=== PATIENT | female | born 1970 | race Caucasian/White ===

== ENCOUNTER 2018-06-08 18:13 | Emergency (ER) | payer OTHER ==
--- NOTE | 2018-06-08 19:16 | RAD REPORT ---
EXAM DESCRIPTION: RAD - Chest Pa And Lat (2 Views) - 06/08/2018 7:08 pm CLINICAL HISTORY: cough, fever Chest pain. COMPARISON: No comparisons FINDINGS: Mild linear opacities are seen in the lingula, suspicious for developing pneumonia. The kanu ngs are otherwise clear. The heart is normal in size. No displaced fractures. IMPRESSION: Early developing lingular pneumonia is suspected.
--- NOTE | 2018-06-08 19:44 | EDPHYS ---
Physician Documentation [facility] Name: Jessie Burleson Age: 48 yrs Sex: Female : 1970 Arrival Date: 06/08/2018 Time: 18:18 Bed DIS1 Private MD: KAREN HOGAN ED Physician Demetrio Hill HPI: 06/08 18:47 This 48 yrs old Female presents to ER via Ambulatory with complaints of Flu jmm Symptoms. 18:47 The patient or guardian reports cough. Onset: The symptoms/episode began/occurred jmm gradually, 2 day(s) ago. Modifying factors: The symptoms are alleviated by nothing. the symptoms are aggravated by nothing. Associated signs and symptoms: Pertinent positives: sore throat, Pertinent negatives:. This is a 48 year old female with a history of HTN that presents to the ED with cough, congestion, sore throat beginning this past Wednesday. Family members have similar symptoms. . Historical: - Allergies: 18:43 No Known Allergies; ph - PMHx: 18:43 Hepatitis; Hypertension; ph - PSHx: 18:43 Tonsillectomy; ; ph - Immunization history:: Adult Immunizations up to date. - Social history:: Smoking status: Patient/guardian denies using tobacco. - Ebola Screening: : No symptoms or risks identified at this time. ROS: 18:47 Eyes: Negative for injury, pain, redness, and discharge. jmm 18:47 Neck: Negative for injury, pain, and swelling, Cardiovascular: Negative for chest pain, palpitations, and edema. 18:47 Constitutional: Positive for chills. 18:47 ENT: Positive for sore throat. 18:47 Respiratory: Positive for cough. 18:47 All other systems are negative. Exam: 18:47 Constitutional: This is a well developed, well nourished patient who is awake, alert, jmm and in no acute distress. Head/Face: atraumatic. Eyes: EOMI, no conjunctival erythema appreciated ENT: Moist Mucus Membranes Neck: Trachea midline, Supple Chest/axilla: Normal chest wall appearance and motion. 18:47 Cardiovascular: Rate: normal, Rhythm: regular. 18:47 Respiratory: the patient does not display signs of respiratory distress, Respirations: normal, Breath sounds: are clear throughout. 18:47 Abdomen/GI: Inspection: abdomen appears normal, Bowel sounds: normal, Palpation: soft, nontender, in all quadrants. 18:47 Back: ROM is normal. 18:47 Musculoskeletal/extremity: ROM: intact in all extremities. 18:47 Skin: Appearance: Color: normal in color. 18:47 Neuro: Orientation: is normal, Mentation: is normal, Memory: is normal. 18:47 Psych: Behavior/mood is pleasant, cooperative. Vital Signs: 18:41 BP 142 / 95; Pulse 94; Resp 18; Temp 98.9(O); Pulse Ox 98% on R/A; Weight 90.72 kg; ph Height 5 ft. 7 in. (170.18 cm); Pain 10/10; 18:41 Body Mass Index 31.32 (90.72 kg, 170.18 cm) ph MDM: 18:43 Patient medically screened. [facility] 19:42 Data reviewed: vital signs, nurses notes. Counseling: I had a detailed discussion with [facility] the patient and/or guardian regarding: the historical points, exam findings, and any diagnostic results supporting the discharge/admit diagnosis, lab results, radiology results, the need for outpatient follow up, to return to the emergency department if symptoms worsen or persist or if there are any questions or concerns that arise at home. ED course: Patient is alert and non toxic in appearance in the ED. Patient advised to follow up with PCP in 1 to 2 days for reevaluation. Patient has no signs of resp distress. Patient given strict return precautions. . 06/08 18:44 Order name: Influenza Screen (a \T\ B); Complete Time: 19:28 [facility] 06/08 18:44 Order name: Strep; Complete Time: 19:28 [facility] 06/08 18:44 Order name: Chest Pa And Lat (2 Views) XRAY; Complete Time: 19:21 [facility] 06/08 19:25 Order name: Throat Culture EDMS Administered Medications: No medications were administered Disposition: 06/09 07:40 Co-signature as Attending Physician, Demetrio Hill MD I agree with the assessment and kdr plan of care. Disposition: 06/08/18 19:43 Discharged to Home. Impression: Pneumonia. - Condition is Stable. - Discharge Instructions: Community-Acquired Pneumonia, Adult. - Prescriptions for Levaquin 750 mg Oral Tablet - take 1 tablet by ORAL route once daily for 10 days; 10 tablet. - Medication Reconciliation Form, Thank You Letter, Antibiotic Education, Prescription Opioid Use form. - Follow up: KAREN HOGAN; When: 1 - 2 days; Reason: Recheck today's complaints, Continuance of care, Re-evaluation by your physician. Signatures: Dispatcher [employer] EDMS Demetrio Hill MD MD kdr Mickail, Joel, PA PA jmm Attema, Lee, RN RN la1 Rashmi Hercules RN RN ph Corrections: (The following items were deleted from the chart) 06/08 19:57 19:43 06/08/2018 19:43 Discharged to Home. Impression: Pneumonia. Condition is Stable. la1 Forms are Medication Reconciliation Form, Thank You Letter, Antibiotic Education, Prescription Opioid Use. Follow up: KAREN HOGAN; When: 1 - 2 days; Reason: Recheck today's complaints, Continuance of care, Re-evaluation by your physician. gayla
--- NOTE | 2018-06-08 19:44 | ER ---
Nurse's Notes [facility] Name: Jessie Burleson Age: 48 yrs Sex: Female : 1970 Arrival Date: 06/08/2018 Time: 18:18 Bed DIS1 Private MD: KAREN HOGAN Diagnosis: Pneumonia Presentation: 06/08 18:38 Presenting complaint: Patient states: Cough, sore throat, sore ribs, chills and body ph aches x 2-3 days, denies N/V/D. Transition of care: patient was not received from another setting of care. Onset of symptoms was June 08, 2018. Risk Assessment: Do you want to hurt yourself or someone else? Patient reports no desire to harm self or others. Initial Sepsis Screen: Does the patient meet any 2 criteria? No. Patient's initial sepsis screen is negative. Does the patient have a suspected source of infection? No. Patient's initial sepsis screen is negative. Care prior to arrival: None. 18:38 Method Of Arrival: Ambulatory ph 18:38 Acuity: ANGÉLICA 4 ph Historical: - Allergies: 18:43 No Known Allergies; ph - PMHx: 18:43 Hepatitis; Hypertension; ph - PSHx: 18:43 Tonsillectomy; ; ph - Immunization history:: Adult Immunizations up to date. - Social history:: Smoking status: Patient/guardian denies using tobacco. - Ebola Screening: : No symptoms or risks identified at this time. Screenin:56 Abuse screen: Denies threats or abuse. Nutritional screening: No deficits noted. la1 Tuberculosis screening: No symptoms or risk factors identified. Fall Risk None identified. Assessment: 18:55 General: Appears in no apparent distress. Behavior is calm, cooperative. Pain: Denies la1 pain. Neuro: Level of Consciousness is awake, alert, obeys commands, Oriented to person, place, time, situation. Cardiovascular: Capillary refill < 3 seconds Patient's skin is warm and dry. Respiratory: Airway is patent Trachea midline Respiratory effort is even, unlabored, Respiratory pattern is regular, symmetrical, Breath sounds are clear bilaterally. Respiratory: Reports cough that is non-productive, persistent. GI: No signs and/or symptoms were reported involving the gastrointestinal system. : No signs and/or symptoms were reported regarding the genitourinary system. Vital Signs: 18:41 BP 142 / 95; Pulse 94; Resp 18; Temp 98.9(O); Pulse Ox 98% on R/A; Weight 90.72 kg; ph Height 5 ft. 7 in. (170.18 cm); Pain 10/10; 18:41 Body Mass Index 31.32 (90.72 kg, 170.18 cm) ph ED Course: 18:18 Patient arrived in ED. sb2 18:19 KAREN HOGAN is Private Physician. sb2 18:23 Juan Burns PA is PHCP. jmm 18:23 Demetrio Hill MD is Attending Physician. m 18:33 Howie Townsend, RN is Primary Nurse. la1 18:41 Triage completed. ph 18:43 Arm band placed on. ph 18:56 Call light in reach. la1 18:56 No provider procedures requiring assistance completed. Patient did not have IV access la1 during this emergency room visit. 19:08 Chest Pa And Lat (2 Views) XRAY In Process Unspecified. EDMS 19:43 KAREN HOGAN is Referral Physician. [facility] Administered Medications: No medications were administered Outcome: 19:43 Discharge ordered by MD. m 19:57 Discharged to home ambulatory. la1 19:57 Condition: stable 19:57 Discharge instructions given to patient, Instructed on discharge instructions, follow up and referral plans. medication usage, Demonstrated understanding of instructions, follow-up care, medications, Prescriptions given X 1. 19:57 Patient left the ED. la1 Signatures: Dispatcher [employer] EDMS Juan Burns PA PA Howie Dee, RN RN la1 Rashmi Hercules RN RN Angela Patricio sb2
--- OUTSIDE RECORDS SUMMARY | 2018-06-10 16:31 | XMS REPORT ---
:1970 [facility] Address [address] [place] [address] Care Team Providers Name Role Phone DR MARYELLEN HAWKINS Unavailable Unavailable Problems This patient has no known problems. Allergies, Adverse Reactions, Alerts This patient has no known allergies or adverse reactions. Medications This patient has no known medications. Encounters Start End Encounter Admission Attending Care Care Encounter Date/Time Date/Time Type Type Clinicians Facility Department ID 2018-03-04 2018-03-04 Outpatient Nanci HAWKINS [facility] [id number] 03:56:00 05:45:00 MARYELLEN 2017-11-05 2017-11-05 Outpatient Nanci HAWKINS [facility] [id number] 04:10:00 07:30:00 MARYELLEN 2017-09-10 2017-09-10 Outpatient Nanci HAWKINS [facility] [id number] 04:29:00 06:32:00 MARYELLEN Results Test Description Test Time Test Comments Text Results Atomic Results Result Comments URINE MONOCLONALFB 2018-03-04 04:58:00 Test Item Value Reference Range Comments PREG UR (test code=PGU) NEGATIVE NEGATIVE URINE MONOCLONALFB2017-11-05 05:47:00 Test Item Value Reference Range Comments PREG UR (test code=PGU) NEGATIVE NEGATIVE URINE MONOCLONALFB2017-09-10 04:51:00 Test Item Value Reference Range Comments PREG UR (test code=PGU) NEGATIVE NEGATIVE URINE MONOCLONALFB2017-09-10 04:50:00 Test Item Value Reference Range Comments PREG UR (test code=PGU) NEGATIVE NEGATIVE
== END 2018-06-08 19:57 | disposition home or self-care (01) ==
LOC: ER 18:13
DX: J18.9 Pneumonia, unspecified organism (principal); I10 Essential (primary) hypertension
CPT/HCPCS: 71046; 87070; 87081; 87804; 99283

== ENCOUNTER 2019-03-12 05:07 | Emergency (ER) | payer OTHER ==
--- OUTSIDE RECORDS SUMMARY | 2019-03-12 05:09 | XMS REPORT ---
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
--- OUTSIDE RECORDS SUMMARY | 2019-03-12 05:09 | XMS REPORT ---
:1970 [facility] Address [address] [place] [address] Care Team Providers Name Role Phone DR MARYELLEN HAWKINS Unavailable Unavailable Payers Payer Name Policy Type Policy Number Effective Date Expiration Date Problems This patient has no known problems. Allergies, Adverse Reactions, Alerts Allergy Allergy Status Severity Reaction(s) Onset Inactive Treating Comments Name Type Date Date Clinician No Known DA Active U 2018-07 Allergies 00:00:0 0 Medications This patient has no known medications. Encounters Start End Encounter Admission Attending Care Care Encounter Date/Time Date/Time Type Type Clinicians Facility Department ID 2018-03-04 2018-03-04 Outpatient Nanci HAWKINS [facility] [id number] 03:56:00 05:45:00 MARYELLEN 2017-11-05 2017-11-05 Outpatient Nanci HAWKINS [facility] [id number] 04:10:00 07:30:00 MARYELLEN 2017-09-10 2017-09-10 Outpatient Nanci HAWKINS [facility] [id number] 04:29:00 06:32:00 MARYELLEN Results Test Description Test [...]
--- OUTSIDE RECORDS SUMMARY | 2019-03-12 05:09 | XMS REPORT ---
:1970 Author Organization [employer] Care Team Providers Name Role Phone Oralia Mohan Provider Role Unavailable Allergies, Adverse Reactions, Alerts Substance Reaction Event Type N.K.D.A. 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, in partial remission Problem Hypertension, unspecified type I10 Active Medications Medication Code Code Instructions Start End Status Dosage System Date Date Zestoretic [facility] 14696691450 20-25 MG Orally Active take 1 tablet Once a day every day Xerese [facility] 63712046107 5-1 % Active 1 application Externally Five to affected times a day area Trintellix [facility] 99382437587 10 MG Orally September Active 1 tablet Once a day 2018 Sertraline [facility] 34394551092 50 MG Orally Active take 1 tablet HCl Once a day every day Results No Known Results Summary Purpose [employer] Submission
--- NOTE | 2019-03-12 05:38 | ER ---
Nurse's Notes [facility] Name: Jessie Burleson Age: 48 yrs Sex: Female : 1970 Arrival Date: 03/12/2019 Time: 05:08 Bed 7 Private MD: Diagnosis: acute left ear foreign body sensation and discomfort Presentation: 03/12 05:25 Presenting complaint: Patient states: at 0400 she felt something in her left ear. ak1 Transition of care: patient was not received from another setting of care. Onset of symptoms was March 12, 2019 at 04:00. Risk Assessment: Do you want to hurt yourself or someone else? Patient reports no desire to harm self or others. Initial Sepsis Screen: Does the patient meet any 2 criteria? No. Patient's initial sepsis screen is negative. Does the patient have a suspected source of infection? No. Patient's initial sepsis screen is negative. Care prior to arrival: None. 05:25 Method Of Arrival: Ambulatory ak1 05:25 Acuity: ANGÉLICA 4 ak1 Triage Assessment: 05:28 General: Appears in no apparent distress. Behavior is calm, cooperative, appropriate ak1 for age. Pain: Denies pain. EENT: Reports insect in her left ear. Neuro: Level of Consciousness is awake, alert, obeys commands, Oriented to person, place, time, Moves all extremities. Speech is normal. Cardiovascular: No deficits noted. Respiratory: No deficits noted. GI: No signs and/or symptoms were reported involving the gastrointestinal system. : No signs and/or symptoms were reported regarding the genitourinary system. Derm: No signs and/or symptoms reported regarding the dermatologic system. Musculoskeletal: No signs and/or symptoms reported regarding the musculoskeletal system. 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 - Social history:: Smoking status: Patient/guardian denies using tobacco. - Ebola Screening: : No symptoms or risks identified at this time. - Family history:: not pertinent. - Hospitalizations: : No recent hospitalization is reported. Screenin:29 Abuse screen: Denies threats or abuse. Denies injuries from another. Nutritional ak1 screening: No deficits noted. Tuberculosis screening: No symptoms or risk factors identified. Fall Risk None identified. Assessment: 05:29 Reassessment: Patient appears in no apparent distress at this time. No changes from ak1 previously documented assessment. see triage assessment. Vital Signs: 05:24 BP 131 / 64; Pulse 98; Resp 18; Temp 98.0; Pulse Ox 97% on R/A; Weight 90.72 kg (R); ak1 Height 5 ft. 7 in. (170.18 cm) (R); Pain 0/10; 05:24 Body Mass Index 31.32 (90.72 kg, 170.18 cm) ak1 ED Course: 05:08 Patient arrived in ED. 1 05:22 Chet Ng MD is Attending Physician. nh 05:24 Sondra Jimenez RN is Primary Nurse. ak1 05:24 Arm band placed on Patient placed in an exam room, on a stretcher, on pulse oximetry, ak1 Patient notified of wait time. 05:26 Triage completed. ak1 05:29 Patient has correct armband on for positive identification. Bed in low position. Call ak1 light in reach. Side rails up X 1. Adult w/ patient. Pulse ox on. NIBP on. 05:47 No provider procedures requiring assistance completed. Patient did not have IV access ak1 during this emergency room visit. Administered Medications: No medications were administered Outcome: 05:37 Discharge ordered by . nh 05:47 Discharged to home ambulatory, with family. ak1 05:47 Condition: good 05:47 Discharge instructions given to patient, Instructed on discharge instructions, follow up and referral plans. Demonstrated understanding of instructions, follow-up care, medications, Prescriptions given X 1. 05:48 Patient left the ED. ak1 Signatures: Kimberly King ds1 Sondra Jimenez RN RN ak1 Chet Ng MD MD wa
--- NOTE | 2019-03-12 05:38 | EDPHYS ---
Physician Documentation [facility] Name: Jessie Burleson Age: 48 yrs Sex: Female : 1970 Arrival Date: 03/12/2019 Time: 05:08 Bed 7 Private MD: ED Physician Chet Ng HPI: 03/12 07:50 This 48 yrs old Female presents to ER via Ambulatory with complaints of Bug wa In Ear. 07:50 This 48 yrs old Female presents to ER via Ambulatory with complaints of Bug wa In Ear. 07:50 The patient presents with a foreign body sensation. The complaints affect the left ear. wa Onset: The symptoms/episode began/occurred just prior to arrival. Modifying factors: The symptoms are alleviated by nothing, the symptoms are aggravated by nothing. Associated signs and symptoms: The patient has no apparent associated signs or symptoms. Severity of symptoms: At their worst the symptoms were moderate in the emergency department the symptoms have resolved. The patient has not experienced similar symptoms in the past. The patient has not recently seen a physician. states awoke with FB sensation in L ear. they put peroxide in the ear and patted the side of the left side of head several times in route to ED. states has since improved. 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 - Social history:: Smoking status: Patient/guardian denies using tobacco. - Ebola Screening: : No symptoms or risks identified at this time. - Family history:: not pertinent. - Hospitalizations: : No recent hospitalization is reported. ROS: 07:52 Constitutional: Negative for fever, chills, and weight loss, Eyes: Negative for injury, wa pain, redness, and discharge, Neck: Negative for injury, pain, and swelling, Cardiovascular: Negative for chest pain, palpitations, and edema, Respiratory: Negative for shortness of breath, cough, wheezing, and pleuritic chest pain, Abdomen/GI: Negative for abdominal pain, nausea, vomiting, diarrhea, and constipation, Back: Negative for injury and pain, : Negative for injury, bleeding, discharge, and swelling, MS/Extremity: Negative for injury and deformity, Skin: Negative for injury, rash, and discoloration, Neuro: Negative for headache, weakness, numbness, tingling, and seizure, Psych: Negative for depression, anxiety, suicide ideation, homicidal ideation, and hallucinations. 07:52 ENT: Positive for foreign body sensation, of the left ear. 07:52 All other systems are negative. Exam: 07:52 Constitutional: This is a well developed, well nourished patient who is awake, alert, wa and in no acute distress. Head/Face: Normocephalic, atraumatic. Eyes: Pupils equal round and reactive to light, extra-ocular motions intact. Lids and lashes normal. Conjunctiva and sclera are non-icteric and not injected. Cornea within normal limits. Periorbital areas with no swelling, redness, or edema. Neck: Trachea midline, no thyromegaly or masses palpated, and no cervical lymphadenopathy. Supple, full range of motion without nuchal rigidity, or vertebral point tenderness. No Meningismus. Chest/axilla: Normal chest wall appearance and motion. Nontender with no deformity. No lesions are appreciated. Cardiovascular: Regular rate and rhythm with a normal S1 and S2. No gallops, murmurs, or rubs. Normal PMI, no JVD. No pulse deficits. Respiratory: Lungs have equal breath sounds bilaterally, clear to auscultation and percussion. No rales, rhonchi or wheezes noted. No increased work of breathing, no retractions or nasal flaring. Abdomen/GI: Soft, non-tender, with normal bowel sounds. No distension or tympany. No guarding or rebound. No evidence of tenderness throughout. Back: No spinal tenderness. No costovertebral tenderness. Full range of motion. Skin: Warm, dry with normal turgor. Normal color with no rashes, no lesions, and no evidence of cellulitis. MS/ Extremity: Pulses equal, no cyanosis. Neurovascular intact. Full, normal range of motion. Neuro: Awake and alert, GCS 15, oriented to person, place, time, and situation. Cranial nerves II-XII grossly intact. Motor strength 5/5 in all extremities. Sensory grossly intact. Cerebellar exam normal. Normal gait. Psych: Awake, alert, with orientation to person, place and time. Behavior, mood, and affect are within normal limits. 07:52 ENT: External ear(s): are unremarkable, Ear canal(s): foreign body, is not appreciated, TM's: mildly dull on L side compared to Right. Vital Signs: 05:24 BP 131 / 64; Pulse 98; Resp 18; Temp 98.0; Pulse Ox 97% on R/A; Weight 90.72 kg (R); ak1 Height 5 ft. 7 in. (170.18 cm) (R); Pain 0/10; 05:24 Body Mass Index 31.32 (90.72 kg, 170.18 cm) ak1 MDM: 05:22 Patient medically screened. ar 07:54 Differential diagnosis: otitis media, otitis externa, foreign body, acute otalgia, wa cerumen impaction. Data reviewed: vital signs, nurses notes. ED course: suspect FB came out prior to presentation. will cover with Cortisporin otic and advise close f/u. Administered Medications: No medications were administered Disposition: 03/12/19 05:37 Discharged to Home. Impression: acute left ear foreign body sensation and discomfort. - Condition is Stable. - Discharge Instructions: Ear Foreign Body, [id number]. - Prescriptions for Cortisporin- TC 3.3-3-10-0.5 mg/mL Otic Drops, Suspension - instill 4 drops by OTIC route every 6 hours for 4 days; 1 bottle. - Medication Reconciliation Form, Thank You Letter, Antibiotic Education, Prescription Opioid Use form. - Follow up: Private Physician; When: 2 - 3 days; Reason: Recheck today's complaints. - Problem is new. - Symptoms have improved. - Notes: no bug was noted in your ear canal on exam. see [facility] doctor within 2-3 days if sensation persists Signatures: Sondra Jimenez, RN RN ak1 Chet Ng MD MD ar Corrections: (The following items were deleted from the chart) 05:48 05:37 03/12/2019 05:37 Discharged to Home. Impression: acute left ear foreign body ak1 sensation and discomfort. Condition is Stable. Forms are Medication Reconciliation Form, Thank You Letter, Antibiotic Education, Prescription Opioid Use. Follow up: Private Physician; When: 2 - 3 days; Reason: Recheck today's complaints. Problem is new. Symptoms have improved. aguilar
[2019-03-12 06:10] VITALS: BP 131/64; TEMP 98; O2SAT 97
== END 2019-03-12 05:48 | disposition home or self-care (01) ==
LOC: ER 05:07
DX: H93.8X2 Other specified disorders of left ear (principal); I10 Essential (primary) hypertension
CPT/HCPCS: 99283

== ENCOUNTER 2020-04-02 07:07 | Day surgery (SDC) | payer OTHER ==
--- OUTSIDE RECORDS SUMMARY | 2020-04-02 07:14 | XMS REPORT | Continuity of Care Document ---
:1970 Author Organization [facility] t Address [address] [place] [address] Care Team Providers Name Role Phone DR SHRUTHI Attending Clinician Unavailable DR SHRUTHI Admitting Clinician Unavailable Payers Payer Name Policy Type Policy Number Effective Date Expiration Date S ource Problems Condition Condition Condition Status Onset Resolution Last Treating Co mments Source Name Details Category Date Date Treatment Clinician Date Muscle Muscle Problem Active [facility] Major Major Diagnosis Active [facility] depressive depressive Delicia kes - disorder disorder Memori a with with l single single Outpati episode, episode, ent in partial in partial Cl inics remission remission Hypertensi Hypertensi Problem Active [facility], on, [facility] unspecifie unspecifie Me moria d type d type l Outpati ent Clinics Anxiety Anxiety Problem [facility] Allergies, Adverse Reactions, Alerts Allergy Allergy Status Severity Reaction(s) Onset Inactive Treating Comm ents Source Name Type Date Date Clinician No Known DA Active [facility] [place] [facility] Medications Ordered Filled Start Stop Current Ordering Indication Dosage Frequency Signature Comments Components Source Medication Medication Date Date Medication? Clinician (SIG) Name Name Trintellix Trintellix Yes Cintia TAKE [address] [facility] 4-05 [place] TABLET BY [facility] - 00:00: MOUTH Memoria 00 EVERY DAY l Outpati ent Clinics Zestoretic Zestoretic Yes Cintia take [address] [facility] [place] [facility] BusPIRone BusPIRone Yes Cintia [address] [facility] HCl HCl [place] [facility] Clin[facility] Procedures This patient has no known procedures. Encounters Start End Encounter Admission Attending Care Care Encounter Source Date/Time Date/Time Type Type Clinicians Facility Department ID 2020-02-08 2020-02-08 [facility] [id number] [facility] 08:20:00 08:20:00 [facility] Medicine Outpati ent Clinics 2019-11-09 2019-11-09 [facility] [id number] 16:20:00 16:20:00 [facility] Medicine Outpati ent Clinics 2019-10-09 2019-10-09 [facility] [id number] [facility] 16:00:00 16:00:00 [facility] Medicine Outpati ent Clinics 2019-10-06 2019-10-06 [facility] [id number] [facility] 15:12:00 15:12:00 [facility] Medicine Outpati ent Clinics 2019-08-03 2019-08-03 [facility] [id number] [facility] 15:00:00 15:00:00 [facility] Medicine Outpati ent Clinics 2019-07-20 2019-07-20 [facility] [id number] 17:35:00 17:35:00 [facility] Medicine Outpati ent Clinics 2019-07-20 2019-07-20 [facility] [id number] 16:20:00 16:20:00 [facility] Medicine Outpati ent Clinics 2019-07-14 2019-07-14 [facility] [id number] 11:36:00 11:36:00 [facility] Medicine Outpati ent Clinics 2019-04-13 2019-04-13 [facility] [id number] [facility] 08:00:00 08:00:[address] [facility] Outpati ent Clinics 2019-03-02 2019-03-02 [facility] [id number] [facility] 16:00:00 16:00:[address] [facility] Outpati ent Clinics 2018-12-06 2018-12-06 [facility] [id number] [address] 11:46:00 11:46:[address] [facility] Outpati ent Clinics 2018-10-12 2018-10-12 [facility] [id number] [address] 16:40:00 16:40:00 [facility] ent [facility] 2018-03-04 2018-03-04 Outpatient Nanci HAWKINS [facility] [id number] [place] 03:56:00 05:45:00 [facility] 2017-11-05 2017-11-05 Outpatient Nanci HAWKINS [facility] [id number] [place] 04:10:00 07:30:00 [facility] 2017-09-10 2017-09-10 Outpatient Nanci HAWKINS [facility] [id number] [place] 04:29:00 06:32:00 [facility] Results Test Description Test Time Test Comments Results Result Comments Source URINE MONOCLONALFB 2018-03-04 04:58:00 Test Item Value Reference Range Interpretation Comme nts PREG UR (test code = PGU) NEGATIVE NEGATIVE URINE MONOCLONALFB2017-11-05 05:47:00 Test Item Value Reference Range Interpretation Comments PREG UR (test code = PGU) NEGATIVE NEGATIVE URINE MONOCLONALFB2017-09-10 04:51:00 Test Item Value Reference Range Interpretation Comments PREG UR (test code = PGU) NEGATIVE NEGATIVE URINE MONOCLONALFB2017-09-10 04:50:00 Test Item Value Reference Range Interpretation Comments PREG UR (test code = PGU) NEGATIVE NEGATIVE
--- OUTSIDE RECORDS SUMMARY | 2020-04-02 07:14 | XMS REPORT ---
:1970 Author Organization [employer] Care Team Providers Name Role Phone Cintia Mohan Provider Role Unavailable Allergies, Adverse Reactions, Alerts Substance Reaction Event Type N.K.D.A. Info Not Available Non Drug Allergy Problems Problem Type Condition Code Onset Dates Condition Statu s Assessment Anxiety F41.9 Active Assessment Muscle cramps R25.2 Active Problem Muscle cramps R25.2 Active Problem Major depressive disorder with single F32.4 Active episode, in partial remission Problem Anxiety F41.9 Active Assessment Hypertension, unspecified type I10 Active Assessment Major depressive disorder with single F32.4 Active episode, in partial remission Problem Hypertension, unspecified type I10 Active Medications Medication Code Code Instructions Start End Date Status Dosage System Date Trintellix [facility] 47924198666 10 MG Active TAKE 1 TABLET BY MOUTH EVERY DAY Zestoretic [facility] 74930759147 20-25 MG Orally Active t sher 1 Once a day tablet every day BusPIRone HCl [facility] 46672920891 7.5 MG Orally Active 1 tablet Three times a day Results No Known Results Summary Purpose [employer] Submission
[2020-04-02] MEDS ORDERED: Ringers Lactate 1,000 ML IV ONE (07:34)
[2020-04-02] MEDS ORDERED: FENTANYL CITR 100 MCG/2 ML ONE (08:07)
[2020-04-02] MEDS ORDERED: propofoL 200 MG/20 ML VIAL IV ONE (08:07)
[2020-04-02] MEDS ORDERED: MIDAZOLAM HCL 2 MG/2 ML INJ ONE (08:07)
[2020-04-02] MEDS ORDERED: LIDOCAINE 2% MPF 5 ML VIAL ONE (08:07)
[2020-04-02] MEDS ORDERED: dexAMETHasone 4 MG/ML VIAL ONE (08:08)
[2020-04-02] MEDS ORDERED: NA CHLORIDE 0.9% 1,000 ML ONE (08:14)
[2020-04-02] MEDS ORDERED: LIDOCAINE 1% W/EPI 1:100,000 MDV 20 ML VIAL ONE (08:14)
[2020-04-02] MEDS ORDERED: KETOROLAC 30 MG/ML INJ ONE (09:13)
[2020-04-02] MEDS ORDERED: HYDROCODONE/APAP 5/325 MG TAB PO ONE (10:05)
[2020-04-02] MEDS ORDERED: HYDROCODONE/APAP 5/325 MG TAB ONE (10:16)
[2020-04-02 10:26] VITALS: BP 127/67; TEMP 97.4; O2SAT 99
--- NOTE | 2020-04-02 10:34 | OP ---
Date of Procedure: 04/02/2020 Surgeon: No Cid MD Preoperative Diagnosis: Excessive menstrual cycle with leiomyomata (AUB-L). Postoperative Diagnosis: Excessive menstrual cycle with leiomyomata (AUB-L) and possible cervical ma ss. Procedures Performed: 1.Exam under anesthesia, cervical biopsies. 2.Hysteroscopy, polypectomy with MyoSure and dilatation and curettage. Anesthesia: General with LMA. Specimens: Cervical biopsy and endometrial curettings with polyps. Complications: No complications. Drains: No drains. Condition: Stable. Ebl: Minimal. Findings: On exam on direct visualization on the cervical canal, the circumferential irregular tissu e starting at 1 o'clock to 5 o'clock in anticlockwise direction, appeared to be irregular and concern ing for a cervical mass, so this was biopsied with punch biopsy. Then, on diagnostic hysteroscopy, 3 polyps were noted, 1 at the fundus posterior wall and 2 on the right lateral wall. There was impres cherise of a leiomyoma on the left wall of the uterus. Rest of the endometrial cavity unremarkable. Indications: The patient is a 49-year-old with bleeding. She was evaluated with transvaginal ultras ound, had fibroid in her uterus. Endometrial lining was thickened concerning for polyps or a myoma. She was unable to tolerate even an office exam very well and therefore wanted to have a hospital-bas ed procedure for pain control and sedation, so this could be feasible with optimal visualization and performance of all the procedures that were indicated. Description Of Procedure: After informed consent was verified, she was taken back to OR, placed in a supine fashion on the operating table. General anesthesia was given. Placed in a dorsal lithotomy position. Vulva, vagina, perineum were prepped in a sterile fashion. Speculum was placed to expose the cervix. Anterior lip was grasped with a single-tooth tenaculum. After visualizing the entire ce rvix well, cervical punch biopsy forceps was taken and biopsies were performed at 8, 9 and 10 o'clock positions and 12. Cauterization here with the help of astringent was done with scope at the end of the procedure. Then, direct hysteroscopy was performed with SlimLine hysteroscope entering the uterine cavity. Once the cavity was entered, the polyps were noted in the fundal aspect in the center posterior wall and on the right lateral wall small polyp polyps were seen as well. The rest of the endometrium thickene d, but impression of the fibroid on the left side. The diagnostic scope was pulled out and a hystero scopic resecting scope was introduced. The MyoSure Lite device was inserted and the polyps were cut and removed and then the endometrial curettings were performed with the help of the same device as we ll as the left lateral wall biopsy, which probably could include small fragments of the myoma. There was excellent hemostasis. All the instruments were removed. Instrument and sponge counts were done and were correct at the end of the case. The patient tolerated the procedure well. She was re covered from anesthesia and taken to the PACU in a stable condition. She was given 30 mg of Toradol prior to being woken up. She has a 1 week followup appointment in the office. She will be discharge d today after tolerating diet and ambulating well. No pain medication, ibuprofen, and other discharg e instructions have been given to the patient in the form of a handout. I looked for her significant other but was unable to find him. We will communicate results with the patient later. SANG Voice ID: [id number] Report ID: [id number]
== END 2020-04-02 10:30 | disposition home or self-care (01) ==
LOC: OR 07:07
PROVIDERS: ATTEND Obstetrics & Gynecology
PROC: 0UBC8ZX Excision of Cervix, Via Natural or Artificial Opening Endoscopic, Diagnostic (ICD-10-PCS; principal; 2020-04-02 08:00)
PROC: 0UDB8ZX Extraction of Endometrium, Via Natural or Artificial Opening Endoscopic, Diagnostic (ICD-10-PCS; 2020-04-02 08:00)
DX: C53.0 Malignant neoplasm of endocervix (principal); C54.1 Malignant neoplasm of endometrium; D25.0 Submucous leiomyoma of uterus; D25.2 Subserosal leiomyoma of uterus; I10 Essential (primary) hypertension; E05.90 Thyrotoxicosis, unspecified without thyrotoxic crisis or storm; Z20.828 Contact with and (suspected) exposure to other viral communicable diseases
CPT/HCPCS: 81025; 88305; 58558; U0002; J2704; J1100; J2250; J3010; J7120; J7030

== ENCOUNTER 2020-05-02 20:29 | Emergency (ER) | payer OTHER ==
--- OUTSIDE RECORDS SUMMARY | 2020-05-02 20:33 | XMS REPORT | Continuity of Care Document ---
:1970 Author Organization [facility] t Address [address] [place] [address] Dr. Castillo. [address] [place] [address] Care Team Providers Name Role Phone KAYE Primary Care Physician Unavailable KAYE Attending Clinician Unavailable SYSTEM, NOT IN Attending Clinician Unavailable Kaye GARDNER Attending Clinician Ekaterina HOWELL, P Attending Clinician Madelin CHAVEZ Attending Clinician MADELIN Attending Clinician Unavailable Sumi Rodríguez Attending Clinician Unavailable Usha CASILLAS, A Attending Clinician Unavailable Keyon CASILLAS, S Attending Clinician Unavailable Yuliana GARDNER Attending Clinician EDWARD VIGIL Attending Clinician Unavailable Edward Roman Attending Clinician Fortunato CHAVEZ Attending Clinician Torey Tee MA Attending Clinician Connor GARDNER G Attending Clinician Forrest GARDNER, SGonsalo Attending Clinician Lili Attending Clinician Unavailable DR SHRUTHI Attending Clinician Unavailable KAYE Admitting Clinician Unavailable DR SHRUTHI Admitting Clinician Unavailable Payers Payer Name Policy Type Policy Number Effective Date Expiration Date Ankur FUENTES HMO POS [id number] 2008 00:00:00 OPEN ACCESS Problems Condition Condition Condition Status Onset Resolution Last Treating Co mments Source Name Details Category Date Date Treatment Clinician Date Malignant Malignant Disease Active 2019-06 neoplasm neoplasm 0-26 Dc o of cervix of cervix 00:00: n uteri uteri 00 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 0-26 An derso l l 00:00: n hyperplasi hyperplasi 00 a a Abnormal Abnormal Disease Active 2019-06 MD uterine uterine 0-26 Anderso bleeding bleeding 00:00: n 00 Malignant Malignant Disease Active 2019-06 MD neoplasm neoplasm 0-26 Dc o of of 00:00: n endometriu endometriu 00 m m Anxiety Anxiety Disease Active 2019-06 MD disorder disorder 0-26 Dc o 00:00: n 00 Essential Essential Disease Active 2019-06 hypertensi hypertensi 0-26 An derso on on 00:00: n 00 Chronic Chronic Disease Active 2019-06 depression depression 0-26 An derso 00:00: n 00 Allergies, Adverse Reactions, Alerts Allergy Allergy Status Severity Reaction(s) Onset Inactive Treating Comm ents Source Name Type Date Date Clinician No Known DA Active [facility]15 [place] [facility] Family History Family Member Diagnosis Comments Start Date Stop Date Source Maternal aunt Breast cancer Clement son Maternal aunt Lung cancer MD Ramríez n Maternal grandfather Lung cancer MD Coleman Maternal uncle Lung cancer MD Irwin on Paternal aunt Breast cancer Clement son Paternal grandmother Lung cancer MD Coleman Natural sister Cervical cancer MD Ely ross Social History Social Habit Start Date Stop Date Quantity Comments Source Sex Assigned At MD Irwin on Exposure to Not sure MD Coleman SARS-CoV-2 (event) Tobacco use and 2020-04-26 2020-04-26 Never used MD Irwin on exposure 00:00:00 00:00:00 Alcohol intake 2020-04-26 2020-04-26 Current drinker MD Ely ross 00:00:00 00:00:00 of alcohol (finding) Alcohol Comment 2020-04-15 2020-04-15 social MD Irwin on 00:00:00 00:00:00 Smoking Status Start Date Stop Date Source Never smoker MD Coleman Medications Ordered Filled Start Stop Current Ordering Indication Dosage Frequency Signature Comments Components Source Medication Medication Date Date Medication? Clinician (SIG) Name Name aspirin 81 2019-06 Yes 81mg Take 81 mg M D mg EC 1-12 by mouth Anderso tablet 16:58: daily. n 55 LYSINE ORAL 2019-06 Yes 1{tbl} Take 1 MD 1-12 tablet by Anderso 16:58: mouth n 55 daily. POTASSIUM 2019-06 Yes 1{tbl} Take 1 MD ORAL 1-12 tablet by Anderso 16:58: mouth n 55 daily. Trintellix 2019-06 Yes 1{tbl} Take 1 MD 10 mg tab 0-23 tablet by Clement so 00:00: mouth n 00 daily. busPIRone Yes 1{tbl} Take 1 MD (BUSPAR) 8-21 tablet by Dc o 7.5 mg 00:00: mouth 3 n tablet 00 (three) times a day. lisinopril- Yes 1{tbl} Take 1 MD hydroCHLORO 8-20 tablet by And erso thiazide 00:00: mouth n (PRINZIDE,Z 00 daily. ESTORETIC) 20-25 mg per tablet Trintellix Trintellix Yes Cintia TAKE [address] [facility] [place] TABLET BY [facility] 00:[facility]: MOUTH Memoria 00 EVERY DAY l [facility] ent Clinics Zestoretic Zestoretic Yes Cintia take [address] [facility] BusPIRone BusPIRone Yes Cintia [address] [facility] HCl HCl [facility] ent Clin[facility] Vital Signs Vital Name Observation Time Observation Value Comments Source WEIGHT 2020-05-02 10:48:00 89.3 kg WEIGHT 2020-05-02 10:48:00 89.3 kg Systolic blood pressure 2020-05-02 16:57:34 132 mm[Hg] MD Coleman Diastolic blood pressure 2020-05-02 16:57:34 86 mm[Hg] MD Coleman Heart rate 2020-05-02 16:57:34 67 /min MD Vaughan son Body temperature 2020-05-02 16:57:34 36.72 Leighann MD Andre moreno Respiratory rate 2020-05-02 16:57:34 16 /min MD Andre moreno Oxygen saturation in 2020-05-02 16:57:34 99 /min MD Coleman Arterial blood by Pulse oximetry Body weight 2020-05-02 16:48:00 89.3 kg Clement holbrook BMI 2020-05-02 16:48:00 31.64 kg/m2 Clement sheron Body height 2020-05-01 20:36:00 168 cm Clementoralia holbrook Procedures Procedure Date / Time Performed Performing Clinician [facility] e PETCT CONTRAST ENHANCED 2020-05-01 22:30:00 Carmen Yusuf MD INITIAL TREATMENT STRATEGY PROTHROMBIN TIME 2020-05-01 20:12:00 Carmen Yusuf MD TYPE AND SCREEN 2020-05-01 20:12:00 Carmen Yusuf MD PARTIAL THROMBOPLASTIN TIME 2020-05-01 20:12:00 Carmen Yusuf MD ABORH 2020-05-01 20:12:00 Carmen Yusuf MD ANTIBODY SCREEN 2020-05-01 20:12:00 Carmen Yusuf MD CLOT EXPIRATION DATE 2020-05-01 20:12:00 Carmen Yusufe rson TMP INTERPRETATION ANTIBODY 2020-05-01 20:12:00 Carmen Yusuf MD SCREEN NEGATIVE CONFIRM ABORH TYPE 2020-05-01 20:09:00 Carmen Yusufers on URINALYSIS WITH MICROSCOPIC IF 2020-05-01 20:08:00 Carmen Yusuf MD INDICATED HUMAN CHORIONIC GONADOTROPIN, 2020-05-01 20:08:00 Carmen Yusuf MD QUALITATIVE, URINE URINALYSIS MICROSCOPIC 2020-05-01 20:08:00 Carmen Yusuf MD derson 2018-NCOV COVID-19 2020-05-01 15:21:00 Debbie Restrepo MD And paulinaon IR CT GUIDED BIOPSY 2020-04-26 20:42:54 Carmen Yusuf MD Clement son MUSCLE/SOFT TISSUE PELVIC PATHOLOGY BIOPSY 2020-04-26 20:24:00 Carmen Yusuf MD INTERPRETATION PROTHROMBIN TIME 2020-04-26 17:41:00 Washington Vigil MD HUMAN CHORIONIC GONADOTROPIN, 2020-04-26 17:31:00 Washington Vigil MD QUALITATIVE, URINE US HEAD NECK SOFT TISSUE 2020-04-26 16:38:15 Carmen Yusuf MD US FINE NEEDLE ASPIRATION 2020-04-26 16:38:15 Carmen Yusuf MD CYTOLOGY IMAGE-GUIDED FNA 2020-04-26 14:39:00 Carmen Yusuf MD INTERPRETATION MRI PELVIS W WO CONTRAST - RANGE AID 2020-04-19 21:36:[address] CHEST W CONTRAST 2020-04-17 12:24:00 Carmen Yusuf MD Clement son PATHOLOGY BIOPSY 2020-04-15 15:20:00 Carmen Yusuf MD INTERPRETATION COMPREHENSIVE METABOLIC PANEL 2020-04-15 15:16:00 Carmen Yusuf MD COMPLETE BLOOD COUNT W/ 2020-04-15 15:16:00 Carmen Yusuf MDrson DIFFERENTIAL HEMOGLOBIN A1C 2020-04-15 15:16:00 Carmen Yusuf MD HC HIV 1/2 AG AND AB 4TH GEN 2020-04-15 15:16:00 Carmen Yusuf MD GLUCOSE LEVEL 2020-04-15 15:16:00 Carmen Yusuf MD BLOOD UREA NITROGEN 2020-04-15 15:16:00 Carmen Yusuf MD Clement son ELECTROLYTE PANEL 2020-04-15 15:16:00 Carmen Yusuf MD Andpaulinao n SERUM CREATININE 2020-04-15 15:16:00 Carmen Yusuf MD .GLOMERULAR FILTRATION RATE 2020-04-15 15:16:00 Carmen Yusuf MD CALCIUM LEVEL TOTAL 2020-04-15 15:16:00 Carmen Yusuf MD Clement son ALBUMIN LEVEL 2020-04-15 15:16:00 Carmen Yusuf MD ALKALINE PHOSPHATASE 2020-04-15 15:16:00 Carmen Yusuf MD rson ALANINE AMINOTRANSFERASE 2020-04-15 15:16:00 Carmen Yusuf MD ASPARTATE AMINOTRANSFERASE 2020-04-15 15:16:00 Carmen Yusuf TOTAL PROTEIN 2020-04-15 15:16:00 Carmen Yusuf MD FRACTIONATED BILIRUBIN 2020-04-15 15:16:00 Carmen Yusuf MD derson Results CBC 2020-04-15 15:16:00 Carmen Yusuf MD MANUAL DIFFERENTIAL 2020-04-15 15:16:00 Carmen Yusuf MD Clement son TMP HIV 1/2 AG&AB PATH INTERP 2020-04-15 15:16:00 Carmen Yusuf MD SOLORIO MISCELLANEOUS TEST 2020-04-15 15:16:00 Carmen Yusuf MD nderson 2018-NCOV COVID-19 2020-04-11 18:14:00 Debbie Restrepo MD And erson PATHOLOGY OUTSIDE 2020-04-02 00:00:00 Justyna Clayton MD INTERPRETATION OSI US PELVIC 2020-03-14 16:48:17 Debbie Restrepo MD Plan of Care Planned Activity Planned Date Details Comments Source Encounters Start End Encounter Admission Attending Care Care Encounter Source Date/Time Date/Time Type Type Clinicians Facility Department ID 2020-04-16 Inpatient CHRIS RESTREPO [facility] [id number] 17:10:12 DEBBIE Oncology Dc bah 2020-04-10 Outpatient [facility], MDA MDA [id number] 10:32:06 PROVIDER Dc o niurka 2020-05-02 2020-05-02 Outpatient EL KAYE CHRIS MDA [id number] 10:26:34 13:05:48 DEBBIE Dc o n 2020-05-01 2020-05-01 Outpatient EL CARMEN YUSUF MDA MDA [id number] 14:20:38 14:20:38 Dc o niurka 2020-05-01 2020-05-01 Outpatient EL CARMEN YUSUF MDA MDA [id number] 13:48:22 13:48:22 Dc o n 2020-05-01 2020-05-01 Outpatient EL CARMEN YUSUF MDA MDA [id number] 09:14:15 09:43:40 Dc o n 2020-04-30 2020-04-30 Outpatient EL CARMEN YUSUF MDA MDA [id number] 09:02:42 09:42:36 Dc o niurka 2020-04-26 2020-04-26 Outpatient EL CARMEN YUSUF MDA MDA [id number] 12:41:43 23:59:00 Dc o n 2020-04-26 2020-04-26 Outpatient EL WASHINGTON VIGIL MDA MDA [id number] 11:31:33 12:40:00 Dc o niurka 2020-04-26 2020-04-26 Outpatient CARMEN KIM MDA MDA [id number] 07:37:43 07:37:43 Dc bah 2020-04-25 2020-04-25 Outpatient EDEN RESTREPO MDA MDA [id number] 10:30:00 23:59:00 DEBBIE bah 2020-04-19 2020-04-19 Outpatient CARMEN KIM MDA MDA [id number] 14:40:32 14:40:32 Dc bah 2020-04-19 2020-04-19 Outpatient [facility] [id number] ent Clinics 2020-04-17 2020-04-17 Outpatient EDEN RESTREPO MDA MDA [id number] 11:46:26 11:46:26 DEBBIE bah 2020-04-17 2020-04-17 Outpatient CARMEN KIM MDA MDA [id number] 07:02:02 07:02:02 Dc bah 2020-04-15 2020-04-15 Outpatient CARMEN KIM MDA MDA [id number] 09:58:12 10:17:54 Dc bah 2020-04-15 2020-04-15 Outpatient EDEN RESTREPO MDA MDA [id number] MD 08:01:09 08:01:09 DEBBIE bah 2020-04-15 2020-04-15 Outpatient EDEN RESTREPO MDA MDA [id number] MD 07:54:14 07:56:50 DEBBIE bah 2020-04-11 2020-04-11 Outpatient EDEN RESTREPO MDA MDA [id number] 13:06:29 13:06:29 DEBBIE bah 2020-02-08 2020-02-08 [facility] [id number] [facility] 08:20:00 08:20:00 [facility] Medicine Outpati ent Clinics 2019-11-09 2019-11-09 [facility] [id number] [facility] 16:20:00 16:20:00 [facility] Medicine Outpati ent Clinics 2019-10-09 2019-10-09 [facility] [id number] 16:00:00 16:00:00 t [facility] Medicine Outpati ent Clinics 2019-10-06 2019-10-06 [facility] [id number] [address] 15:12:00 15:12:00 t [facility] Medicine Outpati ent Clinics 2019-08-03 2019-08-03 [facility] [id number] [address] 15:00:00 15:00:00 t [facility] Medicine Outpati ent Clinics 2019-07-20 2019-07-20 [facility] [id number] 17:35:00 17:35:00 t [facility] Medicine Outpati ent Clinics 2019-07-20 2019-07-20 [facility] [id number] 16:20:00 16:20:00 t [facility] Medicine Outpati ent Clinics 2019-07-14 2019-07-14 [facility] [id number] 11:36:00 11:36:00 t [facility] Medicine Outpati ent Clinics 2019-04-13 2019-04-13 [facility] [id number] 08:00:00 08:00:00 t [facility] Medicine Outpati ent Clinics 2019-03-02 2019-03-02 [facility] [id number] 16:00:00 16:00:00 t [facility] Medicine Outpati ent Clinics 2018-12-06 2018-12-06 [facility] [id number] [address] 11[facility]46:00 11:46:00 t [facility] Medicine Outpati ent Clinics 2018-10-12 2018-10-12 [facility] [id number] 16:40:00 16:40:00 [facility] Medicine Outpati ent Clinics 2018-03-04 2018-03-04 Outpatient Nanci HAWKINS [facility] [id number] [place] 03:56:00 05:45:00 [facility] 2017-11-05 2017-11-05 Outpatient Nanci HAWKINS [facility] [id number] [place] 04:10:00 07:30:00 [facility] 2017-09-10 2017-09-10 Outpatient Nanci HAWKINS [facility] [id number] [place] 04:29:00 06:32:00 [facility] Results Test Description Test Time Test Comments Results Result [facility] e Comments PETCT Contrast 2020-05-02 Primary neoplasm Jared Enhanced Initial 14:54:20 is noted within the Treatment cervix. Nodular Strategy density is noted in the paracervical region, may represent a paracervical lymph node Left common iliac lymph node has been biopsied and demonstrated no evidence of lymphoid tissue. Interface, Radiology Results In - 05/02/2020 8:56 AM CSTFULL RESULT:Examination: Contrast-Enhanced FDG PET/CT, 05/01/2020 4:30 PMClinical History: Squamous cell cancer of the cervixIndication: Evaluate disease statusComparison: None correlation was made to an MRI dated April 19, 2020Technique: Following intravenous administration of 10.9 mCi of F-18 FDG via the left and cubital vein a PET/CT was performed from the vertex of the skull to the proximal thighs. The blood glucose level at the time of injection was [address] scanning was done for attenuation correction, image registration, and diagnosis with scan parameters optimized to minimize radiation exposure to the patient. The CT portion of the examination was performed with intravenous and enteric contrast. SUV measurements are reported as maximum SUV based on body weight unless otherwise specified. Findings: Head and Neck: No FDG avid disease is noted within the brain. No neck adenopathy is noted to suggest metastatic disease.Chest: Biopsy-proven pulmonary nodules are noted within the thyroid gland. No lung nodules identified to suggest metastatic disease. Nonspecific right upper lobe pulmonary nodule is noted measures less than 5 mm and is unchanged since the prior study. The heart is normal size.Abdomen and Pelvis: No focal hepatic lesions identified to suggest malignancy. There is no intrahepatic or extra hepatic biliary ductal dilation. The spleen the adrenal glands and the pancreas are normal. There is no evidence hydronephrosis. The gallbladder is normal.A left common iliac lymph node is noted measures 1.4 x 1.1 cm is FDG avid has a maximum SUV of 4.5 has been biopsied previously however no lymphoid tissue is noted within this lymph node.A mass is noted within the cervix has a maximum SUV of 13.6. Left paracervical nodule is identified has a maximum SUV of 4.0 and is of concern for metastatic disease. Fibroids are noted within the uterus. Cysts are noted within the ovaries bilaterally.Musculo skeletal: No definite skeletal metastases are noted.IMPRESSION:Pr imary neoplasm is noted within the cervix. Nodular density is noted in the paracervical region, may represent a paracervical lymph nodeLeft common iliac lymph node has been biopsied and demonstrated no evidence of lymphoid tissue. COVID-19 (ANTONIO-CoV-2) PCR Asymptomatic 2020-05-02 06:10:49 Test Item Value Reference Range Interpretation Comme nts COVID19 SARS Indication (test Pre-OR Procedure code = 43604) COVID19 SARS Result (test code Not Detected Not Detected = 02036-6) COVID19 SARS Interpretation SARS-CoV-2 NOT Detected. Reference (test code = 78812) Range: Not Detected Methodology: The Brandon RealTime SARS-CoV-2 assay is a qualitative real-time reverse teletype or varitype keyboard operator polymerase chain reaction (computerized mill mill recorder-PCR) test to detect RNA from SARS-CoV-2 in nasal, nasopharyngeal and oropharyngeal swabs from patients with signs and symptoms of infection who are suspected of COVID-19 by their health care provider. The Brandon RealTime SARS-CoV-2 performed on the Huoshi000 System is a dual target assay with primers and probes for the RdRp and N genes. Results must be interpreted within the context of all relevant clinical and laboratory findings, and epidemiological risk factors. Positive results are indicative of the presence of SARS-CoV-2 RNA; clinical correlation with patient history and other diagnostic information is necessary to determine patient infection status. Positive results do not rule out bacterial infection or co-infection with other viruses. Negative results do not preclude SARS-CoV-2 infection and should not be used as the sole basis for patient management decisions. The Brandon RealTime SARS-CoV-2 assay is for in vitro diagnostic use under FDA Emergency Use Authorization only. Testing is limited to laboratories certified under the Clinical Laboratory Improvement Amendments of 1988 (CLIA), 42U.S.C. 263a, to perform high complexity tests. The Test was performed by the CLIA-certified, high-complexity Molecular Diagnostics Laboratory (MDL) at [facility] under the Food and Drug Administration (FDA) s Emergency Use Authorization. Factsheet for patients: https://www.[facility].org/AbbottFactS heetPatientsFactsheet for healthcare providers: https://www.[facility].org/AbbottFactS heetHCP Test performed by:The [facility] Molecular Diagnostic [address] [place] [address] MD ColemanTM Interpretation Antibody Screen [id number] 02:03:55 Test Item Value Reference Range Interpretation Comments TMP Auto Neg At the present ABSC Interp time, patient (test code = plasma shows no ____HAKAN PERDOMO MD - 7535) evidence of RBC 03999Gdbnqzf d by: HAKAN alloantibodies. MD Mita ADRIAN [id number] D ate/Time: 05.01.2020 20:0 3 PM VERIFICATION CLERK Transcribed Da te/Time: 05.01.2020 20:0 3 PM CSTElectronical ly Signed By: MD Mita BROWN [id number] on 05.01 20:03 PM MD ColemanAntibody [id number] 23:23:07 Test Item Value Reference Range Interpretation Comments ABSC. (test code = Negative ABSC 890-4) MELLISSA (test code = MELLISSA) Please schedule at [facility] MD [id number] 23:22:52 Test Item Value Reference Range Interpretation Comments ABORh. (test code = A POS 882-1) MELLISSA (test code = MELLISSA) Please schedule at [facility] MD ColemanClot Expiration [id number] 23:22:50 Test Item Value Reference Range Interpretation Comments T & S Expiration (test code = 05/04/2020 5318) MD ColemanConfirm [id number] 23:22:13 Test Item Value Reference Range Interpretation Comments ABORh Confirm. (test code = 882-1) A POS MD ColemanPartial Thromboplastin [id number] 20:54:36 Test Item Value Reference Range Interpretation Comments PTT (test code 27.3 24.2- 36.0 Testing Perfo rmed = 68159-0) second(s) [facility] [address] [address]FVGT Licen se: [id number] MELLISSA (test code Please schedule at = MELLISSA) [facility] cannot be scheduled at the following locations due to collection/proccess ing restrictions: [facility] and [facility]. MD ColemanPT/[id number] 20:54:35 Test Item Value Reference Range Interpretation Comments PT (test code 13.7 12.0- 14.3 Testing Perfor med = 5902-2) second(s) [facility] [address] [address] INR (test code 1.10 0.90-1.10 Testing Perfo rmed = 6301-6) [facility] [address] [address] MELLISSA (test code Please schedule at = MELLISSA) [facility] cannot be scheduled at the following locations due to collection/proccess ing restrictions: [facility] and [facility]. MD ColemanUrinalysis with [id number] 20:51:13 Test Item Value Reference Range Interpretation Comments UA WBC (test code = 107 0- 2 /HPF H 7904) UA RBC (test code = 89 0- 2 /HPF H 7891) UA Mucous (test code = 2+ TRACE /HPF A 7887) UA Bacteria (test code 1+ NOT SEEN /HPF A = 7870) UA Squam Epi (test 4+ OCC /HPF A code = 7896) MELLISSA (test code = MELLISSA) Some reporting parameters within the Urinalysis test have changed due to the implementation of new instrumentation in the [facility], allowing greater sensitivity of measurement. Urinalysis results reported by the [facility] using existing instrumentation, as well as Urinalysis testing performed manually or by backup methodology at the [facility] will remain relatively unchanged. New reporting parameters and units will now be reported for all [place]. Lab Interpretation Abnormal (test code = 81901-2) MD ColemanUrinalysis with [id number] 20:48:46 Test Item Value Reference Range Interpretation Comments UA Color (test code = Yellow Yellow 7877) UA Appear (test code = Cloudy Clear A 7868) UA Glucose (test code = NEG NEG mg/dL 7881) UA Bili (test code = 7871) NEG NEG UA Ketones (test code = NEG NEG mg/dL 7884) UA Spec Grav (test code = 1.018 1.002-1.035 7894) UA Blood (test code = Moderate NEG A 7872) UA pH (test code = 7909) 5.0 4.5-8.0 UA Protein (test code = 30 mg/dL NEG A 7890) UA Urobilinogen (test code NEG NEG = 7903) UA Nitrite (test code = NEG NEG 7888) UA Leuk Est (test code = Moderate NEG A 7886) MELLISSA (test code = MELLISSA) Please schedule at [facility] Lab Interpretation (test Abnormal code = 23462-6) MD ColemanUrine [id number] 20:23:57 Test Item Value Reference Range Interpretation Comments U beta hCG Ql Negative Negative Very dilute ur ine (test code = specimens may c ause 4181) false negative results. Sugges t repeat in 48 ho urs with a first mo rning voided urine or request quantit ative serum beta HCG test. Testing Perform ed at[facility], [address] [address] MELLISSA (test code Please schedule at = MELLISSA) [facility] MD ColemanPathology Biopsy [id number] 21:52:00 Test Item Value Reference Range Interpretation Comments Diagnosis (test code = 34) p3krjVBpBZHtpAP0WpE hPQYqm5jly1RcxAJlbX TdDNgroWComiUhaa64t QY8mP02GE5cPQMoHnI8 WGRnlbF1Fzd7YKKlRVG dzKGeD620a7jqm3jbsr RfaTY6fKeiWYNmHQScG CiwCSBwRnJoED4mYJhr wMujms5tHSahRGehrBF qoPGoNTw2nLI4CMRtpg mbrOonEMjffV42IgJaV wzmke4jDRdqo0MmYJrd rKucyHt9z3n0JJipcfM bK8wmmyvyOYPwZNEnsS 9gLMFxkSWqMT06uu0qk OQpOX4bWKc1bHLcJE3l RMZkgSqhs2PdOYdeOM6 0qXNeIJZaYMZxPUHxx8 3hJZ05VZtlROBrkWxzY IppoqVofIWhQOeQX0WV XHBhcn0= Comment (test code = 9835) o5fslWAgCRDosMW3PiT lEUVex4rua1SplNDupA WeKKgowXRpxzEvwf21x BJ2nY47WS0nLAAuWpL8 SEBqepK2Hvb3DSAmFQB qkWHeU977c6gfc2jalw NulBY6nFzoDDQnHFIcO WluXGZzMjAgUmVwZWF0 DQSce6N4PNEbwvYkvNY 2eK9qPLaoTXogxuWfzw PnKE6jMUKrsr6= Gross Description (test s6dcbQAnRRZqr4ixBGC code = 1120565191) gTuVgNGUNg9uot513tA FcFVtwIoQsEbW7sZIhB ZCosWIbk6L2MJupaAOx HaAKuultbDo9k6hvS0z bsi1jWL6fKtJfZOEfIR QwXGZwcnEyIFRpbWVzI L0bzqIXv17wacn4w5iu NNidjP5jHZFvBNBhaAY oj8J1PWtczFHxDGDAw0 OouZAgVT7fwcq3z3vwV Pnrj6rfm8LzOoHpGAIb ZXQwXGZwcnEyIEFyaWF eSL6uyeZtjba9p4liSW QmAj8lWYRniolgD8rzz vEleJWsEsHnpYApO153 ozuparb8z8dnFFOaLe8 keLyiY0kdazPvdNKgKx BycTIgVHJveSBNaWNyb lMniFT7zGnbFtIfOVPx e66uydczR6kiveRdfUY iTsYhpMNzZ3taDh5bG2 74QBNeCGtsm5anz9VpG mNoYXJzZXQwXGZwcnEy WBRpS47lNWGAR107MBF wIQXaOVNbf3mub9onF6 hhcnNldDBcZnBycTIgQ GHfQTg4eH5Nw3vvy0hj pvPifTE7WKLhKWXpO5J mSR2tYQDwtPTeC2sjQG VoZSmosuDnssF0ESOkg CYwEYdkfaZsDaGcA6Dp MT0zUOkuiSFlReO8NQS uMKP1PIsvXXIoKCwgYq c7MQF2S3bbKQG5M8fav eSmpyAhBLWyyLY3Oefm ydCvOlemT2IbDD21LXm dmFXhNkr6BSKxGOf2ES rtZMBqCRBvWre2TUl8F 2xyJYJuUCTbH6KkJN6a QVAbBlm4MYOsKHmwmxA gDIA0DMeaODEmGZN0UL EvjQYeMde6AJRfBNJ2F 7bgeiDvhrA6O3npsGEv HTSuE6wcQZSxUXjhQ7D hWN5uFZcwHrk5ZZF5XL lnriHvCJp1WZocQQUdT Jk5PUDcxMZmFjR1OCZb UVW8WUcpowVhklP4ESr ebHQxABhxW4seKFQeED skP2EiLS0yKGzoLue5U TIwNztccmVkMjIzXGdy ZWVuMjIzXGJsdWUyMjM 7XHJlZDIzOVxncmVlbj DcXMmxaOBzXlX8P8zuW FClBJXmQ3EpQM7dDRYp Vld0DHQ0UJrkpeHfRIp tgyVkdmPfXld3IUV6VK h8Btgru8G0nSJorKKli HtcczEgaGVhZGluZyAx O965TQJzQGhiWLQirse vRcr9u2blAnNbFTCegE 9nFZE7nEcwghNayUWcC KaePtU0E243ZWK3AWcr WVUfllehGEc6u6arOrX oTDHemB1nABS6vB6PWp xnBVEhlwqhFHt6STzvM HEvkafyHdH1LMwnYMXz mMn9JFpjHNCowvV0Xfp tYXJndDcyMFxtYXJnYj uvKJkeMZOeUWS8CkBaH WJpt2Buptn8KtPcPyOe YUTJGvnsgQNgVIN7UUL 0ZjFcZXBpYzkyMDBcYW 4pnDiqwXb3oSajDTIrh sO5yYOiOChwn0syVHW5 s8lrngbzINXmHRbjVp4 udHRibHtcZjAgQXJpYW v6iL30VWJtyN0dcNGoZ Fc9FHEhpnWsrHgoeA4t MoMtSKDHTfNIpU6reOG Qy5GdONFcBATCDUG9UC DEJPw3jRJ4SVOtmnJvo 6GjVQ2lJGGrdeDsW05x SOPot3GeeShfbqJlr2V 2ZJCwe6T3EHS8jTG0VY ScV0MyC4C1LYR9nhOpV jAgeCAwLjMgeCAwLjEg E851JFZwjVxeNJo4QGV 6Rf9jfKLqBAXrlyVEKK 3nQPscqd36PXM2WEZpy 6PrM4RxPMaYWRPge4Bu L3BjISvpoVSdjdiipkC oSSXuqk3ocDWirPb7 Disclaimer (test code = i1exiSOyGKEktZNcJsM 9844) qVJDaZZCgi8xyMJXrpR FuZzEwMzNcZnRuYmpcd PNjBBLpBmEus0coe322 iHQjx9ycMSIwZdJ1oDG vRUJaaTQuX351JZJhFF yqz4yso7JfFKNmyEQjy 8B6UDVPspopaVb1lWzs G05cm4B5YofxP4ahGMY cGVVlU9EiPM6wRKWeCc m7IJU1UCW7ZMEfSQQgO 7WfND7oVQDrvTHxCCx8 m7gqeDlaKBRaMJS4k4p tDBvedmByBB8eow8ymX o9n8zptwPhAJKwIHTgt WOVYOVkP3KdhZepSo3p tTp2tFheVencKER2Eka 2BN0jhn84tpp0iLjxNT GyikinNiX1AKlkHDVnw brdDXy4WFzpCWHjbWM3 VFLivWZbW9PkMCSkGB1 jerp7CRW4RRmdVTMsVk R8QYRdzFHcYSChaUbyS Cvnu554UCK4BmKfXM8k T1Zvf8Z4sL8tsVFeRFY fwNBhXoPoGSKbgv8nyV AwRLnha9McANQ0jjU6y HVnwOEhGPWqMN96Pquh o2EoJhtzLNS7UAJldeG nj2Xuc3acZaTzzeKzD8 nuE8IlANPlMOGaXTEzL xBndaHop8Olc1FumSSh eUo7y7vaPAToXNDtfJg ez4mdHWS0ZQRaT9N1bT Lff1ngWDnfSJAilGA0f wQ4JWBqmOHzX7XwaP3o HGRxEJ9schz6k3paZGX 6PGckFFSwSiT1hoW4RS BcaGVhZGVyeTcyMFxmb 575YAJ3WbIoRVWto4Kq G7MxmAhtN07hpQefJ83 oGAHuyNmvsN9zcYmxhL 5cZjBcZnMyNFxxbFxwb UCltadpOQgvglF2GWgo oxreXYFyTJqmD2ioGdI cJRNzkEynTLari5ZhOH XpBAOzGfnancU5EQXQx 00fMOFql2AbCZHkqV4g wDYkFBiktjEfoDT7OAu hdmUgYmVlbiBkZXZlbG 6vSATmPJ2fVISeerQnl j0lhtOtUCGlPYQjW8Qx cmlzdGljcyBkZXRlcm1 unpUsKHE3IMSMYQ8JAP MpTWTgg21gVMXyvRciv L3vwOKywwNxXAClb9Wz wE6inREATFNuA0atTI5 rBZhpr3ThkQDjpZDrhF K6FFGyy9DyNeZtjdLiy NNygMIkF9XjsZfqZ0cw TCFzMPSqkwTnqXDal7C zRMOewUC1dVHpYZ6EHe AMs61kOIBhSAQKruJoP OGywRcimIW2ewG0hF5i LiBJZiBhcHBsaWNhYmx nZFYwk706sk7rbkD9WL VzLBAoznrhq7YzRDSjT TGxzC74GQLhFNGcez4a lowcnDRwclTxU8Ztmbu 5yS2yLBZhWMhkTVRhGG ZzMjJcbGFuZzEwMzNca GljaFxmMVxkYmNoXGYx CHwsY7gsIgZdIiWnCjo wYXJ[address] GUIDED BIOPSY MUSCLE/SOFT TISSUE [id number] 21:13:01Date of Procedure: 04/26/20 Attending Physician: Anupam Bridges MD Surgical Clinical Reviewer: None Pre Procedure Diagnosis: Malignant neoplasm of cervix uteri, not otherwise specified Post Procedure Diagnosis: Unchanged Indication: Evaluate for metastasis Protocol Number: None Title of Procedure:PercutaneousComputed Tomography-Guided Biopsy Operative Findings: Percutaneous image-guided biopsy of 1.8cm left retroperitoneum lesion. Consent: The procedure, risks, indications and alternatives were explained. All questions were answered and informed consent was obtained. I have reviewed the history and physical dictated by the mid-level practitioner / fellow. Sedation/Anesthesia: Moderate sedation for pain control and anxiety was administered by a dedicated nurse under my supervision. There was continuous monitoring of oxygen saturation, heart rate and intermittent monitoring of blood pressure during the procedure. Medication given was midazolam and fentanyl. I was present for the administrationof the medications indicated above.Procedure Events Event Event Time Sedation Start 04/26/2020 2:15 PM Sedation End 04/26/2020 2:41 PM Procedure in Detail: A time out was performed prior to the start of the procedure and the correct patient, procedure, presence of consent, site, and side were confirmed with all members of the team. With the patient in the prone position, the skin overlying the area of interest was prepped and draped in the usual sterile fashion. Lidocaine 1% was used for local anesthesia. Using a posterior approach under Computed Tomography image-guidance, a 17 gauge needle wasadvanced down to the left retroperitoneum. An image was obtained and placed into the medical record.Samples were obtained for evaluation. Sampling: Core Biopsy: An 18 gauge needle used to obtain samples for surgical pathology evaluation. Total number of samples: 3 Specimens Disposition: Diagnostic Biopsy: The biopsy samples were submitted to pathology. Additional Comments: This was an exceedingly difficult biopsy due to target location. If repeat biopsy is necessary due to non-diagnostic result, recommend considering an anterior approach. Estimated Blood Loss: Minimal Immediate Complications: None Disposition: PACU Plan: 1. No follow-up with Interventional Radiology required.MD ColemanCytology Image-Guided FNA [id number] 17:49:00 Test Item Value Reference Range Interpretation Comments Gross Description (test s8fhgXXrHSGgp5hfCRJ code = [id number]) lKvOqGITAh2sef105gZ SnYVuhZxJtZjO2wOGwA WKjoDGvk0M9AVtgwSWx PcRWmhyrcUq0r6yuI5u lkf3yJR5bRfQpLGSpHM QwXGZwcnEyIFRpbWVzI L8twyJNj80qmjo4v3un XVyoiU9vJEGqIPVwdZF dl7T4KAfidXXiFQQRv4 GyaOOwMF4ilzj4b9keQ Vbwz4set5SdYeTuDVKp ZXQwXGZwcnEyIEFyaWF nJM8fvsWvraj6z1zdDJ CnRf5pGKQbsxfdX3ucq yTfbFEzKgPzzNSdD532 jqhqlas0o1adTJOzWo0 gfUxwM2jarmXdmICcNw BycTIgVHJveSBNaWNyb jMajQR2pKsjQmJnQZFv i33ckqzzY1cbglXssWH vNvOyaTKnH6buFp1kC8 42MRYyGRriy2hll7TuE mNoYXJzZXQwXGZwcnEy NIPqW89bPSKGR969CST wFVGaPVJij7qhc8bmV1 hhcnNldDBcZnBycTIgQ GDlMRz4eK7Mo7kyw2ix awVufZH1EPPkUKBsR8T qXH7rHZKkdZVcM2oaDC QeNMohzqEtwuY7MWPoz SWoBGawvyYmAvAzV3Yz AD0kVNzkgATsOdP6LFF iPVX0SGtkMQBnKErjFy t9LEA9A9veRDM4L9vno sKatsVbUDZxlRM6Lbuy evZkGiojA1FfUA17DGp cvDJtSul2JNBxMLs6VM ulINFtRDLaJde1JNt4V 6miBZOzVAMiT0XlRN9f SFOpXgc9YVOrLFvuzrS jXHX2REagGCRnIRL1NW SiaZPqFdo1PPCmEBP8F 9gfmgLyjaG8F0aeyGYd PXKoD7jqCZZhGFfhA9S hUE0dJJjqFjw8XMW6VP xdrmAuQSa6LBytFEZbZ Vl8LGDteUCgBgF5HIZa QNR3YCxisoCpauD9OEl dpCWdCJxsI2stVXYeMZ yrQ5TiQG2kQKabCzv6N TIwNztccmVkMjIzXGdy ZWVuMjIzXGJsdWUyMjM 7XHJlZDIzOVxncmVlbj OyUDthzHXiWkN7P2nmY HCnKSJiJ5TgKT0kXKIe Pva9DFE4MRkowcUcGMp jncZhbfEdEnd2WPJ9AO r5Nmboi1F5lHWseMMxp HtcczEgaGVhZGluZyAx L245OJFzRCqbFYVkcrq wZna3b2ksZrCqEUBlpX 5vBKD1fEacqhEopVQwM JwsNcZ2Z513JEV0VDaf RXQcmahjDYa1h4fsMzC hBZDzhW9nFLX0dV4BPe joLWCaswyhSBx5IKksO NAztgafJcI4RDmcKTGe vHq3EQxyIMLwnzG6Hop tYXJndDcyMFxtYXJnYj yaIVtyMBXoDZO7WrUsN QXlt2Zsfbt3OuHbMpQc NCVENshexQAjSAB7HJF 0ZjFcZXBpYzkxMDFcYW 4djHjjxHz4jFbtDUTbl sK1zUMwUDtsp9suBAE9 t8tublecTPYoDFfvKf0 udHRibHtcZjAgQXJpYW p2fC36ZADwyF5dnVPjV HwhfgItJoS2OAkeWFIb GuP5EPRfjDXpFVG2vXu wYXJkXHBsYWluXGZzMj QmY3AnN1wmSV4yBAOqt 8N0vgFgKnnkAYQcRyVC hIXbGWZ6cEx6MZHhSAB bYYK7UIucDVXthQUzu7 xwYXIgMTAgbWwsIFxwc c57WOK6GXBjq9KxY4Al TTRow5QycYVnePOtgSG jdDBccHJvdGVjdDAgYm piv6B5IZRnp1XxZ9GrW ScemYJlgasluc36JKW0 MFxmczIwICBmbHVpZFx zvp92DJZ6BTHgaMlgxZ 7mQmWtMREdcQ9bLaKJU QtgLEOjEIFLxBUij3Jd blxwYXJccGFyXHBhciB DmQmoEzVcV6ltFwIolY PlNj15NTabPq95CNpdI Z35BQCsBKEibkozhPAh oWB2EQVHfQ7zAVxtpIG gYXNzZXNzbWVudCBmb3 Npu8TlK9lqBL8sXDDti VMjG5lfb6BnJO7aGHEn CXHcz6MrV2FjfDGdmLP jdDAgeDFccHJvdGVjdD AgXHBsYWluXGZzMjAgI OL3WBXmPbEAnC5nhJbv BAIkURQagj1buUEnqCf 9 Immediate Assessment (test Adequate code = 9837) cellularity, favor benign Major Classification (test [facility]/benign code = 9839) Diagnosis (test code = 34) t9wcrFIgYTXvlBE9CGB lVEWif2omh3MnmAEvcF EpDEyjqCLbkvYwek12n FY0wO99MI4wVTRqPtL1 BJMrnsE2Smi4FHMwTTD gdYGbH932x2pib8bwwk JxzPO0fAjoKXUeVTHwD VxxGNDsCsCjHN6iNYh0 yp5lUWcrkK9sCJMio6Z mizftzKBfgM0bWOssUt luZSBuZWVkbGUgYXNwa XJhdGlvbjpccGFyXHRh WhvjJARofPs4FpHpyAv uNzIwIENvbGxvaWQgbm 2eyKouNTqvpOmzS9gmn RglXPOnU8MoECQpgEfw blxwYXJ9 Retained/Biomarker Testing d6jkvJZsOLGzsBO1EJJ (test code = 9838) mKHNax5cbs9LvgEQjwO GuBAnhvUEvnrNngl55u XH4wF16IY3vUXNqXmQ2 LAGmklZ4Jfv7BZWhYTO opTIrN758t4hii1oluh MjvOX0xYslEBOqCNMqC TjmWPDyDsVjN5B9JAbx T4djFDJ2 Informational Points (test u9ljdQKsQVStoYFeRyN code = 9836) lHCAeWYGnu4noKJYjcO FuZzEwMzNcZnRuYmpcd BTwQYBeHrUey9iwc478 kSCmh7msMAHeNxK3yFL kTPQhhNMuP686JOXwEG eio8uhm6VvROAbcRGlo 2Z2FVRVQZjmUFJJWUk2 x0ccXtLfYtP7zVMjUQq aM8asexYikPUiDRClUD p3mB36TCOffK5xdETeL HfgchWgAzP3JSlnZJAu SnQ2ZWXeyEKpUCLdQ4o yZWQwXGdyZWVuMFxibH StBAP1tIbcv1G2pMFnv GVldHtcZjBcZnMyMiBO z8HnLIx6kFeuU6FqXGI jHxE4iNIsNVUgARefXA JpYKZtprF5iC36RRzle fN0gJBdz5Wgq42bs112 aS6onJZoCYC5ZBObCCC caEUaUJDbMVX6LSTeeO CvW0wyBJEoFC5ahllgE BmvLYhxTEWjaUZ1SERk bGYlP7FkDYMrYBerDIF pjlm1PgPsVt4ikVAqkV cfSTctb5amq8kbeSUmV bg5CJVcBhZtElrxZCyw v6Yjy2mmZGQwik3gVAL 9fBDkaHrlq8C6pQLpWQ VvrSFfyfDjVFHyTpR2S UkwDR9kaw42BROxOQA5 dh2zuHYqsGykvcSxjRO aKZciR3AuZJSui460BT IsG4FzCAWms2Y4weGuR pVjSXCvaBE3vgZ5VKVz PYu7yBEubmD4lcAaoCG yO2fzpQ7pOZJpZO8yqe thl1qtOTizBWusSNHhc OD3swI8HYKrjPFeA1Eb yD2yBEIfLLyqEECgrrt 8TzBfOq9qnFPdfXjoRE xzYmtwYWdlXHBnbmNvb nRccGduZGVjXHBsYWlu XHBsYWluXGYwXGZzMjR vyDmvgRlttJ3zHvQaMd XoZUeqCL2tPFSsQ2chj WGtWBWbWTYuJ7hxOzEp mG4fqInsKNsqnsF3BMs oY49uNBJ1YQF7xkSrBW EhhtCjVIIhEPAyGM0sq UZuFARmKERmEH7yTAO7 ZWxvcGVkIGFuZCBwZXJ vd7OpRJ9lWRHmcVUiQJ D9MCUnz3IlZ1LoPQI3A HScoW1iORVfnHZMQVVH RCBBbmRlcnNvbiBQYXR lj4ceY3hgKC8sDZuqIb 9yYXRvcnkgTWVkaWNpb xMfKQMkRZGgYUZrk2Ig CYxtawZrdd64DPCqWY8 cd5DqG9tjiFCyaBb4BQ JhLNMeKMSwa2RxEFNdg k20WVJnHcjyfBicOICy Ka8yMk5gERDasoJvWML 9YmJFNI6opqdmwDSnkP daed4qZBLtVZooJBFwL GZzMjJcbGFuZzEwMzNc aGljaFxmMlxkYmNoXGY eSUfdW4gwSfNnJfVqYq xwYXJ9 MD Trent HEAD NECK SOFT [id number] 17:36:34 1. Percutaneous Ultrasound-Guided Biopsy of a 3.5 cm right inferior pole thyroid nodule. 2. Enlarged bilateral multinodular thyroid with no one nodule showing specific internal features to suggest malignancy. 3. Immediate cytologic assessment on 04/26/2020 of the biopsied right thyroid nodule is negative for malignancy with findings favoring colloid nodule.. Final cytologic report is pending to be fo llowestephanie. Interface, Radiology Results In - 04/26/2020 11:38 AM CSTFULL RESULT:Examination: US HEAD NECK SOFT TISSUE, US FINE NEEDLE ASPIRATION on 04/26/2020 10:38 AMClinical History: Multinodular thyroid.Indication: Multinodular thyroid with a 3.5 cm nodule requiring FNA.Comparison: None.Technique: Real-time grayscale and power Doppler ultrasound of the neck.Findings: Ultrasound shows an enlarged right thyroid lobe that measures 5.9 x 2.3 x 3 cm. Within the inferior pole of the right thyroid, there is a 3.5 x 1.8 x 2.9 cm nodule. The nodule is predominantly isoechoic to adjacent thyroid with regardsto the soft tissue, although shows several large internal cysts. No suspicious findings.A nodule in the right superior pole measures up to 1.6 cm and shows comet tail artifact likely related to colloid. A right mid nodule measures up to 1.3 cm and is mixed cystic and solid with no internal suspicious features.The left lobe measures 5.1 x 1.4 x 1.5 cm with several nodules all of which measure under 1 cm without suspicious appearing features.No lymphadenopathy.The 3.5 cm right inferior nodule was selected for targeted FNA.Ultrasound-guided fine-needle aspiration of the 3.5 cm right-sided thyroid nodule:Risks and benefits of procedure were explained to patient. Informed consent was obtained. The right neck was cleansed with alcohol. 1% Xylocaine was used for local anesthesia.Ultrasound-guided fine needle aspiration of the 3.5 cm right thyroid nodule was performed using a 20-gauge needle under sonographic guidance. One pass was made. A second pass was made with a 25-gauge needle.Immediate cytologicassessment:Adequate cellularityPreliminary cytology result is negative for malignancy and final results are pending. Estimated Blood Loss: None.Immediate Complications: There were no immediate complications, and the patient was discharged in stable condition.IMPRESSION:1. Percutaneous Ultrasound-Guided Biopsy of a 3.5 cm right inferior pole thyroid nodule. 2. Enlarged bilateral multinodular thyroid with no one nodule showing specific internal features to suggest malignancy.3. Immediate cytologic assessment on 04/26/2020 of the biopsied right thyroid nodule is negative for malignancy with findings favoring colloid nodule.. Final cytologic report is pending to be followed.MD Trent Fine Needle [id number] 17:36:34 1. Percutaneous Ultrasound-Guided Biopsy of a 3.5 cm right inferior pole thyroid nodule. 2. Enlarged bilateral multinodular thyroid with no one nodule showing specific internal features to suggest malignancy. 3. Immediate cytologic assessment on 04/26/2020 of the biopsied right thyroid nodule is negative for malignancy with findings favoring colloid nodule.. Final cytologic report is pending to be fo llowed. Interface, Radiology Results In - 04/26/2020 11:38 AM CSTFULL RESULT:Examination: US HEAD NECK SOFT TISSUE, US FINE NEEDLE ASPIRATION on 04/26/2020 10:38 AMClinical History: Multinodular thyroid.Indication: Multinodular thyroid with a 3.5 cm nodule requiring FNA.Comparison: None.Technique: Real-time grayscale and power Doppler ultrasound of the neck.Findings: Ultrasound shows an enlarged right thyroid lobe that measures 5.9 x 2.3 x 3 cm. Within the inferior pole of the right thyroid, there is a 3.5 x 1.8 x 2.9 cm nodule. The nodule is predominantly isoechoic to adjacent thyroid with regardsto the soft tissue, although shows several large internal cysts. No suspicious findings.A nodule in the right superior pole measures up to 1.6 cm and shows comet tail artifact likely related to colloid. A right mid nodule measures up to 1.3 cm and is mixed cystic and solid with no internal suspicious features.The left lobe measures 5.1 x 1.4 x 1.5 cm with several nodules all of which measure under 1 cm without suspicious appearing features.No lymphadenopathy.The 3.5 cm right inferior nodule was selected for targeted FNA.Ultrasound-guided fine-needle aspiration of the 3.5 cm right-sided thyroid nodule:Risks and benefits of procedure were explained to patient. Informed consent was obtained. The right neck was cleansed with alcohol. 1% Xylocaine was used for local anesthesia.Ultrasound-guided fine needle aspiration of the 3.5 cm right thyroid nodule was performed using a 20-gauge needle under sonographic guidance. One pass was made. A second pass was made with a 25-gauge needle.Immediate cytologicassessment:Adequate cellularityPreliminary cytology result is negative for malignancy and final results are pending. Estimated Blood Loss: None.Immediate Complications: There were no immediate complications, and the patient was discharged in stable condition.IMPRESSION:1. Percutaneous Ultrasound-Guided Biopsy of a 3.5 cm right inferior pole thyroid nodule. 2. Enlarged bilateral multinodular thyroid with no one nodule showing specific internal features to suggest malignancy.3. Immediate cytologic assessment on 04/26/2020 of the biopsied right thyroid nodule is negative for malignancy with findings favoring colloid nodule.. Final cytologic report is pending to be followed.[facility] Pel[facility] with and without Contrast - [id number] 06:28:111. Cervical mass with suspicion for left parametrial involvement and left parametrial metastatic lymphadenopathy.2. Left common iliac metastatic lymphadenopathy and nonspecific prominent bilateral external iliac lymph nodes.3. Enlarged uterus secondary to multiple fibroids.4. Thickening and cystic changes of the junctional zone suggestive of adenomyosis.5. Thickening of endometrial stripe consistent with biopsy-proven atypical endometrial hyperplasia.Interface, Radiology Results In - 04/21/2020 1:31 AM CDTFULL RESULT:Examination: MRI PELVIS W WO CONTRAST - RANGE AID, 04/19/2020 4:36 PM.Clinical History:Cervical cancerIndication: Initial staging, Malignant neoplasm of endometrium, cervix cancer, surgical planning and treatment decision; rule out any other pelvic disease or invasionComparison: Pelvic ultrasound on 03/14/2020Technique: Multiplanar multisequence magnetic resonance imaging of pelvis was performed with and without intravenous administration of contrast.Findings:Cervix: The cervical mass measuring 2.9 x 2.1 cm concerning for primary cervical cancer. A 1.1 x 1.3 cm lesion in left parametrial (4, image 31) with decreased signal on ADC images (9, image 31) likely a parametrial metastatic lymph node. Suspect left parametrial involvement (4, image 31).Uterus: The uterus is enlarged secondaryto multiple fibroids and measures 12.3 x 6.1 x 10 cm. The largest subserosal fibroid measures 5.1 x 6.1 cm (4, image 21). Another fibroid in the fundus (4, image 28) measures 3.6 x 3.2 cm. Another fibroid (4, image 30) measures 3.4 x 3.1 cm. Thickening and cystic changes of the junction of zone measuring up to 1.8 cm (3, image 20) suggestive of adenomyosis. The endometrial stripe is thickened and measures 1.2 cm. C- section scar noted.Ovaries: Ovaries contain multiple follicles. The left ovary measures 4.3 x 2 cm (series 4, image 24) containing a 2.8 x 1.9 cm simple cyst (4, image 22). Right ovary measures 3.1 x 2.5 cm and contains a few cysts and a corpus luteal cyst measuring 1.6 x 1.2 cm (13, image 54).Lymph Nodes:Enlarged left common iliac lymph node (series 4, image 9) in medial aspect of theleft psoas muscle measuring 1.5 x 1.8 cm concerning for metastatic disease. Nonspecific left external iliac lymph node (4, image 22) measures 0.8 x 0.9 cm. Nonspecific right common iliac lymph node (series 4, image 10) measures 0.8 x 1 cm.Vessels:Patent.Bowel:No bowel wall thickening. Bladder:No bladder wall thickening. Musculoskeletal/Soft tissues:No aggressive osseous lesion. No soft tissue mass.IMPRESSION:1. Cervical mass with suspicion for left parametrial involvement and left parametrial metastatic lymphadenopathy.2. Left common iliac metastatic lymphadenopathy and nonspecific prominent bilateral external iliac lymph nodes.3. Enlarged uterus secondary to multiple fibroids.4. Thickening and cystic changes of the junctional zone suggestive of adenomyosis.5. Thickening of endometrial stripe consistent with biopsy-proven atypical endometrial hyperplasia.[facility] [id number] 19:13:00 Test Item Value Reference Range Interpretation Comments Materials Received (test l2xutJAcDDVarRSpAcDn code = 9973) ZMRlTJPbd1cvEBTyuAEa ZzEwMzNcZnRuYmpcdWMx SODzFiVld5koz901dAUw u5bgBCVqYuV3iXKgJIYj fSSzI886OJQbRAlkn3pb k0RwQVZcyEAgz8D8FOLC uxswvHe6cNaeZ62my6F1 BreyP6kvMOYhHMUgS1Ww FF2dFCDuSxv2KUV9OKT8 RGLfPYYpX1ErSV3uSPUo bDUgRMy9w6kojPlbFRLc LBT9a6ipPMwthdFuGV8m gd0zmDo7s8fgadEuJZTs WYHdfPEJRRBjT7VwmIqs Ud7fxYj8gVeyMibkGEL8 Ofv6DF5tng31xmb3eLhq KARawwoiEjU5LTjwVWOb ppusRZf1VZfjAQOpkBls MFxtYXJncjcyMFxtYXJn yPS0OEErjRNqO3SkSKDg KHyoITZrqfp6DoOjJu0v fKUncSgmNAtnj4tyk8bm fGHpEyr2RYSvBvPdAghk ZCzhf3Mto0wlKDAbrk8w WOO1vPIeaQceh4X1kYPt QQAjeYAcxbXcRYDxxv35 pKQovUAchTGcue8abvRa eBHyuVGcCBU0kIAippVk BJPifHJdWTVjPW0ojUZr WXTneO7yfwwdZGEqAiSu ythvOTIcdUsewfBsDy8p iVqwGGH1CCqqW0vaxR0e XpH0FEqoT8ajuK9kTBs1 AUchqAV7GDNjuW0hLG4y fggci1doAySuAY2hvkrf b8klXpEyWK2ernp2q9ko RLS9QFmwUIDnDlC7spI5 NDBcaGVhZGVyeTcyMFxm e924QCH4YoAzWOGus5Zr Q8BleXqpX55qxBtmE72c NGYnqZyuoW0xcRmakC8s LqIaOeKfUZy3gz45IQx4 ujkreKmxBKx1viKjHPCz XLA9GKXmrKNdMTXwG6t9 bxOsDIBiEIJ5HMAorGZe ENLlB0h8ruVsTBS6SMd8 cnBhZGRmdDNcdHJwYWRk YjBcdHJwYWRkZmIzXHRy dNLhxFTsgXXvrK0uqQsz IFFtfNPegN6sUYX4MEGh cmgzMjBcdHJoZHJcbHRy uz44SDNaozIcyVMggWej tDQjFMF2VIAjFXVjMISv LLB5PWCvDlLzbaJhNMzd bGJyZHJiXGJyZHJzXGJy KNG7UWDrRjNlzfIpQXnp bGJyZHJsXGJyZHJzXGJy LIS7DWHsRbIixsUuBUyz bGJyZHJyXGJyZHJzXGJy VYR2ZBMaTiQmjfXtGVzf bHBhZHQxMFxjbHBhZGZ0 B8xjsSGiIQZrPDpxtYSw FENxR4jicCWeDCupVCKl cGFkZmwzXGNscGFkYjBc B3vcXZSzWfLaM2HxzYv5 MDAwXGNsdmVydGFsdFxj pIRcYUD4XCApMPEzMXPf CEN1AWMeUtLnfqRjXCtm bGJyZHJiXGJyZHJzXGJy MCV6NSWsGfXlwuXoTPxn bGJyZHJsXGJyZHJzXGJy QHF4TFVyZjDpmoMlSRhy bGJyZHJyXGJyZHJzXGJy JRT3INYkNkFgfaXxSAzt bHBhZHQxMFxjbHBhZGZ0 E8dyuTMwOGPgOWiioBTm GIGvH8akwYUqOBhiQHKx cGFkZmwzXGNscGFkYjBc A6iuOIIwLnTwB0PqqHj7 NjAwXGNsdmVydGFsdFxj kKMfLVK8AFFnXOUxYRAp KRY2BLXjCyTpfaEsGHjy bGJyZHJiXGJyZHJzXGJy ZHU9RXIdEvPxreGcJZjy bGJyZHJsXGJyZHJzXGJy FGU6MSHyNqHqonDoBVvu bGJyZHJyXGJyZHJzXGJy CZH3LRXeCyNfblBnSExq bHBhZHQxMFxjbHBhZGZ0 D3nqbATgCGSeDSctnVDy HKGeU2vcuZEvKHsdQFSk cGFkZmwzXGNscGFkYjBc M0vnOLSzCjMrH6KvzHm7 DqRzLYEtilLsoV86Pyxr a4OpUQJzECB4BSjdHZih bFxwbGFpblxmMVxmczIw OHnlxujaUMOvAXqlF2ad GvSpJCBdjLbxWMvdw6Xy XGYxXGNmMlxmczIwXGIg HZBdAQXrkL0pJhakT0Hw sC8oLWtdAuixA6uhQCTp a3PudQ4vXOzqpNOabqzq MVxmczIwXGxhbmcxMDMz ACsoF4glBxCkSXCuiHdx LRmvx9VeWGOpWAMuEdoq vcNaOFk5lyOjNQAjzJrx zUVlSLiftlDqaGftj4Fc ghZyzEjvSQBmHUw4nwNn rsmvoAj7dCEjlEcdIORt aBjouQ1sHnKaPuQfMMwt bGFpblxmMVxmczIwXGxh nmvqYAHaFMvzE6wlXmSt OWOtsIkeTMrlf8TnDSRd IUSqJszkojDjZYYdO97v bGVjdGVkXHBsYWluXGYx XGZzMjBcbGFuZzEwMzNc aGljaFxmMVxkYmNoXGYx NHwqL8hbEmLmC4GjQKWy YwDdhSHyZ1acY8ZzkIin YXJkXGludGJsXHNzcGFy XNZ4sWQxitFxoDDvsMCy QVKwWZhdDSS8sNMmwocl bBKytgikZUtollU3PEJc YWluXGYxXGZzMjBcbGFu ZzEwMzNcaGljaFxmMVxk IxNqRVEwBVxqN2eyWnFq D9BoTZHlZrAiXoTBUULs aXZlZFxwbGFpblxmMVxm czIwXGxhbmcxMDMzXGhp C6kjLmEdKEZaoTqrHMmg p9IuKUReSVIiGudmlfZz OEf0kiObEIEluBodpN35 Xeyfle71QKMxy1wvBPKp H6MspXUcFFGcfKAsHFoo MDhcdHJwYWRkZmwzXHRy cGFkZHIxMDhcdHJwYWRk ZnIzXHRycGFkZHQwXHRy iFZkSCJ8R4n5pjBdWEAe IUq9lqNsJVArJtIssSMl ZYB9WWy9UqownzN8qWTf C0x5FrgypkPwCQofrEAe po56DWMkirQvtYUkyJtc gNYzAXV0QLVrIPCaIMTq OWF7AHYdHjNcghPpAIbf bGJyZHJiXGJyZHJzXGJy OPW9LIMpEgVdkdOlWQes bGJyZHJsXGJyZHJzXGJy CQG8DQXzRlEsueUiRJyh bGJyZHJyXGJyZHJzXGJy FLO1PMObAoCgskXnGJxt bHBhZHQxMFxjbHBhZGZ0 E5ehdLSnGWYaXCnswGYn BJBuS9vslBIoFUigKGYx cGFkZmwzXGNscGFkYjBc Q3frLNQcZoZxA6YewYc7 MDAwXGNsdmVydGFsdFxj tMEpLJZ2YZKiVKShUHEa ZYX3OKExWaJijpMmNPoo bGJyZHJiXGJyZHJzXGJy ZJC5YGAjYcMqjmMfDQwd bGJyZHJsXGJyZHJzXGJy LIC7MCTzGbYkceDiYXqp bGJyZHJyXGJyZHJzXGJy PHN4CVQaVrGbhrZgWJrq bHBhZHQxMFxjbHBhZGZ0 C0fceJSjDAPkZUkrlAYm HZXoF4zxlOKlOUolIVKb cGFkZmwzXGNscGFkYjBc M3anOLBqVgDeP4KdwKc0 NjAwXGNsdmVydGFsdFxj kDNdCFS9VZBnLONqYECg FDZ4YEVwJoKqbzRjSGcn bGJyZHJiXGJyZHJzXGJy WPG9LXSxXpUxjnOnHCjw bGJyZHJsXGJyZHJzXGJy AIU3TIOjCmXvdfKwARou bGJyZHJyXGJyZHJzXGJy EYJ0MCPcFrKfjlKjPNkx bHBhZHQxMFxjbHBhZGZ0 K5uziZNnPTVmDXdtaHYb YUGwB7zvvYHyQHioJMRy cGFkZmwzXGNscGFkYjBc Y2iqSAMsVlTgO8ZylAu1 PgReMZMipnVjlG04Zont s1PsMLDjMHI3FQhgCXrl bFxwbGFpblxmMFxmczI0 XHBsYWluXGYxXGZzMjBc bGFuZzEwMzNcaGljaFxm BPzdVfZuJPLxSJiqE2sl HzSbY0TnTABbMiAzKE4q CfK9BTYiVjC0CIH3YDZJ BVQyZJTOY8BWMBLhGFVT F5hgcVCqiidjYHoydwBo HLsvzykdUYNcTEgrM3bk TyReIZGjbGobLPubw5Ix XGYxXGNmMlxmczIwXGx0 cmNoXGNlbGxccGFyZFxp osXhsXjqt0EgizOxcKhg XHMwXHFsXHBsYWluXGYw ECVtKyHrmAzlmC9aBoQe DfVhWSntHV3gQCLyV1po oONvYELiZXGeV7jkEnVp sJ4vpXnsFBfvNtOeYbSe MGFjXF7mMe4wYMFmEQKf YWluXGYxXGZzMjBcbGFu ZzEwMzNcaGljaFxmMVxk HsFbQNYfRFepJ3chPyAc O4IoXYNrKvFmeRIfU0wo C9XmcJdtKDIdVWbdwARy WRRmcQNsLAE7sROmhiJh oQlxbOcneP0eViZlZjQm NFxwbGFpblxmMVxmczIw NOlgzpypMYRpBVxfH2uz VjNxPUDnuIvgMOjva0Qj XGYxXGNmMlxmczIwIDEw PuL8DpRyHfNqyTwqwN2u InCqKyOnLQypSG8mCRPd U3chzGRdIXAwFEKtT2ks ExIjvS4fbKtcFEkkWfSb ZnMyMFxsdHJjaFxjZWxs CTukiYOoBVHnn7dcIGXe WECdkVFtHBO4cDPusmEj aDwasMbteY5jEuDiNzEs NFxwbGFpblxmMVxmczIw CTrohvgwJOMsRTfjU9ap CrGbKDFuiGreACeqa5Pk XGYxXGZzMjBccGFyfQ== Diagnosis (test code = x2lvfKIuUINwpVA8WIBa 34) ZZQys0xhe9KpjNXimAPl FNnsbDZgpiLxdx85iAL2 cU79VH5nWCKlXhL6KQYe uaD8Vbp3EKFiCZFbjEHc G385t5bgt3hagvQdyZB9 fVxwYXJkXHBsYWluXGZz HyHkKu31qqPlaEDalHHt PYMjvTUbopNhQmO9JAUf AfS4DAXjQZ8aKo7tQYDl PQSvMBXsA09hzEIyARYr ZQEmhMqkz1B5JQRuhoyw YXJccGFyXHRhYiBDZXJ2 qRtpUHXsi7NohEVoNBh6 XHBhclxwYXJcdGFiXHRh LoIEWpNHE1yIMBOcVS5P UkxZIERJRkZFUkVOVElB TMIOMFGUWTXVMO4QBpLY BCrTBIJPRaCWFo2CEJJM TkZJTFRSQVRJTkcgVEhF BGLMAPuAXQHAHEzXA76H X4QnP3HmKQnSZOUJK2FW GOtzDtYMVP8ueTStFTYz bpr9PCLbLD3lf86hoCTf hB5zLDS1rrW5bFjnB4Z5 XHBhclxwYXJcbGkxNDQw IAlfnyM5HGIfLTJJVWzN GBhwFW2GV28SGIGGOEiu KQoHDQJSCHTILOItW5pI SCBQQVBJTExBUlkgRkVB YZUUBPZiOMHPV8WULEdo Au9LZAEPWB1TYK2XEHAQ KC2WV9QZO3uXH74MRHaX QURFIDEsIElOIEEgQkFD Y1kJK4MGTJJYPyVRXFKA SJOJDpmzFC8NU94UWUMK ML5tNAHjqsxmkUVwlCni MFxwYXJcdGFiXHRhYlxw YXJccGFyfQ== Disclaimer (test code = [id number] [id number]) ILJmZLHds3gsYNXpmMPh ZzEwMzNcZnRuYmpcdWMx KPOoTqIag4ejd553cIEe a4djLWZrMuF8jCNyQWVk oPRqM792ZYUxHQodv6vc c2GsTZYwcHDqc5Q2MGUK hdfopZj3lPutT66ib9P6 HvtaK3rpBZOiYJEjW8Bl OA0gPHKxKzn1IOL1UUG2 FWMiJKFmX1WvTW0eGYSv sLCtISe6y4tdqEyxLDOm BHQ4o3vmLCtkpwBnRD3d rx3ykEu0b7eavdLmZSUh SVDhpPDIBZTpZ5IomMow Na2uvKs9zFfwFgivMJQ3 Jni6JB9wgc42bud5hZlt QEKqkvbrUbS0EGbbXYPm gioxYNw3EAooXNIxdXJ8 HFGpeYPoF0LpISZoGP0j xpq4ALI7KWwnEQPwWiF3 NDBcaGVhZGVyeTcyMFxm c745ZPV3FeUfAO9uU2Mt z1U1xI9ywRQzDKIslAGd DoWyXASyzu8grGCwWDkt g4OxDWX1dpC5xLLrtAJp FEGxHX76Ikgdg7MpAvjv JTQ5JRXdiwUyn9Ooj4qy MiPpltTwW9dyD8QkXTBd BEKcPGEqPjEpqwQff2Py e3XszWRvnUd5h0cwRQUo VJIzdJsvx3flYMP6UNCq G7G8bHFjg1huIFtsBVWf qML7mkL2RBSpiCJsU1Bs zQ6rIPKjPD6tgld9i2qa MDL6UAjyPMRpLkK5xzH3 NDBcaGVhZGVyeTcyMFxm p423DIS9WrFcSAAmi4So U9KtjSeqW80gkNzcX56k FLVcdRuwvV6whDyqbK5k ZjBcZnMyNFxxbFxwbGFp ovplETkrmgO8SMwjvkxs NMVcAIazJ9swCjQsZMQd sTnpUYcvm9ViRMHsQKKk SzjcnpD9ZVLHn59jRPHb y0NeHMMxvI4ryIPyNIod mnUgwIO5JOtyjlLaZxVi oiNdMRSmaO3gTBZrIB2d VPPruqAcuo1wptHeZAQz AKIdF4OhfkxtdUqhkgPv BXItot4jqmKfSSS8JGMK RL0UHTWbUAUgu82dTRSx dMwciZ2dmETodmTuLQTk e6LvmZ6ryVZATLJeC0ka CE4hLRser0ChlLJakEJy wGT7GSHwj1NuKzHufwUn ySLxmCYdA1FzuDrlI3xq EYUoURDldmTlkDMkr9Xm JPRvoBA0cZSvUW1GRyFB d73lTYItNHOPmyTpWIXn vPetzPQ8cwH1cQ1mRgWX ZiBhcHBsaWNhYmxlLCBj g677za5kybA7JODjFPDs qerff6HlTZDrGYKvyF37 EHHoADUpfn9haharrLRx hfDpB6Ecmdj4fY4cGGSi YWluXGYxXGZzMjJcbGFu ZzEwMzNcaGljaFxmMVxk LnOkJTXvJKwoS6tvRvHz ZnMyMlxwYXJ9 MD ColemanOSI US [id number] 16:48:22Study acquired at another institution. For comparison only. No MD Coleman originated interpretation requested or available.MD ColemanCT Chest with [id number] 16:15:47* Small bilateral pulmonary nodules are nonspecific and can be followed.* Multiple small low-density nodules in the thyroid. Further evaluation with ultrasound can be performed if not previously evaluated. 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 Additional small (3mm or less) pulmonary nodules are seen series 3, images 53, 74, 87. No focal consolidations or evidence of pulmonary edema.The central airways are patent.Pleura: No pleural effusion. No pneumothorax.Cardiovascular: The pulmonary arteries are unremarkable. The heart is normal in size. There is no pericardial effusion. Thereare no aortic arch or coronary artery calcifications.Lymph Nodes: No enlarged supraclavicular, axilla ry, mediastinal, or hilar lymph nodes.Other Mediastinum: Multinodular right thyroid lobe (largest nodule measures 0.9 cm on series 2, image 11).Bones and Soft Tissues: No aggressive osseous lytic or blastic lesions.Upper Abdomen: The visualized liver, gallbladder, spleen, and adrenal glands are withinnormal limits.IMPRESSION:* Small bilateral pulmonary nodules are nonspecific and can be followed.*Multiple small low-density nodules in the thyroid. Further evaluation with ultrasound can be performed if not previously evaluated.I personally reviewed these image(s) along with the resident's/fellow's interpretations, certify that if a procedure was performed I was physically present, and agree withthe final report.MD ColemanPREGNANCY URINE MONOCLONALFB2018-03-04 04:58:00 Test Item Value Reference Range Interpretation Comments [...]
--- OUTSIDE RECORDS SUMMARY | 2020-05-02 20:33 | XMS REPORT ---
:1970 Author Organization [facility] Address 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 [place], Cintia ott [facility] [address], cervix, [place] [address] site C53.9 and Malignant neopl asm of body of uterus, unspecified sit e C54.9 IMMUNIZATIONS No Information SOCIAL HISTORY Tobacco Use: Social History Observation Description Date Details (start date - stop date) Never Smoker Sex Assigned At : Social History Observation Description Sex Assigned At Unknown PHQ9 Question Answer Notes Little interest or pleasure in doing things Nearly every day Feeling down, depressed, or hopeless Nearly every day Trouble falling or staying asleep or sleeping too much Nearl y every day Feeling tired or having little energy Nearly every day Poor appetite or overeating Not at all Feeling bad about yourself, or that you are a failure, or No t at all have let yourself or your family down Trouble concentrating on things, such as reading the Several days newspaper or watching television Moving or speaking so slowly that other people could have No t at all noticed; or the opposite, being so fidgety or restless that you have been moving around a lot more than usual Total Score 13 Interpretation Moderate Depression Thoughts that you would be better off or of hurting Not at all yourself in some way Alcohol Screen Question Answer Notes Did you have a drink containing alcohol in the past Yes year? Points 1 Interpretation Negative How often did you have a drink containing alcohol in Monthly or less (1 point) the past year? Tobacco Use/Smoking Question Answer Notes Are you a never smoker REASON FOR REFERRAL No Information VITAL SIGNS No information MEDICATIONS Medication SIG (Take, Route, Frequency, Start Date End Date Status Duration) Zestoretic 20-25 MG take 1 tablet every day Orally Once a Active day for 90 days BusPIRone HCl 7.5 MG 1 tablet Orally Three times a day for Active 90 days Trintellix 10 MG TAKE 1 TABLET BY MOUTH EVERY DAY for Active 90 PROCEDURES No Information RESULTS No Results REASON FOR VISIT speak to Oralia Mohan MEDICAL (GENERAL) HISTORY Type Description Date Medical History Breast mass Medical History Abnormal mammogram Medical History Muscle cramps Medical History Hypokalemia Medical History Hypertension, unspecified type Medical History Hepatitis B carrier Medical History Hypokalemia Medical History Epigastric pain Surgical History Tumor Removal Sx - Left Ring Finger Surgical History T&A Surgical History Surgical History Mass rt breast 2018 Surgical History left heel spur 2018 Surgical History rt bunionectomy 2018 Surgical History tendon release lt mid finger and left th umb 08/11/2018 Surgical History tooth extraction 09/25/2019 Goals Section No Information Health Concerns No Information MEDICAL EQUIPMENT No Information MENTAL STATUS No Information FUNCTIONAL STATUS No Information ASSESSMENTS Encounter Date Diagnosis Notes Mar, Malignant neoplasm of body of uterus, un specified site (ICD-10 - C54.9) Mar, Malignant neoplasm of cervix, unspecifie d site (ICD-10 - C53.9) PLAN OF TREATMENT Medication Medication Name Sig Start Date Stop Date Zestoretic 20-25 MG take 1 tablet every day Orally Once a day for 90 days Trintellix 10 MG TAKE 1 TABLET BY MOUTH EVERY DAY for 90 BusPIRone HCl 7.5 MG 1 tablet Orally Three times a day for 90 days Next Appt Details Provider Name:Cintia Mohan, 2020-08-08 08 :20:00 AM, [address], [address], [place], [address], Insurance Providers Payer Name Payer Address Payer Insured Patient Coverage Cover age End Phone Name Relationship to Start Date Molina e Insured [employer] [address] [phone] [place] [address] [id number]
--- OUTSIDE RECORDS SUMMARY | 2020-05-02 20:33 | XMS REPORT ---
[...] End Date Status Dosage System Date Trintellix [facility] 09517550156 10 MG Active TAKE 1 TABLET BY MOUTH EVERY DAY Zestoretic [facility] 17903773059 20-25 MG Orally Active t sher 1 Once a day tablet every day BusPIRone HCl [facility] 55909155833 7.5 MG Orally Active 1 tablet Three times a day Results No Known Results Summary Purpose eClinicalWorks Submission
[2020-05-02] MEDS ORDERED: HYDROCODONE/APAP 10/325 TAB ONE (21:20)
--- NOTE | 2020-05-02 21:45 | ER ---
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 Coronavirus screen: At this time, the client does not indicate any symptoms associated with coronavirus-19. The client reports previous COVID testing was negative. Ebola Screen: No symptoms or risks identified at this time. Initial Sepsis Screen: Does the patient meet any 2 criteria? No. Patient's initial sepsis screen is negative. Does the patient have a suspected source of infection? No. Patient's initial sepsis screen is negative. Risk Assessment: Do you want to hurt yourself or someone else? Patient reports no desire to harm self or others. Onset of symptoms was May 02, 2020. 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 - Social history:: Smoking status: Patient denies any tobacco usage or history of. Patient uses alcohol, occasionally. Patient/guardian denies using street drugs. Screenin:00 Abuse screen: Denies threats or abuse. Nutritional screening: No deficits noted. jb4 Tuberculosis screening: No symptoms or risk factors identified. Fall Risk None identified. Assessment: 21:00 General: Appears in no apparent distress. uncomfortable, Behavior is calm, cooperative, jb4 appropriate for age. Pain: Complains of pain in dorsum of right foot Pain does not radiate. Pain currently is 10 out of 10 on a pain scale. Quality of pain is described as throbbing. Neuro: Level of Consciousness is awake, alert, obeys commands, Oriented to person, place, time, situation. Cardiovascular: Patient's skin is warm and dry. Pulses are 3+ in right dorsalis pedis artery. Respiratory: Airway is patent Respiratory effort is even, unlabored, Respiratory pattern is regular, symmetrical. GI: No signs and/or symptoms were reported involving the gastrointestinal system. : No signs and/or symptoms were reported regarding the genitourinary system. EENT: No signs and/or symptoms were reported regarding the EENT system. Derm: Skin is intact, Skin is pink, warm \T\ dry. Musculoskeletal: Circulation, motion, and sensation intact. Range of motion: intact in all extremities, Swelling present in dorsum of right foot. Vital Signs: 20:50 BP 144 / 77; Pulse 101; Resp 18 S; Temp 99.5; Pulse Ox 98% on R/A; Weight 88.45 kg (R); bb Height 5 ft. 7 in. (170.18 cm) (R); Pain 10/10; 21:00 BP 126 / 75; Pulse 89; Resp 16; Pulse Ox 97% on R/A; jb4 20:50 Body Mass Index 30.54 (88.45 kg, 170.18 cm) bb ED Course: 20:32 Patient arrived in ED. bp1 20:45 Sheila Hampton [facility]-C [facility] kb 20:45 Galdino Coleman MD is Attending Physician. kb 20:52 Triage completed. bb 20:54 Arm band placed on Patient placed in an exam room, on a stretcher, on pulse oximetry. bb 21:00 Patient has correct armband on for positive identification. Bed in low position. Call jb4 light in reach. Side rails up X 1. Pulse ox on. NIBP on. 21:02 Colton Manzo, VINNY is Primary Nurse. jb4 21:41 Foot Right 3 View XRAY In Process Unspecified. EDMS Administered Medications: 21:11 Drug: [place] 10 mg-325 mg 1 tabs Route: PO; jb4 Outcome: 21:44 Discharge ordered by . kb 22:23 Patient left the ED. jb4 Signatures: Dispatcher [employer] EDMS Memo, Sheila, SPLICING MACHINE OPERATOR-C SPLICING MACHINE OPERATOR-Pricilla Gaytan, RN RN bb Colton Manzo RN RN jb4 [facility]
--- NOTE | 2020-05-02 21:46 | EDPHYS ---
Physician Documentation [facility] Name: Jessie Burleson Age: 49 yrs Sex: Female : 1970 Arrival Date: 05/02/2020 Time: 20:32 Bed 15 Private MD: ED Physician Galdino Coleman HPI: 05/02 21:31 This 49 yrs old Female presents to ER via Wheelchair with complaints of Foot kb Injury. 21:31 The patient presents with a contusion, an injury, pain, swelling, tenderness. The kb complaints affect the lateral side of right foot and dorsum of right foot. Context: The problem was sustained at home, outdoors, resulted from the patient falling, the patient is not able to bear weight, the patient is not able to ambulate. Onset: The symptoms/episode began/occurred just prior to arrival. Modifying factors: The symptoms are alleviated by nothing. the symptoms are aggravated by movement, weight bearing. Associated signs and symptoms: The patient has no apparent associated signs or symptoms. Treatment prior to arrival includes: no previous treatment. Severity of symptoms: At their worst the symptoms were moderate, in the emergency department the symptoms are unchanged. The patient has not experienced similar symptoms in the past. The patient has not recently seen a physician. 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 - Social history:: Smoking status: Patient denies any tobacco usage or history of. Patient uses alcohol, occasionally. Patient/guardian denies using street drugs. ROS: 21:29 Constitutional: Negative for fever, chills, and weight loss, Cardiovascular: Negative kb for chest pain, palpitations, and edema, Respiratory: Negative for shortness of breath, cough, wheezing, and pleuritic chest pain, Abdomen/GI: Negative for abdominal pain, nausea, vomiting, diarrhea, and constipation, Back: Negative for injury and pain, Skin: Negative for injury, rash, and discoloration, Neuro: Negative for headache, weakness, numbness, tingling, and seizure. 21:29 MS/extremity: Positive for injury or acute deformity, contusion, pain, swelling, tenderness, of the lateral side of right foot and dorsum of right foot. Exam: 21:29 Constitutional: This is a well developed, well nourished patient who is awake, alert, kb and in no acute distress. Head/Face: Normocephalic, atraumatic. Chest/axilla: Normal chest wall appearance and motion. Nontender with no deformity. No lesions are appreciated. Cardiovascular: Regular rate and rhythm with a normal S1 and S2. No gallops, murmurs, or rubs. Normal PMI, no JVD. No pulse deficits. Respiratory: Lungs have equal breath sounds bilaterally, clear to auscultation and percussion. No rales, rhonchi or wheezes noted. No increased work of breathing, no retractions or nasal flaring. Abdomen/GI: Soft, non-tender, with normal bowel sounds. No distension or tympany. No guarding or rebound. No evidence of tenderness throughout. Neuro: Awake and alert, GCS 15, oriented to person, place, time, and situation. Cranial nerves II-XII grossly intact. Motor strength 5/5 in all extremities. Sensory grossly intact. Cerebellar exam normal. Normal gait. 21:29 Musculoskeletal/extremity: Extremities: grossly normal except: noted in the lateral side of right foot and dorsum of right foot: contusion, pain, swelling, tenderness, ROM: intact in all extremities, Circulation is intact in all extremities. Sensation intact. Weight bearing: is unable to bear weight. Vital Signs: 20:50 BP 144 / 77; Pulse 101; Resp 18 S; Temp 99.5; Pulse Ox 98% on R/A; Weight 88.45 kg (R); bb Height 5 ft. 7 in. (170.18 cm) (R); Pain 10/10; 21:00 BP 126 / 75; Pulse 89; Resp 16; Pulse Ox 97% on R/A; jb4 20:50 Body Mass Index 30.54 (88.45 kg, 170.18 cm) bb MDM: 20:55 Patient medically screened. kb 21:29 Data reviewed: vital signs, nurses notes. Data interpreted: Pulse oximetry: on room air kb is 97 %. Interpretation: normal. Counseling: I had a detailed discussion with the patient and/or guardian regarding: the historical points, exam findings, and any diagnostic results supporting the discharge/admit diagnosis, radiology results, the need for outpatient follow up, a orthopedic surgeon, to return to the emergency department if symptoms worsen or persist or if there are any questions or concerns that arise at home. 05/02 20:58 Order name: Foot Right 3 View XRAY kb 05/02 20:58 Order name: Ice pack; Complete Time: 21:02 kb 05/02 21:47 Order name: Crutches; Complete Time: 22:23 kb Administered Medications: 21:11 Drug: [place] 10 mg-325 mg 1 tabs Route: PO; jb4 Disposition: 05/03 05:12 Co-signature as Attending Physician, Galdino Coleman MD I agree with the assessment and arlet plan of care. Disposition: 05/02/20 21:44 Discharged to Home. Impression: Contusion of right foot, Other sprain of right foot. - Condition is Stable. - Discharge Instructions: Foot Sprain, Foot Contusion, Qiwf-qw-Uhal. - Prescriptions for Diclofenac Sodium 75 mg Oral Tablet Sustained Release - take 1 tablet by ORAL route 2 times per day; 30 tablet. - Medication Reconciliation Form, Thank You Letter, Antibiotic Education, Prescription Opioid Use form. - Follow up: Emergency Department; When: As needed; Reason: Worsening of condition. Follow up: Private Physician; When: 2 - 3 days; Reason: Recheck today's complaints, Continuance of care, Re-evaluation by your physician. Signatures: Dispatcher [employer] EDSheila Voss, FINISHER BRUSH-C FINISHER BRUSH-Galdino Cruz MD MD cha Ballard, Brenda, RN RN Colton Lopez RN RN jb4 Corrections: (The following items were deleted from the chart) 05/02 21:47 21:29 Musculoskeletal/extremity: Extremities: grossly normal except: noted in the kb lateral side of right foot and dorsum of right foot: contusion, pain, swelling, tenderness, ROM: intact in all extremities, Circulation is intact in all extremities. Sensation intact. Weight bearing: can bear weight with assistance only, kb 21:47 21:31 Context: The problem was sustained at home, outdoors, resulted from the patient kb falling, the patient can partially bear weight, the patient is able to ambulate, kb 21:47 21:44 05/02/2020 21:44 Discharged to Home. Impression: Contusion of right foot. kb Condition is Stable. Forms are Medication Reconciliation Form, Thank You Letter, Antibiotic Education, Prescription Opioid Use. Follow up: Emergency Department; When: As needed; Reason: Worsening of condition. Follow up: Private Physician; When: 2 - 3 days; Reason: Recheck today's complaints, Continuance of care, Re-evaluation by your physician. kb 22:23 21:47 05/02/2020 21:44 Discharged to Home. Impression: Contusion of right foot; Other jb4 sprain of right foot. Condition is Stable. Discharge Instructions: Foot Sprain, Foot Contusion, Axyo-ik-Rqou. Prescriptions for Diclofenac Sodium 75 mg Oral Tablet Sustained Release - take 1 tablet by ORAL route 2 times per day; 30 tablet. and Forms are Medication Reconciliation Form, Thank You Letter, Antibiotic Education, Prescription Opioid Use. Follow up: Emergency Department; When: As needed; Reason: Worsening of condition. Follow up: Private Physician; When: 2 - 3 days; Reason: Recheck today's complaints, Continuance of care, Re-evaluation by your physician. kb
[2020-05-03 02:30] VITALS: TEMP 99.5
[2020-05-03 02:31] VITALS: BP 126/75; O2SAT 97
--- NOTE | 2020-05-03 08:25 | RAD REPORT ---
EXAM DESCRIPTION: RAD - Foot Right 3 View - 05/02/2020 9:41 pm CLINICAL HISTORY: PAIN, trip and fall COMPARISON: No comparisonsdelete select FINDINGS: No fracture, dislocation or periosteal reaction. No acute bone or joint process identifiab le. Metallic suture lines seen in the first proximal phalanx from remote repair. No plantar spur. No air or foreign body in the soft tissues. IMPRESSION: Negative right foot for acute bone or joint finding.
== END 2020-05-02 22:23 | disposition home or self-care (01) ==
LOC: ER 20:29
DX: S93.691A Other sprain of right foot, initial encounter (principal); W19.XXXA Unspecified fall, initial encounter; Y93.9 Activity, unspecified; Y92.89 Other specified places as the place of occurrence of the external cause; I10 Essential (primary) hypertension; F41.8 Other specified anxiety disorders
CPT/HCPCS: 99283

== ENCOUNTER 2021-03-04 18:18 | Emergency (ER) | payer OTHER ==
--- OUTSIDE RECORDS SUMMARY | 2021-03-04 18:24 | XMS REPORT | Clinical Summary ---
:1970 Author Organization [facility] MD [facility] Address [address] [place] [address] Care Team Providers Name Role Phone MD David Primary Care Provider CORA Colvin Unavailable Allergies No Known Active Allergies Medications Medication Sig Dispensed Refills Start End Status Date Date lisinopril-hydroCHLO Take 1 tablet by 0 Active ROthiazide mouth daily. 0 (PRINZIDE,ZESTORETIC ) 20-25 mg per tablet busPIRone (BUSPAR) Take 1 tablet by 0 Active 7.5 mg tablet mouth 3 (three) 0 times a day. Trintellix 10 mg tab Take 1 tablet by 0 Active mouth daily. 0 estrogens, Insert 0.5 g 30 g 3 Active conjugated, into the vagina 1 (Premarin) vaginal 3 (three) times creamIndications: a week Wednesday, Malignant neoplasm Wednesday and of cervix uteri, not Wednesday. otherwise specified estrogens, Take 1 tablet by 30 tablet 6 Ac tive conjugated,-medroxyP mouth daily. 1 ROGESTERone (Prempro) 0.625 mg-2.5 mg per tabletIndications: Malignant neoplasm of cervix uteri, not otherwise specified aspirin 81 mg EC Take 81 mg by 0 Discontinued tablet mouth daily. 020 (Not Applicable ) LYSINE ORAL Take 1 tablet by 0 D iscontinued mouth daily. 020 (Not Applicable ) POTASSIUM ORAL Take 1 tablet by 0 Discontinued mouth daily. 020 (Not Applicable ) ondansetron (Zofran) Take 1 tablet by 30 tablet 3 Discontinued 8 mg mouth every 8 0 020 (Thera py tabletIndications: hours on days 2, completed) Malignant neoplasm 3, and 4 of of cervix uteri, not chemotherapy otherwise specified each week, then may take 1 tablet by mouth every 8 hours as needed for nausea or vomiting. prochlorperazine Take 1 tablet 30 tablet 3 Discontinued (Compazine) 10 mg (10 mg) by mouth 0 021 (Therapy tabletIndications: every 6 (six) completed) Malignant neoplasm hours as needed of cervix uteri, not for nausea or otherwise specified vomiting. ondansetron (Zofran) Take 1 tablet (8 30 tablet 2 Discontinued 8 mg mg) by mouth 0 020 (Reorde r) tabletIndications: every 8 (eight) Malignant neoplasm hours as needed of cervix uteri, not for nausea. otherwise specified ondansetron (Zofran) Take 1 tablet (8 60 tablet 2 Discontinued 8 mg mg) by mouth 0 021 (Therap y tabletIndications: every 8 (eight) completed) Malignant neoplasm hours as needed of cervix uteri, not for nausea. otherwise specified phenazopyridine Take 1 tablet 21 tablet 1 (Pyridium) 100 mg (100 mg) by 0 020 tabletIndications: mouth 3 (three) Malignant neoplasm times a day for of cervix uteri, not 7 days. 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 06/05/2020 Encounter for examination prior to antineoplastic chem otherapy 05/26/2020 Malignant neoplasm of cervix uteri 04/15/2020 Cancer Staging: Clinical stage from 03/22: Stage IB1 (Primary) - Unsigned Complex endometrial hyperplasia 04/15/2020 Abnormal uterine bleeding 04/15/2020 Malignant neoplasm of endometrium 04/15/2020 Anxiety disorder 04/15/2020 Essential hypertension 04/15/2020 Chronic depression 04/15/2020 Encounters Date Type Specialty Care Team Description 02/04/2021 Orders Only Radiation Oncology Sang Malignant neoplasm VLAD Canseco of cervix uteri , not otherwise speci fied (Primary Dx) 02/03/2021 Orders Only Gynecology Carmen Flannery PA 01/28/2021 Orders Only Radiation Oncology Sang, Malignant neoplasm Harleen, TRAINING OFFICER of cervix uteri , not otherwise speci fied (Primary Dx) 01/23/2021 Orders Only Radiation Oncology Sang, Harleen, TRAINING OFFICER 01/22/2021 Orders Only Radiation Oncology Sang, Malignant neoplasm Harleen, TRAINING OFFICER of cervix uteri , not otherwise speci fied (Primary Dx) 01/21/2021 Ancillary Procedure Radiology Rory Hernandez, Cancer 01/21/2021 Ancillary Procedure Radiology Rory Hernandez, Cancer 01/21/2021 Ancillary Procedure Radiology Rory Hernandez, Cancer 01/21/2021 Ancillary Procedure Radiology Rory Hernandez, Cancer 01/21/2021 Ancillary Procedure Radiology Rory Hernandez, Cancer 01/21/2021 Ancillary Procedure Radiology Rory Hernandez, Cancer 01/21/2021 Ancillary Procedure Radiology Rory Hernandez, Cancer 01/21/2021 Ancillary Procedure Radiology Rory Hernandez, Cancer 01/07/2021 Hospital Encounter Radiation Oncology Markus Gilant neoplasm of endometrium (Primary Dx); MD Jael Malignant neopl asm of cervix uteri, not otherwise specified 01/07/2021 Ancillary Procedure Radiology Sang, Malignan t neoplasm Harleen, TRAINING OFFICER of cervix uteri , not otherwise speci fied 01/07/2021 Orders Only Radiation Oncology Sang, Harleen, TRAINING OFFICER 01/07/2021 Travel 10/22/2020 Orders Only Radiation Oncology Sang, Malignant neoplasm Harleen, TRAINING OFFICER of cervix uteri , not otherwise speci fied (Primary Dx) 10/15/2020 Orders Only Surgical Oncology Dennis Isidro, Maligna nt neoplasm PA of cervix uteri , not otherwise speci fied (Primary Dx) 10/07/2020 Office Visit Surgical Oncology Kings Nunez, Maligna nt neoplasm of cervix uteri, not otherwise specified; Malignant neoplasm of endometrium Rory Hernandez MD 10/07/2020 Travel 10/04/2020 Ancillary Procedure Radiology Carmen Flannery, PA Malernie nant neoplasm of cervix uteri, not otherwise specified; Malignant neopl asm of endometrium 10/04/2020 Travel 09/26/2020 Anesthesia Event Radiology Malka Mercado, VINNY 09/26/2020 Ancillary Procedure Radiology Sang, Pain in unspecified Harleen, TRAINING OFFICER hip 09/26/2020 Ancillary Procedure Radiology Sang, Pain in unspecified Harleen, TRAINING OFFICER hip 09/26/2020 Travel 09/25/2020 Orders Only Radiation Oncology Sang, Harleen, TRAINING OFFICER 09/25/2020 Orders Only Radiation Oncology Sang, Pain in u nspecified Harleen, TRAINING OFFICER hip (Primary Dx ) 09/25/2020 Orders Only Radiation Oncology Jael Gil MD 08/22/2020 Ancillary Procedure Radiology Brit, Maligna nt neoplasm Kristyn A, CENTRAL STERILIZATION TECHNICIAN of overlapping sites of cervix uteri 08/22/2020 Travel 07/25/2020 Orders Only Surgical Oncology Carmen Flannery PA 07/22/2020 Office Visit Surgical Oncology Rory Hernandez Malignan t neoplasm of cervix uteri, not otherwise specified (Primary Dx); Malignant neopl asm of endometrium 07/22/2020 Travel 07/18/2020 Orders Only Infectious Diseases Ariana SARS-CoV -2 MD Hasmukh vaccination 07/04/2020 Documentation Radiation Oncology Jael Gil MD 07/04/2020 Travel 07/03/2020 Travel 07/02/2020 Travel 07/01/2020 Hospital Encounter Radiation Oncology Jael Gil MD 07/01/2020 Anesthesia Event Ambulatory Surgery Ashly Jensen MD 07/01/2020 Surgery Ambulatory Surgery Tamela Mike MD (CT) IN SERTION OF UTERINE TANDEM AND VAGINAL OVOID F OR CLINICAL BRACHYTHERAPY 07/01/2020 Hospital Encounter Ambulatory Surgery Tamela Mike MD 07/01/2020 Travel 06/30/2020 Clinical Support Infectious Diseases Brit, Enc ounter for observation for other suspected exposure to biological agent ruled out (Primary Dx); Kristyn A, CENTRAL STERILIZATION TECHNICIAN Malignant neoplasm of cervix uteri, not otherwise specified Liat Thompson MA 06/30/2020 Travel 06/28/2020 Surgery Ambulatory Surgery Corrine Clark MD (CT) IN SERTION OF UTERINE TANDEM AND VAGINAL OVOID F OR CLINICAL BRACHYTHERAPY 06/28/2020 Anesthesia Event Ambulatory Surgery Mohit Acuna MD Smith, Reshonda, CRNA 06/28/2020 Hospital Encounter Ambulatory Surgery Corrine Clark MD 06/28/2020 Telephone Surgical Oncology Carmen Flannery PA 06/28/2020 Documentation Radiation Oncology Jael Gil MD 06/28/2020 Travel 06/27/2020 Clinical Support Infectious Diseases Kelly Perea COVID-19 (Primary Dx); Kristyn A, CENTRAL STERILIZATION TECHNICIAN Malignant neoplasm of cervix uteri, not otherwise specified Radha Sanabria RN 06/27/2020 Travel 06/26/2020 Travel 06/26/2020 Telephone Surgical Oncology Christel Lake RN 06/25/2020 Orders Only Surgical Oncology Carmen Flannery PA 06/25/2020 Travel 06/25/2020 Orders Only Surgical Oncology Carmen Flannery PA Maligna nt neoplasm of cervix uteri , not otherwise speci fied (Primary Dx) 06/24/2020 Hospital Encounter Lab Carmen Flannery PA Malign ant neoplasm of cervix uteri , not otherwise speci fied 06/24/2020 Hospital Encounter Radiation Oncology Jael Gil MD 06/24/2020 Surgery Ambulatory Surgery Jeffery, (CT) INSE RTION OF MD Jael UTERINE TANDEM AND VAGINAL OVOID F OR CLINICAL BRACHYTHERAPY 06/24/2020 Anesthesia Event Ambulatory Surgery Stephanie Nascimento MD 06/24/2020 Hospital Encounter Ambulatory Surgery Jeffery, Mal ignant neoplasm MD Jael of cervix uteri , not otherwise speci fied (Primary Dx) 06/24/2020 Hospital Encounter Radiation Oncology Rory Hernandez MD 06/24/2020 Documentation Radiation Oncology Jael Gil MD 06/24/2020 Documentation Radiation Oncology Jael Gil MD 06/24/2020 Documentation Radiation Oncology Jael Gil MD 06/24/2020 Travel 06/23/2020 Clinical Support Infectious Diseases Darion Perea ounter for observation for other suspected exposure to biological agent ruled out (Primary Dx); Kristyn A, CENTRAL STERILIZATION TECHNICIAN Malignant neoplasm of cervix uteri, not otherwise specified Esperanza Live, VINNY 06/23/2020 Travel 06/20/2020 Hospital Encounter Audiology Rory Hernandez, Sensori neural MD hearing loss, bilateral (Prim weston Dx) 06/20/2020 Travel 06/19/2020 Travel 06/18/2020 Travel 06/17/2020 Hospital Encounter Lab Carmen Flannery PA Malign ant neoplasm of cervix uteri , not otherwise speci fied 06/17/2020 Surgery Ambulatory Surgery Jeffery, (CT) INSE RTION OF MD Jael UTERINE TANDEM AND VAGINAL OVOID F OR CLINICAL BRACHYTHERAPY 06/17/2020 Anesthesia Event Ambulatory Surgery Chiquis Carrion MD Lipman, Daniel, CRNA 06/17/2020 Hospital Encounter Ambulatory Surgery Jeffery Mal ignant neoplasm MD Jael of cervix uteri , not otherwise speci fied (Primary Dx) 06/17/2020 Documentation Radiation Oncology Jael Gil MD 06/17/2020 Telephone Surgical Oncology Carmen Flannery PA 06/17/2020 Orders Only Surgical Oncology Carmen Flannery PA Maligna nt neoplasm of cervix uteri , not otherwise speci fied (Primary Dx) 06/17/2020 Documentation Radiation Oncology Jael Gil MD 06/17/2020 Orders Only Surgical Oncology Carmen Flannery PA 06/17/2020 Documentation Radiation Oncology Jael Gil MD 06/17/2020 Documentation Radiation Oncology Jael Gil MD 06/17/2020 Travel 06/16/2020 Clinical Support Infectious Diseases Darion Perea ounter for observation for other suspected exposure to biological agent ruled out (Primary Dx); Kristyn A, CENTRAL STERILIZATION TECHNICIAN Malignant neoplasm of cervix uteri, not otherwise specified Isaías Don RN 06/16/2020 Travel 06/12/2020 Travel 06/11/2020 Clinical Support Radiation Oncology Jael Gil MD 06/11/2020 Infusion Infusion Services Carmen Flannery PA Maligna nt neoplasm of cervix uteri , not otherwise speci fied (Primary Dx) 06/11/2020 Orders Only Radiation Oncology Brit, Malignan t neoplasm Kristyn A, CENTRAL STERILIZATION TECHNICIAN of cervix uteri , not otherwise speci fied (Primary Dx) 06/11/2020 Orders Only Radiation Oncology Jeffery Malignant neoplasm MD Jael of cervix uteri , not otherwise speci fied (Primary Dx) 06/11/2020 Documentation Radiation Oncology Jael Gil MD 06/11/2020 Travel 06/10/2020 Telemedicine Surgical Oncology Rory Hernandez, Malignan t neoplasm of cervix uteri, not otherwise specified (Primary Dx); Malignant neopl asm of endometrium; Encounter for e xamination prior to antineoplastic chemotherapy; Malignant neopl asm of overlapping sites of cervix uteri; Nausea without vomiting 06/10/2020 Hospital Encounter Lab Carmen Flannery PA Malign ant neoplasm of cervix uteri , not otherwise speci fied 06/10/2020 Ancillary Procedure Radiology 06/10/2020 Surgery Ambulatory Surgery Jeffery, (CT) INSE RTION OF MD Jael UTERINE TANDEM AND VAGINAL OVOID F OR CLINICAL BRACHYTHERAPY 06/10/2020 Anesthesia Event Ambulatory Surgery Rodney Pineda MD 06/10/2020 Hospital Encounter Ambulatory Surgery Jeffery, Mal ignant neoplasm MD Jael of cervix uteri , not otherwise speci fied (Primary Dx) 06/10/2020 Orders Only Surgical Oncology Rory Hernandez MD 06/10/2020 Documentation Radiation Oncology Jael Gil MD 06/10/2020 Orders Only Radiation Oncology Jose Sharif, Malign ant neoplasm MD of cervix uteri , not otherwise speci fied (Primary Dx) 06/10/2020 Documentation Radiation Oncology Jael Gil MD 06/10/2020 Documentation Radiation Oncology Jael Gil MD 06/10/2020 Documentation Radiation Oncology Jael Gil MD 06/10/2020 Travel 06/09/2020 Travel 06/07/2020 Clinical Support Infectious Diseases Kelly Perea pected COVID-19 (Primary Dx); Kristyn A, CENTRAL STERILIZATION TECHNICIAN Malignant neoplasm of cervix uteri, not otherwise specified Shayna Peters MA 06/07/2020 Travel 06/06/2020 Travel 06/05/2020 Ancillary Procedure Radiology Brit, Maligna nt neoplasm Kristyn A, CENTRAL STERILIZATION TECHNICIAN of cervix uteri , not otherwise speci fied 06/05/2020 Anesthesia Event Anesthesiology Amy Mccord MA 06/05/2020 POEM Appointments Anesthesiology Jackie Perea er for other preprocedural examination (Primary Dx); Kristyn A, CENTRAL STERILIZATION TECHNICIAN Malignant neopl asm of cervix uteri, not otherwise specified 06/05/2020 Hospital Encounter Radiation Oncology Tennille Perea lignant neoplasm Kristyn A, CENTRAL STERILIZATION TECHNICIAN of cervix uteri , not otherwise speci fied 06/05/2020 Hospital Encounter Lab Brit, Malignan t neoplasm Kristyn A, CENTRAL STERILIZATION TECHNICIAN of cervix uteri , not otherwise speci fied 06/05/2020 Orders Only Radiation Oncology Brit, Malignan t neoplasm Kristyn A, CENTRAL STERILIZATION TECHNICIAN of overlapping sites of cervix uteri (Primary Dx) 06/05/2020 Orders Only Radiation Oncology Brit, Malignan t neoplasm Kristyn A, CENTRAL STERILIZATION TECHNICIAN of overlapping sites of cervix uteri (Primary Dx) 06/05/2020 Travel 06/04/2020 Infusion Infusion Services Carmen Flannery PA Maligna nt neoplasm of cervix uteri , not otherwise speci fied (Primary Dx) 06/04/2020 Orders Only Surgical Oncology Carmen Flannery PA 06/04/2020 Travel 06/03/2020 Clinical Support Radiation Oncology Jael Gil MD 06/03/2020 Travel 05/31/2020 Travel 05/30/2020 Travel 05/29/2020 Travel 05/28/2020 Infusion Infusion Services Carmen Flannery PA Maligna nt neoplasm of cervix uteri , not otherwise speci fied (Primary Dx) 05/28/2020 Travel 05/27/2020 Clinical Support Radiation Oncology Jael Gil MD 05/27/2020 Telemedicine Surgical Oncology Rory Hernandez, Malignan t neoplasm of cervix uteri, not otherwise specified (Primary Dx); Malignant neopl asm of endometrium; Encounter for e xamination prior to antineoplastic chemotherapy; Malignant neopl asm of overlapping sites of cervix uteri; Nausea; Constipation al ternates with diarrhea 05/27/2020 Orders Only Surgical Oncology Rory Hernandez MD 05/27/2020 Travel 05/24/2020 Travel 05/23/2020 Travel 05/22/2020 Travel 05/21/2020 Infusion Infusion Services Carmen Flannery PA Maligna nt neoplasm of cervix uteri , not otherwise speci fied (Primary Dx) 05/21/2020 Documentation Brice Rollins MDiv 05/21/2020 Travel 05/20/2020 Clinical Support Radiation Oncology Jael Gil MD 05/20/2020 Orders Only Radiation Oncology Jeffery Malignant neoplasm MD Jael of cervix uteri , not otherwise speci fied (Primary Dx) 05/20/2020 Travel 05/15/2020 Travel 05/14/2020 Infusion Infusion Services Carmen Flannery PA Maligna nt neoplasm of cervix uteri , not otherwise speci fied (Primary Dx) 05/14/2020 Travel 05/13/2020 Clinical Support Radiation Oncology Jael Gil MD 05/13/2020 Telemedicine Surgical Oncology Rory Hernandez, Malignan t neoplasm of overlapping sites of cervix uteri (Primary Dx); Malignant neopl asm of endometrium; Malignant neopl asm of cervix uteri, not otherwise specified 05/13/2020 Orders Only Gynecology Rory Hernandez MD 05/13/2020 Travel 05/09/2020 Documentation Radiation Oncology Jael Gil MD 05/08/2020 Orders Only Surgical Oncology Carmen Flannery PA 05/07/2020 Orders Only Surgical Oncology Carmen Flannery PA Maligna nt neoplasm of cervix uteri , not otherwise speci fied (Primary Dx) 05/07/2020 Orders Only Radiation Oncology Brit, Malignan t neoplasm Kristyn A, CENTRAL STERILIZATION TECHNICIAN of cervix uteri , not otherwise speci fied (Primary Dx) 05/07/2020 Prep for Surgery Radiation Oncology Brit, Sally gnant neoplasm Kristyn A, CENTRAL STERILIZATION TECHNICIAN of cervix uteri , not otherwise speci fied (Primary Dx) 05/06/2020 Consult Radiation Oncology Jeffery Malignant melisa Elder MD of cervix uteri , not otherwise speci fied 05/06/2020 Documentation Radiation Oncology Jael Gil MD 05/06/2020 Documentation Radiation Oncology Jael Gil MD 05/06/2020 Travel 05/03/2020 Orders Only Radiation Oncology Jeffery Malignant melisa Elder MD of overlapping sites of cervix uteri (Primary Dx) 05/02/2020 Office Visit Gynecology Rory Hernandez, Malignant el plasm of cervix uteri, not otherwise specified; Complex endomet rial hyperplasia; Malignant neopl asm of endometrium 05/02/[address] 05/02/2020 Travel 05/01/2020 Ancillary Procedure Radiology Carmen Flannery PA Malig nant neoplasm of cervix uteri, not otherwise specified; Complex endomet rial hyperplasia 05/01/2020 Hospital Encounter Lab Carmen Flannery PA Malign ant neoplasm of cervix uteri, not otherwise specified; Complex endomet rial hyperplasia; Malignant neopl asm of endometrium 05/01/2020 Clinical Support Infectious Diseases Carmen Flannery PA Suspected COVID-19 (Primary Dx); Sumi Malignant neopl asm of cervix uteri, not otherwise specified; Rodríguez, Malignant neopl asm of endometrium; Charity Complex endomet rial hyperplasia 05/01/2020 Telephone Gynecology Nataliia Kerr RN 05/01/2020 Travel 05/01/2020 Orders Only Surgical Oncology Carmen Flannery PA Maligna nt neoplasm of cervix uteri, not otherwise specified (Primary Dx); Complex endomet rial hyperplasia 04/30/2020 POEM Appointments Anesthesiology Carmen Flannery PA Malig nant neoplasm of cervix uteri, not otherwise specified; Complex endomet rial hyperplasia; Malignant neopl asm of endometrium 04/29/2020 Anesthesia Event Anesthesiology Veronika Ta RN 04/26/2020 Hospital Encounter Radiology Carmen Flannery PA Malignant neoplasm Yuliana, Anupam, of cervix ut valeria, not MD otherwise speci fied 04/26/2020 Hospital Encounter Lab Zach Sky PA 04/26/2020 Ancillary Procedure Radiology Carmen Flannery PA Thyro id nodule 04/26/2020 Travel 04/25/2020 Hospital Encounter Radiology Rory Hernandez, Cervica l cancer (Primary Dx); Soft tissue lesion of pelvic region; Yue Bucio, Encounter for preprocedural examination SCOTT 04/25/2020 Telephone Radiology Jeannie Tee MA 04/25/2020 Orders Only Radiology Yue Bucio PA 04/23/2020 Orders Only Surgical Oncology Carmen Flannery PA Thyroid nodule (Primary Dx) 04/23/2020 Orders Only Radiology Zach Sky PA 04/22/2020 Orders Only Surgical Oncology Caremn Flannery PA Maligna nt neoplasm of cervix uteri , not otherwise speci fied (Primary Dx) 04/19/2020 Ancillary Procedure Radiology Carmen Flannery PA Malernie nant neoplasm of cervix uteri, not otherwise specified; Complex endomet rial hyperplasia; Malignant neopl asm of endometrium 04/19/2020 Travel 04/18/2020 Lab Requisition Kushal Ryan MD Witson, Anne S., MD 04/17/2020 Ancillary Procedure Radiology Rory Hernandez, Cancer 04/17/2020 Ancillary Procedure Radiology Carmen Flannery PA Malig nant neoplasm of cervix uteri, not otherwise specified; Complex endomet rial hyperplasia; Malignant neopl asm of endometrium 04/17/2020 Travel 04/16/2020 Telephone Surgical Oncology Carmen Flannery PA 04/15/2020 Office Visit Surgical Oncology Rory Hernandez, Maligndasha t neoplasm of cervix uteri, not otherwise specified (Primary Dx); Complex endomet rial hyperplasia; Malignant neopl asm of endometrium 04/15/2020 NPR Patient Access Rory Hernandez, Services 04/15/2020 Prep for Surgery Surgical Oncology Carmen Flannery PA Mal ignant neoplasm of cervix uteri, not otherwise specified (Primary Dx); Malignant neopl asm of endometrium; Complex endomet rial hyperplasia 04/15/2020 Travel 04/11/2020 Clinical Support Infectious Diseases Rory Hernandez, Khoury bran DEVINE-19 (Primary Dx) Shahla Pearson 04/11/2020 Travel after 03/04/2020 Surgical History Surgery Date Site/Laterality Comments DILATION AND CURETTAGE OF UTERUS TONSILLECTOMY WITH ADENOIDECTOMY SECTION, CLASSIC HAND SURGERY BREAST LUMPECTOMY BUNIONECTOMY second surgery t o remove screw HEEL SPUR EXCISION IN INSERTION UTERINE 06/10/2020 N/A Procedure: (CT) INSERTION OF TANDEM&/VAGINAL OVOIDS UTERINE T ANDEM AND VAGINAL OVOID FOR CLINIC AL BRACHYTHERAPY; Surgeon: Jael Gil MD; Location: [facility]; Service : RADIATION ONCOLOGY IN ULTRASOUND GUIDANCE NEEDLE 06/10/2020 N/A Pr ocedure: INTRAOPERATIVE PLACEMENT ULTRASOUND FOR B RACHYTHERAPY; Surgeon: Jael Gil MD; Location: [facility]; Service : RADIATION ONCOLOGY IN PELVIC EXAMINATION W 06/10/2020 Vagina /N/A Procedur e: PELVIC EXAMINATION ANESTH UNDER ANESTHESIA ; Surgeon: Jael Gil MD; Location: [facility]; Service : RADIATION ONCOLOGY IN CHG HDR RDNCL 06/10/2020 N/A Procedure: DIONISIO TE NTRSTL/INTRCAV BRACHYTX 2-12 AFT ERLOADING HDR RADIONUCLIDE CHANNEL BRACHYTHERAPY,2- 12 CHANNELS; Surgeon: Jael ramirez MD; Location: [facility]; Service : RADIATION ONCOLOGY IN CHG SET RADN THERAPY FIELD 06/10/2020 N/A Pr ocedure: CT SIMULATION; COMPLEX Surgeon: Jael ramirez MD; Location: [facility]; Service : RADIATION ONCOLOGY IN INSERTION UTERINE 06/17/2020 N/A Procedure: (CT) INSERTION OF TANDEM&/VAGINAL OVOIDS UTERINE T ANDEM AND VAGINAL OVOID FOR CLINIC AL BRACHYTHERAPY; Surgeon: Jael Gil MD; Location: [facility]; Service : RADIATION ONCOLOGY IN PELVIC EXAMINATION W 06/17/2020 Vagina /N/A Procedur e: PELVIC EXAMINATION ANESTH UNDER ANESTHESIA ; Surgeon: Jael Gil MD; Location: [facility]; Service : RADIATION ONCOLOGY IN CHG HDR RDNCL 06/17/2020 N/A Procedure: DIONISIO TE NTRSTL/INTRCAV BRACHYTX 2-12 AFT ERLOADING HDR RADIONUCLIDE CHANNEL BRACHYTHERAPY,2- 12 CHANNELS; Surgeon: Jael ramirez MD; Location: [facility]; Service : RADIATION ONCOLOGY IN CHG SET RADN THERAPY FIELD 06/17/2020 N/A Pr ocedure: CT SIMULATION; COMPLEX Surgeon: Jael ramirez MD; Location: [facility]; Service : RADIATION ONCOLOGY IN INSERTION UTERINE 06/24/2020 Vagina /N/A Procedure: (CT) INSERTION OF TANDEM&/VAGINAL OVOIDS UTERINE T ANDEM AND VAGINAL OVOID FOR CLINIC AL BRACHYTHERAPY; Surgeon: Jael Gil MD; Location: [facility]; Service : RADIATION ONCOLOGY IN PELVIC EXAMINATION W 06/24/2020 Vagina /N/A Procedur e: PELVIC EXAMINATION ANESTH UNDER ANESTHESIA ; Surgeon: Jael Gil MD; Location: [facility]; Service : RADIATION ONCOLOGY IN CHG HDR RDNCL 06/24/2020 N/A Procedure: DIONISIO TE NTRSTL/INTRCAV BRACHYTX 2-12 AFT ERLOADING HDR RADIONUCLIDE CHANNEL BRACHYTHERAPY,2- 12 CHANNELS; Surgeon: Jael ramirez MD; Location: [facility]; Service : RADIATION ONCOLOGY IN CHG SET RADN THERAPY FIELD 06/24/2020 N/A Pr ocedure: CT SIMULATION; COMPLEX Surgeon: Jael ramirez MD; Location: [facility]; Service : RADIATION ONCOLOGY IN INSERTION UTERINE 07/01/2020 N/A Procedure: (CT) INSERTION OF TANDEM&/VAGINAL OVOIDS UTERINE T ANDEM AND VAGINAL OVOID FOR CLINIC AL BRACHYTHERAPY; Surgeon: Tamela Mike MD; Location: [facility]; Service: RADIATI ON ONCOLOGY IN PELVIC EXAMINATION W 07/01/2020 Vagina /N/A Procedur e: PELVIC EXAMINATION ANESTH UNDER ANESTHESIA ; Surgeon: Tamela Mike MD; Location: [facility]; Service: RADIATI ON ONCOLOGY IN CHG HDR RDNCL 07/01/2020 N/A Procedure: DIONISIO TE NTRSTL/INTRCAV BRACHYTX 2-12 AFT ERLOADING HDR RADIONUCLIDE CHANNEL BRACHYTHERAPY,2- 12 CHANNELS; Surgeon: Tamela maldonado MD; Location: [facility]; Service : RADIATION ONCOLOGY IN CHG SET RADN THERAPY FIELD 07/01/2020 N/A Pr ocedure: CT SIMULATION; COMPLEX Surgeon: Tamela maldonado MD; Location: [facility]; Service : RADIATION ONCOLOGY IN INSERTION UTERINE 06/28/2020 N/A Procedure: (CT) INSERTION OF TANDEM&/VAGINAL OVOIDS UTERINE T ANDEM AND VAGINAL OVOID FOR CLINIC AL BRACHYTHERAPY; Surgeon: Corrine Clark MD; Loca tion: [facility]; Service: RADIATION ONCOLO GY IN PELVIC EXAMINATION W 06/28/2020 Vagina /N/A Procedur e: PELVIC EXAMINATION ANESTH UNDER ANESTHESIA ; Surgeon: Corrine Clark MD; Location: [facility]; Service: RADIATI ON ONCOLOGY IN CHG HDR RDNCL 06/28/2020 N/A Procedure: DIONISIO TE NTRSTL/INTRCAV BRACHYTX 2-12 AFT ERLOADING HDR RADIONUCLIDE CHANNEL BRACHYTHERAPY,2- 12 CHANNELS; Surgeon: Corrine Womack pp, MD; Location: [facility]; Service : RADIATION ONCOLOGY IN CHG SET RADN THERAPY FIELD 06/28/2020 N/A Pr ocedure: CT SIMULATION; COMPLEX Surgeon: Corrine Womack pp, MD; Location: [facility]; Service : RADIATION ONCOLOGY Medical History Medical History Date Comments Hypertension 2011 Hepatitis 1994 Depressive disorder 2013 Anxiety 2013 Cancer Family History Medical History Relation Name Comments Breast cancer Maternal Aunt Siobhan Lung cancer Maternal Aunt keri Lung cancer Maternal Grandfather alessia Lung cancer Maternal Uncle claudine Breast cancer Paternal Aunt Lilian Lung cancer Paternal Grandmother corrine Cervical cancer Sister megan Relation Name Status Comments Maternal Aunt Siobhan Alive Maternal Aunt keri Maternal Grandfather alessia Maternal Uncle claudine Paternal Aunt Lilian Alive Paternal Grandmother corrine Alive Sister megan Alive Social History Tobacco Use Types Packs/Day Years Used Date Never Smoker 0 0 Smokeless Tobacco: Never Used Alcohol Use Standard Drinks/Week Comments Yes 0 (1 standard drink = 0.6 oz pure alcoho l) social Sex Assigned at Date Recorded Not on file Job Start Date Occupation Industry Not on file Not on file Not on file Obstetrics History Grav Para Term Pre Abrt (TAB) (SAB) (Ect) Mult Lvng Comments 4 2 2 2 1 1 2 1 normal vagin al delivery, 7lbs 1 , 7 lb 4 ounces Date Outcome GA Total Labor/2nd/3rd Weight Sex Delivery Anes PTL Akila A 1 A5 Name Clin Labor Term Term SAB TAB Last Filed Vital Signs Vital Sign Reading Time Taken Comments Blood Pressure 148/95 01/07/2021 2:46 PM CDT Pulse 77 01/07/2021 2:46 PM CDT Temperature 36.4 C (97.5 F) 10/07/2020 8:56 AM CDT Respiratory Rate 17 01/07/2021 2:46 PM CDT Oxygen Saturation 98% 01/07/2021 2:46 PM CDT Inhaled Oxygen Concentration - - Weight 90.6 kg (199 lb 11.8 oz) 01/07/2021 2:46 PM CDT Height 168.5 cm (5' 6.34") 05/14/2020 8:24 AM COMMODITY SPECIALIST Body Mass Index 31.91 05/14/2020 8:24 AM COMMODITY SPECIALIST Plan of Treatment Date Type Specialty Care Team Description 04/14/2021 Office Visit Gynecology Rory Hernandez M D [address], [place] [address] [phone] 07/15/2021 Appointment Lab Harleen Domínguez NP [address], [place] [address] [phone] 07/15/2021 Appointment Radiation Oncology Elayne Gil MD [address], [place] [address] [phone] Health Maintenance Due Date Last Done Comments COVID-19 Vaccination (1) 1984 Procedures Procedure Name Priority Date/Time Associated Diagnosis Comme nts OSI MAMMO BILATERAL Routine 01/16/2021 4:33 Cancer Resu lts for this PM CDT procedure are i n the results section. OSI MAMMO BILATERAL Routine 01/16/2021 4:27 Cancer Resu lts for this PM CDT procedure are i n the results section. CYTOLOGY HPV 16/18 Routine 01/07/2021 3:43 Malignant neoplasm Results for this GENOTYPING AND HIGH RISK PM CDT of cervix uteri, not procedure are in POOL otherwise specified the resu lts section. CYTOLOGY OPERATIONS ASSOCIATE Routine 01/07/2021 3:43 Malignant neoplasm Resul ts for this INTERPRETATION PM CDT of cervix uteri, not proce dure are in otherwise specified the resu lts section. PETCT SUBSEQUENT Routine 01/07/2021 9:41 Malignant neoplasm R esults for this TREATMENT STRATEGY AM CDT of cervix uteri, not p rocedure are in otherwise specified the resu lts section. POC GLUCOSE SCREEN Routine 01/07/2021 8:07 Resul ts for this AM CDT procedure are i n the results section. PETCT CONTRAST ENHANCED Routine 10/04/2020 9:06 Malignant el plasm Results for this SUBSEQUENT TREATMENT AM CDT of cervix uteri, not procedure are in STRATEGY otherwise specif ied the results Malignant neoplasm section. of endometrium POC GLUCOSE SCREEN Routine 10/04/2020 7:28 Resul ts for this AM CDT procedure are i n the results section. POC CREATININE Routine 10/04/2020 7:28 Results f or this AM CDT procedure are i n the results section. MRI PELVIS W WO CONTRAST Routine 09/26/2020 6:17 Pain in unsp ecified Results for this - MUSCULOSKELETAL PM CDT hip procedure are in the results section. XR HIP 2 VW BILATERAL W Routine 09/26/2020 2:32 Pain in unspe cified Results for this PELVIS PM CDT hip procedure are i n the results section. MRI PELVIS W WO CONTRAST Routine 08/22/2020 7:18 Malignant ne oplasm Results for this - OPERATIONS ASSOCIATE AM COMMODITY SPECIALIST of overlapping sites procedu re are in of cervix uteri the results section. CT SIMULATION 07/01/2020 7:53 Malignant neoplasm AM COMMODITY SPECIALIST of cervix uteri, not otherwise specified REMOTE AFTERLOADING HDR 07/01/2020 7:53 Malignant el plasm RADIONUCLIDE AM COMMODITY SPECIALIST of cervix uteri, not BRACHYTHERAPY,2-12 otherwise specified CHANNELS PELVIC EXAMINATION UNDER 07/01/2020 7:53 Malignant ne oplasm ANESTHESIA AM COMMODITY SPECIALIST of cervix uteri, not otherwise specified (CT) INSERTION OF 07/01/2020 7:53 Malignant neoplasm UTERINE TANDEM AND AM COMMODITY SPECIALIST of cervix uteri, not VAGINAL OVOID FOR otherwise specified CLINICAL BRACHYTHERAPY COVID-19 (SARS-COV-2) Routine 06/30/2020 10:45 Encounter for R esults for this PCR-ASYMPTOMATIC [facility] AM COMMODITY SPECIALIST observation for proce dure are in other suspected the results exposure to section. biological agent ruled out CT SIMULATION 06/28/2020 7:26 Malignant neoplasm AM COMMODITY SPECIALIST of cervix uteri, not otherwise specified REMOTE AFTERLOADING HDR 06/28/2020 7:26 Malignant el plasm RADIONUCLIDE AM COMMODITY SPECIALIST of cervix uteri, not BRACHYTHERAPY,2-12 otherwise specified CHANNELS PELVIC EXAMINATION UNDER 06/28/2020 7:26 Malignant ne oplasm ANESTHESIA AM COMMODITY SPECIALIST of cervix uteri, not otherwise specified (CT) INSERTION OF 06/28/2020 7:26 Malignant neoplasm UTERINE TANDEM AND AM COMMODITY SPECIALIST of cervix uteri, not VAGINAL OVOID FOR otherwise specified CLINICAL BRACHYTHERAPY 2019-NCOV COVID-19 Routine 06/27/2020 11:44 Suspected COVID -19 Results for this AM COMMODITY SPECIALIST procedure are i n the results section. BLOOD UREA NITROGEN Routine 06/24/2020 11:21 Malignant neoplas m Results for this AM COMMODITY SPECIALIST of cervix uteri, not procedu re are in otherwise specified the resu lts section. CALCIUM LEVEL TOTAL Routine 06/24/2020 11:21 Malignant neoplas m Results for this AM COMMODITY SPECIALIST of cervix uteri, not procedu re are in otherwise specified the resu lts section. .GLOMERULAR FILTRATION Routine 06/24/2020 11:21 Malignant neop lasm Results for this RATE AM COMMODITY SPECIALIST of cervix uteri, not procedu re are in otherwise specified the resu lts section. SERUM CREATININE Routine 06/24/2020 11:21 Malignant neoplasm R esults for this AM COMMODITY SPECIALIST of cervix uteri, not procedu re are in otherwise specified the resu lts section. ELECTROLYTE PANEL Routine 06/24/2020 11:21 Malignant neoplasm Results for this AM COMMODITY SPECIALIST of cervix uteri, not procedu re are in otherwise specified the resu lts section. GLUCOSE LEVEL Routine 06/24/2020 11:21 Malignant neoplasm Resu lts for this AM COMMODITY SPECIALIST of cervix uteri, not procedu re are in otherwise specified the resu lts section. MANUAL DIFFERENTIAL Routine 06/24/2020 11:21 Malignant neoplas m Results for this AM COMMODITY SPECIALIST of cervix uteri, not procedu re are in otherwise specified the resu lts section. Results CBC Routine 06/24/2020 11:21 Malignant neoplasm Resul ts for this AM COMMODITY SPECIALIST of cervix uteri, not procedu re are in otherwise specified the resu lts section. MAGNESIUM LEVEL Routine 06/24/2020 11:21 Malignant neoplasm Re sults for this AM COMMODITY SPECIALIST of cervix uteri, not procedu re are in otherwise specified the resu lts section. ASPARTATE Routine 06/24/2020 11:21 Malignant neoplasm Resul ts for this AMINOTRANSFERASE AM COMMODITY SPECIALIST of cervix uteri, not pro cedure are in otherwise specified the resu lts section. ALANINE AMINOTRANSFERASE Routine 06/24/2020 11:21 Malignant ne oplasm Results for this AM COMMODITY SPECIALIST of cervix uteri, not procedu re are in otherwise specified the resu lts section. BILIRUBIN TOTAL Routine 06/24/2020 11:21 Malignant neoplasm Re sults for this AM COMMODITY SPECIALIST of cervix uteri, not procedu re are in otherwise specified the resu lts section. BASIC METABOLIC PANEL, Routine 06/24/2020 11:21 Malignant neop lasm CALCIUM TOTAL AM COMMODITY SPECIALIST of cervix uteri, not otherwise specified COMPLETE BLOOD COUNT W/ Routine 06/24/2020 11:21 Malignant el plasm DIFFERENTIAL AM COMMODITY SPECIALIST of cervix uteri, not otherwise specified CT SIMULATION 06/24/2020 7:37 Malignant neoplasm AM COMMODITY SPECIALIST of cervix uteri, not otherwise specified REMOTE AFTERLOADING HDR 06/24/2020 7:37 Malignant el plasm RADIONUCLIDE AM COMMODITY SPECIALIST of cervix uteri, not BRACHYTHERAPY,2-12 otherwise specified CHANNELS PELVIC EXAMINATION UNDER 06/24/2020 7:37 Malignant ne oplasm ANESTHESIA AM COMMODITY SPECIALIST of cervix uteri, not otherwise specified (CT) INSERTION OF 06/24/2020 7:37 Malignant neoplasm UTERINE TANDEM AND AM COMMODITY SPECIALIST of cervix uteri, not VAGINAL OVOID FOR otherwise specified CLINICAL BRACHYTHERAPY COVID-19 (SARS-COV-2) Routine 06/23/2020 9:52 Encounter for R esults for this PCR-ASYMPTOMATIC [facility] AM COMMODITY SPECIALIST observation for proce dure are in other suspected the results exposure to section. biological agent ruled out BLOOD UREA NITROGEN Routine 06/17/2020 11:13 Malignant neoplas m Results for this AM COMMODITY SPECIALIST of cervix uteri, not procedu re are in otherwise specified the resu lts section. CALCIUM LEVEL TOTAL Routine 06/17/2020 11:13 Malignant neoplas m Results for this AM COMMODITY SPECIALIST of cervix uteri, not procedu re are in otherwise specified the resu lts section. .GLOMERULAR FILTRATION Routine 06/17/2020 11:13 Malignant neop lasm Results for this RATE AM COMMODITY SPECIALIST of cervix uteri, not procedu re are in otherwise specified the resu lts section. SERUM CREATININE Routine 06/17/2020 11:13 Malignant neoplasm R esults for this AM COMMODITY SPECIALIST of cervix uteri, not procedu re are in otherwise specified the resu lts section. ELECTROLYTE PANEL Routine 06/17/2020 11:13 Malignant neoplasm Results for this AM COMMODITY SPECIALIST of cervix uteri, not procedu re are in otherwise specified the resu lts section. GLUCOSE LEVEL Routine 06/17/2020 11:13 Malignant neoplasm Resu lts for this AM COMMODITY SPECIALIST of cervix uteri, not procedu re are in otherwise specified the resu lts section. MANUAL DIFFERENTIAL Routine 06/17/2020 11:13 Malignant neoplas m Results for this AM COMMODITY SPECIALIST of cervix uteri, not procedu re are in otherwise specified the resu lts section. Results CBC Routine 06/17/2020 11:13 Malignant neoplasm Resul ts for this AM COMMODITY SPECIALIST of cervix uteri, not procedu re are in otherwise specified the resu lts section. MAGNESIUM LEVEL Routine 06/17/2020 11:13 Malignant neoplasm Re sults for this AM COMMODITY SPECIALIST of cervix uteri, not procedu re are in otherwise specified the resu lts section. ASPARTATE Routine 06/17/2020 11:13 Malignant neoplasm Resul ts for this AMINOTRANSFERASE AM COMMODITY SPECIALIST of cervix uteri, not pro cedure are in otherwise specified the resu lts section. ALANINE AMINOTRANSFERASE Routine 06/17/2020 11:13 Malignant ne oplasm Results for this AM COMMODITY SPECIALIST of cervix uteri, not procedu re are in otherwise specified the resu lts section. BILIRUBIN TOTAL Routine 06/17/2020 11:13 Malignant neoplasm Re sults for this AM COMMODITY SPECIALIST of cervix uteri, not procedu re are in otherwise specified the resu lts section. BASIC METABOLIC PANEL, Routine 06/17/2020 11:13 Malignant neop lasm CALCIUM TOTAL AM COMMODITY SPECIALIST of cervix uteri, not otherwise specified COMPLETE BLOOD COUNT W/ Routine 06/17/2020 11:13 Malignant el plasm DIFFERENTIAL AM COMMODITY SPECIALIST of cervix uteri, not otherwise specified CT SIMULATION 06/17/2020 7:31 Malignant neoplasm AM COMMODITY SPECIALIST of cervix uteri, not otherwise specified REMOTE AFTERLOADING HDR 06/17/2020 7:31 Malignant el plasm RADIONUCLIDE AM COMMODITY SPECIALIST of cervix uteri, not BRACHYTHERAPY,2-12 otherwise specified CHANNELS PELVIC EXAMINATION UNDER 06/17/2020 7:31 Malignant ne oplasm ANESTHESIA AM COMMODITY SPECIALIST of cervix uteri, not otherwise specified (CT) INSERTION OF 06/17/2020 7:31 Malignant neoplasm UTERINE TANDEM AND AM COMMODITY SPECIALIST of cervix uteri, not VAGINAL OVOID FOR otherwise specified CLINICAL BRACHYTHERAPY POC GLUCOSE SCREEN Routine 06/17/2020 7:14 Resul ts for this AM COMMODITY SPECIALIST procedure are i n the results section. COVID-19 (SARS-COV-2) Routine 06/16/2020 9:54 Encounter for R esults for this PCR-ASYMPTOMATIC [facility] AM COMMODITY SPECIALIST observation for proce dure are in other suspected the results exposure to section. biological agent ruled out BLOOD UREA NITROGEN Routine 06/10/2020 11:56 Malignant neoplas m Results for this AM COMMODITY SPECIALIST of cervix uteri, not procedu re are in otherwise specified the resu lts section. CALCIUM LEVEL TOTAL Routine 06/10/2020 11:56 Malignant neoplas m Results for this AM COMMODITY SPECIALIST of cervix uteri, not procedu re are in otherwise specified the resu lts section. .GLOMERULAR FILTRATION Routine 06/10/2020 11:56 Malignant neop lasm Results for this RATE AM COMMODITY SPECIALIST of cervix uteri, not procedu re are in otherwise specified the resu lts section. SERUM CREATININE Routine 06/10/2020 11:56 Malignant neoplasm R esults for this AM COMMODITY SPECIALIST of cervix uteri, not procedu re are in otherwise specified the resu lts section. ELECTROLYTE PANEL Routine 06/10/2020 11:56 Malignant neoplasm Results for this AM COMMODITY SPECIALIST of cervix uteri, not procedu re are in otherwise specified the resu lts section. GLUCOSE LEVEL Routine 06/10/2020 11:56 Malignant neoplasm Resu lts for this AM COMMODITY SPECIALIST of cervix uteri, not procedu re are in otherwise specified the resu lts section. MANUAL DIFFERENTIAL Routine 06/10/2020 11:56 Malignant neoplas m Results for this AM COMMODITY SPECIALIST of cervix uteri, not procedu re are in otherwise specified the resu lts section. Results CBC Routine 06/10/2020 11:56 Malignant neoplasm Resul ts for this AM COMMODITY SPECIALIST of cervix uteri, not procedu re are in otherwise specified the resu lts section. MAGNESIUM LEVEL Routine 06/10/2020 11:56 Malignant neoplasm Re sults for this AM COMMODITY SPECIALIST of cervix uteri, not procedu re are in otherwise specified the resu lts section. ASPARTATE Routine 06/10/2020 11:56 Malignant neoplasm Resul ts for this AMINOTRANSFERASE AM COMMODITY SPECIALIST of cervix uteri, not pro cedure are in otherwise specified the resu lts section. ALANINE AMINOTRANSFERASE Routine 06/10/2020 11:56 Malignant ne oplasm Results for this AM COMMODITY SPECIALIST of cervix uteri, not procedu re are in otherwise specified the resu lts section. BILIRUBIN TOTAL Routine 06/10/2020 11:56 Malignant neoplasm Re sults for this AM COMMODITY SPECIALIST of cervix uteri, not procedu re are in otherwise specified the resu lts section. BASIC METABOLIC PANEL, Routine 06/10/2020 11:56 Malignant neop lasm CALCIUM TOTAL AM COMMODITY SPECIALIST of cervix uteri, not otherwise specified COMPLETE BLOOD COUNT W/ Routine 06/10/2020 11:56 Malignant el plasm DIFFERENTIAL AM COMMODITY SPECIALIST of cervix uteri, not otherwise specified ULTRASOUND GUIDANCE - Routine 06/10/2020 8:55 Re sults for this INTRAOPERATIVE AM COMMODITY SPECIALIST procedure are in the results section. CT SIMULATION 06/10/2020 7:38 Malignant neoplasm AM COMMODITY SPECIALIST of cervix uteri, not otherwise specified REMOTE AFTERLOADING HDR 06/10/2020 7:38 Malignant el plasm RADIONUCLIDE AM COMMODITY SPECIALIST of cervix uteri, not BRACHYTHERAPY,2-12 otherwise specified CHANNELS PELVIC EXAMINATION UNDER 06/10/2020 7:38 Malignant ne oplasm ANESTHESIA AM COMMODITY SPECIALIST of cervix uteri, not otherwise specified INTRAOPERATIVE 06/10/2020 7:38 Malignant neoplasm ULTRASOUND FOR AM COMMODITY SPECIALIST of cervix uteri, not BRACHYTHERAPY otherwise specified (CT) INSERTION OF 06/10/2020 7:38 Malignant neoplasm UTERINE TANDEM AND AM COMMODITY SPECIALIST of cervix uteri, not VAGINAL OVOID FOR otherwise specified CLINICAL BRACHYTHERAPY HC 2019-NCOV COVID-19 Routine 06/07/2020 11:57 Suspected COVID -19 Results for this AM COMMODITY SPECIALIST procedure are i n the results section. MRI PELVIS W WO CONTRAST Routine 06/05/2020 7:23 Malignant ne oplasm Results for this - OPERATIONS ASSOCIATE PM COMMODITY SPECIALIST of cervix uteri, not procedu re are in otherwise specified the resu lts section. CALCIUM LEVEL TOTAL Routine 06/05/2020 9:51 Malignant neoplas m Results for this AM COMMODITY SPECIALIST of cervix uteri, not procedu re are in otherwise specified the resu lts section. .GLOMERULAR FILTRATION Routine 06/05/2020 9:51 Malignant neop lasm Results for this RATE AM COMMODITY SPECIALIST of cervix uteri, not procedu re are in otherwise specified the resu lts section. SERUM CREATININE Routine 06/05/2020 9:51 Malignant neoplasm R esults for this AM COMMODITY SPECIALIST of cervix uteri, not procedu re are in otherwise specified the resu lts section. ELECTROLYTE PANEL Routine 06/05/2020 9:51 Malignant neoplasm Results for this AM COMMODITY SPECIALIST of cervix uteri, not procedu re are in otherwise specified the resu lts section. BLOOD UREA NITROGEN Routine 06/05/2020 9:51 Malignant neoplas m Results for this AM COMMODITY SPECIALIST of cervix uteri, not procedu re are in otherwise specified the resu lts section. MANUAL DIFFERENTIAL Routine 06/05/2020 9:51 Malignant neoplas m Results for this AM COMMODITY SPECIALIST of cervix uteri, not procedu re are in otherwise specified the resu lts section. GLUCOSE LEVEL Routine 06/05/2020 9:51 Malignant neoplasm Resu lts for this AM COMMODITY SPECIALIST of cervix uteri, not procedu re are in otherwise specified the resu lts section. Results CBC Routine 06/05/2020 9:51 Malignant neoplasm Resul ts for this AM COMMODITY SPECIALIST of cervix uteri, not procedu re are in otherwise specified the resu lts section. BASIC METABOLIC PANEL, Routine 06/05/2020 9:51 Malignant neop lasm CALCIUM TOTAL AM COMMODITY SPECIALIST of cervix uteri, not otherwise specified COMPLETE BLOOD COUNT W/ Routine 06/05/2020 9:51 Malignant el plasm DIFFERENTIAL AM COMMODITY SPECIALIST of cervix uteri, not otherwise specified MAGNESIUM LEVEL Routine 06/05/2020 9:51 Malignant neoplasm Re sults for this AM COMMODITY SPECIALIST of cervix uteri, not procedu re are in otherwise specified the resu lts section. EKG, 12-LEAD (SCHEDULED) Routine 06/05/2020 Encounter for ot her preprocedural examination BLOOD UREA NITROGEN Routine 06/03/2020 4:01 Malignant neoplas m Results for this PM COMMODITY SPECIALIST of cervix uteri, not procedu re are in otherwise specified the resu lts section. CALCIUM LEVEL TOTAL Routine 06/03/2020 4:01 Malignant neoplas m Results for this PM COMMODITY SPECIALIST of cervix uteri, not procedu re are in otherwise specified the resu lts section. .GLOMERULAR FILTRATION Routine 06/03/2020 4:01 Malignant neop lasm Results for this RATE PM COMMODITY SPECIALIST of cervix uteri, not procedu re are in otherwise specified the resu lts section. SERUM CREATININE Routine 06/03/2020 4:01 Malignant neoplasm R esults for this PM COMMODITY SPECIALIST of cervix uteri, not procedu re are in otherwise specified the resu lts section. ELECTROLYTE PANEL Routine 06/03/2020 4:01 Malignant neoplasm Results for this PM COMMODITY SPECIALIST of cervix uteri, not procedu re are in otherwise specified the resu lts section. GLUCOSE LEVEL Routine 06/03/2020 4:01 Malignant neoplasm Resu lts for this PM COMMODITY SPECIALIST of cervix uteri, not procedu re are in otherwise specified the resu lts section. MANUAL DIFFERENTIAL Routine 06/03/2020 4:01 Malignant neoplas m Results for this PM COMMODITY SPECIALIST of cervix uteri, not procedu re are in otherwise specified the resu lts section. Results CBC Routine 06/03/2020 4:01 Malignant neoplasm Resul ts for this PM COMMODITY SPECIALIST of cervix uteri, not procedu re are in otherwise specified the resu lts section. MAGNESIUM LEVEL Routine 06/03/2020 4:01 Malignant neoplasm Re sults for this PM COMMODITY SPECIALIST of cervix uteri, not procedu re are in otherwise specified the resu lts section. ASPARTATE Routine 06/03/2020 4:01 Malignant neoplasm Resul ts for this AMINOTRANSFERASE PM COMMODITY SPECIALIST of cervix uteri, not pro cedure are in otherwise specified the resu lts section. ALANINE AMINOTRANSFERASE Routine 06/03/2020 4:01 Malignant ne oplasm Results for this PM COMMODITY SPECIALIST of cervix uteri, not procedu re are in otherwise specified the resu lts section. BILIRUBIN TOTAL Routine 06/03/2020 4:01 Malignant neoplasm Re sults for this PM COMMODITY SPECIALIST of cervix uteri, not procedu re are in otherwise specified the resu lts section. BASIC METABOLIC PANEL, Routine 06/03/2020 4:01 Malignant neop lasm CALCIUM TOTAL PM COMMODITY SPECIALIST of cervix uteri, not otherwise specified COMPLETE BLOOD COUNT W/ Routine 06/03/2020 4:01 Malignant el plasm DIFFERENTIAL PM COMMODITY SPECIALIST of cervix uteri, not otherwise specified CALCIUM LEVEL TOTAL Routine 05/27/2020 2:41 Malignant neoplas m Results for this PM COMMODITY SPECIALIST of cervix uteri, not procedu re are in otherwise specified the resu lts section. .GLOMERULAR FILTRATION Routine 05/27/2020 2:41 Malignant neop lasm Results for this RATE PM COMMODITY SPECIALIST of cervix uteri, not procedu re are in otherwise specified the resu lts section. SERUM CREATININE Routine 05/27/2020 2:41 Malignant neoplasm R esults for this PM COMMODITY SPECIALIST of cervix uteri, not procedu re are in otherwise specified the resu lts section. ELECTROLYTE PANEL Routine 05/27/2020 2:41 Malignant neoplasm Results for this PM COMMODITY SPECIALIST of cervix uteri, not procedu re are in otherwise specified the resu lts section. BLOOD UREA NITROGEN Routine 05/27/2020 2:41 Malignant neoplas m Results for this PM COMMODITY SPECIALIST of cervix uteri, not procedu re are in otherwise specified the resu lts section. GLUCOSE LEVEL Routine 05/27/2020 2:41 Malignant neoplasm Resu lts for this PM COMMODITY SPECIALIST of cervix uteri, not procedu re are in otherwise specified the resu lts section. MANUAL DIFFERENTIAL Routine 05/27/2020 2:41 Malignant neoplas m Results for this PM COMMODITY SPECIALIST of cervix uteri, not procedu re are in otherwise specified the resu lts section. Results CBC Routine 05/27/2020 2:41 Malignant neoplasm Resul ts for this PM COMMODITY SPECIALIST of cervix uteri, not procedu re are in otherwise specified the resu lts section. MAGNESIUM LEVEL Routine 05/27/2020 2:41 Malignant neoplasm Re sults for this PM COMMODITY SPECIALIST of cervix uteri, not procedu re are in otherwise specified the resu lts section. ASPARTATE Routine 05/27/2020 2:41 Malignant neoplasm Resul ts for this AMINOTRANSFERASE PM COMMODITY SPECIALIST of cervix uteri, not pro cedure are in otherwise specified the resu lts section. ALANINE AMINOTRANSFERASE Routine 05/27/2020 2:41 Malignant ne oplasm Results for this PM COMMODITY SPECIALIST of cervix uteri, not procedu re are in otherwise specified the resu lts section. BILIRUBIN TOTAL Routine 05/27/2020 2:41 Malignant neoplasm Re sults for this PM COMMODITY SPECIALIST of cervix uteri, not procedu re are in otherwise specified the resu lts section. BASIC METABOLIC PANEL, Routine 05/27/2020 2:41 Malignant neop lasm CALCIUM TOTAL PM COMMODITY SPECIALIST of cervix uteri, not otherwise specified COMPLETE BLOOD COUNT W/ Routine 05/27/2020 2:41 Malignant el plasm DIFFERENTIAL PM COMMODITY SPECIALIST of cervix uteri, not otherwise specified BLOOD UREA NITROGEN Routine 05/20/2020 3:52 Malignant neoplas m Results for this PM COMMODITY SPECIALIST of cervix uteri, not procedu re are in otherwise specified the resu lts section. MANUAL DIFFERENTIAL Routine 05/20/2020 3:52 Malignant neoplas m Results for this PM COMMODITY SPECIALIST of cervix uteri, not procedu re are in otherwise specified the resu lts section. Results CBC Routine 05/20/2020 3:52 Malignant neoplasm Resul ts for this PM COMMODITY SPECIALIST of cervix uteri, not procedu re are in otherwise specified the resu lts section. CALCIUM LEVEL TOTAL Routine 05/20/2020 3:52 Malignant neoplas m Results for this PM COMMODITY SPECIALIST of cervix uteri, not procedu re are in otherwise specified the resu lts section. .GLOMERULAR FILTRATION Routine 05/20/2020 3:52 Malignant neop lasm Results for this RATE PM COMMODITY SPECIALIST of cervix uteri, not procedu re are in otherwise specified the resu lts section. SERUM CREATININE Routine 05/20/2020 3:52 Malignant neoplasm R esults for this PM COMMODITY SPECIALIST of cervix uteri, not procedu re are in otherwise specified the resu lts section. ELECTROLYTE PANEL Routine 05/20/2020 3:52 Malignant neoplasm Results for this PM COMMODITY SPECIALIST of cervix uteri, not procedu re are in otherwise specified the resu lts section. GLUCOSE LEVEL Routine 05/20/2020 3:52 Malignant neoplasm Resu lts for this PM COMMODITY SPECIALIST of cervix uteri, not procedu re are in otherwise specified the resu lts section. COMPLETE BLOOD COUNT W/ Routine 05/20/2020 3:52 Malignant el plasm DIFFERENTIAL PM COMMODITY SPECIALIST of cervix uteri, not otherwise specified MAGNESIUM LEVEL Routine 05/20/2020 3:52 Malignant neoplasm Re sults for this PM COMMODITY SPECIALIST of cervix uteri, not procedu re are in otherwise specified the resu lts section. ASPARTATE Routine 05/20/2020 3:52 Malignant neoplasm Resul ts for this AMINOTRANSFERASE PM COMMODITY SPECIALIST of cervix uteri, not pro cedure are in otherwise specified the resu lts section. ALANINE AMINOTRANSFERASE Routine 05/20/2020 3:52 Malignant ne oplasm Results for this PM COMMODITY SPECIALIST of cervix uteri, not procedu re are in otherwise specified the resu lts section. BILIRUBIN TOTAL Routine 05/20/2020 3:52 Malignant neoplasm Re sults for this PM COMMODITY SPECIALIST of cervix uteri, not procedu re are in otherwise specified the resu lts section. BASIC METABOLIC PANEL, Routine 05/20/2020 3:52 Malignant neop lasm CALCIUM TOTAL PM COMMODITY SPECIALIST of cervix uteri, not otherwise specified CALCIUM LEVEL TOTAL Routine 05/13/2020 2:43 Malignant neoplas m Results for this PM COMMODITY SPECIALIST of cervix uteri, not procedu re are in otherwise specified the resu lts section. .GLOMERULAR FILTRATION Routine 05/13/2020 2:43 Malignant neop lasm Results for this RATE PM COMMODITY SPECIALIST of cervix uteri, not procedu re are in otherwise specified the resu lts section. SERUM CREATININE Routine 05/13/2020 2:43 Malignant neoplasm R esults for this PM COMMODITY SPECIALIST of cervix uteri, not procedu re are in otherwise specified the resu lts section. ELECTROLYTE PANEL Routine 05/13/2020 2:43 Malignant neoplasm Results for this PM COMMODITY SPECIALIST of cervix uteri, not procedu re are in otherwise specified the resu lts section. BLOOD UREA NITROGEN Routine 05/13/2020 2:43 Malignant neoplas m Results for this PM COMMODITY SPECIALIST of cervix uteri, not procedu re are in otherwise specified the resu lts section. GLUCOSE LEVEL Routine 05/13/2020 2:43 Malignant neoplasm Resu lts for this PM COMMODITY SPECIALIST of cervix uteri, not procedu re are in otherwise specified the resu lts section. MANUAL DIFFERENTIAL Routine 05/13/2020 2:43 Malignant neoplas m Results for this PM COMMODITY SPECIALIST of cervix uteri, not procedu re are in otherwise specified the resu lts section. Results CBC Routine 05/13/2020 2:43 Malignant neoplasm Resul ts for this PM COMMODITY SPECIALIST of cervix uteri, not procedu re are in otherwise specified the resu lts section. MAGNESIUM LEVEL Routine 05/13/2020 2:43 Malignant neoplasm Re sults for this PM COMMODITY SPECIALIST of cervix uteri, not procedu re are in otherwise specified the resu lts section. ASPARTATE Routine 05/13/2020 2:43 Malignant neoplasm Resul ts for this AMINOTRANSFERASE PM COMMODITY SPECIALIST of cervix uteri, not pro cedure are in otherwise specified the resu lts section. ALANINE AMINOTRANSFERASE Routine 05/13/2020 2:43 Malignant ne oplasm Results for this PM COMMODITY SPECIALIST of cervix uteri, not procedu re are in otherwise specified the resu lts section. BILIRUBIN TOTAL Routine 05/13/2020 2:43 Malignant neoplasm Re sults for this PM COMMODITY SPECIALIST of cervix uteri, not procedu re are in otherwise specified the resu lts section. BASIC METABOLIC PANEL, Routine 05/13/2020 2:43 Malignant neop lasm CALCIUM TOTAL PM COMMODITY SPECIALIST of cervix uteri, not otherwise specified COMPLETE BLOOD COUNT W/ Routine 05/13/2020 2:43 Malignant el plasm DIFFERENTIAL PM COMMODITY SPECIALIST of cervix uteri, not otherwise specified PETCT CONTRAST ENHANCED STAT 05/01/2020 4:30 Malignant el plasm Results for this INITIAL TREATMENT PM COMMODITY SPECIALIST of cervix uteri, not pr ocedure are in STRATEGY otherwise specif ied the results Complex endometrial section. hyperplasia TMP INTERPRETATION Routine 05/01/2020 2:12 Resul ts for this ANTIBODY SCREEN NEGATIVE PM COMMODITY SPECIALIST pro cedure are in the results section. CLOT EXPIRATION DATE Routine 05/01/2020 2:12 Res ults for this PM COMMODITY SPECIALIST procedure are i n the results section. ANTIBODY SCREEN Routine 05/01/2020 2:12 Malignant neoplasm Re sults for this PM COMMODITY SPECIALIST of cervix uteri, not procedu re are in otherwise specif ied the results Complex endometrial section. hyperplasia Malignant neoplasm of endometrium ABORH Routine 05/01/2020 2:12 Malignant neoplasm Resul ts for this PM COMMODITY SPECIALIST of cervix uteri, not procedu re are in otherwise specif ied the results Complex endometrial section. hyperplasia Malignant neoplasm of endometrium APTT Routine 05/01/2020 2:12 Malignant neoplasm Resul ts for this PM COMMODITY SPECIALIST of cervix uteri, not procedu re are in otherwise specif ied the results Complex endometrial section. hyperplasia Malignant neoplasm of endometrium TYPE AND SCREEN Routine 05/01/2020 2:12 Malignant neoplasm PM COMMODITY SPECIALIST of cervix uteri, not otherwise specif ied Complex endometrial hyperplasia Malignant neoplasm of endometrium PROTHROMBIN TIME Routine 05/01/2020 2:12 Malignant neoplasm R esults for this PM COMMODITY SPECIALIST of cervix uteri, not procedu re are in otherwise specif ied the results Complex endometrial section. hyperplasia Malignant neoplasm of endometrium CONFIRM ABORH TYPE Routine 05/01/2020 2:09 Resul ts for this PM COMMODITY SPECIALIST procedure are i n the results section. URINALYSIS MICROSCOPIC Routine 05/01/2020 2:08 R esults for this PM COMMODITY SPECIALIST procedure are i n the results section. HUMAN CHORIONIC Routine 05/01/2020 2:08 Malignant neoplasm Re sults for this GONADOTROPIN, PM COMMODITY SPECIALIST of cervix uteri, not proced ure are in QUALITATIVE, URINE otherwise spe cified the results Complex endometrial section. hyperplasia Malignant neoplasm of endometrium URINALYSIS WITH Routine 05/01/2020 2:08 Malignant neoplasm Re sults for this MICROSCOPIC IF INDICATED PM COMMODITY SPECIALIST of cervix uteri, not procedure are in otherwise specif ied the results Complex endometrial section. hyperplasia Malignant neoplasm of endometrium URINE CULTURE Routine 05/01/2020 2:08 Malignant neoplasm Resu lts for this PM COMMODITY SPECIALIST of cervix uteri, not procedu re are in otherwise specif ied the results Complex endometrial section. hyperplasia Malignant neoplasm of endometrium 2019-NCOV COVID-19 Routine 05/01/2020 9:21 Suspected COVID -19 Results for this AM COMMODITY SPECIALIST procedure are i n the results section. IR CT GUIDED BIOPSY Routine 04/26/2020 2:42 Malignant neoplas m Results for this MUSCLE/SOFT TISSUE PM COMMODITY SPECIALIST of cervix uteri, not p rocedure are in PELVIC otherwise specified the resu lts section. PATHOLOGY BIOPSY Routine 04/26/2020 2:24 Malignant neoplasm R esults for this INTERPRETATION PM COMMODITY SPECIALIST of cervix uteri, not proce dure are in otherwise specified the resu lts section. PROTHROMBIN TIME Routine 04/26/2020 11:41 Results for this AM COMMODITY SPECIALIST procedure are i n the results section. HUMAN CHORIONIC Routine 04/26/2020 11:31 Results for this GONADOTROPIN, AM COMMODITY SPECIALIST procedure are in QUALITATIVE, URINE the resul ts section. US FINE NEEDLE Routine 04/26/2020 10:38 Thyroid nodule Results for this ASPIRATION AM COMMODITY SPECIALIST procedure are i n the results section. US HEAD NECK SOFT TISSUE Routine 04/26/2020 10:38 Thyroid nodu le Results for this AM COMMODITY SPECIALIST procedure are i n the results section. CYTOLOGY IMAGE-GUIDED Routine 04/26/2020 8:39 Thyroid nodule Results for this FNA INTERPRETATION AM COMMODITY SPECIALIST procedure are in the results section. MRI PELVIS W WO CONTRAST Routine 04/19/2020 4:36 Malignant ne oplasm Results for this - OPERATIONS ASSOCIATE PM CDT of cervix uteri, not procedu re are in otherwise specif ied the results Complex endometrial section. hyperplasia Malignant neoplasm of endometrium CT CHEST W CONTRAST Routine 04/17/2020 7:24 Malignant neoplas m Results for this AM CDT of cervix uteri, not procedu re are in otherwise specif ied the results Complex endometrial section. hyperplasia Malignant neoplasm of endometrium PATHOLOGY BIOPSY Routine 04/15/2020 10:20 Malignant neoplasm R esults for this INTERPRETATION AM CDT of cervix uteri, not proce dure are in otherwise specified the resu lts section. TUPELO MISCELLANEOUS TEST Routine 04/15/2020 10:16 Results for this AM CDT procedure are i n the results section. TMP HIV 1/2 AG&AB PATH Routine 04/15/2020 10:16 R esults for this INTERP AM CDT procedure are i n the results section. MANUAL DIFFERENTIAL Routine 04/15/2020 10:16 Malignant neoplas m Results for this AM CDT of cervix uteri, not procedu re are in otherwise specif ied the results Complex endometrial section. hyperplasia Malignant neoplasm of endometrium Results CBC Routine 04/15/2020 10:16 Malignant neoplasm Resul ts for this AM CDT of cervix uteri, not procedu re are in otherwise specif ied the results Complex endometrial section. hyperplasia Malignant neoplasm of endometrium FRACTIONATED BILIRUBIN Routine 04/15/2020 10:16 Malignant neop lasm Results for this AM CDT of cervix uteri, not procedu re are in otherwise specif ied the results Complex endometrial section. hyperplasia Malignant neoplasm of endometrium TOTAL PROTEIN Routine 04/15/2020 10:16 Malignant neoplasm Resu lts for this AM CDT of cervix uteri, not procedu re are in otherwise specif ied the results Complex endometrial section. hyperplasia Malignant neoplasm of endometrium ASPARTATE Routine 04/15/2020 10:16 Malignant neoplasm Resul ts for this AMINOTRANSFERASE AM CDT of cervix uteri, not pro cedure are in otherwise specif ied the results Complex endometrial section. hyperplasia Malignant neoplasm of endometrium ALANINE AMINOTRANSFERASE Routine 04/15/2020 10:16 Malignant ne oplasm Results for this AM CDT of cervix uteri, not procedu re are in otherwise specif ied the results Complex endometrial section. hyperplasia Malignant neoplasm of endometrium ALKALINE PHOSPHATASE Routine 04/15/2020 10:16 Malignant neopla sm Results for this AM CDT of cervix uteri, not procedu re are in otherwise specif ied the results Complex endometrial section. hyperplasia Malignant neoplasm of endometrium ALBUMIN LEVEL Routine 04/15/2020 10:16 Malignant neoplasm Resu lts for this AM CDT of cervix uteri, not procedu re are in otherwise specif ied the results Complex endometrial section. hyperplasia Malignant neoplasm of endometrium CALCIUM LEVEL TOTAL Routine 04/15/2020 10:16 Malignant neoplas m Results for this AM CDT of cervix uteri, not procedu re are in otherwise specif ied the results Complex endometrial section. hyperplasia Malignant neoplasm of endometrium .GLOMERULAR FILTRATION Routine 04/15/2020 10:16 Malignant neop lasm Results for this RATE AM CDT of cervix uteri, not procedu re are in otherwise specif ied the results Complex endometrial section. hyperplasia Malignant neoplasm of endometrium SERUM CREATININE Routine 04/15/2020 10:16 Malignant neoplasm R esults for this AM CDT of cervix uteri, not procedu re are in otherwise specif ied the results Complex endometrial section. hyperplasia Malignant neoplasm of endometrium ELECTROLYTE PANEL Routine 04/15/2020 10:16 Malignant neoplasm Results for this AM CDT of cervix uteri, not procedu re are in otherwise specif ied the results Complex endometrial section. hyperplasia Malignant neoplasm of endometrium BLOOD UREA NITROGEN Routine 04/15/2020 10:16 Malignant neoplas m Results for this AM CDT of cervix uteri, not procedu re are in otherwise specif ied the results Complex endometrial section. hyperplasia Malignant neoplasm of endometrium GLUCOSE LEVEL Routine 04/15/2020 10:16 Malignant neoplasm Resu lts for this AM CDT of cervix uteri, not procedu re are in otherwise specif ied the results Complex endometrial section. hyperplasia Malignant neoplasm of endometrium HC HIV 1/2 AG AND AB 4TH Routine 04/15/2020 10:16 Malignant ne oplasm Results for this GEN AM CDT of cervix uteri, not procedu re are in otherwise specif ied the results Complex endometrial section. hyperplasia Malignant neoplasm of endometrium HEMOGLOBIN A1C Routine 04/15/2020 10:16 Malignant neoplasm Res ults for this AM CDT of cervix uteri, not procedu re are in otherwise specif ied the results Complex endometrial section. hyperplasia Malignant neoplasm of endometrium COMPLETE BLOOD COUNT W/ Routine 04/15/2020 10:16 Malignant el plasm DIFFERENTIAL AM CDT of cervix uteri, not otherwise specif ied Complex endometrial hyperplasia Malignant neoplasm of endometrium COMPREHENSIVE METABOLIC Routine 04/15/2020 10:16 Malignant el plasm PANEL AM CDT of cervix uteri, not otherwise specif ied Complex endometrial hyperplasia Malignant neoplasm of endometrium HC 2019-NCOV COVID-19 Routine 04/11/2020 1:14 Suspected COVID -19 Results for this PM CDT procedure are i n the results section. PATHOLOGY OUTSIDE Routine 04/02/2020 Results fo r this INTERPRETATION procedure are in the results section. OSI US PELVIC Routine 03/14/2020 11:48 Cancer Results fo r this AM CDT procedure are i n the results section. after 03/04/2020 Results OSI Mammo (01/16/2021 4:33 PM CDT)Only the most recent of2 resultswithin the time period is included. Specimen Narrative Performed At Study acquired at another institution. For comparison only. No MD ELVIE Coleman originated interpretation requested or available. Performing Organization Address City/State/ZIP Code Phon e Number [facility] Cytology HPV 16/18 Genotyping and High Risk Pool (01/07/2021 3:43 PM CDT) HPV Type 16 Negative Negative, [facility] Indeterminate , Invalid HPV Type 18 Positive (A) Negative, [facility] Indeterminate , Invalid HPV High Risk Negative Negative, [facility] Non-16/18 Indeterminate , Invalid Informational Points The garrett HPV Test ([facility], [place], [place]) is a qualitative in vitro diagnostic test for the detection of Human Papillomavirus in cervical specimens collected in [facility] or [facility] SurePathTM [facility]. The test utilizes amplification of target DNA by the Polymerase Chain Reaction (PCR) and nucleic acid hybridization for the detection of 14 high-risk (HR) HPV types in a single analysis. The test sp ecifically identifies types HPV16 and HPV18 while concurrently detecting the other high risk types (31, 33, 35, 39, 45, 51, 52, 56, 58, 59, 66, and 68). The performance characterist ics of this test were validated and determined by the [facility] cytology laboratory. These validation analyses have confirmed the accurate performance of the assay of the angela jimenesurer s stated limit of detection for the target of the test in various specimen types. The [facility] cytology laborator y is authorized under Clinical Laboratory Improvement Amendments (CLIA) to perform high-complexity testing. The [facility] Department of Pathology is accredited by the [employer] ([employer]). Specimen Swab - Cervix, SurePath, Liquid Based Pr eparation Performing Organization Address City/[facility]/ZIP Code Phon [place] [address] [id number] [place] Cytology OPERATIONS ASSOCIATE Interpretation (01/07/2021 3:43 PM CDT) Gross Description A: [facility] 1 SurePath vial received Specimen Information A. Cervix, SurePath, [facility] Liquid Based Preparation, Swab, Specimen Adequacy Satisfactory for [facility] evaluation TZ/Endocervical Endocervical/transform [facility] ation zone component present Diagnosis Negative for [facility] Electronically intraepithelial lesion mike d by Maura or malignancy MD Miranda on 01/14/2021 at 9 :07 AM Diagnosis Additional Partial atrophy [facility] Statements Therapy effect HPV Reflex for Medical Chief Technician Yes [facility] Informational Points Cervicovaginal cytology is a screening procedure subject to false negatives and false positives. Results are more reliable when a satisfactory sample is obtained on a regular repetitive basis and should [facility] be interpreted together with past and current clinica l data. Some tests reported here may have been developed and performance characteristics determined by [facility] Pathology and Laboratory Medicine. These tests have not been specifically cleared or approved by the U.S. Food and Drug Administration. Specimen Swab - Cervix, SurePath, Liquid Based Pr eparation Performing Organization Address City/[facility]/ZIP Code Ph[place] [address] [id number] [place] PETCT Subsequent Treatment Strategy (01/07/2021 9:41 AM CDT) Specimen Impressions Performed At No activity in the uterine cervix or FDG avid tyrone me tastases from [id number] treated disease. Fibroid uterus. New focal activity in the uterus from a degenerating fibroid. Stable subcentimeter right breast nodule since CT ches t 04/17/2020 from possible intramammary node, however can be furthe r evaluated with mammography if not already performed. Narrative Performed At FULL RESULT: [id number] Examination: FDG PET/CT, 01/07/2021 9:41 AM Clinical History: 50-year-old female with malignant ne oplasm of the endometrium and uterine cervix Indication: Restaging, subsequent treatm ent strategy Comparison: PET/CT 10/04/2020 Technique: F-18 fluorodeoxyglucose (FDG) 10 mCi was ad ministered intravenously via right antecubital vein. To allow f or distribution and uptake of radiotracer, the patient was asked to re st quietly for approximately 60-90 minutes. PET/CT imaging was perf ormed from the skull to the proximal thighs. Serum blood glucose at t he time of the injection was 106 mg/dL. CT scanning was done for atte nuation correction, image registration, and diagnosis with sca n parameters optimized to minimize radiation exposure to the patien t. SUV measurements are reported as maximum SUV based on body weight unless otherwise specified. Findings: Head and Neck: Physiologic radiotracer activity is not ed in the brain. The paranasal sinuses are clear. No enlarged or hyperm etabolic cervical lymph nodes are identified. Heterogeneous thyroid gland from underlying nodules of which the dominant nodule was biopsied in the inferior right lob e on 04/26/2020 revealing colloid nodule with cystic deg eneration. Chest: Stable indeterminate non-FDG avid subcentimeter lung nodules in the right upper lobe series 4 image 57, left upper lob e image 74 and right middle lobe image 86 measuring up to 0.5 cm comp ared to CT chest 04/17/2020. There are no enlarged or hypermetabolic mediastinal, h ilar or axillary lymph nodes. A stable non-FDG avid 0.6 cm right breast nodule on se jatin 3 image [address] chest 04/17/2020. Abdomen and Pelvis: The unenhanced spleen, gallbladder, liver, pancreas, a drenal glands and kidneys are normal. No hydronephrosi s. Similar tiny left common iliac lymph node on series 3 image 181 without associated activity from treated disease. Ther e are no new enlarged or hypermetabolic abdominal or pelvic lymph nodes. No focal hypermetabolism in the uterine cervix. Fibroi d uterus. New focal activity on image 212 with an SUV of 5.6 localiz ing to an anterior mid body intramural fibroid, better seen on t he prior contrast-enhanced examination. Musculoskeletal: No suspicious osseous lesions. Again seen is activity close to the femoral trochanters from in flammation. Procedure Note Interface, Radiology Results In - 2020 11:52 AM CDT FULL RESULT: Examination: FDG PET/CT, 01/07/2021 9:41 AM Clinical History: 50-year-old female wit h malignant neoplasm of the endometrium and uterine cervix Indication: Restaging, subsequent treatm ent strategy Comparison: PET/CT 10/04/2020 Technique: F-18 fluorodeoxyglucose (FDG) 10 mCi was administered intravenously via right antecubital vein. To allow for distribution and uptake of radiotracer, the patient was asked to rest quietly for approximately 60-90 minutes. PET/CT britton ging was performed from the skull to the proximal thighs. Serum blood glucose at the time of the injection was 106 mg/dL. CT scanning was done for attenuation correction, image registration, and diagnosis with scan pa rameters optimized to minimize radiation exposure to the patient. SUV measurements are reported as maximum SUV based on body weight unless otherwise specified. Findings: Head and Neck: Physiologic radiotracer a ctivity is noted in the brain. The paranasal sinuses are clear. No enlarged or hypermetabolic cervical lymph nodes are identified. Heterogeneous thyroid gland from underly ing nodules of which the dominant nodule was biopsied in the inferior right lobe on 04/26/2020 revealing colloid nodule with cystic degeneration. Chest: Stable indeterminate non-FDG avid subcentimeter lung nodules in the right upper lobe series 4 image 57, left upper lobe image 74 and right middle lobe image 86 measuring up to 0.[address] chest 04/17/2020. There are no enlarged or hypermetabolic mediastinal, hilar or axillary lymph nodes. A stable non-FDG avid 0.6 cm right breas t nodule on series 3 image [address] chest 04/17/2020. Abdomen and Pelvis: The unenhanced spleen, gallbladder, live r, pancreas, adrenal glands and kidneys are normal. No hydronephrosis. Similar tiny left common iliac lymph nod e on series 3 image 181 without associated activity from treated disease. There are no new enlarged or hypermetabolic abdominal or pelvic lymph nodes. No focal hypermetabolism in the uterine cervix. Fibroid uterus. New focal activity on image 212 with an SUV of 5.6 localizing to an anterior mid body intramural fibroid, better seen on the prior contrast-enhanced examination. Musculoskeletal: No suspicious osseous l esions. Again seen is activity close to the femoral trochanters from inflammation. IMPRESSION: No activity in the uterine cervix or FDG avid tyrone metastases from treated disease. Fibroid uterus. New focal activity in th e uterus from a degenerating fibroid. Stable subcentimeter right breast nodule since CT chest 04/17/2020 from possible intramammary node, however can be further evaluated with mammography if not already performed. Performing Organization Address City/State/ZIP Code Phon e Number [id number] POC Glucose Screen (01/07/2021 8:07 AM CDT)Only the most recent of3 results within the time period is included. POC Glucose 106 (H) 70 - 99 mg/dL POC [facility] Comment: Capillary blood samples, e.g . obtained by fingerstick, may have inaccurate results in patients with decreased peripheral blood flow. Method description: All resu lts are measured using Electrochemistry test methodology. The glucose in the sample mixes with the reagents on the test strip. The reaction produces an electric current. The amount of current produced is proportional to the glucose concentration in the blood. PO Sample Type Venous POC TELCOR [facility] [place] ,[address] [place] [id number], Point of Care Equities Trader: Estela Medina MD Specimen Blood Performing Organization Address City/State/ZIP Code Phon e Number POC TELCOR PETCT Contrast Enhanced Subsequent Treatment Strategy (10/04/2020 9:06 AM CDT) Specimen Impressions Performed At 1. Interval decrease in F-18 FDG activity associated w ith the primary [id number] malignancy within the cervix and left paracervical reg ion, likely representing treated disease 2. Interval decrease in size and resolution of hyperme tabolism associated with a left common iliac lymp h node. 3. No new or distant sites of disease. I personally reviewed these image(s) along with the resident's/fellow's interpretations, certify that if a procedure was performed I was physically present, and agree with the final report. 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 To allow for distribution and uptake of radiotracer, the patient wa s asked to rest quietly for approximately 60-90 minutes. PET/CT imag ing was performed from the skull base to mid thighs. Serum blo od glucose at the time of the injection was 101 mg/dL. CT scanning w as done for attenuation correction, image registration, and diagno sis with scan parameters optimized to minimize radiation exposure to the patient. The CT portion of the examination was performed with i ntravenous and enteric contrast. SUV measurements are reported as max imum SUV based on body weight unless otherwise specifie d. Findings: Head and Neck: No F-18 FDG avid lesions within the bra in parenchyma. The paranasal sinuses are well aerated. No cervical or supraclavicular lymphadenopathy. Stable mildly enlarged right thyroid gland with multiple non-F-18 FDG nodules, most like ly multinodular goiter. Chest: No F-18 FDG avid mediastinal, hilar or axillary lymphadenopathy. No F-18 FDG avid pulmonary nodularity. Stable non-F-18 FDG avid 5 mm pulmonary nodule in the right upper lobe (image 197). No pleural or pericardial effusion. Stable non-F-18 FDG avid [address] nodule (image 169). Abdomen and Pelvis: No F-18 FDG avid lesions in the li janeen, gallbladder, spleen, pancreas, adrenal glands, or kidn eys. Physiologic gastrointestinal activity. No F-18 FDG avid abdominal, retroperitoneal lymphadenopathy. There is been an interval decrease in size and F-18 FDG avidity of a left common iliac lymph node, which m easures now approximately 0.7 x 0.4 cm with no significant radiotr acer activity above background (image 302). Previously, this measure d 1.4 x 1.1 cm with a maximum SUV of 4.5. There is interval decrease in F-18 FDG activity associ ated with a previously seen hypermetabolic mass in the cervix and left paracervical region (SUV max 4.8, previo usly 13.6). Enlarged uterus with multiple fibroids, unchanged. Non mass-like activity at the vaginal introitus likely represents ex creted urinary activity. Musculoskeletal: No F-18 FDG FDG avid os seous lesions. 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 To allow for distribution and uptake of radiotracer, the patient was asked to rest quietly for approximately 60-90 minutes. PET/CT imaging was performed from the skull base to mid thighs. Serum blood glucose at the time of the injection was 101 mg/dL. CT scanning was done for attenuation correction, image registration, and diagnosis with s can parameters optimized to minimize radiation exposure to the patient. The CT portion of the examination was performed with intravenous and enteric contrast. SUV measurements are reported as maximum SUV based on body weight unless otherwise specified. Findings: Head and Neck: No F-18 FDG avid lesions within the brain parenchyma. The paranasal sinuses are well aerated. No cervical or supraclavicular lymphadenopathy. Stable mildly enlarged right thyroid gland with multiple non-F-18 FDG nodules, most likely multin odular goiter. Chest: No F-18 FDG avid mediastinal, hil ar or axillary lymphadenopathy. No F-18 FDG avid pulmonary nodularity. S table non-F-18 FDG avid 5 mm pulmonary nodule in the right upper lobe (image 197). No pleural or pericardial effusion. Stable non-F-18 FDG avid [address] nodule (image 169). Abdomen and Pelvis: No F-18 FDG avid les ions in the liver, gallbladder, spleen, pancreas, adrenal glands, or kidneys. Physiologic gastrointestinal activity. No F-18 FDG avid abdominal, retroperitoneal lymphadenopathy. There is been an interval decrease in si ze and F-18 FDG avidity of a left common iliac lymph node, which measures now approximately 0.7 x 0.4 cm with no significant radiotracer activity above background (image 302). Previously, this measured 1.4 x 1.1 cm w ith a maximum SUV of 4.5. There is interval decrease in F-18 FDG a ctivity associated with a previously seen hypermetabolic mass in the cervix and left paracervical region (SUV max 4.8, previously 13.6). Enlarged uterus with multiple fibroids, unchanged. Non mass-like activity at the vaginal introitus likely represents excreted urinary activity. Musculoskeletal: No F-18 FDG FDG avid os seous lesions. IMPRESSION: 1. Interval decrease in F-18 FDG activit y associated with the primary malignancy within the cervix and left paracervical region, likely representing treated disease 2. Interval decrease in size and resolut ion of hypermetabolism associated with a left common iliac lymph node. 3. No new or distant sites of disease. I personally reviewed these image(s) marilee lawrence with the resident's/fellow's interpretations, certify that if a procedure was performed I was physically present, and agree with the final report. Performing Organization Address City/State/ZIP Code Phon e Number [id number] POC Creatinine (10/04/2020 7:28 AM CDT) POC Crea 0.8 0.6 - 1.3 POC TELCOR Comment: mg/dL Medications, especially hydr oxyurea or supplements, such as ascorbate, can interfere with test results causing a falsely and significantly higher result than expected. If a problem is suspected with a patient's result, a sample should be sent to the laboratory for confirmatory testing. Method description: The [employer] AT is an analyzer used for in vitro quantification of various analytes in whole blood. The device uses a single disposable cartridge which contains microfabricated sensors, a calibration solution, fluidics system, and a waste chamber. Each test cartridge contains chemically sensitive biosensors on a silicon chip that are configured to perform specific tests. The microfabricated sensors measure analyte concentration by an electrochemical assay. POC eGFR-AA 101 >=60 POC TELCOR Comment: mL/min/1.73 m2 Normal eGFR >= 60 mL/min/1.73 m2 The eGFR is calculated using the CKD-EPI equation. The eGFR declines with age. eGFR <60 mL/min/1.73 m2 is considered as "decreased" This equation should only be used for patients 18 and older. According to the National [facility]'s Kidney Disease Outcome Quality Initiative (KDOQI) classification and 2012 Kidney Disease Improving Global Outcomes (KDIGO) Clinical Practice Guideline, the stage of CKD should be categorized based on estimated GFR. Stage Description GFR mL/min/1.73 m2 1 Kidney damage with normal or high GFR >=90 2 Kidney damage with mild decrease in GFR 60-89 3a Mild to moderate decrease in GFR 45-59 3b Moderate to severe decrease in GFR 30-44 4 Severe decrease in GFR 15-29 5 Kidney failure <15 (or dialysis) POC eGFR-CHASTITY 87 >=60 POC TELCOR Comment: mL/min/1.73 m2 Normal eGFR >= 60 mL/min/1.73 m2 The eGFR is calculated using the CKD-EPI equation. The eGFR declines with age. eGFR <60 mL/min/1.73 m2 is considered as "decreased" This equation should only be used for patients 18 and older. According to the National [facility]'s Kidney Disease Outcome Quality Initiative (KDOQI) classification and 2012 Kidney Disease Improving Global Outcomes (KDIGO) Clinical Practice Guideline, the stage of CKD should be categorized based on estimated GFR. Stage Description GFR mL/min/1.73 m2 1 Kidney damage with normal or high GFR >=90 2 Kidney damage with mild decrease in GFR 60-89 3a Mild to moderate decrease in GFR 45-59 3b Moderate to severe decrease in GFR 30-44 4 Severe decrease in GFR 15-29 5 Kidney failure <15 (or dialysis) POC Clean Dev Yes POC TELCOR Performing Lab DI JacumbaComment: POC TELCOR Diagnostic Imaging [facility], [address] [place] [address]; Point of Care Equities Trader: Estela Medina MD Specimen Blood Performing Organization Address City/State/ZIP Code Phon e Number POC TELCOR MRI Pelvis with and without Contrast - Musculoskeletal (09/26/2020 6:17 PM CDT) Specimen Impressions Performed At No evidence of metastatic involvement of the skeletal pelvis. [id number] Significant bilateral gluteus medius enthesopathy and low-grade tear that is most significant on the left yasmin e. Narrative Performed At FULL RESULT: [id number] Examination: MRI PELVIS W WO CONTRAST - MUSCULOSKELETA L, 09/26/2020 6:17 PM. Clinical History: A 50-year-old patient with cervix ca rcinoma on treatment with CISplatin with Radiation since 05/14/2020 Indication: Hip pain, Hip pain Comparison: MRI or 08/22/2020 Technique: Multiplanar multisequence magnetic resonanc e imaging of the pelvis was performed without and with intravenous admi nistration of contrast. Findings: Bones: * No focal bone lesion or fracture det ected. Nodes: * No pelvic or inguinal lymphadenopath y demonstrated Visceral pelvis: * Multiple uterine fibroids. No discernible enhancin g or diffusion restricting cervical mass. Small amount of fluid withi n the pelvic cul-de-sac. Skeletal pelvis: * Bilateral increased T2 signal adjacent to the grea ter trochanters indicative of gluteus medius enthesopathy and low-grad e tear most significant on the right and left side (series 4 image 23 and series 8 image 30). * Small subcortical synovial cyst pit within the ant erior right femoral neck (series 8 image 28). No divina dence of AVN Procedure Note Interface, Radiology Results In - 2020 8:05 AM CDT FULL RESULT: Examination: MRI PELVIS W WO CONTRAST - MUSCULOSKELETAL, 09/26/2020 6:17 PM. Clinical History: A 50-year-old patient with cervix carcinoma on treatment with CISplatin with Radiation since 05/14/2020 Indication: Hip pain, Hip pain Comparison: MRI or 08/22/2020 Technique: Multiplanar multisequence mag netic resonance imaging of the pelvis was performed without and with intravenous administration of contrast. Findings: Bones: * No focal bone lesion or fracture dete cted. Nodes: * No pelvic or inguinal lymphadenopathy demonstrated Visceral pelvis: * Multiple uterine fibroids. No discern ible enhancing or diffusion restricting cervical mass. Small amount of fluid within the pelvic cul-de-sac. Skeletal pelvis: * Bilateral increased T2 signal adjacen t to the greater trochanters indicative of gluteus medius enthesopathy and low-grade tear most significant on the right and left side (series 4 image 23 and series 8 image 30). * Small subcortical synovial cyst pit w ithin the anterior right femoral neck (series 8 image 28). No evidence of AVN IMPRESSION: No evidence of metastatic involvement of the skeletal pelvis. Significant bilateral gluteus medius ent hesopathy and low-grade tear that is most significant on the left side. Performing Organization Address [facility] Phon e Number [id number] XR HIP 2 VW BILATERAL W PELVIS (09/26/2020 2:32 PM CDT) Specimen Impressions Performed At Possible minimal degenerative changes at the left hip. [id number] Narrative Performed At FULL RESULT: [id number] Examination: XR HIP 2 VW BILATERAL W PEL VIS, September 26, 2020 at 2:12 PM Clinical History: Pain in unspecified hi p Indication: Pain in unspecified hip Comparison: Images through the pelvis and hips from PE T/CT of May 01, 2020 Technique: AP view of the pelvis and coned AP and frog -leg lateral views of both hips Findings: A tiny calcification at the lateral margin o f the left acetabulum is of uncertain significance. It could repr esent a small dystrophic calcification in soft tissues. Small spurs also present and could indicate otherwise inapparent degenerative zepeda e. No other bony abnormality is noted. Hip joints and sacroiliac joints are maintained in width. Procedure Note Interface, Radiology Results In - 2020 4:00 PM CDT FULL RESULT: Examination: XR HIP 2 VW BILATERAL W PEL VIS, September 26, 2020 at 2:12 PM Clinical History: Pain in unspecified hi p Indication: Pain in unspecified hip Comparison: Images through the pelvis an d hips from PET/CT of May 01, 2020 Technique: AP view of the pelvis and con ed AP and frog-leg lateral views of both hips Findings: A tiny calcification at the la teral margin of the left acetabulum is of uncertain significance. It could represent a small dystrophic calcification in soft tissues. Small spurs also present and could indicate otherwise inapparent dege nerative change. No other bony abnormality is noted. Hip joints and sacroiliac joints are maintained in width. IMPRESSION: Possible minimal degenerative changes at the left hip. Performing Organization Address [facility] Code Phon e Number [id number] MRI Pelvis with and without Contrast - OPERATIONS ASSOCIATE (08/22/2020 7:18 AM COMMODITY SPECIALIST)Only the most recent of3 resultswithin the time period is included. Specimen Impressions Performed At 1. The site of known residual disease in the cervica l region and [id number] left parametrial nodule are difficult to clearly visua lize but the appearances remain unchanged since 06/05/2020 and the significant interval improvement compared to MRI fro m 04/19/2020 is maintained. 2. Residual subcentimeter left common iliac node rem ains stable since prior study, decreased compared to 04/19/2020. Narrative Performed At FULL RESULT: [id number] Examination: MRI PELVIS W WO CONTRAST - OPERATIONS ASSOCIATE on 08/22/2020 7:18 AM Clinical History: Malignant neoplasm of overlapping si susy of cervix uteri Indication: Determine extent of tumor/ disease, vascul ar invasion, tumor encapsulation, satellite nodules, multi-focal di sease, therapy response Comparison: None. Technique: MRI pelvis with and without i ntravenous contrast Findings: The site of known residual disease has further decreas ed in size and is difficult to clearly visualize on the current exami nation. There is only some nodular thickening noted in this region [for example series 5, image 13]. Similarly the 7 mm residual nodularity n oted in the site of known left paratracheal nodule appears stable since prior study and decreased compared to initial MRI from 04/19/2020. As seen before, questionable minimal restricted diffusion is seen in t his region [series 1050, image 84]. Thickened junctional zone is again noted in the uterus , likely secondary to adenomyomatosis. Multiple fibroids are ag ain noted, with the largest measuring 3.3 cm in the anterior fundus. S mall bilateral ovarian cysts are again seen. Stable small volume pelvic nodes. For example a 9 mm l eft common iliac node [series 9, image 9] and a 5 x 10 mm right common iliac node and a 3 mm left external iliac node [image 23] remain stable since prior study. Procedure Note Interface, Radiology Results In - 2020 10:38 AM COMMODITY SPECIALIST FULL RESULT: Examination: MRI PELVIS W WO CONTRAST - OPERATIONS ASSOCIATE on 08/22/2020 7:18 AM Clinical History: Malignant neoplasm of overlapping sites of cervix uteri Indication: Determine extent of tumor/ d isease, vascular invasion, tumor encapsulation, satellite nodules, multi-focal disease, therapy response Comparison: None. Technique: MRI pelvis with and without i ntravenous contrast Findings: The site of known residual disease has f urther decreased in size and is difficult to clearly visualize on the current examination. There is only some nodular thickening noted in this region [for example series 5, image 13]. Similarly the 7 mm residual nodular ity noted in the site of known left paratracheal nodule appears stable since prior study and decreased compared to initial MRI from 04/19/2020. As seen before, questionable minimal restricted diffusion is seen in this region [series 1050, image 84]. Thickened junctional zone is again noted in the uterus, likely secondary to adenomyomatosis. Multiple fibroids are again noted, with the largest measuring 3.3 cm in the anterior fundus. Small bilateral ovarian cysts are again seen. Stable small volume pelvic nodes. For ex ample a 9 mm left common iliac node [series 9, image 9] and a 5 x 10 mm right common iliac node and a 3 mm left external iliac node [image 23] remain stable since prior study. IMPRESSION: 1. The site of known residual disease i n the cervical region and left parametrial nodule are difficult to clearly visualize but the appearances remain unchanged since 06/05/2020 and the significant interval improvement compared to MRI from 04/19/2020 is maint ained. 2. Residual subcentimeter left common i liac node remains stable since prior study, decreased compared to 04/19/2020. Performing Organization Address City/State/ZIP Code Phon e Number [id number] COVID-19 (SARS-CoV-2) PCR-Asymptomatic (06/30/2020 10:45 AM COMMODITY SPECIALIST)Only the most recent of3 resultswithin the time period is included. COVID19 (SARS Not Detected Not Detected [facility] CoV-2) Result Comment: [facility] This test is a qualitative r everse-transcriptase polymerase chain reaction (RT- PCR) developed for the Zayo GARRETT [employer] Endeavors0 system and intended for the detection of SARS CoV-2 RNA in human nasopharyngeal specimens from patients who meet COVID-19 clinical and/or epidemiological crite brea. This assay has been approved by the FDA for use only under Emergency Use Authorization (EUA) in laboratories that have been CLIA-certified to perform moderate-complexity and high-complexity tests. The performance characteristics of this assa y were verified by the Microbiology Laboratory at [facility], CLIA Accreditation #: [id number] and CAP Accreditation #: [id number]. Results must be interpreted within the context of all relevant clinical and laboratory findings and shou ld not form the sole basis for a diagnosis or treatment decision. "Presumptive Positive" resul ts are due to partial amplification of SARS-CoV-2 targets and indicates low amounts of virus present in the specimen at or near the limit of detection. Regardless, individuals with "Presumptive Positive" results should be managed per institutional gu idelines as individuals positive for SARS-CoV-2 virus, including use of appropriate infection control protocols. Internal controls are includ ed to assess for possible amplification inhibitors. If inhibition is detected, testing is repeated and if inhibition is confirmed the specimen is resulted as "Invalid". When an "Invalid" result occur, it is recommended to wait 3 days before submitting a new specimen for susy ting if clinically indicated. COVID19 SARS TRAINING OFFICER Swab [facility] Source [facility] COVID19 SARS Pre-Radiation Therapy [facility] Indication [facility] Specimen Nasopharyngeal Swab Performing Organization Address City/State/ZIP Code Phon e Number [facility] CANCER Unless otherwise noted, [place] [address] PENA BLANCA all lab tests performed by: Division of Pathology and Laboratory Medicine [id number] Bhakta MD COVID-19 (ANTONIO-CoV-2) PCR Asymptomatic (06/27/2020 11:44 AM COMMODITY SPECIALIST)Only the most recent of4 resultswithin the time period is included. COVID19 SARS Inpatient Admission [facility] COVID19 SARS Result Not Detected Not Detected [facility] COVID19 SARS SARS-CoV-2 NOT Detected. [facility] Reference Range: Not Detected Methodology: The Brandon Real Time SARS-CoV-2 assay is a qualitative real-time reverse business process specialist polymerase chain reaction (distribution supervisor-PCR) test to detect RNA from SARS-CoV-2 in nasal, nasopharyngeal and oropharyngeal swabs from patients with signs and symptoms of infection who ar e suspected of COVID-19 by their health care provider. The Brandon RealTime SARS-CoV-2 performed on the [employer] Energy000 System is a dual target assay with primers and probes for the RdRp and N genes. Results must be interpreted within the context of all relevant clinical and laboratory findings, and epidemiological risk factors. Positive results are indicative of the presence of SARS-CoV-2 RNA; clinical correlation with patient history and other diagnostic information is ne cessary to determine patient infection status. Positive results do not rule out bacterial infection or co-infection with other viruses. Negative results do not preclude SARS- CoV-2 infection and should not be used as the sole basis for patient management decisions. The [employer] RealTime SARS-CoV -2 assay is for in vitro diagnostic use under FDA Emergency Use Authorization only. Testing is limited to laboratories certified under the Clinical Laboratory Improvement Nani ndments of 1988 (CLIA), 42U.S.C. 263a, to perform high complexity tests. The T est was performed by the CLIA-certified, high- complexity Molecular Diagnostics Laboratory (MDL) at [facility] under the Food and Drug Administration (FDA) s Emergency Use Authorization. Factsheet for patients: https://www.hetrasndFiveStars.org/Abb ottFactSheetPatients Factsheet for healthcare pro viders: https://www.hetrasnderson.org/AbbottFactSheetHCP Test performed by: [facility] [address] [place] [address] Specimen Nasopharyngeal Swab Performing Organization Address [facility] Phon e Number [facility] Unless otherwise noted, [address] all lab tests performed by: Division of Pathology and Laboratory Medicine [address] [place] [address] .Serum Creatinine (06/24/2020 11:21 AM COMMODITY SPECIALIST)Only the most recent of9 results within the time period is included. Pathologist [facility] Creatinine 0.62Comment: Testing 0.51 - 0.95 mg/dL [facility] Performed at [facility] Lab Advanced Registered Nurse [facility], [address] [place] [address], [address], [place] [address] Specimen Blood Performing Organization Address [facility] Phon e Number [facility] [address] [place] [address]. [place] [address] [address] .CBC (06/24/2020 11:21 AM COMMODITY SPECIALIST)Only the most recent of9 resultswithin the time period is included. Pathologist [facility] WBC 1.3 (L) 4.0 - 11.0 K/uL [facility] RBC 3.75 (L) 4.00 - 5.50 [facility] M/uL Hgb 10.8 (L)Comment: As 12.0 - 16.0 [facility] part of CBC or as an gm/dL individual orderable testing performed at [facility] Advanced Registered Nurse [facility], [address], [address], [place] [address] Hct 33.3 (L)Comment: As 37.0 - 47.0 % [facility] part of CBC or as an individual orderable testing performed at [facility], [address], [address], [place] [address] MCV 89 82 - 98 fL [facility] MCH 28.8 27.0 - 31.0 pg [facility] MCHC 32.4 31.0 - 36.0 [facility] gm/dL RDW-SD 53.6 (H) 35.1 - 46.3 fL [facility] RDW-CV 17.6 (H) 12.0 - 15.5 % [facility] Platelet count 105 (L)Comment: As 140 - 440 K/uL [facility] part of CBC or as an individual orderable testing performed at [facility], [address], [address], [place] [address] MPV 8.8 4.0 - 10.4 fL [facility] INRBC 0.0 <=0.0 % [facility] Comment: The INRBC (instrument NRBC) value reflects the enumera tion of nucleated red blood cells contained in a 200uL samp le of whole blood analyzed by the instrument. This value may differ from the NRBC value reported in a manual differ ential, which is based on a 100 cell differential. As part of CBC testing performed at [facility] [address], [address], [place] [address] Specimen Blood Narrative Performed At Please schedule on 05/27 when patient is here for radia tion [facility] Performing Organization Address City/State/ZIP Code Phon e Number [facility] [address] [place] [place] [address] [address] Glomerular Filtration Rate (06/24/2020 11:21 AM COMMODITY SPECIALIST)Only the most recent of9 resultswithin the time period is included. Pathologist Sig nature eGFR-AA 123 >=60 mL/min/1.73 [facility] Comment: sq. m Normal eGFR >= 60 mL/min/1.73 m2 Note: The eGFR is calculated using the CKD-EPI equation. The eGFR declines with age. eGFR <60 mL/min/1.73 m2 is considered as "decreased". This equation should only be used for patients 18 and older. According to the [facility]'s Kidney Disease Outcome Quality Initiative (KDOQI) classification and 2012 Kidney Disease Improving Global Outcomes (KDIGO) Clinical Practice Guideline, the stage of CKD should be categorized based on estimated GFR. Stage Description GFR mL/min/1.73 m2 1 Normal or high GFR >=90 2 Mildly decreased GFR 60-89 3a Mildly to moderately decreased GFR 45-59 3b Moderately to severely decreased GFR 30-44 4 Severely decreased GFR 15-29 5 Kidney failure <15 Testing Performed at [facility] Advanced Registered Nurse [facility], [address], [address], [place] [address] eGFR-CHASTITY 107 >=60 mL/min/1.73 [facility] Comment: sq. m Normal eGFR >= 60 mL/min/1.73 m2 Note: The eGFR is calculated using the CKD-EPI equation. The eGFR declines with age. eGFR <60 mL/min/1.73 m2 is considered as "decreased". This equation should only be used for patients 18 and older. According to the [facility]'s Kidney Disease Outcome Quality Initiative (KDOQI) classification and 2012 Kidney Disease Improving Global Outcomes (KDIGO) Clinical Practice Guideline, the stage of CKD should be categorized based on estimated GFR. Stage Description GFR mL/min/1.73 m2 1 Normal or high GFR >=90 2 Mildly decreased GFR 60-89 3a Mildly to moderately decreased GFR 45-59 3b Moderately to severely decreased GFR 30-44 4 Severely decreased GFR 15-29 5 Kidney failure <15 Testing Performed at [facility] Advanced Registered Nurse [facility], [address], [address], [place] [address] Specimen Blood Performing Organization Address City/State/ZIP Code Phon e Number [facility] [address] [place] [place] [address] [address] Differential (06/24/2020 11:21 AM COMMODITY SPECIALIST)Only the most recent of9 resultswithin the time period is included. Neutrophil % 84.4 (H)Comment: As 42.0 - 66.0 % [facility] part of Differential performed at [facility], [address] [place] [address], [address], [place] [address] Lymphocyte % 10.9 (L) 24.0 - 44.0 % [facility] Monocyte % 3.1 2.0 - 7.0 % [facility] Eosinophil % 0.8 (L) 1.0 - 4.0 % [facility] Basophil % 0.0 0.0 - 1.0 % [facility] IGRE % 0.8 (H) 0.0 - 0.4 % [facility] Comment: IGRE % count includes Metamyelocytes, Myelocytes, and Promyelocytes. As part of Differential perf ormed at [facility], [address] [place] [address], [address], [place] [address] Neutrophil Abs 1.09 (L) 1.70 - 7.30 [facility] K/uL Lymphocyte Abs 0.14 (L) 1.00 - 4.80 [facility] K/uL Monocyte Abs 0.04 (L) 0.08 - 0.70 [facility] K/uL Eosinophil Abs 0.01 (L) 0.04 - 0.40 [facility] K/uL Basophil Abs 0.00 0.00 - 0.10 [facility] K/uL IG Abs 0.01 0.00 - 0.04 [facility] K/uL Specimen Blood Narrative Performed At Please schedule on 05/27 when patient is here for radia tion [facility] Performing Organization Address City/[facility]/ZIP Code Phon e Number [facility] [address] [place] [address]. [place] [address] [address] BUN (06/24/2020 11:21 AM COMMODITY SPECIALIST)Only the most recent of9 resultswithin the time period is included. Pathologist Sig nature BUN 6Comment: Testing Performed 6 - 23 mg/dL [facility] at [facility], [address] [place] [address], [address], [place] [address] Specimen Blood Performing Organization Address City/State/ZIP Code Phon e Number [facility] [address] [place] [place] [address] [address] ALT (06/24/2020 11:21 AM COMMODITY SPECIALIST)Only the most recent of8 resultswithin the time period is included. Pathologist Sig nature ALT 40 (H)Comment: Testing <=33 U/L [facility] Performed at [facility] Advanced Registered Nurse [facility], [address], [address], [place] [address] Specimen Blood Performing Organization Address [facility] Phon e Number [facility] [address] [place] [address] [address] AST (06/24/2020 11:21 AM COMMODITY SPECIALIST)Only the most recent of8 resultswithin the time period is included. Pathologist [facility] ParentingInformer AST 26Comment: Testing Performed <=32 U/L [facility] at [facility] Advanced Registered Nurse [facility], [address], [address], [place] [address] Specimen Blood Performing Organization Address [facility] e Number [facility] [address] [place] [address] [address] Magnesium (06/24/2020 11:21 AM COMMODITY SPECIALIST)Only the most recent of8 resultswithin the time period is included. Pathologist [facility] ParentingInformer Magnesium 1.8Comment: Testing 1.6 - 2.6 mg/dL [facility] Performed at [facility] Advanced Registered Nurse [facility], [address], [address], [place] [id number] Specimen Blood Performing Organization Address [facility] e Number [facility] [address] [place] [address] [address] Glucose Level (06/24/2020 11:21 AM COMMODITY SPECIALIST)Only the most recent of9 resultswithin the time period is included. Pathologist [facility] ParentingInformer Glucose Level 176 (H) 70 - 99 mg/dL [facility] Comment: Reference range is valid for fasting specimens only. Guidelines established by the [place] [employer] guidelines (Standards of Medical Care in Diabetes 2016. Diabetes Care 2016; 39: S13-22) a re that a fasting glucose of greater than or equal to 126 mg/dL or a random glu cose greater than or equal to 200 mg/dL with symptoms, that are confirmed by repeat testing on a different day, meet the criteria for diabetes mellitus. Testing Performed at [facility] Advanced Registered Nurse [facility], [address], [address], [place] [id number] Specimen Blood Performing Organization Address [facility] e Number [facility] [address] [place] [address] [address] Calcium Level (06/24/2020 11:21 AM COMMODITY SPECIALIST)Only the most recent of9 resultswithin the time period is included. Pathologist Sig nature Calcium Lvl 9.3Comment: Testing 8.4 - 10.2 mg/dL [facility] Performed at [facility] Advanced Registered Nurse [facility], [address], [address], [place] [phone] Specimen Blood Performing Organization Address [facility] e Number [facility] [address] [place] [address] [address] Bilirubin, total (06/24/2020 11:21 AM COMMODITY SPECIALIST)Only the most recent of7 resultswithin the time period is included. Pathologist Sig nature Bili Total 0.4 <=1.2 mg/dL [facility] Comment: Indocyanine Green (ICG) may cause falsely elevated bilirubin results. Total and direct bilirubin must not be measured from samples containing indocyanine green. False elevation of total annabel irubin can be seen in patients with IgG concentrations above 28 g/L. Testing Performed at [facility] Advanced Registered Nurse [facility], [address], [address], [place] [phone] Specimen Blood Performing Organization Address [facility] e Number [facility] [address] [place] [address] [address] Electrolyte Panel (06/24/2020 11:21 AM COMMODITY SPECIALIST)Only the most recent of9 results within the time period is included. Pathologist Sig nature Sodium Lvl 140Comment: Testing 136 - 145 mEq/L [facility] Performed at [facility] Advanced Registered Nurse [facility], [address], [place] [address] Potassium Lvl 3.9Comment: Testing 3.5 - 5.1 mEq/L [facility] Performed at [facility] Advanced Registered Nurse [facility], [address], [place] [phone] Chloride 104Comment: Testing 98 - 107 mEq/L [facility] Performed at [facility] Advanced Registered Nurse [facility], [address], [place] [id number] CO2 25Comment: Testing 22 - 29 mEq/L [facility] Performed at [facility] Advanced Registered Nurse dg, [address], [address], [place] [address] Anion Gap 11Comment: Testing 4 - 14 mEq/L [facility] Performed at [facility] Advanced Registered Nurse dg, [address], [address], [place] [address] Specimen Blood Performing Organization Address City/State/ZIP Code Phon e Number [facility] [address] [place] [place] [address] [address] Ultrasound Guidance - Intraoperative (with Radiologist) (CPT 24570) (06/10/2020 8:55 AM COMMODITY SPECIALIST) Specimen Impressions Performed At Ultrasound guidance for placement of tandem and ovoids . [id number] Narrative Performed At This result has an attachment that is no t available. FULL RESULT: [id number] Examination: ULTRASOUND GUIDANCE - INTRAOPERATIVE on 1 08/11/2019 8:55 AM Clinical History: Cervical cancer Indication: Localization of Mass Comparison: MRI 06/05/2020 Technique: Operative ultrasound was perf ormed in the radiation therapy department, in conjunction with radiation therapists, Dr. Gil Findings: Additional saline was requested in the u rinary bladder to position the uterus adequately in view of its extremely anteverted anteflexed position. Under ultrasound guidance sounds were pl aced through the cervical canal, reaching up to 1 cm proximal to the uterine fundus, where a small amount of endometrial fluid was already located. This was confi rmed at real-time examination for satisfactory placeme nt of ovoids. Procedure Note Interface, Radiology Results In - 2019 9:52 AM COMMODITY SPECIALIST FULL RESULT: Examination: ULTRASOUND GUIDANCE - INTRA OPERATIVE on 06/10/2020 8:55 AM Clinical History: Cervical cancer Indication: Localization of Mass Comparison: MRI 06/05/2020 Technique: Operative ultrasound was perf ormed in the radiation therapy department, in conjunction with radiation therapistsDr. Gil Findings: Additional saline was requested in the u rinary bladder to position the uterus adequately in view of its extremely anteverted anteflexed position. Under ultrasound guidance sounds were pl aced through the cervical canal, reaching up to 1 cm proximal to the uterine fundus, where a small amount of endometrial fluid was already located. This was confirmed at real-time examination for satisfactory placement o f ovoids. IMPRESSION: Ultrasound guidance for placement of mason dem and ovoids. Performing Organization Address City/State/ZIP Code Phon e Number [id number] EKG, 12-Lead (Scheduled) (06/05/2020) Specimen Narrative Performed At This result has an attachment that is no t available. Performing Organization Address City/State/ZIP Code Phon e Number [facility] PETCT Contrast Enhanced Initial Treatment Strategy (05/01/2020 4:30 PM COMMODITY SPECIALIST) Specimen Impressions Performed At [id number] Primary neoplasm is noted within the cervix. Nodular d ensity is noted in the paracervical region, may represen t a paracervical lymph node Left common iliac lymph node has been biopsied and dem onstrated no evidence of lymphoid tissue. 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 9 mCi of F-18 FDG via the left and cubital vein a PET/CT was perform ed from the vertex of the skull to the proximal thighs. The blood glucose level at the time of injection was [address] scanning w as done for attenuation correction, image registration, and diagno sis with scan parameters optimized to minimize radiation exposure to the patient. The CT portion of the examination was performed with i ntravenous and enteric contrast. SUV measurements are reported as max imum SUV based on body weight unless otherwise specifie d. Findings: Head and Neck: No FDG avid disease is noted within the brain. No neck adenopathy is noted to suggest metastati c disease. Chest: Biopsy-proven pulmonary nodules are noted withi n the thyroid gland. No lung nodules identified to suggest metastati c disease. Nonspecific right upper lobe pulmonary nodule is noted measures less than 5 mm and is unchanged since the amelie or study. The heart is normal size. Abdomen and Pelvis: No focal hepatic lesions identifie d to suggest malignancy. There is no intrahepatic or extra hepatic biliary ductal dilation. The spleen the adrenal glands and the pancreas are nor mal. There is no evidence hydronephrosis. The gallbladder is normal. A left common iliac lymph node is noted measures 1.4 x 1.1 cm is FDG avid has a maximum SUV of 4.5 has been biopsied previo usly however no lymphoid tissue is noted within this lym ph node. A mass is noted within the cervix has a maximum SUV of 13.6. Left paracervical nodule is identified has a maximum SUV of 4.0 and is of concern for metastatic disease. Fibroids are noted wit hin the uterus. Cysts are noted within the ovaries bilat erally. Musculoskeletal: No definite skeletal me tastases are noted. 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 SUV measurements are reported as maximum SUV based on body weight unless otherwise specified. Findings: Head and Neck: No FDG avid disease is no ruma within the brain. No neck adenopathy is noted to suggest metastatic disease. Chest: Biopsy-proven pulmonary nodules a re noted within the thyroid gland. No lung nodules identified to suggest metastatic disease. Nonspecific right upper lobe pulmonary nodule is noted measures less than 5 mm and is unchanged since the prior study. The heart is normal size. Abdomen and Pelvis: No focal hepatic les ions identified to suggest malignancy. There is no intrahepatic or extra hepatic biliary ductal dilation. The spleen the adrenal glands and the pa ncreas are normal. There is no evidence hydronephrosis. The gallbladder is normal. A left common iliac lymph node is noted measures 1.4 x 1.1 cm is FDG avid has a maximum SUV of 4.5 has been biopsied previously however no lymphoid tissue is noted within this lymph node. A mass is noted within the cervix has a maximum SUV of 13.6. Left paracervical nodule is identified has a maximum SUV of 4.0 and is of concern for metastatic disease. Fibroids are noted within the uterus. Cysts are noted within the ovaries bilat erally. Musculoskeletal: No definite skeletal me tastases are noted. IMPRESSION: Primary neoplasm is noted within the cer vix. Nodular density is noted in the paracervical region, may represent a paracervical lymph node Left common iliac lymph node has been bi opsied and demonstrated no evidence of lymphoid tissue. Performing Organization Address City/[facility]/ZIP Code Phon e Number [id number] Clot Expiration Date (05/01/2020 2:12 PM COMMODITY SPECIALIST) Pathologist Sig nature T & S Expiration 05/04/2020 [facility] Specimen Blood Performing Organization Address City/[facility] Code Phon e Number [facility] Unless otherwise noted, [address] all lab tests performed by: Division of Pathology and Laboratory Medicine [address] [place] [address] [place] TMP Interpretation Antibody Screen Negative (05/01/2020 2:12 PM COMMODITY SPECIALIST) TMP Auto Neg ABSC At the present time, patien t plasma shows no evidence of RBC alloantibodies. [facility] Comment: [facility] MD Mita HAQUE [id number] Dictated by: MD Mita HAQUE Dictated Date/Time: 05.01.20 20:03 PM COMMODITY SPECIALIST Transcribed Date/Time: 05.01.2020 20:03 PM COMMODITY SPECIALIST Electronically Signed By: MD Mita HAQUE on 05.01.2020 20:03 PM Specimen Blood Performing Organization Address [facility] Phon e Number [facility] Unless otherwise noted, [address] all lab tests performed by: Division of Pathology and Laboratory Medicine [address] [place] [address] [place] Partial Thromboplastin Time (05/01/2020 2:12 PM COMMODITY SPECIALIST) Pathologist Sig madeleine aPTT 27.3 24.2 - 36.0 [facility] Comment: second(s) Testing Performed at [facility] Advanced Registered Nurse [facility] [address], [address] License: [id number] Specimen Blood Narrative Performed At Please schedule at [facility] This lab cannot be scheduled at the following location s due to collection/proccessing restrictions: [facility] and [facility]. Performing Organization Address City/[facility]/ZIP Code Phon e Number [facility] [address] [place] [place] [address] [address] ABORh (05/01/2020 2:12 PM COMMODITY SPECIALIST) Pathologist Sig nature ABORh. A POS [facility] Specimen Blood Narrative Performed At Please schedule at [facility] CANCER C ENTER Performing Organization Address City/[facility]/ZIP Code Phon e Number [facility] Unless otherwise noted, [address] all lab tests performed by: Division of Pathology and Laboratory Medicine [address] [place] PT/INR (05/01/2020 2:12 PM COMMODITY SPECIALIST)Only the most recent of2 resultswithin the time period is included. Pathologist Sig nature PT 13.7 12.0 - 14.3 [facility] Comment: second(s) Testing Performed at [facility] Advanced Registered Nurse [facility] [address] [place] [address] INR 1.10 0.90 - 1.10 [facility] Comment: Testing Performed at [facility] Advanced Registered Nurse [facility] [address], [address] [place] [address] Specimen Blood Narrative Performed At Please schedule at [facility] This lab cannot be scheduled at the following location s due to collection/proccessing restrictions: [facility] and [facility]. Performing Organization Address City/[facility]/ZIP Code Phon e Number [facility] [address] [place] [place] [address] [address] Antibody Screen (05/01/2020 2:12 PM COMMODITY SPECIALIST) Pathologist Sig nature ABSC. Negative ABSC [facility] Specimen Blood Narrative Performed At Please schedule at [facility] CANCER C ENTER Performing Organization Address City/[facility]/ZIP Code Phon e Number [facility] Unless otherwise noted, [address] all lab tests performed by: Division of Pathology and Laboratory Medicine [address] Confirm ABORh (05/01/2020 2:09 PM COMMODITY SPECIALIST) Pathologist Sig nature ABORh Confirm. A POS [facility] Specimen Blood Performing Organization Address City/State/ZIP Code Phon e Number [facility] Unless otherwise noted, [address] all lab tests performed by: Division of Pathology and Laboratory Medicine [address] [place] [address] [place] Urinalysis with Microscopic (05/01/2020 2:08 PM COMMODITY SPECIALIST) Pathologist Sig nature UA WBC 107 (H) 0 - 2 /HPF [facility] UA RBC 89 (H) 0 - 2 /HPF [facility] UA Mucous 2+ (A) TRACE /HPF [facility] UA Bacteria 1+ (A) NOT SEEN /HPF [facility] UA Squam Epi 4+ (A) OCC /HPF [facility] Specimen Urine Narrative Performed At Some reporting parameters within the Urinalysis test U [facility] have changed due to the implementation of new instrumentation in the [facility] [place], allowing greater sensitivity of measurement. Urinalysis results reporte d by the [facility] using exist ing instrumentation, as well as Urinalysis testing perform ed manually or by backup methodology at the [facility] [place] will remain relatively unchanged. New reporting parameters and units will now be reported for all campuses. Performing Organization Address City/State/ZIP Code Phon e Number [facility] Unless otherwise noted, [address] all lab tests performed by: Division of Pathology and Laboratory Medicine [address] [place], [place] [address] Urinalysis with Microscopic (05/01/2020 2:08 PM COMMODITY SPECIALIST) Pathologist Sig nature UA Color Yellow Yellow [facility] Appear Cloudy (A) Clear [facility] Glucose NEG NEG mg/dL [facility] Bili NEG NEG [facility] Ketones NEG NEG mg/dL [facility] Spec Grav 1.018 1.002 - 1.035 [facility] Blood Moderate (A) NEG [facility] pH 5.0 4.5 - 8.0 [facility] Protein 30 (A) NEG mg/dL [facility] Urobilinogen NEG NEG [facility] Nitrite NEG NEG [facility] Leuk Est Moderate (A) NEG [facility] Specimen Urine Narrative Performed At Please schedule at Main [facility] CANCER C ENTER Performing Organization Address City/[facility] Code Phon e Number [facility] CANCER Unless otherwise noted, [address] all lab tests performed by: Division of Pathology and Laboratory Medicine [address] Urine Culture (05/01/2020 2:08 PM COMMODITY SPECIALIST) Final Report [id number] cfu/ml Normal site raffaele present. [facility] Generally of low significance. CANCER ESTELLE TER Correlate with clinical data and culture history. (A) Path Review - The results have been review ed and electronically signed by Pathologist: [facility] Urine MOHIT BLAIR MD #[id number] CANCER CENTE R (A) Specimen Urine, Clean Catch Narrative Performed At Please schedule at [facility] CANCER C ENTER Performing Organization Address [facility] Phon e Number [facility] Unless otherwise noted, [address] all lab tests performed by: Division of Pathology and Laboratory Medicine [address] Urine HCG (05/01/2020 2:08 PM COMMODITY SPECIALIST)Only the most recent of2 resultswithin the time period is included. Pathologist Sig nature U beta hCG Ql Negative Negative [facility] Comment: Very dilute urine specimens may cause false negative results. Suggest repeat in 48 hours with a first morning voided urine or request quantitative serum beta HCG test. Testing Performed at [facility] Lab Advanced Registered Nurse [facility] [address] [place] [address] Specimen Urine Narrative Performed At Please schedule at [facility] Performing Organization Address City/[facility] Phon e Number [facility] [address] [place] [address] [address] GUIDED BIOPSY MUSCLE/SOFT TISSUE PELVIC (04/26/2020 2:42 PM COMMODITY SPECIALIST) Specimen Narrative Performed At This result has an attachment that is no t available. Date of Procedure: 04/26/20 Attending Physician: Anupam Bridges MD Picture Booker: None Pre Procedure Diagnosis: Malignant neoplasm of cervi x uteri, not otherwise specified Post Procedure Diagnosis: Unchanged Indication: Evaluate for metastasis Protocol Number: None Title of Procedure: Percutaneous Computed Tomography-Guided Biopsy Operative Findings: Percutaneous image-guided biopsy of 1.8cm left retrope ritoneum lesion. Consent: The procedure, risks, indications and alter natives were explained. All questions were answered and informed co nsent was obtained. I have reviewed the history and physical dictated by t albert mid-level practitioner / fellow. Sedation/Anesthesia: Moderate sedation for pain control and anxiety was adm inistered by a dedicated nurse under my supervision. There was cont inuous monitoring of oxygen saturation, heart rate and intermittent monitor ing of blood pressure during the procedure. Medication given was midazolam and fentanyl. I was present for the administration of t albert medications indicated above. Procedure Events Event Event Time Sedation Start 04/26/2020 2:15 PM Sedation End 04/26/2020 2:41 PM Procedure in Detail: A time out was performed prior to the start of the pro cedure and the correct patient, procedure, presence of consent, site, and side were confirmed with all members of the team. With the patient in the prone position, the skin overl renae the area of interest was prepped and draped in the usual sterile f ashion. Lidocaine 1% was used for local anesthesia. Using a posterior approach under Computed Tomography i mage-guidance, a 17 gauge needle was advanced down to the left retroperito neum. An image was obtained and placed into the medical record. Samples w ere obtained for evaluation. Sampling: Core Biopsy: An 18 gauge needle used to obtain sa mples for surgical pathology evaluation. Total number of samples: 3 Specimens Disposition: Diagnostic Biopsy: The biopsy samples were submit ruma to pathology. Additional Comments: This was an exceedingly difficu lt biopsy due to target location. If repeat biopsy is necessary due t o non-diagnostic result, recommend considering an anterior approach. Estimated Blood Loss: Minimal Immediate Complications: None Disposition: PACU Plan: 1. No follow-up with Interventional Radiology required . Pathology Biopsy Interpretation (04/26/2020 2:24 PM COMMODITY SPECIALIST)Only the most recent of 2 resultswithin the time period is included. Pathologist Sig nature Diagnosis A. Lymph node(s), left pelvic: [facility] Electronically signed Fibroadipose with myxohyaline change and blood element s. by Danelle Knight MD on No lymph node tissue identified (See comment) 04/29/2020 at 3:52 PM JL/BG Comment Repeat tissue [facility] evaluation is warranted. Gross Description A. Lymph Node(s), Left, Pelv ic: Consists of five cores of pink soft tissue that aggregate to 1.0 x 0.3 x 0.1 cm; entirely submitted in A1. KR [facility] Disclaimer "Some tests reported [facility] here may have been developed and performance characteristics determined by [facility] Pathology and Laboratory Medicine. These tests have not been specifically cleared or approved by the U.S. Food and Drug Administration. If applicable, controls were reviewed and showed appropriate reactivity." Specimen Tissue - Lymph Node(s), Left, Pelvic Performing Organization Address City/State/ZIP Code Phon e Number [facility] [place] [address] [address] [place] Fine Needle Aspiration (04/26/2020 10:38 AM COMMODITY SPECIALIST) Specimen Impressions Performed At [id number] 1. Percutaneous Ultrasound-Guided Biopsy of a 3.5 cm r ight inferior pole thyroid nodule. 2. Enlarged bilateral multinodular thyroid with no one nodule showing specific internal features to suggest ma lignancy. 3. Immediate cytologic assessment on 04/26/2020 of the biopsied right thyroid nodule is negative for malignancy with finding s favoring colloid nodule.. Final cytologic report is pending to be followed. Narrative Performed At FULL RESULT: [id number] Examination: US HEAD NECK SOFT TISSUE, US FINE NEEDLE ASPIRATION on 04/26/2020 10:38 AM Clinical History: Multinodular thyroid. Indication: Multinodular thyroid with a 3.5 cm nodule requiring FNA. Comparison: None. Technique: Real-time grayscale and power Doppler ultra sound of the neck. Findings: Ultrasound shows an enlarged right thyroid l obe that measures 5.9 x 2.3 x 3 cm. Within the inferior pole of the right thyroid, there is a 3.5 x 1.8 x 2.9 cm nodule. The nod ule is predominantly isoechoic to adjacent thyroid with regar ds to the soft tissue, although shows several large internal cysts. N o suspicious findings. A nodule in the right superior pole measures up to 1.6 cm and shows comet tail artifact likely related to colloid. A right mid nodule measures up to 1.3 cm and is mixed cystic and solid wi th no internal suspicious features. The left lobe measures 5.1 x 1.4 x 1.5 cm with several nodules all of which measure under 1 cm without suspici ous appearing features. No lymphadenopathy. The 3.5 cm right inferior nodule was kate ected for targeted FNA. Ultrasound-guided fine-needle aspiration of the 3.5 cm right-sided thyroid nodule: Risks and benefits of procedure were explained to cherie ent. Informed consent was obtained. The right neck was cleansed with alcohol. 1% Xylocaine was used for local anesthesia. Ultrasound-guided fine needle aspiration of the 3.5 cm right thyroid nodule was performed using a 20-gauge needle under son ographic guidance. One pass was made. A second pass was made wi th a 25-gauge needle. Immediate cytologic assessment:Adequate cellularity Preliminary cytology result is negative for malignancy and final results are pending. Estimated Blood Loss: None. Immediate Complications: There were no immediate compl ications, and the patient was discharged in stable con dition. Procedure Note Interface, Radiology Results In - 2019 11:38 AM COMMODITY SPECIALIST FULL RESULT: Examination: US HEAD NECK SOFT TISSUE, U S FINE NEEDLE ASPIRATION on 04/26/2020 10:38 AM Clinical History: Multinodular thyroid. Indication: Multinodular thyroid with a 3.5 cm nodule requiring FNA. Comparison: None. Technique: Real-time grayscale and power Doppler ultrasound of the neck. Findings: Ultrasound shows an enlarged r ight thyroid lobe that measures 5.9 x 2.3 x 3 cm. Within the inferior pole of the right thyroid, there is a 3.5 x 1.8 x 2.9 cm nodule. The nodule is predominantly isoechoic to adjacent thyroid with regards to the sof t tissue, although shows several large internal cysts. No suspicious findings. A nodule in the right superior pole rosie ures up to 1.6 cm and shows comet tail artifact likely related to colloid. A right mid nodule measures up to 1.3 cm and is mixed cystic and solid with no internal suspicious features. The left lobe measures 5.1 x 1.4 x 1.5 c m with several nodules all of which measure under 1 cm without suspicious appearing features. No lymphadenopathy. The 3.5 cm right inferior nodule was kate ected for targeted FNA. Ultrasound-guided fine-needle aspiration of the 3.5 cm right-sided thyroid nodule: Risks and benefits of procedure were exp lained to patient. Informed consent was obtained. The right neck was cleansed with alcohol. 1% Xylocaine was used for local anesthesia. Ultrasound-guided fine needle aspiration of the 3.5 cm right thyroid nodule was performed using a 20-gauge needle under sonographic guidance. One pass was made. A second pass was made with a 25-gauge needle. Immediate cytologic assessment:Adequate cellularity Preliminary cytology result is negative for malignancy and final results are pending. Estimated Blood Loss: None. Immediate Complications: There were no i mmediate complications, and the patient was discharged in stable condition. IMPRESSION: 1. Percutaneous Ultrasound-Guided Biopsy of a 3.5 cm right inferior pole thyroid nodule. 2. Enlarged bilateral multinodular thyro id with no one nodule showing specific internal features to suggest malignancy. 3. Immediate cytologic assessment on 04/26/2020 of the biopsied right thyroid nodule is negative for malignancy with findings favoring colloid nodule.. Final cytologic report is pending to be followed. Performing Organization Address City/State/ZIP Code Phon e Number [id number] US HEAD NECK SOFT TISSUE (04/26/2020 10:38 AM COMMODITY SPECIALIST) Specimen Impressions Performed At [id number] 1. Percutaneous Ultrasound-Guided Biopsy of a 3.5 cm r ight inferior pole thyroid nodule. 2. Enlarged bilateral multinodular thyroid with no one nodule showing specific internal features to suggest ma lignancy. 3. Immediate cytologic assessment on 04/26/2020 of the biopsied right thyroid nodule is negative for malignancy with finding s favoring colloid nodule.. Final cytologic report is pending to be followed. Narrative Performed At FULL RESULT: [id number] Examination: US HEAD NECK SOFT TISSUE, US FINE NEEDLE ASPIRATION on 04/26/2020 10:38 AM Clinical History: Multinodular thyroid. Indication: Multinodular thyroid with a 3.5 cm nodule requiring FNA. Comparison: None. Technique: Real-time grayscale and power Doppler ultra sound of the neck. Findings: Ultrasound shows an enlarged right thyroid l obe that measures 5.9 x 2.3 x 3 cm. Within the inferior pole of the right thyroid, there is a 3.5 x 1.8 x 2.9 cm nodule. The nod ule is predominantly isoechoic to adjacent thyroid with regar ds to the soft tissue, although shows several large internal cysts. N o suspicious findings. A nodule in the right superior pole measures up to 1.6 cm and shows comet tail artifact likely related to colloid. A right mid nodule measures up to 1.3 cm and is mixed cystic and solid wi th no internal suspicious features. The left lobe measures 5.1 x 1.4 x 1.5 cm with several nodules all of which measure under 1 cm without suspici ous appearing features. No lymphadenopathy. The 3.5 cm right inferior nodule was kate ected for targeted FNA. Ultrasound-guided fine-needle aspiration of the 3.5 cm right-sided thyroid nodule: Risks and benefits of procedure were explained to cherie ent. Informed consent was obtained. The right neck was cleansed with alcohol. 1% Xylocaine was used for local anesthesia. Ultrasound-guided fine needle aspiration of the 3.5 cm right thyroid nodule was performed using a 20-gauge needle under son ographic guidance. One pass was made. A second pass was made wi th a 25-gauge needle. Immediate cytologic assessment:Adequate cellularity Preliminary cytology result is negative for malignancy and final results are pending. Estimated Blood Loss: None. Immediate Complications: There were no immediate compl ications, and the patient was discharged in stable con dition. Procedure Note Interface, Radiology Results In - 2019 11:38 AM COMMODITY SPECIALIST FULL RESULT: Examination: US HEAD NECK SOFT TISSUE, U S FINE NEEDLE ASPIRATION on 04/26/2020 10:38 AM Clinical History: Multinodular thyroid. Indication: Multinodular thyroid with a 3.5 cm nodule requiring FNA. Comparison: None. Technique: Real-time grayscale and power Doppler ultrasound of the neck. Findings: Ultrasound shows an enlarged r ight thyroid lobe that measures 5.9 x 2.3 x 3 cm. Within the inferior pole of the right thyroid, there is a 3.5 x 1.8 x 2.9 cm nodule. The nodule is predominantly isoechoic to adjacent thyroid with regards to the sof t tissue, although shows several large internal cysts. No suspicious findings. A nodule in the right superior pole rosie ures up to 1.6 cm and shows comet tail artifact likely related to colloid. A right mid nodule measures up to 1.3 cm and is mixed cystic and solid with no internal suspicious features. The left lobe measures 5.1 x 1.4 x 1.5 c m with several nodules all of which measure under 1 cm without suspicious appearing features. No lymphadenopathy. The 3.5 cm right inferior nodule was kate ected for targeted FNA. Ultrasound-guided fine-needle aspiration of the 3.5 cm right-sided thyroid nodule: Risks and benefits of procedure were exp lained to patient. Informed consent was obtained. The right neck was cleansed with alcohol. 1% Xylocaine was used for local anesthesia. Ultrasound-guided fine needle aspiration of the 3.5 cm right thyroid nodule was performed using a 20-gauge needle under sonographic guidance. One pass was made. A second pass was made with a 25-gauge needle. Immediate cytologic assessment:Adequate cellularity Preliminary cytology result is negative for malignancy and final results are pending. Estimated Blood Loss: None. Immediate Complications: There were no i mmediate complications, and the patient was discharged in stable condition. IMPRESSION: 1. Percutaneous Ultrasound-Guided Biopsy of a 3.5 cm right inferior pole thyroid nodule. 2. Enlarged bilateral multinodular thyro id with no one nodule showing specific internal features to suggest malignancy. 3. Immediate cytologic assessment on 04/26/2020 of the biopsied right thyroid nodule is negative for malignancy with findings favoring colloid nodule.. Final cytologic report is pending to be followed. Performing Organization Address City/[facility] Phon e Number [id number] Cytology Image-Guided FNA Interpretation (04/26/2020 8:39 AM COMMODITY SPECIALIST) Gross Description Specimens procured: [facility] 2 Diff Quik; 6 Pap Stain Slides 10 ml, cloudy bloody fluid in RPMI 1 Cytospin Size: 3.5 x 2.9 x 1.8 cm Immediate assessment for specimen adequacy was made x1 by Dr. Margie MD. Immediate Assessment Adequate cellularity, [facility] favor benign Major Classification [facility]/benign [facility] Electro nically signed by Olena Hanson MD on 04/26/2020 at 11 :49 AM Diagnosis A. Thyroid, inferior right lobe, fine needle aspiratio n: [facility] Electronically signed by Olena Brush Colloid nodule with cystic degeneration MD Margie on 04/26/2020 at 11 :49 AM Retained/Biomarker SR: 9 S [facility] Testing Informational Points Some tests reported [facility] here may have been developed and performance characteristics determined by [facility] Pathology and Laboratory Medicine. These tests have not been specifically cleared or approved by the U.S. Food and Drug Administration. Specimen Fine Needle Asp - Thyroid, Right Lobe Performing Organization Address City/[facility] Phon e Number [facility] [place] [address] [address] [facility] [address] Chest with Contrast (04/17/2020 7:24 AM CDT) Specimen Impressions Performed At * Small bilateral pulmonary nodules are nonspecific and can be [id number] followed. * Multiple small low-density nodules in the thyroid. Further evaluation with ultrasound can be performed if not pre viously evaluated. I personally reviewed these image(s) along with the resident's/fellow's interpretations, certify that if a procedure was performed I was physically present, and agree with the final report. 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 FINDINGS: Lines and Tubes: None Lungs and Airways: There is a 5 mm subpleural nodule i n the right upper lobe (3/30). Additional small (3mm or less) pulm onary nodules are seen series 3, images 53, 74, 87. No focal consoli dations or evidence of pulmonary edema. The central airways are patent. Pleura: No pleural effusion. No pneumoth orax. Cardiovascular: The pulmonary arteries are unremarkabl e. The heart is normal in size. There is no pericardial effusion. Ther e are no aortic arch or coronary artery calcifications. Lymph Nodes: No enlarged supraclavicular, axillary, me diastinal, or hilar lymph nodes. Other Mediastinum: Multinodular right thyroid lobe (la rgest nodule measures 0.9 cm on series 2, image 11). Bones and Soft Tissues: No aggressive osseous lytic or blastic lesions. Upper Abdomen: The visualized liver, gallbladder, sple en, and adrenal glands are within normal limits. 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 FINDINGS: Lines and Tubes: None Lungs and Airways: There is a 5 mm subpl eural nodule in the right upper lobe (3/30). Additional small (3mm or less) pulmonary nodules are seen series 3, images 53, 74, 87. No focal consolidations or evidence of pulmonary edema. The central airways are patent. Pleura: No pleural effusion. No pneumoth orax. Cardiovascular: The pulmonary arteries a re unremarkable. The heart is normal in size. There is no pericardial effusion. There are no aortic arch or coronary artery calcifications. Lymph Nodes: No enlarged supraclavicular , axillary, mediastinal, or hilar lymph nodes. Other Mediastinum: Multinodular right th yroid lobe (largest nodule measures 0.9 cm on series 2, image 11). Bones and Soft Tissues: No aggressive os seous lytic or blastic lesions. Upper Abdomen: The visualized liver, gal lbladder, spleen, and adrenal glands are within normal limits. IMPRESSION: * Small bilateral pulmonary nodules are nonspecific and can be followed. * Multiple small low-density nodules in the thyroid. Further evaluation with ultrasound can be performed if not previously evaluated. I personally reviewed these image(s) marilee ng with the resident's/fellow's interpretations, certify that if a procedure was performed I was physically present, and agree with the final report. Performing Organization Address City/State/ZIP Code Phon e Number [id number] [facility] HIV 1/2 Ag&Ab Path Interp (04/15/2020 10:16 AM CDT) HIV 1/2 Ag&Ab Negative for HIV-1 antigen a nd HIV-1/HIV-2 antibodies. No laboratory evidence of HIV infection. If acute HIV infection is suspected, consider testing for HIV-1 RNA. [facility] Interp Comment: CENTER KAT WINTER, Dictated by: KAT WINTER, Dictated Date/Time: 04.16.20 11:19 AM CDT Transcribed Date/Time: 04.16.2020 11:19 AM CDT Electronically Signed By: KAT WINTER, on 11:19 AM Specimen Blood Performing Organization Address City/[facility] Phon e Number [facility] [address] [place] [address] HIV-1/2 Antigen and Antibodies, Fourth Generation (04/15/2020 10:16 AM CDT) [facility] HIV 1/2 Ag & Ab, Non Reactive Non Reactive [facility] 4th Gen Comment: CENTER Performed at: [facility] [address] [place] [id number] Specimen Blood Performing Organization Address [facility] Phon e Number [facility] [address] [place] [address] Hall Miscellaneous Test (04/15/2020 10:16 AM CDT) [facility] Test See Footnote [facility] Result Comment: [facility] Test Result Flag Unit RefValue HCV Ab Scrn w/Reflex to HCV PCR, S HCV Ab Screen, S Negative Negative Zlnqfe-ty-[id number] ratio is <1.00. Test Performed by: [facility] [address] blair [address] [place] [address] Equities Trader: Chet Cline M.D. Ph.D.; CLIA # [id number] Specimen Varies Narrative Performed At Hepatitis C Virus (HCV) Antibody Screen with Reflex to [facility] HCV RNA by PCR, Serum HCSRN Performing Organization Address City/[facility] Phon e Number [facility] Unless otherwise noted, [place] [address] CENTER all lab tests performed by: Division of Pathology and Laboratory Medicine [address] [place] [address] Fractionated Bilirubin (04/15/2020 10:16 AM CDT) [facility] Bili Total 0.3 <=1.2 mg/dL [facility] Comment: Indocyanine Green (ICG) may cause falsely elevated bilirubin results. Total and direct bilirubin must not be measured from samples containing indocyanine green. False elevation of total annabel irubin can be seen in patients with IgG concentrations above 28 g/L. Testing performed at [facility], [address] [place] [id number] Bili Direct <0.2 <=0.3 mg/dL [facility] Comment: Indocyanine Green (ICG) may cause falsely elevated bilirubin results. Total and direct bilirubin must not be measured from samples containing indocyanine green. Testing performed at [facility], [address] [place] [address], [place] [id number] Bili Indirect See Note 0.0 - 0.9 [facility] Comment: mg/dL Unable to calculate Indirect Bilirubin result due to some parameters are outside reportable range Testing performed at [facility] [facility], [address] [place] [address] Specimen Blood Performing Organization Address City/[facility] Phon e Number [address] Total Protein (04/15/2020 10:16 AM CDT) Pathologist Sig nature Total Protein 6.9Comment: Testing 6.4 - 8.3 g/dL [facility] performed at [facility], [address] [place] [id number] Specimen Blood Performing Organization Address City/[facility] Phon e Number [place] [id number] [address] [place] [address] Alkaline Phosphatase (04/15/2020 10:16 AM CDT) Pathologist Sig nature Alk Phos 97Comment: Testing 35 - 104 U/L [facility] performed at [facility], [address] [place] [address] Specimen Blood Performing Organization Address City/[facility]/ZIP [facility] Phon e Number [place] [phone] [address] [place] [address] Hemoglobin A1c (04/15/2020 10:16 AM CDT) Pathologist Sig nature A1C 5.3 4.3 - 5.6 % [facility] Comment: [facility] HbA1c values >=6.5% are diagnostic of diabetes mellitu s. Diagnosis should be confirmed by repeat testing. Therapeutic Action suggested: >8.0% HbA1c; Goal of therapy: <7.0% HbA1c Specimen Blood Performing Organization Address City/State/ZIP Code Phon e Number [facility] Unless otherwise noted, [place] [address] CENTER all lab tests performed by: Division of Pathology and Laboratory Medicine [address] [place] Albumin Level (04/15/2020 10:16 AM CDT) Pathologist Sig madeleine Albumin Lvl 4.0Comment: Testing 3.5 - 5.2 gm/dL [facility] performed at [facility], [address] [place] [address] Specimen Blood Performing Organization Address City/[facility] [place] [address] [address] [facility] Pathology Outside Interpretation (04/02/2020) Pathologist Sig nature Materials Received Accession#, Stained, Block, Unstained Collect ed Received [facility] A. [id number], 4 SS, 0 BLOCK, 0 USS 04/02/2020 04/18/20 20 Diagnosis Four outside slides ([id number], 04/02/2020) gia gnated as follows: [facility] a t Cervix, Biopsy (A): 2:13 PM INVASIVE POORLY DIFFERENT IATED SQUAMOUS CELL CARCINOMA INFILTRATING THE ENTIRE THICKNESS OF THE TISSUE, 3 MM. Endometrium, Curettings: ATYPICAL ENDOMETRIAL HYPERPL FERNANDO WITH PAPILLARY FEATURES, FOCALLY BORDERING ON ADENOCARCINOMA GRADE 1, IN A BACKGROUND OF SECRETORY ENDOMETRIUM. Disclaimer "Some tests reported [facility] here may have been developed and performance characteristics determined by [facility] Pathology and Laboratory Medicine. These tests have not been specifically cleared or approved by the U.S. Food and Drug Administration. If applicable, controls were reviewed and showed appropriate reactivity." Specimen Tissue Performing Organization Address City/[facility]/ZIP Code Phon e Number [facility] [place] [address] [address] [place] OSI US Pelvic (03/14/2020 11:48 AM CDT) Specimen Narrative Performed At Study acquired at another institution. For comparison only. No [facility] originated interpretation requested or available. after 03/04/2020 Insurance Payer Benefit Plan / Subscriber ID Effective Dates Phone Addre ss Type Group [employer] MANAGED CIGNA HMO POS [id number] 2008-Present HMO CARE OPEN ACCESS [employer] HMO POS [id number] 2008-Present HMO CARE OPEN ACCESS Advance Directives Code Status Date Activated Date Inactivated Comments Full Code 07/01/2020 9:04 AM 07/01/2020 2:18 PM Full Code 06/28/2020 9:20 AM 06/28/2020 2:06 PM Full Code 06/24/2020 9:32 AM 06/24/2020 1:40 PM Full Code 06/17/2020 9:26 AM 06/17/2020 1:15 PM Full Code 06/10/2020 9:25 AM 06/10/2020 1:40 PM
--- OUTSIDE RECORDS SUMMARY | 2021-03-04 18:26 | XMS REPORT | Continuity of Care Document ---
:1970 Author Organization [facility] t Address [address] [place] [address] Dr. Castillo. [address] [place] [address] Care Team Providers Name Role Phone [phone] Primary Care Physician Unavailable KAYE Attending Clinician Unavailable SYSTEM, NOT IN Attending Clinician Unavailable Jessica CHU Attending Clinician Madelin CHAVEZ Attending Clinician Kaye GARDNER Attending Clinician Ji GARDNER Attending Clinician JI Attending Clinician Unavailable JESSICA Attending Clinician Unavailable Dwaine CHAVEZ Attending Clinician Mayra GARDNER Attending Clinician Rogelio CASILLAS Attending Clinician Unavailable Andre Perea APN Attending Clinician Ariana GARDNER Attending Clinician Cee GARDNER Attending Clinician Félix Jensen MD Attending Clinician Jay MATSON Attending Clinician Unavailable Amber GARDNER Attending Clinician Kalpana GARDNER Attending Clinician Luis E KAHN Attending Clinician Daniele RN, N Attending Clinician Unavailable Jaya CASILLAS, L Attending Clinician Pelon Nascimento MD. Attending Clinician Calos CASILLAS Attending Clinician Unavailable Murali GARDNER Attending Clinician Dennis KAHN Attending Clinician Unavailable Florencia CASILLAS Attending Clinician Unavailable Edwin GARDNER, Michell. Attending Clinician Chante GARDNER Attending Clinician Master Peters MA Attending Clinician Unavailable Mikala Mccord MA Attending Clinician Unavailable Ria Coates, K Attending Clinician Unavailable Ekaterina HOWELL, P Attending Clinician MADELIN Attending Clinician Unavailable Sumi Rodríguez Attending Clinician Unavailable Usha RN, A Attending Clinician Unavailable Keyon CASILLAS, S Attending Clinician Unavailable Yuliana GARDNER Attending Clinician Edward Roman Attending Clinician EDWARD VIGIL Attending Clinician Unavailable Fortunato CHAVEZ Attending Clinician Randal MATSON, L Attending Clinician Connor GARDNER, G Attending Clinician Forrest GARDNER, S. Attending Clinician Lili Attending Clinician Unavailable DR SHRUTHI Attending Clinician Unavailable KAYE Admitting Clinician Unavailable DR SHRUTHI Admitting Clinician Unavailable Payers Payer Name Policy Type Policy Number Effective Date Expiration Date Ankur [facility] [id number] 2008 00:00:00 OPEN ACCESS Problems Condition Condition Condition Status Onset Resolution Last Treating Co mments Source Name Details Category Date Date Treatment Clinician Date Infertilit Infertilit Disease Active 2019- M D y due to y due to 2-16 Dc o radiation radiation 00:00: n 00 Encounter Encounter Disease Active 2019- MD for for 2-06 [facility] examinatio examinatio 00:00: n n prior to n prior to 00 antineopla antineopla stic stic chemothera chemothera py py Malignant Malignant Disease Active 2019- neoplasm neoplasm 0-26 Dc o of cervix of cervix 00:00: n uteri uteri 00 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 0- An derso l l 00:00: n hyperplasi hyperplasi 00 a a Abnormal Abnormal Disease Active 2019-06 uterine uterine 0- Anderso bleeding bleeding 00:00: n 00 Malignant Malignant Disease Active 2019-06 neoplasm neoplasm 0 Dc o of of 00:00: n endometriu endometriu 00 m m Anxiety Anxiety Disease Active 2019-06 MD disorder disorder Dc o 00:00: n 00 Essential Essential Disease Active 2019-06 hypertensi hypertensi 0- An derso on on 00:00: n 00 Chronic Chronic Disease Active 2019-06 depression depression 0- An derso 00:00: n 00 Allergies, Adverse Reactions, Alerts Allergy Allergy Status Severity Reaction(s) Onset Inactive Treating Comm ents Source Name Type Date Date Clinician No Known DA Active [facility] [place] [facility] Family History Family Member Diagnosis Comments Start Date Stop Date Source Maternal aunt Breast cancer Clement son Maternal aunt Lung cancer MD Desiree bah Maternal grandfather Lung cancer MD Coleman Maternal uncle Lung cancer MD Irwin on Paternal aunt Breast cancer Clement son Paternal grandmother Lung cancer MD Coleman Natural sister Cervical cancer MD Ely ross Social History Social Habit Start Date Stop Date Quantity Comments Source Tobacco use and 2020-10-04 2020-10-04 Never used MD Irwin on exposure 00:00:00 00:00:00 Alcohol intake 2020-10-04 2020-10-04 Current drinker MD Ely ross 00:00:00 00:00:00 of alcohol (finding) Alcohol Comment 2020-04-15 2020-04-15 social MD Irwin on 00:00:00 00:00:00 [birth year] MD Irwin on 00:00:00 00:00:00 Smoking Status Start Date Stop Date Source Never smoker MD Coleman Medications Ordered Filled Start Stop Current Ordering Indication Dosage Frequency Signature Comments Components Source Medication Medication Date Date Medication? Clinician (SIG) Name Name estrogens, Yes Malignant .5g Insert 0.5 conjugated, 7-21 neoplasm of g into the Anderso (Premarin) 00:00: cervix vagina 3 n vaginal 00 uteri, not (three) cream otherwise times a specified week Wednesday, Wednesday and Wednesday. estrogens, Yes Malignant 1{tbl} Take 1 MD conjugated, 7-20 neoplasm of tablet by Anderso -medroxyPRO 00:00: cervix mouth n GESTERone 00 uteri, not daily. (Prempro) otherwise 0.625 specified mg-2.5 mg per tablet phenazopyri 2019-06 Malignant 100mg Take 1 MD dine 08-1230 neoplasm of tablet Clement so (Pyridium) 00:00: 05:59 cervix (100 mg) n 100 mg 00 :00 uteri, not by mouth 3 tablet otherwise (three) specified times a day for 7 days. ondansetron 2019-06 Malignant 8mg Take 1 MD (Zofran) 8 2 02-01 neoplasm of tablet (8 Anderso mg tablet 00:00: 00:00 cervix mg) by n 00 :00 uteri, not mouth otherwise every 8 specified (eight) hours as needed for nausea. ondansetron 2019-06 Malignant 8mg Take 1 MD (Zofran) 8 07-2007 neoplasm of tablet (8 Anderso mg tablet 00:00: 00:00 cervix mg) by n 00 :00 uteri, not mouth otherwise every 8 specified (eight) hours as needed for nausea. POTASSIUM 2019-06- No 1{tbl} Take 1 MD ORAL 07-13 tablet by Anderso 15:33: 00:00 mouth n 37 :00 daily. aspirin 81 2019-06 No 81mg Take 81 mg MD mg EC 07-13 by mouth Anderso tablet 15:33: 00:00 daily. n 33 :00 LYSINE ORAL 2019-06- No 1{tbl} Take 1 M D 07-13 tablet by Anderso 15:33: 00:00 mouth n 33 :00 daily. prochlorper 2019-06 No Malignant 10mg Take 1 MD azine 07-12 neoplasm of tablet (10 Anderso (Compazine) 00:00: 00:00 cervix mg) by n 10 mg 00 :00 uteri, not mouth tablet otherwise every 6 specified (six) hours as needed for nausea or vomiting. ondansetron 2019-06 2020- No Malignant Take 1 MD (Zofran) 8 1-22 11-30 neoplasm of tablet by Anderso mg tablet 00:00: 00:00 cervix mouth n 00 :00 uteri, not every 8 otherwise hours on specified days 2, 3, and 4 of chemothera py each week, then may take 1 tablet by mouth every 8 hours as needed for nausea or vomiting. Trintellix 2019-06 Yes 1{tbl} Take 1 MD [...] Yes Cintia TAKE [address] [facility] [place] TABLET BY [facility] 00:[facility]: MOUTH [facility] 00 EVERY DAY l [facility] ent Clinics Zestoretic Zestoretic Yes Cintia take [address] [facility] [place] tablet [facility] - every day [facility] ent Clinics BusPIRone BusPIRone Yes Cintia [address] [facility] HCl HCl [facility] ent Clinics Vital Signs Vital Name Observation Time Observation Value Comments Source WEIGHT 2020-05-02 10:48:00 89.3 kg WEIGHT 2020-05-02 10:48:00 89.3 kg Systolic blood pressure 2021-01-07 19:46:00 148 mm[Hg] MD Coleman Diastolic blood pressure 2021-01-07 19:46:00 95 mm[Hg] MD Coleman Heart rate 2021-01-07 19:46:00 77 /min MD Clement holbrook Respiratory rate 2021-01-07 19:46:00 17 /min MD Andre moreno Body weight 2021-01-07 19:46:00 90.6 kg MD Clement holbrook BMI 2021-01-07 19:46:00 31.91 kg/m2 MD Clement holbrook Oxygen saturation in 2021-01-07 19:46:00 98 /min MD Coleman Arterial blood by Pulse oximetry Body temperature 2020-10-07 13:56:27 36.39 Leighann MD Andre moreno Body height 2020-05-14 14:24:00 168.5 cm MD Clement holbrook Procedures Procedure Date / Time Performed Performing Clinician Sourc e OSI MAMMO BILATERAL 2021-01-16 21:33:00 Rory Restrepo MD OSI MAMMO BILATERAL 2021-01-16 21:27:00 Rory Restrepo MD CYTOLOGY HEALTH INFORMATION CLERK INTERPRETATION 2021-01-07 20:43:00 Veena Lopez MD CYTOLOGY HPV 16/18 GENOTYPING 2021-01-07 20:43:00 Oliver Lopez AND HIGH RISK POOL PETCT SUBSEQUENT TREATMENT 2021-01-07 14:41:42 Veena Lopez STRATEGY POC GLUCOSE SCREEN 2021-01-07 13:07:00 Veena Lopez MD on PETCT CONTRAST ENHANCED 2020-10-04 14:06:47 Carmen Flannery MD SUBSEQUENT TREATMENT STRATEGY POC CREATININE 2020-10-04 12:28:00 Carmen Flannery MD POC GLUCOSE SCREEN 2020-10-04 12:28:00 Carmen Flannery MD on MRI PELVIS W WO CONTRAST - 2020-09-26 23:17:00 Veena Lopez MUSCULOSKELETAL XR HIP 2 VW BILATERAL W 2020-09-26 19:32:29 Veena Lopez MD PELVIS MRI PELVIS W WO CONTRAST - 2020-08-22 13:18:14 Isaías Perea MD HEALTH INFORMATION CLERK (CT) INSERTION OF UTERINE 2020-07-01 13:53:00 Tamela Mike MD TANDEM AND VAGINAL OVOID FOR CLINICAL BRACHYTHERAPY PELVIC EXAMINATION UNDER 2020-07-01 13:53:00 Tamela Mike MD ANESTHESIA REMOTE AFTERLOADING HDR 2020-07-01 13:53:00 Tamela Mike MD RADIONUCLIDE BRACHYTHERAPY,2-[address] SIMULATION 2020-07-01 13:53:00 Tamela Mike MD COVID-19 (SARS-COV-2) 2020-06-30 16:45:00 Elaine Montano MD PCR-ASYMPTOMATIC MC (CT) INSERTION OF UTERINE 2020-06-28 13:26:00 Corrine Clark MD TANDEM AND VAGINAL OVOID FOR CLINICAL BRACHYTHERAPY PELVIC EXAMINATION UNDER 2020-06-28 13:26:00 Corrine Clark MD ANESTHESIA REMOTE AFTERLOADING HDR 2020-06-28 13:26:00 Corrine Clark MD RADIONUCLIDE BRACHYTHERAPY,2-[address] SIMULATION 2020-06-28 13:26:00 Corrine Clark MD HC 2019-NCOV COVID-19 2020-06-27 17:44:00 Amber, Corrine Ricci COMPLETE BLOOD COUNT W/ 2020-06-24 17:21:00 Carmen Flannery MD DIFFERENTIAL BASIC METABOLIC PANEL, 2020-06-24 17:21:00 Carmen Flannery MDson CALCIUM TOTAL BILIRUBIN TOTAL 2020-06-24 17:21:00 Carmen Flannery MD ALANINE AMINOTRANSFERASE 2020-06-24 17:21:00 Carmen Flannery MD ASPARTATE AMINOTRANSFERASE 2020-06-24 17:21:00 Carmen Flannery MAGNESIUM LEVEL 2020-06-24 17:21:00 Carmen Flannery MD Results CBC 2020-06-24 17:21:00 Carmen Flannery MD MANUAL DIFFERENTIAL 2020-06-24 17:21:00 Carmen Flannery MD son GLUCOSE LEVEL 2020-06-24 17:21:00 Carmen Flannery MD ELECTROLYTE PANEL 2020-06-24 17:21:00 Carmen Flannery MDo n SERUM CREATININE 2020-06-24 17:21:00 Carmen Flannery MD .GLOMERULAR FILTRATION RATE 2020-06-24 17:21:00 Carmen Flannery MD CALCIUM LEVEL TOTAL 2020-06-24 17:21:00 Carmen Flannery MD Clement son BLOOD UREA NITROGEN 2020-06-24 17:21:00 Carmen Flannery MD son (CT) INSERTION OF UTERINE 2020-06-24 13:37:00 Jael Workman MD TANDEM AND VAGINAL OVOID FOR CLINICAL BRACHYTHERAPY PELVIC EXAMINATION UNDER 2020-06-24 13:37:00 Jael Workman MD ANESTHESIA REMOTE AFTERLOADING HDR 2020-06-24 13:37:00 Jael Workman MDrson RADIONUCLIDE BRACHYTHERAPY,2-[address] SIMULATION 2020-06-24 13:37:00 Jael Workman MD COVID-19 (SARS-COV-2) 2020-06-23 15:52:00 Esperanza Live MD And jeny PCR-ASYMPTOMATIC COMPLETE BLOOD COUNT W/ 2020-06-17 17:13:00 Carmen Flannery MD DIFFERENTIAL BASIC METABOLIC PANEL, 2020-06-17 17:13:00 Carmen Flannery MD derson CALCIUM TOTAL BILIRUBIN TOTAL 2020-06-17 17:13:00 Carmen Flannery MD ALANINE AMINOTRANSFERASE 2020-06-17 17:13:00 Carmen Flannery MD ASPARTATE AMINOTRANSFERASE 2020-06-17 17:13:00 Carmen Flannery MAGNESIUM LEVEL 2020-06-17 17:13:00 Carmen Flannery MD Results CBC 2020-06-17 17:13:00 Carmen Flannery MD MANUAL DIFFERENTIAL 2020-06-17 17:13:00 Carmen Flannery MD Clement son GLUCOSE LEVEL 2020-06-17 17:13:00 Carmen Flannery MD ELECTROLYTE PANEL 2020-06-17 17:13:00 [facility] SERUM CREATININE 2020-06-17 17:13:00 Carmen Flannery MD .GLOMERULAR FILTRATION RATE 2020-06-17 17:13:00 Carmen Flannery MD CALCIUM LEVEL TOTAL 2020-06-17 17:13:00 Carmen Flannery MD Clement son BLOOD UREA NITROGEN 2020-06-17 17:13:00 Carmen Flannery MD Clement son (CT) INSERTION OF UTERINE 2020-06-17 13:31:00 Jael Workman MD TANDEM AND VAGINAL OVOID FOR CLINICAL BRACHYTHERAPY PELVIC EXAMINATION UNDER 2020-06-17 13:31:00 Jael Workman MD ANESTHESIA REMOTE AFTERLOADING HDR 2020-06-17 13:31:00 Jael Workman MDrson RADIONUCLIDE BRACHYTHERAPY,2-[address] SIMULATION 2020-06-17 13:31:00 Jael Workman MD POC GLUCOSE SCREEN 2020-06-17 13:14:00 Jael Workman MD on COVID-19 (SARS-COV-2) 2020-06-16 15:54:00 Elaine Montano MD PCR-ASYMPTOMATIC MC COMPLETE BLOOD COUNT W/ 2020-06-10 17:56:00 Carmen Flannery MD DIFFERENTIAL BASIC METABOLIC PANEL, 2020-06-10 17:56:00 Carmen Flannery MD derson CALCIUM TOTAL BILIRUBIN TOTAL 2020-06-10 17:56:00 Carmen Flannery MD ALANINE AMINOTRANSFERASE 2020-06-10 17:56:00 Carmen Flannery MD ASPARTATE AMINOTRANSFERASE 2020-06-10 17:56:00 Carmen Flannery MAGNESIUM LEVEL 2020-06-10 17:56:00 Carmen Flannery MD Results CBC 2020-06-10 17:56:00 Carmen Flannery MD MANUAL DIFFERENTIAL 2020-06-10 17:56:00 Carmen Flannery MD son GLUCOSE LEVEL 2020-06-10 17:56:00 Carmen Flannery MD ELECTROLYTE PANEL 2020-06-10 17:56:00 Carmen Flannery MDo n SERUM CREATININE 2020-06-10 17:56:00 Carmen Flannery MD .GLOMERULAR FILTRATION RATE 2020-06-10 17:56:00 Carmen Flannery MD CALCIUM LEVEL TOTAL 2020-06-10 17:56:00 Carmen Flannery MD Clement son BLOOD UREA NITROGEN 2020-06-10 17:56:00 Carmen Flannery MD ULTRASOUND GUIDANCE - 2020-06-10 14:55:32 Kristyn Perea MD INTRAOPERATIVE (CT) INSERTION OF UTERINE 2020-06-10 13:38:00 Jael Workman MD TANDEM AND VAGINAL OVOID FOR CLINICAL BRACHYTHERAPY INTRAOPERATIVE ULTRASOUND FOR 2020-06-10 13:38:00 Isaac Workman MD BRACHYTHERAPY PELVIC EXAMINATION UNDER 2020-06-10 13:38:00 Jael Workman MD ANESTHESIA REMOTE AFTERLOADING HDR 2020-06-10 13:38:00 Jael Workman MD RADIONUCLIDE BRACHYTHERAPY,2-[address] SIMULATION 2020-06-10 13:38:00 Jael Workman MD HC 2019-NCOV COVID-19 2020-06-07 17:57:00 Kristyn Perea MD MRI PELVIS W WO CONTRAST - 2020-06-06 01:23:00 Isaías Perea MD HEALTH INFORMATION CLERK MAGNESIUM LEVEL 2020-06-05 15:51:00 Kristyn Perea MD And erson COMPLETE BLOOD COUNT W/ 2020-06-05 15:51:00 Kristyn ePrea MD DIFFERENTIAL BASIC METABOLIC PANEL, 2020-06-05 15:51:00 Kristyn Perea MD CALCIUM TOTAL Results CBC 2020-06-05 15:51:00 Kristyn Perea MD And erson GLUCOSE LEVEL 2020-06-05 15:51:00 Kristyn Perea MD And erson MANUAL DIFFERENTIAL 2020-06-05 15:51:00 Kristyn Perea MD BLOOD UREA NITROGEN 2020-06-05 15:51:00 Kristyn Perea MD ELECTROLYTE PANEL 2020-06-05 15:51:00 Kristyn Perea MD SERUM CREATININE 2020-06-05 15:51:00 Kristyn Perea MD .GLOMERULAR FILTRATION RATE 2020-06-05 15:51:00 Buster Perea MD CALCIUM LEVEL TOTAL 2020-06-05 15:51:00 Kristyn Perea MD EKG, 12-LEAD (SCHEDULED) 2020-06-05 00:00:00 Adenike Gipson MD COMPLETE BLOOD COUNT W/ 2020-06-03 22:01:00 Carmen Flannery MD DIFFERENTIAL BASIC METABOLIC PANEL, 2020-06-03 22:01:00 Carmen Flannery MD CALCIUM TOTAL BILIRUBIN TOTAL 2020-06-03 22:01:00 Carmen Flannery MD ALANINE AMINOTRANSFERASE 2020-06-03 22:01:00 Carmen Flannery MD ASPARTATE AMINOTRANSFERASE 2020-06-03 22:01:00 Carmen Flannery MAGNESIUM LEVEL 2020-06-03 22:01:00 Carmen Flannery MD Results CBC 2020-06-03 22:01:00 Carmen Flannery MD MANUAL DIFFERENTIAL 2020-06-03 22:01:00 Carmen Flannery MD Clement son GLUCOSE LEVEL 2020-06-03 22:01:00 Carmen Flannery MD ELECTROLYTE PANEL 2020-06-03 22:01:00 Carmen Flannery MD SERUM CREATININE 2020-06-03 22:01:00 Carmen Flannery MD .GLOMERULAR FILTRATION RATE 2020-06-03 22:01:00 Carmen Flannery MD CALCIUM LEVEL TOTAL 2020-06-03 22:01:00 Carmen Flannery MD Clement son BLOOD UREA NITROGEN 2020-06-03 22:01:00 Carmen Flannery MD Clement son COMPLETE BLOOD COUNT W/ 2020-05-27 20:41:13 Carmen Flannery MDrson DIFFERENTIAL BASIC METABOLIC PANEL, 2020-05-27 20:41:13 Carmen Flannery MD CALCIUM TOTAL BILIRUBIN TOTAL 2020-05-27 20:41:13 Carmen Flannery MD ALANINE AMINOTRANSFERASE 2020-05-27 20:41:13 Carmen Flannery MD ASPARTATE AMINOTRANSFERASE 2020-05-27 20:41:13 Carmen Flannery MAGNESIUM LEVEL 2020-05-27 20:41:13 Carmen Flannery MD Results CBC 2020-05-27 20:41:13 Carmen Flannery MD MANUAL DIFFERENTIAL 2020-05-27 20:41:13 Carmen Flannery MD Clement son GLUCOSE LEVEL 2020-05-27 20:41:13 Carmen Flannery MD BLOOD UREA NITROGEN 2020-05-27 20:41:13 Carmen Flannery MD Clement son ELECTROLYTE PANEL 2020-05-27 20:41:13 Carmen Flannery MD SERUM CREATININE 2020-05-27 20:41:13 Carmen Flannery MD .GLOMERULAR FILTRATION RATE 2020-05-27 20:41:13 Carmen Flannery MD CALCIUM LEVEL TOTAL 2020-05-27 20:41:13 Carmen Flannery MD Clement son BASIC METABOLIC PANEL, 2020-05-20 21:52:00 Unke, Carmen MD An derson CALCIUM TOTAL BILIRUBIN TOTAL 2020-05-20 21:52:00 Carmen Flannery MD ALANINE AMINOTRANSFERASE 2020-05-20 21:52:00 Carmen Flannery MD ASPARTATE AMINOTRANSFERASE 2020-05-20 21:52:00 Carmen Flannery MAGNESIUM LEVEL 2020-05-20 21:52:00 Carmen Flannery MD COMPLETE BLOOD COUNT W/ 2020-05-20 21:52:00 Carmen Flannery MD DIFFERENTIAL GLUCOSE LEVEL 2020-05-20 21:52:00 Carmen Flannery MD ELECTROLYTE PANEL 2020-05-20 21:52:00 Carmen Flannery MD Andpaulinao niurka SERUM CREATININE 2020-05-20 21:52:00 Carmen Flannery MD .GLOMERULAR FILTRATION RATE 2020-05-20 21:52:00 Carmen Flannery MD CALCIUM LEVEL TOTAL 2020-05-20 21:52:00 Carmen Flannery MD Clement son Results CBC 2020-05-20 21:52:00 Carmen Flannery MD MANUAL DIFFERENTIAL 2020-05-20 21:52:00 Carmen Flannery MD Clement son BLOOD UREA NITROGEN 2020-05-20 21:52:00 Carmen Flannery MD Clement son COMPLETE BLOOD COUNT W/ 2020-05-13 20:43:32 Carmen Flannery MDrsjanina DIFFERENTIAL BASIC METABOLIC PANEL, 2020-05-13 20:43:32 Carmen Flannery MDson CALCIUM TOTAL BILIRUBIN TOTAL 2020-05-13 20:43:32 Carmen Flannery MD ALANINE AMINOTRANSFERASE 2020-05-13 20:43:32 Carmen Flannery MD ASPARTATE AMINOTRANSFERASE 2020-05-13 20:43:32 Carmen Flannery MAGNESIUM LEVEL 2020-05-13 20:43:32 Carmen Flannery MD Results CBC 2020-05-13 20:43:32 Carmen Flannery MD MANUAL DIFFERENTIAL 2020-05-13 20:43:32 Carmen Flannery MD Clement son GLUCOSE LEVEL 2020-05-13 20:43:32 Carmen Flannery MD BLOOD UREA NITROGEN 2020-05-13 20:43:32 Carmen Flannery MD Clement son ELECTROLYTE PANEL 2020-05-13 20:43:32 Carmen Flannery MD Anderso n SERUM CREATININE 2020-05-13 20:43:32 Carmen Flannery MD .GLOMERULAR FILTRATION RATE 2020-05-13 20:43:32 Carmen Flannery MD CALCIUM LEVEL TOTAL 2020-05-13 20:43:32 Carmen Flannery MD Clement holbrook PETCT CONTRAST ENHANCED 2020-05-01 22:30:00 Carmen Flannery MD INITIAL TREATMENT STRATEGY PROTHROMBIN TIME 2020-05-01 20:12:00 Carmen Flannery MD TYPE AND SCREEN 2020-05-01 20:12:00 Carmen Flannery MD APTT 2020-05-01 20:12:00 Carmen Flannery MD ABORH 2020-05-01 20:12:00 Carmen Flannery MD ANTIBODY SCREEN 2020-05-01 20:12:00 Carmen Flannery MD CLOT EXPIRATION DATE 2020-05-01 20:12:00 Carmen Flannery MD Hernandez rson TMP INTERPRETATION ANTIBODY 2020-05-01 20:12:00 Carmen Flannery MD SCREEN NEGATIVE CONFIRM ABORH TYPE 2020-05-01 20:09:00 Carmen Flannery MD on URINE CULTURE 2020-05-01 20:08:00 Carmen Flannery MD URINALYSIS WITH MICROSCOPIC 2020-05-01 20:08:00 Carmen Flannery MD IF INDICATED HUMAN CHORIONIC GONADOTROPIN, 2020-05-01 20:08:00 Carmen Flannery MD QUALITATIVE, URINE URINALYSIS MICROSCOPIC 2020-05-01 20:08:00 Carmen Flannery MD [facility] 2019-NCOV COVID-19 2020-05-01 15:21:00 Rory Restrepo MD And erson IR CT GUIDED BIOPSY 2020-04-26 20:42:54 Carmen Flannery MD Clement holbrook MUSCLE/SOFT TISSUE PELVIC PATHOLOGY BIOPSY 2020-04-26 20:24:00 Carmen Flannery MD INTERPRETATION PROTHROMBIN TIME 2020-04-26 17:41:00 Zach Vigil MD HUMAN CHORIONIC GONADOTROPIN, 2020-04-26 17:31:00 Zach Vigil MD QUALITATIVE, URINE US HEAD NECK SOFT TISSUE 2020-04-26 16:38:15 Carmen Flannery MD US FINE NEEDLE ASPIRATION 2020-04-26 16:38:15 Carmen Flannery MD CYTOLOGY IMAGE-GUIDED FNA 2020-04-26 14:39:00 Carmen Flannery MD INTERPRETATION MRI PELVIS W WO CONTRAST - 2020-04-19 21:36:00 Carmen Flannery HEALTH INFORMATION CLERK CT CHEST W CONTRAST 2020-04-17 12:24:00 Carmen Flannery MD Clement son PATHOLOGY BIOPSY 2020-04-15 15:20:00 Carmen Flannery MD INTERPRETATION COMPREHENSIVE METABOLIC PANEL 2020-04-15 15:16:00 Carmen Flannery MD COMPLETE BLOOD COUNT W/ 2020-04-15 15:16:00 Carmen Flannery MD nderson DIFFERENTIAL HEMOGLOBIN A1C 2020-04-15 15:16:00 Carmen Flannery MD HC HIV 1/2 AG AND AB 4TH GEN 2020-04-15 15:16:00 Carmen Flannery MD GLUCOSE LEVEL 2020-04-15 15:16:00 Carmen Flannery MD BLOOD UREA NITROGEN 2020-04-15 15:16:00 Carmen Flannery MD Clement son ELECTROLYTE PANEL 2020-04-15 15:16:00 [facility] SERUM CREATININE 2020-04-15 15:16:00 Carmen Flannery MD .GLOMERULAR FILTRATION RATE 2020-04-15 15:16:00 Carmen Flannery MD CALCIUM LEVEL TOTAL 2020-04-15 15:16:00 Carmen Flannery MD Clement son ALBUMIN LEVEL 2020-04-15 15:16:00 Carmen Flannery MD ALKALINE PHOSPHATASE 2020-04-15 15:16:00 Carmen Flannery MD Hernandez rson ALANINE AMINOTRANSFERASE 2020-04-15 15:16:00 Carmen Flannery MD ASPARTATE AMINOTRANSFERASE 2020-04-15 15:16:00 Carmen Flannery TOTAL PROTEIN 2020-04-15 15:16:00 Carmen Flannery MD FRACTIONATED BILIRUBIN 2020-04-15 15:16:00 Carmen Flannery MD derson Results CBC 2020-04-15 15:16:00 Carmen Flannery MD MANUAL DIFFERENTIAL 2020-04-15 15:16:00 Carmen Flannery MD Clement son TMP HIV 1/2 AG&AB PATH INTERP 2020-04-15 15:16:00 Carmen Flannery MD SOLORIO MISCELLANEOUS TEST 2020-04-15 15:16:00 Carmen Flannery MD nderson HC 2018-NCOV COVID-19 2020-04-11 18:14:00 Rory Restrepo MD And jeny PATHOLOGY OUTSIDE 2020-04-02 00:00:00 Justyna Clayton MD Andpaulinao niurka INTERPRETATION OSI US PELVIC 2020-03-14 16:48:17 Rory Restrepo MD Plan of Care Planned Activity Planned Date Details Comments Source Future Scheduled Test 1984 00:00:00 COVID-19 Vaccination MD Coleman (1) [code = COVID-19 Vaccination (1)] Encounters Start End Encounter Admission Attending Care Care Encounter Source Date/Time Date/Time Type Type Clinicians Facility Department ID 2020-04-16 Inpatient CHRIS RESTREPO HEALTH INFORMATION CLERK [id number] 17:10:12 RORY bah 2020-04-10 Outpatient SYSTEM, CHRIS MDA [id number] 10:32:06 PROVIDER Dc bah 2021-02-10 2021-02-10 Outpatient [facility] [id number] [facility] 2021-01-21 2021-01-21 Outpatient EDEN RESTREPO MDA MDA [id number] 16:21:30 16:21:30 RORY bah 2021-01-21 2021-01-21 Outpatient EDEN RESTREPO MDA MDA [id number] 15:55:57 15:55:57 RORY bah 2021-01-21 2021-01-21 Outpatient EDEN RESTREPO MDA MDA [id number] 15:55:53 15:55:53 RORY bah 2021-01-21 2021-01-21 Outpatient EDEN RESTREPO MDA MDA [id number] 15:55:50 15:55:50 RORY bah 2021-01-21 2021-01-21 Outpatient EDEN RESTREPO MDA MDA [id number] 15:55:44 15:55:44 RORY bah 2021-01-21 2021-01-21 Outpatient CHRIS RESTREPO MDA [id number] 15:55:40 15:55:40 RORY bah 2021-01-21 2021-01-21 Outpatient EDEN RESTREPO MDA MDA [id number] MD 15:55:36 15:55:36 RORY bah 2021-01-21 2021-01-21 Outpatient EDEN RESTREPO MDA MDA [id number] MD 15:55:29 15:55:29 RORY bah 2021-01-07 2021-01-07 Outpatient EDEN WORKMAN MDA MDA [id number] 14:03:47 23:59:00 JAEL bah 2021-01-07 2021-01-07 Outpatient EDEN LOPEZ MDA MDA [id number] 07:42:28 07:42:28 VEENA bah 2020-12-10 2020-12-10 Outpatient [facility] [id number] [facility] 2020-10-10 2020-10-10 Outpatient [facility] [id number] [facility] 2020-09-27 2020-09-27 Outpatient [facility] [id number] [facility] 2020-05-23 2020-05-23 Out[facility] [id number] [facility] 2020-05-02 2020-05-02 Outpatient EDEN RESTREPO MDA MDA [id number] MD 10:26:34 13:05:48 RORY bah 2020-05-01 2020-05-01 Outpatient CARMEN KIM MDA MDA [id number] 14:20:38 14:20:38 Dc bah 2020-05-01 2020-05-01 Outpatient CARMEN KIM MDA MDA [id number] 13:48:22 13:48:22 Dc bah 2020-05-01 2020-05-01 Outpatient CARMEN KIM MDA MDA [id number] 09:14:15 09:43:40 Dc bah 2020-04-30 2020-04-30 Outpatient CARMEN KIM MDA MDA [id number] 09:02:42 09:42:36 Dc bah 2020-04-26 2020-04-26 Outpatient CARMEN KIM MDA MDA [id number] 12:41:43 23:59:00 Dc bah 2020-04-26 2020-04-26 Outpatient ZACH ESCOBAR MDA MDA [id number] 11:31:33 12:40:00 Dc bah 2020-04-26 2020-04-26 Outpatient CARMEN KIM MDA MDA [id number] 07:37:43 07:37:43 Dc bah 2020-04-25 2020-04-25 Outpatient EDEN RESTREPO MDA MDA [id number] MD 10:30:00 23:59:00 RORY bah 2020-04-19 2020-04-19 Outpatient CARMEN KIM MDA MDA [id number] 14:40:32 14:40:32 Dc bah 2020-04-19 2020-04-19 Outpatient STLMLC STLMLC [id number] [facility] 00:00:00 00:00:00 [facility] 2020-04-17 2020-04-17 Outpatient EDEN RESTREPO, MDA MDA [id number] MD 11:46:26 11:46:26 RORY bah 2020-04-17 2020-04-17 Outpatient CARMEN KIM MDA MDA [id number] 07:02:02 07:02:02 Dc bah 2020-04-15 2020-04-15 Outpatient CARMEN KIM MDA MDA [id number] 09:58:12 10:17:54 Dc bah 2020-04-15 2020-04-15 Outpatient EL KAYE, MDA MDA [id number] MD 08:01:09 08:01:09 RORY bah 2020-04-15 2020-04-15 Outpatient EL KAYE, MDA MDA [id number] MD 07:54:14 07:56:50 RORY bah 2020-04-11 2020-04-11 Outpatient EL KAYE, MDA MDA [id number] MD 13:06:29 13:06:29 RORY bah 2020-02-08 2020-02-08 [facility] [id number] [facility] 08:20:00 08:20:00 t [facility] Medicine Outpati ent Clinics 2019-11-09 2019-11-09 [facility] [id number] [facility] 16:20:00 16:20:00 t [facility] Medicine Outpati ent Clinics 2019-10-09 2019-10-09 [facility] [id number] 16:00:00 16:00:00 t [facility] Medicine l Medicine Outpati ent Clinics 2019-10-06 2019-10-06 [facility] [id number] 15:12:00 15:12:00 t [facility] Medicine Outpati ent Clinics 2019-08-03 2019-08-03 [facility] [id number] [address] 15:00:00 15:00:00 t [facility] Medicine Medicine Outpati ent Clinics 2019-07-20 2019-07-20 [facility] [id number] 17:35:00 17:35:00 t [facility] Medicine Outpati ent Clinics 2019-07-20 2019-07-20 [facility] [id number] 16:20:00 16:20:00 t [facility] Medicine Medicine Outpati ent Clinics 2019-07-14 2019-07-14 [facility] [id number] 11:36:00 11:36:00 t [facility] Medicine Medicine Outpati ent Clinics 2019-04-13 2019-04-13 [facility] [id number] 08:00:00 08:00:00 [facility] Medicine Outpati ent Clinics 2019-03-02 2019-03-02 [facility] [id number] 16:00:00 16:00:00 [facility] 2018-12-06 2018-12-06 [place] [id number] 11:46:00 11:46:00 t [facility] 2018-10-12 2018-10-12 Outpatient Ricki [place] [id number] [address] 16:40:00 16:40:00 t [facility] ent [facility] 2018-03-04 2018-03-04 Outpatient Nanci HAWKINS, [facility] [id number] [place] 03:56:00 05:45:00 [facility] 2017-11-05 2017-11-05 Outpatient Nanci HAWKINS, [facility] [id number] 0[address] [place] 04:10:00 07:30:00 [facility] 2017-09-10 2017-09-10 [facility] [id number] [place] 04:29:00 06:32:00 [facility] Results Test Description Test Time Test Comments Results Result [facility] e Comments OSI Mammo 2021-01-21 Study acquired at MD Hernandez jorge 21:33:33 another institution. For comparison only. No MD Coleman originated interpretation requested or available. Cytology HEALTH INFORMATION CLERK Interpretation 2021-01-14 14:07:09 Test Item Value Reference Range Interpretation Comme nts Gross o8dwvQWxWQBmeSUPPCAcO4fdisXtAICcfMZxJ0SaywktWAjqYV8sAD0wrDqgoKJtxUWtJU3RFLYpIuEc EGBdeEDmswExOtWsNJXkvEQbqDP7FNOoYZ8faxrsEYqmTHpiBZIrjiK7IHPwxQOtQ4GyGQSbKG9uwcox LPA0JRcfnH8qolUTIvqlDj9yyEArgMspKvKoLsCnFDBhGWYrPPXimFaiSDI Description zFSc0lL9SDxulU63ek5S6Nww0KSDaBAVpV9GhDH7uOUDouTYdL34SAxwrFZW1NSYEWskkEMJfHB5Yk7f mPODpmTTrSKZ9UZjdtJKiQHAjONVcYEr2MYNqMFadfXNgNH1nzKvoDpszhSflo9BdpYYkCJspSYUfZYZ qLIgpQRWlZG7QAnIaJCKqEZB8XqsyPEf3ZKc4RL2HOrFoEFJoJHe7TAR3Lo (test code = UgQEw4VKcjQH1YJCh1Qaw0VFN0TtW9OCM1QKAuWMNyFbPaGDIuIXCmXAlvVPfdlfIbRPOlNTNcJTozHg otKJvhM38wqOnhxV4tHylxldWsWKM4OWJblxKBPtqblRTvjcgymJksXoFvkGZkDnIlSKdgwGAtxHOnMB biyiWnnqccGGKLIyeqjUPrhKpdBxNbOwQxYWRgWPB1wmPZUYLdVZHuYZmbk [id number]) eTrBDa4RUGDKytlnVKsrdfvrKzfFpGxvDFeIoZziUbmeV04RDQnlAVlLVX4XI6dDRDlnofjRGUjQAXzQ VF6QFewxC43zESqECPaBSSknFPtcD0PAWUjVOT8FWzrvN78rCKzGS6TUOMhCFD5XOMmsDEpFZA5EM4ow Q0KfQ== Specimen z3pzqXNaIJLfdYAnRxVaCQPjOFXep7mhXHSptWNuSpZoCiLyCkMqOehhgGNaZXWxUvIci8xdz863lQCd a4fnLLSpAuS5pNHyEZIsqDVsY265HWZmYTstj2huc3NcUFZozRXkt1K8NJMAmfpmzYp9k8zsFlBdTa6c wIUCx5KypXJzTL8lsoq3eTsfS19ah1T4KgcuB4jtWRYdWMRgB9ZlTK1zZIE Information iRul7QFB6GIQ5UXXmQBNxO7PxLR8tKXMetRHcPNvutyTdZZwkgqHftpDmNrd8ODM0WDH3NCNcIENmNDp fwpYyjbDsYtp4THPeKIL3OEAcZCX4SMsbxuYgzjLtPxu4KZCtD209SQU2kFfdh5aqQBD1QFDiOJCaBbE mKr1feWOdJ960LYAiIDHEGBSkyJz9OFVmjlVjhkJfeQFKk483S414UAFfGS (test code = MdEWv8IzOGVQSsgdf0fR4zAQAxqq16nFbgaiMkl93ihPWuXGrrVoCzNVTiSzuvxHFtd01jGHhxyJy2w5 cukwJgzYSPRIWjahs8vO7qH292TJK7LZSjJSu2TNhhoVTkdL7kbFM9GFlhUQFrROpoYxdkJjAzIOexWV QlGUipvTWzz0M7hKosERbiggRlURpmDWKdelJLEXf8b3wgEduyvfE7yVLeb 98357) [file] 08xOKE8PRYoHWlwBDX5 Specimen Satisfactory for evaluation Adequacy (test code = 9847) TZ/Endocervi Endocervical/transformation zone component present gosia (test code = 9848) Diagnosis Negative for intraepithelial lesion or malignancy (test code = 9849) Diagnosis Partial atrophyTherapy effect Additional Statements (test code = 9850) HPV Reflex Yes for Motorman/Woman (test code = 9974) Informationa k5htqKRmLCHvqNBrYxYkMLNoOAJdd8ewDHOxiXRtIiEgMbAsJtSnZzseoKZnGCNtCrBdy0gjs936wJJx w9ytAHHwSjP3bKZuPLHjhTTnD552GGKfLQage7mmw0XrSNSpjLQrt4T7HUGXOCdiFOWXWIv0u3knYjKj QkN7uIFtPFxaA3bslmIljTUlCEXnQYw7mR35RVXdcP0dmHBuMFtdzjVqChU l Points 5JMupEBShVfZ3BBLavUGfRIItC1feLVGmZLjrMAFtIEygbEPsUMO3vEhtm4J1wSCknNRbsIifQjAiBxZ mAlDOp3CrJQt5rWyaF1VrBCCzYzX9zLOfLJGgCDfrJUAfBNRogfM2aO95FWmvqjV2oBLgm8Ond23kj18 5yQ9zxCCpDRZ3QSZhZFEzzJZfYFLhPXV1UBUvdKGhX8ksDXNkTV8hgejeQW (test code = quVUxlCBEtbJD3OALjoGMdG6JdTVOkYExkVVQauqr8FdNqEr4bqBOqtQsfCNuuy5xyo7hmzBAnPvn1JN GyKtYcRtxgPNvvu6Iur3ysJJBwvs7gLAE9nWVlhXkdo9A6gAScLRTybCRgbxIfIVUlIzG1RWqsYU9ygx 30WQXgJPO5nj6viJOvvDejzvPdyITkPMjfT3FrXGVfu310DALwS3VdHUYni 9836) 3V1cpIwXuRzNDTgbBY2nyU3JNHxYJu6hQJocpA2xqTusJAwM3izaI2aCLKqEH7xpbasx4lxUHpuADnjN ZJzxHM4dvJ3QALraFTqM0FypR1uSIRpXAuzMLOeish5LbVoOc1fqZZgoEcvYCrbFjfwAWmtNAVrkeVnh vYgtJplXBOrWMOeFZvyUAJgFTonCXCiFFNeLaWeyJgsjEbmmW0vBxJbSmFd BXgvZV6lXCPuI0wexGNsPEAoILMnA1auAjLoaM5rlOimPDuauzB1TYxdA6Ersthyy3KfQ2zsDTpwZ0n9 a2suR2icwIAhJVPqX3ZsCE8zrdhzoCRvU9DpnNIcCAU3MkrrH6HwdC1xUdGzs8XamtAoPXCxulCjVHQh EGQxYKdyMOAug5HzeXt8ILYgMWRit5JieISjYZJhYM3kinOwewYoiQDmoCT dw8lkvzTcVOHauXqaTkFvnC0hwLJiDS8rkEOdkDGjw2B9USwkJFIad42zNJTlMJa9uTLeGIAecCM8gPF bqkLdAuDqrPDqON0tZEFnd6SpBQZwQUVprdRkomJtVNOyKUK6c4vckJqrkmC9aXJhZRGxm3LnIE4rONP 5rgKubsFuO0uplvgoHKisOPC4EI7eHXQxtxPPc79pMVYqs5GkETTwnX6efI CyGDskqkHgrIE7BJeswgCkQyGzxtZjAYFytE7cGGRwXO6eOHWihvFlno9towHxUPSsSFVbX8UutqhqeX zsmtUlOGXkpp0jkcUuWSC6QDZXHX8FHFEgUIYhk50xHHDrwOwhbK2ayKJejmXaJYLfy3XjxO2ngTBYNS YhJ8fsIL9qCDsss4ZiwAPncEXtbPD4WGZdp4CfTzTqnkHyqATzeXFpM4Sca NzgJ0alERYtQOCcrbQwoFPha0VsSZLeuZE5qGYiJM5SJgGLm08iFNHfIIKJslJlJJUoyOgmzHW4ldD8v A5jLeVyvYddjZ0gUaJmUwUzNqewCG1dTIQuW5wfmHVjBDQaDGIiB0mgAyQgeS1ziQfzHszcbwTiVDPsi n0= [facility] HPV 16/18 Genotyping and High Risk [id number] 22:35:33 Test Item Value Reference Range Interpretation Comments HPV Type 16 (test code Negative Negative, = 9853) Indeterminate, Invalid HPV Type 18 (test code Positive Negative, A = 9854) Indeterminate, Invalid HPV High Risk Negative Negative, Non-16/18 (test code = Indeterminate, 9855) Invalid Informational Points The garrett HPV Test (test code = 9852) ([facility], [place], [place]) is a qualitative in vitro diagnostic test for the detection of Human Papillomavirus in cervical specimens collected in PreservCyt Solution or SurePathTM Preservation Fluid. The test utilizes amplification of target DNA by the Polymerase Chain Reaction (PCR) and nucleic acid hybridization for the detection of 14 high-risk (HR) HPV types in a single analysis. The test specifically identifies types HPV16 and HPV18 while concurrently detecting the other high risk types (31, 33, 35, 39, 45, 51, 52, 56, 58, 59, 66, and 68). The performance characteristics of this test were validated and determined by the [facility] cytology laboratory. These validation analyses have confirmed the accurate performance of the assay of the extractor machine operator s stated limit of detection for the target of the test in various specimen types. The [facility] cytology laboratory is authorized under Clinical Laboratory Improvement Amendments (CLIA) to perform high-complexity testing. The [facility] Department of Pathology is accredited by the [employer] ([employer]). Lab Interpretation Abnormal (test code = 43110-7) MD ColemanEMILY Subsequent Treatment [id number] 16:49:51No activity in the uterine cervix or FDG avid tyrone metastases from treated disease. Fibroid uterus.New focal activity in the uterus from a degenerating fibroid. Stable subcentimeter right breast nodule since CT chest 04/17/2020 from possible intramammary node, however can be further evaluated with mammography if not already performed. Interface, Radiology Results In - 01/07/2021 11:52 AM CDT FULL RESULT:Examination: FDG PET/CT, 01/07/2021 9:41 AMClinical History: 50-year-old female with malignant neoplasm of the endometrium and uterine cervixIndication: Restaging, subsequent treatment strategyComparison: PET/CT 10/04/2020Technique: F-18fluorodeoxyglucose (FDG) 10 mCi was administered intravenously via right antecubital vein. To allowfor distribution and uptake of radiotracer, the patient was asked to rest quietly for approximately 60-90 minutes. PET/CT imaging was performed from the skull to the proximal thighs. Serum blood glucose at the time of the injection was 106 mg/dL. CT scanning was done for attenuation correction, imageregistration, and diagnosis with scan parameters optimized to minimize radiation exposure to the patient. SUV measurements are reported as maximum SUV based on body weight unless otherwise specified.Findings: Head and Neck: Physiologic radiotracer activity is noted in the brain. The paranasal sinuses are clear. No enlarged or hypermetabolic cervical lymph nodes are identified.Heterogeneous thyroid gland from underlying nodules of which the dominant nodule was biopsied in the inferior right lobe on 04/26/2020 revealing colloid nodule with cystic degeneration.Chest: Stable indeterminate non-FDG avid subcentimeter lung nodules in the right upper lobe series 4 image 57, left upper lobe image 74 and right middle lobe image 86 measuring up to 0.[address] chest 04/17/2020.There are no enlarged or hypermetabolic mediastinal, hilar or axillary lymph nodes.A stable non-FDG avid 0.6 cm right breast nodule on series 3 image [address] chest 04/17/2020. Abdomen and Pelvis: The unenhanced spleen, gallbladder, liver, pancreas, adrenal glands and kidneys are normal. No hydronephrosis.Similar tiny left common iliac lymph node on series 3 image 181 without associated activity from treated disease. There are no new enlarged or hypermetabolic abdominal or pelvic lymph nodes. No focal hypermetabolism in the uterine cervix. Fibroid uterus. New focal activity on image 212 with an SUV of 5.6localizing to an anterior mid body intramural fibroid, better seen on the prior contrast-enhanced examination.Musculoskeletal: No suspicious osseous lesions. Again seen is activity close to the femoral trochanters from inflammation.IMPRESSION:No activity in the uterine cervix or FDG avid tyrone metastases from treated disease.Fibroid uterus. New focal activity in the uterus from a degenerating fibroid.Stable subcentimeter right breast nodule since CT chest 04/17/2020 from possible intramammary node, however can be further evaluated with mammography if not already performed.MD Coleman POC Glucose [id number] 13:28:12 Test Item Value Reference Range Interpretation Comments POC Glucose (test 106 mg/dL 70-99 H Capillary blood code = 01439-4) samples, e.g . obtained by fingerstick, ma y have inaccurate resu lts in patients with decreased perip heral blood flow. Met hod description: Al l results are radha sured using Electrochemistr y test methodology. Th e glucose in the sample mixes with the reagents on the test strip. The reac tion produces an jaspal ctric current. The am ount of current prod uced is proportional to the glucose concentration i n the blood. PO Sample Type (test Venous code = 9554) Performing Lab (test [facility] code = 81752) [facility] MD Coleman-[facility] ,[address], [place] [address], Point of Care Lab Dir ermias: Estela Medina MD Lab Interpretation Abnormal (test code = 36178-2) MD ColemanPETCT Contrast Enhanced Subsequent Treatment [id number] 16:28:491. Interval decrease in F-18 FDG activity associated with the primary malignancy within the cervix and left paracervical region, likely representing treated disease 2. Interval decrease in size and resolution of hypermetabolism associated with a left common iliac lymph node. 3. No new or distant sites of disease. I personally reviewed these image(s) along with the resident's/fellow's interpretations, certify that if a procedure was performed I was physically present, and agree with the final report.Interface, Radiology Results In - 10/04/2020 11:30 AM CDT FULL RESULT:Examination: Contrast-Enhanced F-18 FDG PET/CT, 10/04/2020 9:06 AMClinical History: Squamous cell carcinoma of the cervixIndication: Restaging for subsequent treatment planComparison: PET/CT 05/01/2020, MRI pelvis 08/22/2020Technique: F-18 fluorodeoxyglucose (FDG) 8.1 mCi was administered [...] with multiple non-F-18 FDG nodules, most likely multinodular goiter.Chest: No F-18 FDG avid mediastinal, hilar or axillary lymphadenopathy.No F-18 FDG avid pulmonary nodularity. Stable non-F-18 FDG avid 5 mm pulmonary nodule in the right upper lobe (image 197). No pleural or pericardial effusion.Stable non-F-18 FDG avid 5 mm right breast nodule (image 169).Abdomen and Pelvis: No F-18 FDG avid lesions in the liver, gallbladder, spleen, reynolds creas, adrenal glands, or kidneys. Physiologic gastrointestinal activity. No F- 18 FDG avid abdominal, retroperitoneal lymphadenopathy. There is been an interval decrease in size and F-18 FDG avidity ofa left common iliac lymph node, which measures now approximately 0.7 x 0.4 cm with no significant radiotracer activity above background (image 302). Previously, this measured 1.4 x 1.1 cm with a maximum SUV of 4.5.There is interval decrease in F-18 FDG activity associated with a previously seen hypermetabolic mass in the cervix and left paracervical region (SUV max 4.8, previously 13.6). Enlarged uterus with multiple fibroids, unchanged. Non mass-like activity at the vaginal introitus likely represents excreted urinary activity.Musculoskeletal: No F-18 FDG FDG avid osseous lesions.IMPRESSION:1. Interval decrease in F-18 FDG activity associated with the primary malignancy within the cervix and leftparacervical region, likely representing treated disease2. Interval decrease in size and resolution of hypermetabolism associated with a left common iliac lymph node. 3. No new or distant sites of disease.I personally reviewed these image(s) along with the resident's/fellow's interpretations, certify that if a procedure was performed I was physically present, and agree with the final report.MD Coleman POC [id number] 12:30:22 Test Item Value Reference Range Interpretation Comments POC Crea (test code 0.8 mg/dL 0.6-1.3 Medicati ons, especially = 77046-4) hydroxyurea or supplements, galaviz ch as ascorbate, can interfere with test resul ts causing a false ly and significantly h igher result than exp ected. If a problem is galaviz spected with a patient' s result, a sample should be sent to the [facility] for confirmatory te sting. Method descript ion: The i-STAT is an an alyzer used for in vit ro quantification of various analyte s in whole blood. Th e device uses a single d isposable cartridge which contains microfabricated sensors, a calibration s olution, fluidics system , and a waste chamber. Each test cartridge conta ins chemically sens itive biosensors on a silicon chip that are c onfigured to perform spec ific tests. The microfabricated sensors measure analyte concentration b y an electrochemical assay. POC eGFR-AA (test 101 See_Comment Normal eGF R >= 60 code = 69958-4) mL/min/1.73 m2 The eGFR is calculated u sing the CKD-EPI equatio n. The eGFR declines w ith age. eGFR <60 mL/min /1.73 m2 is considered a s "decreased" Thi s equation should only be used for patien ts 18 and older. Accordin g to the National Kidney Foundation's Ki dney Disease Outcome Quality Initiative (KDO QI) classification and 2012 Kidney Disease Improving Global Outcomes (KDIGO) Clinical Practi ce Guideline, the stage of CKD should be categorized bas ed on estimated GFR. Stage Description GFR mL/min/1.73 m21 Kidney damage with nor mal or high GFR >= 902 Kidney damage w ith mild decrease in GFR 60-893a Mild to moderate decrease in GFR 45-593b Moderat e to severe decrease in GFR 30-444 Severe decrease in GFR 15-29 5 Kidney failure <15 (or dialysis) [Aut omated message] The sy stem which generated this result transmit ruma reference range : >=60 mL/min/1.73 m2. The reference range was not used to interpr et this result as normal/abnormal . POC eGFR-CHASTITY (test 87 See_Comment Normal eG FR >= 60 code = 44535-9) mL/min/1.73 m2 The eGFR is calculated u sing the CKD-EPI equatio n. The eGFR declines w ith age. eGFR <60 mL/min /1.73 m2 is considered a s "decreased" Thi s equation should only be used for patien ts 18 and older. Raulin g to the National Kidney Foundation's Ki dney Disease Outcome Quality Initiative (KDO QI) classification and 2012 Kidney Disease Improving Global Outcomes (KDIGO) Clinical Practi ce Guideline, the stage of CKD should be categorized bas ed on estimated GFR. Stage Description GFR mL/min/1.73 m21 Kidney damage with nor mal or high GFR >= 902 Kidney damage w ith mild decrease in GFR 60-893a Mild to moderate decrease in GFR 45-593b Moderat e to severe decrease in GFR 30-444 Severe decrease in GFR 15-29 5 Kidney failure <15 (or dialysis) [Aut omated message] The sy stem which generated this result transmit ruma reference range : >=60 mL/min/1.73 m2. The reference range was not used to interpr et this result as normal/abnormal . POC Clean Dev (test Yes code = 6672) Performing Lab (test [facility] code = 31650) [facility] MD Coleman[facility] [address], [address] [facility], [place], [place] [address]; Point of Care Lab Dir ermias: MD MD Jared PoolMRI Pelvis with and without Contrast - [id number] 13:03:42No evidence of metastatic involvement of the skeletal pelvis.Significant bilateral gluteus medius enthesopathy and low-grade tear that is most significant on the left side. Interface, Radiology ResultsIn - 09/27/2020 8:05 AM CDT FULL RESULT: Examination: MRI PELVIS W WO CONTRAST - MUSCULOSKELETAL, 09/26/2020 6:17 PM.Clinical History: A 50-year-old patient with cervix carcinoma on treatment with CISplatin with Radiation since 05/14/2020Indication: Hip pain, Hip painComparison: MRI or 08/22/2020Technique: Multiplanar multisequence magnetic resonance imaging of the pelvis was performed without and with intravenous administration of contrast.Findings: Bones:* No focal bone lesion or fracture detected.Nodes:* No pelvic or inguinal lymphadenopathy demonstratedVisceral pelvis:* Multiple uterine fibroids. No discernible enhancing or diffusion restricting cervical mass. Small amount of fluid within the pelvic cul-de-sac.Skeletal pelvis:* Bilateral increased T2 signal adjacent to the greater trochanters indicative of gluteus medius enthesopathy and low-grade tear most significant on the right and left side (series 4 image 23 and series 8 britton ge 30).* Small subcortical synovial cyst pit within the anterior right femoral neck (series 8 image28). No evidence of AVN IMPRESSION:No evidence of metastatic involvement of the skeletal pelvis.Significant bilateral gluteus medius enthesopathy and low-grade tear that is most significant on the leftside.MD ColemanXR HIP 2 VW BILATERAL W [id number] 20:57:58Possible minimal degenerative changes at the left hip. Interface, Radiology Results In - 09/26/2020 4:00 PM CDT FULL RESULT:Examination: XR HIP 2 VW BILATERAL W PELVIS, September 26, 2020 at 2:12 PMClinical History: Pain in unspecified hipIndication: Pain in unspecified hipComparison: Images through the pelvis and hips from PET/CT of May 01, 2020 Technique: AP view of the pelvis and coned AP and frog-leg lateral views of both hipsFindings: A tiny calcification at the lateral margin of the left acetabulum is of uncertain significance. Itcould represent a small dystrophic calcification in soft tissues. Small spurs also present and could indicate otherwise inapparent degenerative change. No other bony abnormality is noted. Hip joints and sacroiliac joints are maintained in width.IMPRESSION:Possible minimal degenerative changes at the left hip.MD ColemanRegla Pelvis with and without Contrast - [id number] 16:36:511. The site of known residual disease in the cervical region and left parametrial nodule are difficult to clearly visualize but the appearances remain unchanged since 06/05/2020 and the significant interval improvement compared to MRI from 04/19/2020 is maintained.2. Residual subcentimeter left common iliac node remains stable since prior study, decreased compared to 04/19/2020. Interface, Radiology Results In - 08/23/2020 10:38 AM CST FULL RESULT:Examination: MRI PELVIS W WO CONTRAST - HEALTH INFORMATION CLERK on 08/22/2020 7:18 AMClinical History: Malignant neoplasm of overlapping sites of cervix uteriIndication: Determine extent of tumor/ disease, vascularinvasion, tumor encapsulation, satellite nodules, multi-focal disease, therapy responseComparison: None.Technique: MRI pelvis with and without intravenous contrastFindings: The site of known residual disease has further decreased in size and is difficult to clearly visualize on the current examination. There is only some nodular thickening noted in this region [for example series 5, image 13]. Similarly the 7 mm residual nodularity noted in the site of known left paratracheal nodule appears stable since prior study and decreased compared to initial MRI from 04/19/2020. As seen before, questionable minimal restricted diffusion is seen in this region [series 1050, image 84].Thickened junctional zoneis again noted in the uterus, likely secondary to adenomyomatosis. Multiple fibroids are again noted, with the largest measuring 3.3 cm in the anterior fundus. Small bilateral ovarian cysts are again seen.Stable small volume pelvic nodes. For example a 9 mm left common iliac node [series 9, image 9] and a 5 x 10 mm right common iliac node and a 3 mm left external iliac node [image 23] remain stable since prior study.IMPRESSION:1. The site of known residual disease in the cervical region and left parametrial nodule are difficult to clearly visualize but the appearances remain unchanged since 06/05/2020 and the significant interval improvement compared to MRI from 04/19/2020 is maintained.2. Residual subcentimeter left common iliac node remains stable since prior study, decreased compared to 04/19/2020.MD ColemanCOVID-19 (SARS-CoV-2) PCR-Asymptomatic [id number] 22:18:59 Test Item Value Reference Range Interpretation Comments COVID19 (SARS Not Detected Not Detected This test is a CoV-2) Result qualitative (test code = reverse-transcr iptase 59261-9) polymerase sunny n reaction (RT-PC R) developed for t he [employer] GARRETT 680 0 system and inte nded for the detecti on of SARS CoV-2 RNA in human nasophary ngeal specimens from patients who me et COVID-19 clinic al and/or epidemio logical criteria. This assay has been approv ed by the FDA for use only under Emergency Use Authorization ( EUA) in laboratories th at have been CLIA-certi fied to perform moderate-comple xity and high-comple xity tests. The perf ormance characteristics of this assay were verified by the Microbiology Laboratory at [facility] [place], CLIA Accreditation # : [id number] and CAP Accreditation # : [id number]. Result s must be interpreted within the context of all relevant clinic al and laboratory find ings and should not form the sole basis for a diagnosis or tr eatment decision. "Pres umptive Positive" resul ts are due to partial amplification o f SARS-CoV-2 targ ets and indicates low a carlita of virus presen t in the specimen at or near the limit of detection. Rega rdless, individuals wit h "Presumptive Po sitive" results should be managed per institutional guidelines as individuals pos itive for SARS-CoV-2 virus, including use o f appropriate inf ection control protoco ls. Internal contro ls are included to ass ess for possible amplif ication inhibitors. If inhibition is detected, testi ng is repeated and if inhibition is confirmed the s pecimen is resulted as "Invalid". When an "Invalid" resul t occur, it is recommended to wait 3 days before sub mitting a new specimen for testing if clin ically indicated. 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 Interpretation (test Reference Range: Not code = 00599) Detected Methodology: The Brandon RealTime SARS-CoV-2 assay is a qualitative real-time reverse ski patrol polymerase chain reaction (advertising analyst-PCR) test to detect RNA from SARS-CoV-2 in nasal, nasopharyngeal and oropharyngeal swabs from patients with signs and symptoms of infection who are suspected of COVID-19 by their health care provider. The Brandon RealTime SARS-CoV-2 performed on the [employer] Exploration000 System is a dual target assay with [...] CLIA-certified, high-complexity Molecular Diagnostics Laboratory (MDL) at [facility] under the Food and Drug Administration (FDA) s Emergency Use Authorization. Factsheet for patients: https://www.[facility].org/ AbbottFactSheetPatientsFact sheet for healthcare providers: https://www.[facility].org/ AbbottFactSheetHCP Test performed by:[facility] Molecular Diagnostic [address] [place] [address] MD ColemanGlomerular Filtration [id number] 18:19:19 Test Item Value Reference Range Interpretation Comments eGFR-AA (test code 123 See_Comment Normal eG FR >= 60 mL/min/1.73 = 8062) m2 Note: The eG FR is calculated usin g the CKD-EPI equation. The e GFR declines with age. eGFR <60 mL/min/1.73 m2 is considered as "decreased". This equation should only be used for patients 18 and older. According to e National Kidney Foundati on's Kidney Disease Outcome Quality Initiative (KDO QI) classification and 2012 Kidney Disease Improving Global Outcomes (KDIGO) Clinical Practi ce Guideline, the stage of CK D should be categorized bas ed on estimated GFR. Stage Description GFR mL/min/1.73 m21 Normal or high GFR >=902 Mildly decrease d GFR 60-893a M ildly to moderately decr eased GFR 45-593b Moderat maddie to severely decrea sed GFR 30-444 Severely decreased GFR 15-295 Kid carlyle failure <15 Testing Performed at [facility], [address], [address], [place], [place] [address] [Automated message] The sy stem which generated this result transmitted ref erence range: >=60 mL/min/1.7 3 sq. m. The reference range was not used to interpret is result as normal/abnormal . eGFR-CHASTITY (test code 107 See_Comment Normal e GFR >= 60 mL/min/1.73 = 8063) m2 Note: The eG FR is calculated usin g the CKD-EPI equation. The e GFR declines with age. eGFR <60 mL/min/1.73 m2 is considered as "decreased". This equation should only be used for patients 18 and older. According to e National Kidney Foundati on's Kidney Disease Outcome Quality Initiative (KDO QI) classification and 2012 Kidney Disease Improving Global Outcomes (KDIGO) Clinical Practi ce Guideline, the stage of CK D should be categorized bas ed on estimated GFR. Stage Description GFR mL/min/1.73 m21 Normal or high GFR >=902 Mildly decrease d GFR 60-893a M ildly to moderately decr eased GFR 45-593b Moderat maddie to severely decrea sed GFR 30-444 Severely decreased GFR 15-295 Kid carlyle failure <15 Testing Performed at [facility] Lab [facility], [address] [place] [address] B lvd, [address], [place], [place] [address] [Automated message] The sy stem which generated this result transmitted ref erence range: >=60 mL/min/1.7 3 sq. m. The reference range was not used to interpret th is result as normal/abnormal . MD ColemanFkkkpilfQfpqckuzx5896-02-43 18:19:18 Test Item Value Reference Range Interpretation Comments Magnesium (test code = 1.8 mg/dL 1.6-2.6 Testi ng Performed at 6359) [facility], [address] [place] [address], [address], [place] [address] MD ColemanCalcium [id number] 18:19:17 Test Item Value Reference Range Interpretation Comments Calcium Lvl (test 9.3 mg/dL 8.4-10.2 Testing Pe rformed at code = 5258) [facility], [address], [place], [place] [address] MD ColemanBilirubin, [id number] 18:19:16 Test Item Value Reference Range Interpretation Comments Bili Total (test 0.4 mg/dL See_Comment Indocyanine Green (ICG) code = 5096) may cause false ly elevated bilirubin resul ts. Total and direct bili tineo must not be measured from samples contain ing indocyanine gre en. False elevation of to chanel bilirubin can b e seen in patients with I gG concentrations above 28 g/L.Testing Per formed at [facility] Lab [facility], [address], [address], [place] [address] [Automat ed message] The system Broadcast[employer]mobi generated this result tra nsmitted reference range : <=1.2. The reference r isabelle was not used to int erpret this result as tiara l/abnormal. MD [id number] 18:19:15 Test Item Value Reference Range Interpretation Comments AST (test code = 26 U/L See_Comment Testing Per formed at [facility] 4731) Lab Legal [employer] Titles [facility], [address], [address], [place] [address] [Automated mess age] The system which ge nerated this result transmit ruma reference range : <=32. The reference range was not used to interpr et this result as tiara l/abnormal. MD [id number] 18:19:14 Test Item Value Reference Range Interpretation Comments ALT (test code = 4705) 40 U/L See_Comment H Testi ng Performed at [facility] Lab Ambulat ory Care [facility], [address], [address], [place] [address] [Automate d message] The sy stem which generated this result transmit ruma reference range : <=33. The refer ence range was not u sed to interpret this result as normal/abnor mal. Lab Interpretation (test Abnormal code = 27039-4) MD ColemanElectrolyte [id number] 18:19:13 Test Item Value Reference Range Interpretation Comments Sodium Lvl (test code = 140 See_Comment Test ing Performed at [facility] 7385) Lab Legal Job Titles [facility], [address], [address], [place] [address] [Automated mess age] The system which ge nerated this result tra nsmitted reference range : 136 - 145 mEq/L. The reference range was not u sed to interpret this result as normal/abnormal . Potassium Lvl (test 3.9 See_Comment Testing Performed at [facility] code = 6854) Lab Legal Job Titles [facility], [address], [address], [place] [address] [Automated mess age] The system which ge nerated this result tra nsmitted reference range : 3.5 - 5.1 mEq/L. The reference range was not u sed to interpret this result as normal/abnormal . Chloride (test code = 104 See_Comment Testin g Performed at [facility] 5277) Lab Legal Job Titles [facility], [address], [place] [address] [Automated mess age] The system which ge nerated this result tra nsmitted reference range : 98 - 107 mEq/L. The refe rence range was not u sed to interpret this result as normal/abnormal . CO2 (test code = 5227) 25 See_Comment Testi ng Performed at [facility] Lab Legal Job Titles Bldg, [address], [place] [address] [Automated mess age] The system which ge nerated this result tra nsmitted reference range : 22 - 29 mEq/L. The refe rence range was not u sed to interpret this result as normal/abnormal . Anion Gap (test code = 11 See_Comment Testi ng Performed at [facility] 9325) Lab Legal Job Titles [facility], [address], [address], [place] [address] [Automated mess age] The system which ge nerated this result tra nsmitted reference range : 4 - 14 mEq/L. The refe rence range was not u sed to interpret this result as normal/abnormal . MD Coleman.Serum [id number] 18:19:11 Test Item Value Reference Range Interpretation Comments Creatinine (test code 0.62 mg/dL 0.51-0.95 Testin g Performed at = 5399) [facility], [address], [place] [address] MD Co[id number] 18:19:10 Test Item Value Reference Range Interpretation Comments BUN (test code = 6 mg/dL 6-23 Testing Per formed at [facility] 5055) Lab [facility], [facility] [facility], [address], [place] [address] MD ColemanGlucose [id number] 18:19:09 Test Item Value Reference Range Interpretation Comments Glucose Level (test code 176 mg/dL 70-99 H Ref erence range is = 5699) valid for fasti ng specimens only. Guidelines established by the [place] Diabet es Association guidelines (Standards of Medical Care in Diabetes 2016. Diabetes Care 2 016; 39: S13-22) are that a fasting gluco se of greater than or equal to 126 mg /dL or a random glu cose greater than or equal to 200 mg /dL with symptoms, that are confirmed b y repeat testing on a different day, meet the criteria fo r diabetes mellcarolyn us. Testing Perform ed at [facility], [address], [address], [place] [address] Lab Interpretation (test Abnormal code = 49565-3) MD ColemanHhlkfuxnFkifmakbbleb5738-28-37 17:33:16 Test Item Value Reference Range Interpretation Comments Neutrophil % (test 84.4 % 42.0-66.0 H As part o f code = 6491) Differential performed at [facility], [address], [address], [place], [place] [address] Lymphocyte % (test 10.9 % 24.0-44.0 L code = 6194) Monocyte % (test code 3.1 % 2.0-7.0 = 6422) Eosinophil % (test 0.8 % 1.0-4.0 L code = 5520) Basophil % (test code 0.0 % 0.0-1.0 = 5068) IGRE % (test code = 0.8 % 0.0-0.4 H IGRE % c ount 5958) includes Metamyelocytes, Myelocytes, and Promyelocytes. As part of Differential performed at [facility], [address] [facility] [facility] [address], [address], [place], [place] [address] Neutrophil Abs (test 1.09 K/uL 1.70-7.30 L code = 6492) Lymphocyte Abs (test 0.14 K/uL 1.00-4.80 L code = 6195) Monocyte Abs (test 0.04 K/uL 0.08-0.70 L code = 6423) Eosinophil Abs (test 0.01 K/uL 0.04-0.40 L code = 5521) Basophil Abs (test 0.00 K/uL 0.00-0.10 code = 5069) IG Abs (test code = 0.01 K/uL 0.00-0.04 5954) MELLISSA (test code = MELLISSA) Please schedule on 05/27 when patient is here for radiation Lab Interpretation Abnormal (test code = 31238-0) MD Coleman.MYJ8528-09-23 17:33:12 Test Item Value Reference Range Interpretation Comments WBC (test code = 1.3 K/uL 4.0-11.0 L 8034) RBC (test code = 3.75 See_Comment L [Automated 9732) message] The sy stem which generated this result transmitted reference range : 4.00 - 5.50 M/u L. The reference r isabelle was not used to interpret this result as normal/abnormal . Hgb (test code = 10.8 See_Comment L As part of CBC or 5898) as an individua l orderable testi ng performed at [facility], [address], [address], [place], [place] [address] [Automated mess age] The system whic h generated this result transmit ruma reference range : 12.0 - 16.0 gm/ dL. The reference r isabelle was not used to interpret this result as normal/abnormal . Hct (test code = 33.3 % 37.0-47.0 L As part of CBC or 5860) as an individua l orderable testi ng performed at [facility], [address], [address], [place], [place] [address] MCV (test code = 89 fL 82-98 6222) MCH (test code = 28.8 pg 27.0-31.0 6220) MCHC (test code = 32.4 See_Comment [Automate d 6221) message] The sy stem which generated this result transmitted reference range : 31.0 - 36.0 gm/ dL. The reference r isabelle was not used to interpret this result as normal/abnormal . RDW-SD (test code = 53.6 fL 35.1-46.3 H 6972) RDW-CV (test code = 17.6 % 12.0-15.5 H 6971) Platelet count (test 105 K/uL 140-440 L As part of CBC or code = 6832) as an individua l orderable testi ng performed at [facility], [address], [address], [place], [place] [address] MPV (test code = 8.8 fL 4.0-10.4 6282) INRBC (test code = 0.0 % See_Comment The INRBC 5974) (instrument NRB C) value reflects the enumerationof nucleated red b lood cells contained in a 200uL sampleo f whole blood analyzed by the instrument. Thi s value maydiffer from the NRBC v alue reported in a manual differential,wh ich is based on a 1 00 cell differenti al. As part of CBC testing perform ed at [facility] Lab Legal Job Titles [address], [place] [address] [Automated mess age] The system Broadcast[employer]mobi generated this result transmit ruma reference range : <=0.0. The reference range was not used to interpret this result as normal/abnormal . MELLISSA (test code = MELLISSA) Please schedule on 05/27 when patient is here for radiation Lab Interpretation Abnormal (test code = 96931-7) MD ColemanUltrasound Guidance - Intraoperative (with Radiologist) (CPT 95765) 2020-06-10 15:50:03Ultrasound guidance for placement of tandem and ovoids.Interface, Radiology Results In - 06/10/20209:52 AM CST FULL RESULT:Examination: ULTRASOUND GUIDANCE - INTRAOPERATIVE on 06/10/2020 8:55 AMClinical History: Cervical cancerIndication: Localization of MassComparison: MRI 06/05/2020Technique: Operative ultrasound was performed in the radiation therapy department, in conjunction with radiation therapists, Dr. Bergeron:Additional saline was requested in the urinary bladder to position the uterus adequately in view of its extremely anteverted anteflexed position.Under ultrasound guidance sounds were placed through the cervical canal, reaching up to 1 cm proximal to the uterine fundus, where a small amount of endometrial fluid was already located. This was confirmed at real-time examination for satisfactory placement of ovoids.IMPRESSION:Ultrasound guidance for placement of tandem and ovoids.MD ColemanUrine [id number] 13:34:14 Test Item Value Reference Range Interpretation Comments Final Report (test code 51-99,999 cfu/ml A = 8488) Normal site raffaele present.Generally of low significance.Correlate with clinical data and culture history. Path Review - Urine The results have been A (test code = 8483) reviewed and electronically signed by Pathologist:SHARON BLAIR MD #[id number] MELLISSA (test code = MELLISSA) Please schedule at [facility] Lab Interpretation Abnormal (test code = 94103-1) MD ColemanPETCT Contrast Enhanced Initial Treatment [id number] 14:54:20 Primary neoplasm is noted within the cervix. Nodular density is noted in the paracervical region, may represent a paracervical lymph node Left common iliac lymph node has been biopsied and demonstrated no evidence of lymphoid tissue. Interface, Radiology Results In - 05/02/2020 8:56 AM CST FULL RESULT:Examination: Contrast-Enhanced FDG PET/CT, 05/01/2020 4:30 PMClinical [...] thyroid gland. No lung nodules identified to sugge st metastatic disease. Nonspecific right upper lobe pulmonary nodule is noted measures less than 5 mm and is unchanged since the prior study. The heart is normal size.Abdomen and Pelvis: No focal hepatic lesions identified to suggest malignancy. There is no intrahepatic or extra hepatic biliary ductaldilation. The spleen the adrenal glands and the pancreas are normal. There is no evidence hydronephrosis. The gallbladder is normal.A left common iliac lymph node is noted measures 1.4 x 1.1 cm is FDG avid has a maximum SUV of 4.5 has been biopsied previously however no lymphoid tissue is noted withinthis lymph node.A mass is noted within the cervix has a maximum SUV of 13.6. Left paracervical nodule is identified has a maximum SUV of 4.0 and is of concern for metastatic disease. Fibroids are notedwithin the uterus. Cysts are noted within the ovaries bilaterally.Musculoskeletal: No definite skeletal metastases are noted.IMPRESSION:Primary neoplasm is noted within the cervix. Nodular density is noted in the paracervical region, may represent a paracervical lymph nodeLeft common iliac lymph node has been biopsied and demonstrated no evidence of lymphoid tissue.MD ColemanTMP Interpretation Antibody Screen [id number] 02:03:55 Test Item Value Reference Range Interpretation Comments TMP Auto Neg At the present ABSC Interp time, patient (test code = plasma shows no ____HAKAN PERDOMO MD - 7535) evidence of RBC 26663Qotaxmh d by: HAKAN alloantibodies. MD Mita AD[place]AN 911[address]Vlbciirz D ate/Time: 05.01.2020 20:0 3 PM VICE PRESIDENT FOR INSTRUCTION Transcribed Da te/Time: 05.01.2020 20:0 3 PM CSTElectronical ly Signed By: MD Mita BROWN [id number] on 05.01 20:03 PM MD ColemanAntibody [id number] 23:23:07 Test Item Value Reference Range Interpretation Comments ABSC. (test code = Negative ABSC 0-4) MELLISSA (test code = MELLISSA) Please schedule at [facility] MD [id number] 23:22:52 Test Item Value Reference Range Interpretation Comments ABORh. (test code = A POS 882-1) MELLISSA (test code = MELLISSA) Please schedule at [facility] MD ColemanClot Expiration [id number] 23:22:50 Test Item Value Reference Range Interpretation Comments T & S Expiration (test code = 05/04/2020 5318) MD ColemanConfirm [id number] 23:22:13 Test Item Value Reference Range Interpretation Comments ABORh Confirm. (test code = 882-1) A POS MD ColemanPartial Thromboplastin [id number] 20:54:36 Test Item Value Reference Range Interpretation Comments aPTT (test 27.3 See_Comment Testing Perform ed code = atACB Lab Ambul atory 15631-6) Care [address] [facility] [facility] [address] [address]CUVN Licen se: [id number] [Automated mess age] The system [employer] generated this result transmit ruma reference range : 24.2 - 36.0 second(s). The reference range was not used to interpret this result as normal/abnormal . MELLISSA (test code Please schedule at = MELLISSA) [facility] lab cannot be scheduled at the following locations due to collection/proccessi ng restrictions: [facility] and [facility]. MD ColemanPT/[id number] 20:54:35 Test Item Value Reference Range Interpretation Comments PT (test code 13.7 See_Comment Testing Perfor med = 5902-2) [facility] Ambul [facility] Care [address] [address] [Automated mess age] The system Broadcast[employer]mobi generated this result transmit ruma reference range : 12.0 - 14.3 second(s). The reference range was not used to interpret this result as normal/abnormal . INR (test code 1.10 0.90-1.10 Testing Perfo rmed = 6301-6) [facility] Ambul atory Care [address] [facility], [address] [address] MELLISSA (test code Please schedule at = MELLISSA) [facility] lab cannot be scheduled at the following locations due to collection/proccessi ng restrictions: [facility] and [facility]. MD ColemanUrinalysis with Ggkmwefdtaz7641-94-84 20:51:13 Test Item Value Reference Interpretation Comments Range UA WBC (test code = 107 See_Comment H [Automa ruma 7904) message] The system which generated this result transmitted reference range : 0 - 2 /HPF. The reference range was not used to interpret this result as normal/abnormal . UA RBC (test code = 89 See_Comment H [Automa ruma 7891) message] The system which generated this result transmitted reference range : 0 - 2 /HPF. The reference range was not used to interpret this result as normal/abnormal . UA Mucous (test code 2+ TRACE /HPF A = 7887) UA Bacteria (test 1+ NOT SEEN /HPF A code = 7870) UA Squam Epi (test 4+ OCC /HPF A code = 7896) MELLISSA (test code = Some reporting MELLISSA) parameters within the Urinalysis test have changed due to the implementation of new instrumentation in the [facility], allowing greater sensitivity of measurement. Urinalysis results reported by the [facility] using existing instrumentation, as well as Urinalysis testing performed manually or by backup methodology at the [facility] will remain relatively unchanged. New reporting parameters and units will now be reported for all wheeleres. Lab Interpretation Abnormal (test code = 29850-4) MD ColemanUrinalysis with Oxdhjpwqteg6967-03-30 20:48:46 Test Item Value Reference Range Interpretation [...] (test code = MELLISSA) Please schedule at [facility] Lab Interpretation (test Abnormal code = 17563-9) MD ColemanUrine [id number] 20:23:57 Test Item Value Reference Range Interpretation Comments U beta hCG Ql Negative Negative Very dilute ur ine (test code = specimens may c ause 4181) false negative results. Sugges t repeat in 48 ho urs with a first mo rning voided urine or request quantit ative serum beta HCG test. Testing [facility] ed [facility] [facility] [address] MELLISSA (test code Please schedule at = MELLISSA) [facility] MD ColemanPathology Biopsy Ixxzfimxjchzax5384-79-70 21:52:00 Test Item Value Reference Range Interpretation Comments Diagnosis (test code = 34) f2rlaBKkUIJdhHX2ZeZ eXEBbn4tbe7OwbXZpbW XtJYztyWDrdbGgqa19l UU5tW80UT5eSYWmMjC6 PBFvryL7Nfy2MKStTBH fuAEgM896f9duw6disg JmsQI3kFhiNDKsVTPoK AyiKCPdKaYqST3zMPmh rIncuv2wCGpsJLwqxTR mbZHwUVx6eAP3QGGahi bjhBmdYQhwqM44ApOmV orfpu8xESrvd8DpRFgu rMhpyWx8p8a2IMzhpoT wG2tmcpigNVFgCZByyR 4zOWGzgHPpJG26by8jd SPiHU3tYSb2cRMwMH3r KUZaiJgec2AuWTxcLR7 0dJKzXDWsQRPyHIOtx5 0sSS12IWrgUKJkxPlxV BobphGsfOFcULnSM7MK XHBhcn0= Comment (test code = 9835) b7fanDCaSEFhuLH1RwV uFWMme7oeq1ZnnFVnwJ QxKYajaXCsjiPssk59b SW8zW04PZ5mOWAuXsX6 XZPwleL2Ums4GWPvCYA dmMYkU404c9cnz0etlm WfbPU9sHiwKGAkZUPeA WluXGZzMjAgUmVwZWF0 UTMkp5O2UEMicjKktUO 2rH7xKOjbFOjulvXmzv GqUR4nUZKssz5= Gross Description (test s7nntHHjNRAzu1khCES code = [id number]) nBeTbZSEKx2xit248iT YtRSfqVmJkPpH8gPChD UCbtHIpd8Q2JIauqURf HaHEfeuvcSd6l9ixW5t cru4yGZ0ePeSkVWRfHC QwXGZwcnEyIFRpbWVzI S3ejwGXd13tnlo1o2he LRdjvQ8kGCOiLIAxcQK jr0N1CSslxOZuKHEZz4 VtzFQrLK3zjhs5i0myD Nlbb1qza9VgLdMuABFx ZXQwXGZwcnEyIEFyaWF jIC8jsbTdkil6m5zeWT LjVs1oOPRldfleD2vcv aRjhXIvOxGdfPGnZ007 gryfbmj9j4zcQGXbJv5 fvEbbI8wwubWcwOGdVy BycTIgVHJveSBNaWNyb vFyjWQ9mJguTvNrQKBp b90nzatcP1gshsGuvIU nFzCicZQhO1sbYy6vZ8 17TTKhOZxug3xve9DkC mNoYXJzZXQwXGZwcnEy OEQjE15rLFHOT199BOJ cOSImPNEqg4unn4nmO0 hhcnNldDBcZnBycTIgQ ZGuDTl2lB8Bt1phe6ka hoAqlGA6TMDvHLToY0F gXG4dGHNoeBQyX6oyOP WfOViwyaQihbB5VMKyq WLxBMsrfxGtQfOsU7Qk ZE2eVNueiQIeYkP8MKC mVQO6QIopTCSxUVmvIu d3JHS8U8ksDBV3F8byw cAsjfQjCAMdcMR4Zfia sdDmFnqkR7XiPK07LWt jyMJoKqx8SMUxYTa7HU dkWNAnIRNfNlz7WGp7K 2fbJBBzDGPaD1AvST6z VJRrObp8PXZbEPlnjmS qFCP2SUgaMYTpJRL6VN OawPVmIja0LZPuILR1O 4mbpuZekrJ8B7fgcHZe AQCvC1qrHFClDSrnV1G uUY9gGBgbIkf1LXL7FL fpqfIdBHg0MDhySBIwV Av0LTEyqYGdXnV7JXDm LJM2WHycerYgjzA2DXw eaJCdLWmbO3tdCDWaIX fcI1ReSC5tIImgHfq9P TIwNztccmVkMjIzXGdy ZWVuMjIzXGJsdWUyMjM 7XHJlZDIzOVxncmVlbj IlYIyvzZGrGyJ9K9tsS UYpNNCbL0OsOL2iMUMf Dra1USN7MMtqvlHeNXu zjsRlpxUlOdx6OWQ6ZK e1Qicaz2A2aSKtoAWdd HtcczEgaGVhZGluZyAx N755UBEsKQgxZPAqdyf qJbh0o4gyLhAdQXTgtA 7zYJY4iZzyplAxxSXnS VtiMuF9O359HRG5JOow EMJajojcSJi0f2cvFjK jYHCbhG6pEHR7rX9LGn qnOPVlrokmXXx2UMojZ OFzubrnIbC0KShnNDLx kWu7KYifRNTrmhQ3Yaa tYXJndDcyMFxtYXJnYj spMLhdWOBrHUO7YcYvO XIde8Loxml0KqJbSxKw PCRUFyqafPMeFCD3XOV 0ZjFcZXBpYzkyMDBcYW 6fnBnryMr5vHzvPFLqj aE6eTZrXOxro5waSPO4 l6szprjzZKIcRHjzMd6 udHRibHtcZjAgQXJpYW n8iQ55YWWznF8szPSiO Fq1HQPvrzUsiXoujY5k TqPpQVRCPaXBbG1lzUW Qv8NtXJTmZKZMJOR7VB KNVYq1qRL5JRHffuPae 8ZqCW9hYUBskbLiY90h NPOlv0TjtGguwsKwp3D 3DNAdj9J9ZBM8bML1KL GjT6DqG9A9TTO3yhYuA jAgeCAwLjMgeCAwLjEg Z996IKWagVyfAEg5MSQ 8Bt9haHLtARKbjfPWWZ 8mDQvyhd41TRR2TVWys 7KqV5GkZCbCSUErj4Ov S4OgEFefoSJizygqrjI fSKJsyv3ojSBokVp4 Disclaimer (test code = r7mdzCRhHKGrfEAdMxS 9844) yMQCkDAWvk8roVGFgqD FuZzEwMzNcZnRuYmpcd YRnZHYbKhZoy8wwp331 vROxq2ghOFKhHqV0pDX hOSKbaIMuQ310OZApQQ gvv3ldb3WcCGNwpZVlf 7N9BBCVmkwtlOr8wBqa D16rd8O1LufqZ2jdZSC kZNUyH9FvHB3vGAZlVe j4CZM9XFS5KJUySRVkL 2KnIG6eSDGxsNZdZKy0 m5njsJduORPhCLG7h6c tXUugdkUnTI1qlt6ubY p5a3mppaVjYGNlQLSyc OXEPGLrM8EetSmbXg1m hEs7kClsQndsYAU0Ife 3RY8jgi69dqa4pMbgZN FejzbcZnI9YOdaDPXyc buqPIi0VTycTPUtmCC2 FYRvcBJoE1CsPDQlYE0 mjal9EMG9NAuzZJGgHl B0BILmbOIcQNFrmGkxM Kqsh326XDL0ZfXoBP0u T0Kyo8X8cF5jjLLiAVK dfEKcIaCwWKEoyo3yoQ AsJEiww0EuUBY1cqB0e FNizFLbIJXiJD80Pjbd s7DmGnfqZSO3ORCpevK ed0Nss8pzZtBnbjUjW2 imM1DbVSKbDDYrLTKjW eKmquYth3Qim3ImqWBq jEk4d6jlZLHuPGScuCg tc3zaCEX5DXIvI3S7pS Flk1urLDnhBOUnlFK4h aS7XJFzhKJnX3YduW6e HCNaGX6risa8e0bsWHZ 2UUgvOLMbNcE4pfR2TQ BcaGVhZGVyeTcyMFxmb 939FFM5XjRuDTCvd6Eo M8RneYgdF33fhAzqK65 uBUXdiLrwmW4xkSsqgW 5cZjBcZnMyNFxxbFxwb VEvbqcgQBpmunH2JJfx hrxpGMXoRUfyV8tvHgX bJJCpxFrdKSnvc4EnOR XzVNOpOnpwriB1BYHWg 60dRFCyt5XdYPRkkJ1q mXLhFSlvsnMtpVI2TOf hdmUgYmVlbiBkZXZlbG 3sPVJvCY3fGIMykwXnl z0bxkWrXFPlUSOeT4Nr cmlzdGljcyBkZXRlcm1 hcbMrYFR5IENJXJ4XIV VmLGFbo47dAWZfmQkbe R5tdVFwacEqEMBzl1Tt sX4yaJFVRDZtX3zuRK8 eCZryt0CulHHyxHTcsL K8CRZbu5CuDtNrvvBsy HYxeDPcY5IuoRmpI5ct ZBHrZNMqbjLkqDTxe7Z rNKGjiAE9yGEtTU6YJh BBj74wLVZwSHJLkoYbK KUtqHhifYZ3eeR8iQ0t LiBJZiBhcHBsaWNhYmx sCACrh084nb9zuwZ4EQ GlVRFmydbrk0SxBXCsK BFcaJ98LESgQOMino7x pmgwuSRzryUuC1Bmadr 8bE0nIQLwFIjgCXHoNT ZzMjJcbGFuZzEwMzNca GljaFxmMVxkYmNoXGYx INdvQ6qzUzKiVpNnJrl wYXJ[address] GUIDED BIOPSY MUSCLE/SOFT TISSUE [id number] 21:13:01Date of Procedure: 04/26/20 Attending Physician: Anupam Bridges MD Career Development Counselor: None Pre Procedure Diagnosis: Malignant neoplasm of [...] Plan: 1. No follow-up with Interventional Radiology required. MD ColemanCytology Image-Guided FNA [id number] 17:49:00 Test Item Value Reference Range Interpretation Comments Gross Description (test a7rjqAKwRZWlc9xzENY code = [id number]) hRnJoDDHMv3anp175lX McOVvzXkKoMzY1cGUhS WZswFDfy9C6MYrrmKHs YtZSwqiqnKh0y1pwE4c cxo8xBM0xIbQiFWTnFF QwXGZwcnEyIFRpbWVzI J4tzeDWu53yfwr0b8rc SZdjiA5sVBWdDBXxhUI cd0E8DDvvbLJtENVHw9 MejPNbKS4oznd9q1buN Bbta7cfy2NaFiQwOWBs ZXQwXGZwcnEyIEFyaWF gID2gmpYcdmk4y3kcNJ ObLp4nOHYikrqiM1nhe gXdgNYbSrTceJTsO531 piwxaoe0o9ydUGYpQl7 ozDrwD2shqkTteFSeYs BycTIgVHJveSBNaWNyb uGyaZU9bByjQrEaIQEp s52kjvroR7lbguVxlFL yLcZkkUNfD6jlPm3hB4 76BEPzDJqng7agj5EoH mNoYXJzZXQwXGZwcnEy JQFuL27hAMFCD954VXG fDPZiJTSnx0shc0abA5 hhcnNldDBcZnBycTIgQ AEgJBv7kE0Cy5lxy8pb jpHxhEO7IDLcLWBiA2H dJU2gMLIxrZPcJ6ucRK LqLUqpbiMummT8UYMqf HRcJAfickIcPwXtT2Or BF7eAIejcDPoDqI3SYC rNUY6RDxgGYBzAUoiLo h1XMG3O9rkHRA7L7cqt cGbphHdTOXbpYK9Emby nfMbCpooN7WsFD84AJv plIXzUzj4WFQpGWg0GI doUEDuVNSgDse2SUi8U 4gcFBTrFOPuK9JvKB1c QREyNhn5LBOxJOggidA fRBP2DLhnJQSjOQO2ZB OgtUKvNas1EYBhDHR9Z 6jdfmVcvhT6D9oqcVWu YTNdI0caJTAhVNehK5N dTY3xIEimBch3ADO5IV aiutShFCa4DXokGRInW Sa4XKIhjBVjNkC0GUTj KHS5PIztufCsmaR1OGw ipRZiLVwcP0tfQNZqYV yuU1CnLA9vWEyaLdr7M TIwNztccmVkMjIzXGdy ZWVuMjIzXGJsdWUyMjM 7XHJlZDIzOVxncmVlbj UzBUvcqEGcVnN4C9rmK PGaUEQjK4GhWO2sOMDw Aqq0GEK9FQmcaxOxGBl xhgIndzOhZiz8JJH7XA m3Akkbm2W0nSWiqWOfi HtcczEgaGVhZGluZyAx O893RMUwPLccSYLkcyl zQzm7g9juFpRgXYPyhK 2wZVV8aIahksQovNWbF PurRkM6A163CEH4ERyh VXVtzysdYQp9j5srMoQ qRPWbnL5xGVI8wQ2GNk jiAORvfbwmXBt6DHnmQ KOyxttwNiA4DAevPPBz fZv1VFgmKHMjtzM7Czz tYXJndDcyMFxtYXJnYj nsUEuoJQRzNQM7YyQgQ ZEzw1Ksrjv5OjDpXuZc BZCEYvihiNFiZJR2WWX 0ZjFcZXBpYzkxMDFcYW 0ayRfhpHc6dUfvFVIjc pX2aNUbTLrab5sxGCC5 q7lpvublSKMfJCmyUe7 udHRibHtcZjAgQXJpYW a7vM46YEGsjM3clRXfH GwlrySdPxR9SUavWNRf IwT3SPLnyXSgLXA8lNf wYXJkXHBsYWluXGZzMj MoB3FiJ0pmZJ8ePMEef 0R9obOhSsxjYWJwAyMV tEWmUID6sZm1ZJIsNDG vJYD5WUtsYVYeyAMvd9 xwYXIgMTAgbWwsIFxwc c95FUX5UEQxj1OmI1Vk MRLhw9PwrPZghXXqlVT jdDBccHJvdGVjdDAgYm isn1F6INPml6RaX5RxD RbvkRIttglgyi40XRP1 MFxmczIwICBmbHVpZFx ynr33KDK2DEUjzOiumP 6wUbQfYQYvwD4lQhYPO McoYSQeAUHViIPft0Ye blxwYXJccGFyXHBhciB BxCcnOvEaL8zaHsMyxL IkOg06MBapNo99XNmzP W33FQNbVHAanvxmzJUr qVF7QALRtU0lFTjeuKA gYXNzZXNzbWVudCBmb3 Oak3SkD3qyRQ6lGSOcw CJfB1gki0TtVC2yQEFl NIAbi8DkG3OtsAPiwPP jdDAgeDFccHJvdGVjdD AgXHBsYWluXGZzMjAgI LF7LSFsMvXYnM2oiGfy HQWsLORdta9kmHIwsDl 9 Immediate Assessment (test Adequate code = 9837) cellularity, favor benign Major Classification (test NFMC/benign code = 9839) Diagnosis (test code = 34) e7ekyZAnOJRmtSM4DRI qPGRlu7xvo2AtpUDyzU ZeZDnieIUjwhLsqz72t YC7zN44LY4vNLAkRwU1 ZGTsmqL2Fea6XWEvKBG biHYmD034t9tcw0zcjp EcbMD6jKxaSBWfAGEfA WliOFXdWsKnTS9nZLt6 vo2zAIifyE8gQVUju5V yragraHZvoO2kUIfcOn luZSBuZWVkbGUgYXNwa XJhdGlvbjpccGFyXHRh QvduJLMyvMe8NeZohNg uNzIwIENvbGxvaWQgbm 9umUnjPKtmeRgmZ0var RmaAAEtC8TaOYNmaUnr blxwYXJ9 Retained/Biomarker Testing t8tboXDqWUQvtNZ2NRE (test code = 9838) mVLMnt8dgb7AlcRGebH CoCBtwiYZhcxBiwm70z QL5tF89OA9bOZUcBjY6 IIPcybB7Myq6ZAHhNZH obHNvB890s7utj7aich JnoNL1wKvjNFAnHRBkI YmfIZVnQnEiH6V1NTpg E0epYYA0 Informational Points (test c0kagMBsKIInfJJcWlF code = 9836) rMURhCNAye5wsHKJkiO FuZzEwMzNcZnRuYmpcd ZKxFYFkHfFaz8ben884 iXGho2hvZRZhAgZ2mPQ rXCJkzIFwZ434ICImQS egf5gcl6CaKRTyzCHmu 8B1UDTZFFxnDZWXUQm2 n8dcIlKwHyI1kHZoPUs tM2chqcOjyELcHGLgAW g6wW93HMQzrO8ezPNgR MciklPsJkV8AEelGOPl AkC4NCGkeWXySFCeS6p yZWQwXGdyZWVuMFxibH WsEDL4wBkmz9H9sHYzv GVldHtcZjBcZnMyMiBO s2MsMYz3lKuaH2RzYJV fRmS4eXWcNNNcDPufQR BhSBTpfwP7tW27GZmyi uX5lIMmo1Fog88mz895 xG6pdZFpLJA1OYJiOOT htILxKXWbMTT2FTTgcT McA1dyKWDqED0dulmyT OsfATqrFDYqkCR8DEZu eEGgE4WoSESlBBxlIEL wvga9SsPxLf6brQDpuU fyAQznr0dms0pfqTSyD nx4TNFuYoCxUobpICwa h9Cme3kaYIUwcl9eEOM 2lEYikPkie4R9kFOjVG VifEWdlaSjPAZdLaU9B KxyDT1iht13TGTxYSL8 pe7evOKziZulwwBmfCQ yYNkzK8PjSWUcx387FZ GvT9NnNNXun9C9ppLbI sLhOCIjwNN0nmT3SRYx TRz8oHZeidJ1cwDnhPH aT5aguL2zSITjLF4zxz skd4ucRWuvZSkzOMWan LE6inU0GXKecGJuR5Yj rM2oEVHlEVxcPICjgzi 6JbEaVd3ijESoaQzsNW xzYmtwYWdlXHBnbmNvb nRccGduZGVjXHBsYWlu XHBsYWluXGYwXGZzMjR qjHzcvFpylY5gUuVwJu YaACyeAP5dZUZaE7ixf DFdHREwWDIeN7czGwSu aB2piEfqCKvebrP0XTd fN09aJYT0YKI2hsOfHM PcwoRzZBYqWXEaLX7zi QOdRVZpZDVxIM9wVIR0 ZWxvcGVkIGFuZCBwZXJ hc7ArPA7pZVCihUZaTV C3RYGve2LpD2JiSKB6K CUifX8iMXEwrFFOHLNR RCBBbmRlcnNvbiBQYXR rt4edP1qaZC6zFVcmIu 9yYXRvcnkgTWVkaWNpb aQoIUViAWWzUILrs9Zn FCxpirNoxi76NEKcSU3 zu8LwI0iqeOYetJm0JD TfTEBmHCRsp6KuDDYry i98LJTfPrpboPkhDONn Hd3wCc4hLPUxueDqTYX 6GqLSZK1kivoqfFXxzP raau3tSJJrQUjyQTPhS GZzMjJcbGFuZzEwMzNc aGljaFxmMlxkYmNoXGY lPEqaN4siFpFpQwDnDk xwYXJ9 MD AndersonUS HEAD NECK SOFT [id number] 17:36:34 1. Percutaneous Ultrasound-Guided Biopsy of a [...] Radiology Results In - 04/26/2020 11:38 AM CST FULL RESULT:Examination: US HEAD NECK SOFT TISSUE, US FINE NEEDLE ASPIRATION on 04/26/2020 10:38 AMClinical History: Multinodular thyroid.Indication: Multinodular thyroid with a 3.5 cm nodule requiring FNA.Comparison: None.Technique: Real-time grayscale and power Doppler ultrasound of the neck.Findings: Ultrasound shows an enlarged right thyroid lobe that measures 5.9 x 2.3 x3 cm. Within the inferior pole of the right thyroid, there is a 3.5 x 1.8 x 2.9 cm nodule. The nodule is predominantly isoechoic to adjacent thyroid with regards to the soft tissue, although shows several [...] right thyroid nodule was performed using a 20- gauge needle under sonographic guidance. One pass was made. A second pass was made with a 25-gauge needle.Immediate cytologic assessment:Adequate cellularityPreliminary cytology result is negative for malignancy and final results are pending. Estimated Blood Loss: None.Immediate Complications: There were no immediate complications, and the patient was discharged instable condition.IMPRESSION:1. Percutaneous Ultrasound-Guided Biopsy of a 3.5 cm right inferior polethyroid nodule. 2. Enlarged bilateral multinodular thyroid with no one nodule showing specific internal features to suggest malignancy.3. Immediate cytologic assessment on 04/26/2020 of the biopsied right thyroid nodule is negative for malignancy with findings favoring colloid nodule.. Final cytologic report is pending to be followed.MD Trent Fine Needle [id number] 17:36:34 1. Percutaneous Ultrasound-Guided Biopsy of a 3.5 cm right inferior pole thyroid nodule. 2. Enlarged bilateral multinodular thyroid with no one nodule showing specific internal features to suggest malignancy. 3. Immediate cytologic assessment on 04/26/2020 of the biopsied right thyroid nodule is negat johnnie for malignancy with findings favoring colloid nodule.. Final cytologic report is pending to be followed. Interface, Radiology Results In - 04/26/2020 11:38 AM CST FULL RESULT:Examination: US HEAD NECK SOFT TISSUE, US FINE NEEDLE ASPIRATION on 04/26/2020 10:38 AMClinical History: Multinodular thyroid.Indication: Multinodular thyroid with a 3.5 cm nodule requiring FNA.Comparison: None.Technique: Real-time grayscale and power Doppler ultrasound of the neck.Findings: Ultrasound shows an enlarged right thyroid lobe that measures 5.9 x 2.3 x3 cm. Within the inferior pole of the right thyroid, there is a 3.5 x 1.8 x 2.9 cm nodule. The nodule is predominantly isoechoic to adjacent thyroid with regards to the soft tissue, although shows several [...] pass was made with a 25-gauge needle.Immediate cytologic assessment:Adequate cellularityPreliminary cytology result is negative for malignancy and final results are pending. Estimated Blood Loss: None.Immediate Complications: There were no immediate complications, and the patient was discharged instable condition.IMPRESSION:1. Percutaneous Ultrasound-Guided Biopsy of a 3.5 cm right inferior polethyroid nodule. 2. Enlarged bilateral multinodular thyroid with no one nodule showing specific internal features to suggest malignancy.3. Immediate cytologic assessment on 04/26/2020 of the biopsied right thyroid nodule is negative for malignancy with findings favoring colloid nodule.. Final cytologic report is pending to be followed.MD ColemanPathology Outside [id number] 19:13:00 Test Item Value Reference Range Interpretation Comments Materials Received (test l9djsHVnBXWmuZBjJkVl code = 9973) TVXqPXMrp2eyOEGhlEQs ZzEwMzNcZnRuYmpcdWMx OMFmZvRni7jol415oJHs y0rkLWZrRxJ0mOVoILIm hBHoP027XSIdMYbqr4tw h7DtDEHrkXYyw0X3WXXD vyjqeLn0gNnjS73ip5W0 LwcpK8suXUJqVCHjQ5La XS1jOPTsLzd7WFI0HRS7 TEPvZGAaE2IkOX1gDLRb gYEqCWv5d4pemBmaBDKt JVH5o3dgYGsfmzJvIX1c lv8xsIc1n2bombXjDFMs GDBlyVTKHDYxB0KkvXam Hj9jjUd5yMovQudrGFA7 Usw2AV7src77bqf0nTui NZUlokrzNkW1EQrlUPOv tgcaPYg1LTcyRIVnwYnz MFxtYXJncjcyMFxtYXJn zJF4UXWnbREyG3SqYZXu PJmcWLSzyek2VwLmVv3h tERxiFecBVrqm7fwt5th dLFhQgj4UODpUeQsNyag EAzqc8Ieq0orACQhbx4q OWX2vLJsdPqpz7Y3xTBz YKWriRKujyRkRBOwcp06 eDRumSXccCJpra8pjoBm rCDkfUYrETU1aOBcynNq UPAbhQPmLBFiJR0boTJo IOSfxU3flyhnMYRwDdSv clvoIVBgfYnvrpYcCs3y fBviVZH9OUfjM2xhoD0d XrL4RQagC4cdvW1kSGz2 PLvqpEA5VWWsxS9nGN2k eugpk2fwPgGiAA7gnjvs c2xnVcPlUM3wwoz5q9wz SPU3OEzjFEHhOwS0yhE3 NDBcaGVhZGVyeTcyMFxm g146PRF2CfErDSAph0Zg O8LmlMczG43mwKxdL84r RLHkvGjjbC0amDigoL5f YkZeHtTfLOr3ks03IWi4 rhadcNkhLUq3kmGsLDOa GXJ3BXQjnWIpNXKqS9a3 pmCnDWVaLTU0BEIsmXTl XKKzA0r0tcXfMIY7JEk9 cnBhZGRmdDNcdHJwYWRk YjBcdHJwYWRkZmIzXHRy lEFanXYdzTLglQ9ebNer MQGugIGdoS0jFMW8UMEz cmgzMjBcdHJoZHJcbHRy dv20YOWroyUfvCDkzEvg nLKpTWC8IWJoYDUpJFXo IBC1BIMoPrLrjtFfPInt bGJyZHJiXGJyZHJzXGJy YRA5NQLhZdOrawDgRZvg bGJyZHJsXGJyZHJzXGJy PCI7XZPnQiCqlyWoIBxv bGJyZHJyXGJyZHJzXGJy VJE1ZYBtMzGaqiBeYMoq bHBhZHQxMFxjbHBhZGZ0 Q9halXGtMUMlRAmslFLi ZJHlK3klqREdHXwhYQWy cGFkZmwzXGNscGFkYjBc N4vqZDEhIgMfV3GlhJh2 MDAwXGNsdmVydGFsdFxj xYEoNVK3KJHyEDRsCRGi ZRN8IBEjXgVdjwQhROvm bGJyZHJiXGJyZHJzXGJy FVF3MBGfAjRlgdIfQSkc bGJyZHJsXGJyZHJzXGJy FBV1BBLpVmZjotZfWXtm bGJyZHJyXGJyZHJzXGJy NPB5DXGjUnWnrdKnRLnl bHBhZHQxMFxjbHBhZGZ0 R5fnqSOxSWOwCDmnjJAw EPDaV6qvhKEpOVedTVVe cGFkZmwzXGNscGFkYjBc E3tkKNTyFeUwX4TqmSj3 NjAwXGNsdmVydGFsdFxj yIRwELW1IBYkGUXyJOTp IUC3XJZjXiGnoiUjVZpw bGJyZHJiXGJyZHJzXGJy VTZ2LKSoOlRbxuCuACgw bGJyZHJsXGJyZHJzXGJy IGX9JNPmJeFjioJlGKgy bGJyZHJyXGJyZHJzXGJy BIY0CXMwUoQaxpJaSBrs bHBhZHQxMFxjbHBhZGZ0 U2dkdKQoFSJiTOtubDNj NTRbB1wkpTHlEYxkNUDv cGFkZmwzXGNscGFkYjBc E2wvZHPuNeFvW0StnVf8 GgWjXYIylnFisX48Fkqg v0IyLZTrMOI9IUujQDka bFxwbGFpblxmMVxmczIw ZIdfvjpxGIOgOLuvS7ap BwXkSMNvqAtoZQvcs0Au XGYxXGNmMlxmczIwXGIg YNWmWEGpdN2wWrrbT4Yh gS0kJXocZcxsI7avXXIk g7FobH7vXIkpzNVoewdl MVxmczIwXGxhbmcxMDMz FTmqQ9bhVpItYFGluRxz VCshc9UhUVLuYLXwMumm wxYkNPu2gmByWPBlqSzm nHNjJRzcfaVndNist3Ae rkUcaAnhTYAfSAg7ftVt pnjqfIs4hGGffNtfSFQx yFgvuF1cTuYmYlCjNMuq bGFpblxmMVxmczIwXGxh wnjbSBFsWBvlA2rgBkEd KTUjpOboXGpeb9EhFTSe OSLhKonxdvLyJRXhE16q bGVjdGVkXHBsYWluXGYx XGZzMjBcbGFuZzEwMzNc aGljaFxmMVxkYmNoXGYx ZEupH3rtAfKoF9SyBZUb VqQxeUBfG0cyE2TioNrn YXJkXGludGJsXHNzcGFy VUH2vTJovlVyvCKcbIGc KRNdMYohKWN8fIKfeypo sKNmnchvXHffilA9WPRm YWluXGYxXGZzMjBcbGFu ZzEwMzNcaGljaFxmMVxk UiYpKYBxIQulK2bmLzCo P7KkMIOmIdOpDjVTRRGd aXZlZFxwbGFpblxmMVxm czIwXGxhbmcxMDMzXGhp A1hnHeBjKYPpePznAWqy g7QbQQXyCBCgQozqmxFp QWj3eePpFRVtsInwwN21 Vdvvkw96AOJmh6mwAUTv X3RffNBqXHNhrFRsLWuv MDhcdHJwYWRkZmwzXHRy cGFkZHIxMDhcdHJwYWRk ZnIzXHRycGFkZHQwXHRy yLJiOOB8G5h0lzGjBHBi ILy0cnAwMBWcLcXjqPWs JCE7HXl4GlfrwaB5pJZe I4j9CmacypDbVFthjHDj ds45WNTueuTlaONujYhm eRGhPCD0ADCjOJNaQTEx JSH3WNKfPeBqvuIxUKwm bGJyZHJiXGJyZHJzXGJy IVU0PLYsLjHusuUmMYry bGJyZHJsXGJyZHJzXGJy GYG7JVSkFvPgjfTsNWib bGJyZHJyXGJyZHJzXGJy ILY6REZySxTusoVlWNtg bHBhZHQxMFxjbHBhZGZ0 V6enoRZnKDGtKCzfnGJa TEMoO3yefDDbAWpiHYYc cGFkZmwzXGNscGFkYjBc Y2rjDLLwFyYxU5HgoNf0 MDAwXGNsdmVydGFsdFxj bXRpBRH9YNKfBRClJXPk IQH0NNKqXnNcjqGuQHaa bGJyZHJiXGJyZHJzXGJy WTL5CKRiJxNlokThEPbn bGJyZHJsXGJyZHJzXGJy DTK3VZYtIeNcwtWyZOsu bGJyZHJyXGJyZHJzXGJy HNO4OKDgCkGapzPrLTha bHBhZHQxMFxjbHBhZGZ0 D3jvmACfUHMgYRsasCRa EAWvW0auwXOyUIxqHGZw cGFkZmwzXGNscGFkYjBc B0laLWBvJoHnX0QrjDw6 NjAwXGNsdmVydGFsdFxj iCKzAIC6XQHySGLmSBDc AEB1CXVeMqUybqQbTWqp bGJyZHJiXGJyZHJzXGJy FTP5TQLtIiNyvqJdTSxe bGJyZHJsXGJyZHJzXGJy TMR1ALAqAeYgrlJmOLmj bGJyZHJyXGJyZHJzXGJy XXO5QWEmXhPpixSyXYef bHBhZHQxMFxjbHBhZGZ0 F5qdgCYmNWFcMDlubFTk WOMeI7athUJgVKzmNQYm cGFkZmwzXGNscGFkYjBc Y9duYHApAhHnV3VvjSh3 NdIcXFQmwcIhmC93Snqu n8TkIUIcXRW5JSqvKVlf bFxwbGFpblxmMFxmczI0 XHBsYWluXGYxXGZzMjBc bGFuZzEwMzNcaGljaFxm LFduKbVgKZOeCOlpP5za GtZrS3JfAWIeRoToWU9w ZsL1AYZvTdU4ZZS5IOVO QGXkKDNLI1BYOAHfPZKO W7insXNuefvjBVvscfKb GXgysrqiZMIhRLkjB5as AkPsLFIrmUeqHVzwg5Mm XGYxXGNmMlxmczIwXGx0 cmNoXGNlbGxccGFyZFxp giVdrOdpc9OqjaGymIhe XHMwXHFsXHBsYWluXGYw CKDoAyVsgArenV9sVpXo TiYkBXarVJ4fZFHtU4ah gLDeTCFoIWSuM8khIyKd mL6sxIeaPEglRrFcCoKe FDHlMJ1wLi6lWBPiIXCl YWluXGYxXGZzMjBcbGFu ZzEwMzNcaGljaFxmMVxk BdKuVMYxYVbrE3ckFaOh N4JnOPLjQkHmaLKvT8wb L4VqkLwyJDOeKZkzqYBu XCPcuYTxTFY1jTZfhiCn dKqrqGyhiR5gVmCfIqCe NFxwbGFpblxmMVxmczIw QUlhkcwgMPDvRUgrW7dr MgBuEXYeePkrBCcxe0Dm XGYxXGNmMlxmczIwIDEw DrD5MoLnMxNftIgydC2y XuYhRgPlLOuwTD5wHHGn A4rbjIQyMFScNYPpB7io BeXveW2uhKnbJWlwQxTn ZnMyMFxsdHJjaFxjZWxs TCdibDXuYARvw8hoJDEr KASuaNHvHWQ9lYXukqFz nUlukXqevY7cImUvQeDj NFxwbGFpblxmMVxmczIw DNvarpueFAKfEZqcR7hb QyYuXKSurBanTRvnv3Zi XGYxXGZzMjBccGFyfQ== Diagnosis (test code = l0fmvFYeNUPzvNF0HOTb 34) XRLud5yng4DepQXbxXAr SScsvOOxovLlha53oKA2 xG98VC5tQVIsBrY2MYXs anS8Olr0YAUjJZMukPAj X927l7zpj6gtqyIfwHJ8 fVxwYXJkXHBsYWluXGZz HqVdMh05znZgcUQrlUSf VVXzqBLsanMkIoV9ULLm NuT1SFVvXU0qWc1yWVXc NYTdKTLvA61ciEWeNCFi IIJjpKrme9K7ELKerunr YXJccGFyXHRhYiBDZXJ2 hGwaLVNao9DkrBAhERg9 XHBhclxwYXJcdGFiXHRh RkYOXoRJY9eVSILaHK6D UkxZIERJRkZFUkVOVElB BMHEDOJRKXGFNE4LHkXG DHjNFYRBLkLIWz3OBCFA TkZJTFRSQVRJTkcgVEhF BHIMJQxIYYVAUZbRJ79B U5AxX8XwYZzHMXRPK8QE OKemYhWRME2neRYgTGJi ikp8UBFgEY7nb26huDOj fC3vSYO1snG4fQlxK4V4 XHBhclxwYXJcbGkxNDQw NLejyxS8YFOjCESARGiF GDdqQO5OD04XLCNZHXyd JQrNEOFCGVUTFPSyA0zX SCBQQVBJTExBUlkgRkVB IUQDPCLzZGQOB7DDAVpf Uq4SGGZWQW1WTC5GLUMP OY3QN8CDU1xLV60OPTqD QURFIDEsIElOIEEgQkFD R3wEQ7OYJEJFAwZYDLWY XMCWMzldWR5EG57URCWK WP1mAMAtnnnqaLVefPwl MFxwYXJcdGFiXHRhYlxw YXJccGFyfQ== Disclaimer (test code = u9xnjDSdNIYffLBgGuKi 9844) HDJiIDTzl6btCGGctWKx ZzEwMzNcZnRuYmpcdWMx RPQhSeGkd5jow712oVPi o2puFZLwKtT2zCIbKJPk bYBoR146KKRqNKpvd2wf t3GdMGMgfVHoi5D3LIQX kkhlsKf7wDzkM67qb7V0 QyasX6hqXURkRWDpG8Gi RS8wKCTtMzu5HFE5PDE7 CKQcSBPfR5YcEK6vEXKg oLGvLMn9n8wvkWnlYOVz HEK0x3iuLIsknxLkLU0a fl8rjZz1j0nlxoKgEZKu XRXcxTMQBDBtF1EzbMgc Uo7wcDy3wLmxGshkIKK8 Del0OC4ndw13xcz3gBtu PAXhwmurGxP6ZWwqCJHz vqmlOCk3ZTpcGBPouBV0 ZBLehIIjK7WhKXQkBQ0w vcd2JEC8DPkmQTPxRwA6 NDBcaGVhZGVyeTcyMFxm c370UOG2UmXlZK8hS1Bv f1A0eT6suEXgGPGjjQDi GsQhMNJofl0eaGFvZCcp t9KxZHY0dzM1kIVmfVQi QAGrYS52Gfcje5FwOcpq HAL9HBAdjqHgv2Ptq6zc AqWsbzDpC9xuY4IvTHCw GZWoIFJpJsFoqzTdr4Mp h8QyzBEtmMm0x1adMHMp ZBZghStat3boXUU0GEAw H4U6sNPej9kyCPiwBFEz pDL2xxE1DMLjdZRbX2Zb dS0eNPMyPX6ysky8u1ku OFH8YKdqWASgFjP9peM3 NDBcaGVhZGVyeTcyMFxm b403JGP8HcBpSDHjh6Gb D9ZxnUplG97zrArnE04k QXSujKgulT7hgVmwgE2e ZjBcZnMyNFxxbFxwbGFp gxngPPvudoA4MFdlvobj MXFfOCmgN1twWgYiWSEf kJufCUyug6UqPYUdDUPp TdbclsY9IXZAf34qZJMb g7RvGESqkL0axMTmXKdi boUfyUH1LTdnrbFuYlSu yoBvVULshE0bWTWvZF9r RGAmqeOyev0bcpMzASPi CMFzO5FafxhokYiyolLz MFMula6ytvDzRTO9CTGN MQ2PSBOdNTKtz22tDYZc gIsnxH9rzWAvosEuYTMe r7AkgB6iiTONQGYgH1qf LA8sPNsah4CxiVPekMTp eGS5SPIge6NfGvPdthVr oNSrjTFqN0SmpVnrN1eb UWLtITGztmSbrMIhk7Ik ILAypFD0xDKwXC9BPrXZ o57xUAIgXCFUooRiMQBy tGnxtFX7fnG5tT9cEnPH ZiBhcHBsaWNhYmxlLCBj a784ez8kvzZ6LCGcWBSx agjbt2AxAFPhGUBdcH73 EVWkGHKoor4fwakafPSn ttSzI4Jorcc2hM9dDDAf YWluXGYxXGZzMjJcbGFu ZzEwMzNcaGljaFxmMVxk UkQyCJRpLSqaK8pqPqXm ZnMyMlxwYXJ9 MD ColemanOSI [place] [id number] 16:48:22Study acquired at another institution. For comparison only. No MD Coleman originated interpretation requested or available.MD ColemanCT Chest with Oxurgmqb3416-03-13 16:15:47* Small bilateral pulmonary nodules are nonspecific and can be followed.* Multiple small low-density nodules in the thyroid. Further evaluation with ultrasound can be performed if not previously evaluated. 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 Additional small (3mm or less) pulmonary nodules are seen series 3, images 53, 74, 87. No focal consolidations or evidence of pulmonary edema. The central airways are patent.Pleura: No pleural effusion. No pneumothorax.Cardiovascular: The pulmonary arteries are unremarkable. The heart is normal in size. There is no pericardial effusion. There are no aortic arch or coronary artery ca lcifications.Lymph Nodes: No enlarged supraclavicular, axillary, mediastinal, or hilar lymph nodes.Other Mediastinum: Multinodular right thyroid lobe (largest nodule measures 0.9 cm on series 2, image 11).Bones and Soft Tissues: No aggressive osseous lytic or blastic lesions.Upper Abdomen: The visualized liver, gallbladder, spleen, and adrenal glands are within normal limits.IMPRESSION:* Small bilateral pulmonary nodules are nonspecific and can be followed.* Multiple small low-density nodules in the thyroid. Further evaluation with ultrasound can be performed if not previously evaluated.I personally reviewed these image(s) along with the resident's/fellow's interpretations, certify that if a procedure was performed I was physically present, and agree with the final report.MD ColemanPREGNANCY URINE MONOCLONALFB2018-03-04 04:58:00 Test [...]
[2021-03-04 19:44] LABS: Absolute Lymphocytes (CBC) 0.4 K/uL (0.7-4.9); Basophils % 0.1 % (0-1.3); Hematocrit 40.8 % (36.0-45.0); Lymphocytes % 12.3 % (15.3-44.8); MPV 6.6 fL (7.6-11.3); RBC Red Blood Cell Count 4.87 M/uL (3.86-4.86)
[2021-03-04 19:54] LABS: Protime INR 1.5
--- NOTE | 2021-03-04 19:59 | RAD REPORT ---
EXAM DESCRIPTION: RAD - Chest Single View - 03/04/2021 7:27 pm CLINICAL HISTORY: COUGH COMPARISON: Chest Pa And Lat (2 Views) dated 06/08/2018 FINDINGS: Lines: None. Lungs: Mild patchy airspace disease bilaterally. Pleural: No significant pleural effusions or pneumothorax. Cardiac: The heart size is within normal limits. Bones: No acute fractures. Other: IMPRESSION: Mild bilateral airspace disease concerning for multifocal pneumonia, including Covid-19 .
[2021-03-04 20:06] LABS: ALT/SGPT 54 U/L (12-78); AST/SGOT 44 U/L (15-37); Albumin 3.1 g/dL (3.4-5.0); Alkaline Phosphatase 94 U/L (45-117); BUN Blood Urea Nitrogen 10 mg/dL (7-18); Bicarbonate 28 mmol/L (21-32); Bilirubin Direct 0.2 mg/dL (0-0.2); Bilirubin Total 0.6 mg/dL (0.2-1.0); Glucose Level 104 mg/dL (74-106); Magnesium 2.3 mg/dL (1.8-2.4); NT PRO-BNP 32 pg/mL (<125); Potassium 3.4 mmol/L (3.5-5.1); Protein, Total 7.7 g/dL (6.4-8.2); Sodium Level 142 mmol/L (136-145); Troponin (Emerg Dept Use Only) < 0.02 ng/mL (0.0-0.045)
[2021-03-04] MEDS ORDERED: CEFTRIAXONE/SWI 1gm 1 GM/10 ML SYR ONE (20:21)
[2021-03-04] MEDS ORDERED: NA CHLORIDE 0.9% 1,000 ML ONE (20:21)
[2021-03-04] MEDS ORDERED: FAMOTIDINE 20 MG/2 ML VIAL IV ONE (20:21)
--- NOTE | 2021-03-04 20:41 | RAD REPORT ---
EXAM DESCRIPTION: CT - Chest For Pe Angio - 03/04/2021 8:26 pm CLINICAL HISTORY: Chest pain;Dyspnea COMPARISON: No comparisonsNo comparisons FINDINGS: Chest Wall: Multinodular thyroid. Lungs: Mild peripheral ground-glass opacities bilaterally. Pleura: No significant effusions or pneumothorax. Mediastinum/greer: No pathologic lymphadenopathy. Pulmonary arteries/Aorta: No filling defect identified. No aortic aneurysm. Heart: No significant pericardial effusion. Normal heart size. Upper abdomen: No acute abnormality. Bones: No acute abnormality. All CT scans are performed using dose optimization technique as appropriate and may include automated exposure control or mA/KV adjustment according to patient size. IMPRESSION: Negative for pulmonary embolism. Mild peripheral ground-glass opacities concerning for m ultifocal pneumonia such as Covid-19. Multinodular thyroid which can be further evaluated with ultrasound if clinically indicated.
[2021-03-04] MEDS ORDERED: ASPIRIN EC 81 MG TAB PO ONE (21:32)
[2021-03-04] MEDS ORDERED: AZITHROMYCIN 500 MG INJ IVPB ONE (21:33)
[2021-03-04] MEDS ORDERED: ONDANSETRON 4 MG/2 ML VIAL ONE (21:33)
[2021-03-04] MEDS ORDERED: CEFTRIAXONE 1000 MG/VIAL ONE (21:33)
[2021-03-04] MEDS ORDERED: NA CHLORIDE 0.9% 250 ML ONE (21:37)
[2021-03-04 21:58] LABS: C-Reactive Protein 61.9 mg/L (<3.00); Ferritin 355.7 ng/mL (8-388)
[2021-03-04] MEDS ORDERED: ENOXAPARIN 80 MG/0.8 ML SQ ONE (22:04)
--- NOTE | 2021-03-05 00:35 | EDPHYS ---
Physician Documentation [facility] Name: Jessie Burleson Age: 50 yrs Sex: Female : 1970 Arrival Date: 03/04/2021 Time: 18:23 Bed 23 Private MD: DREW Physician Galdino Coleman HPI: 03/04 19:31 This 50 yrs old Female presents to ER via Ambulatory with complaints of arlet Weakness, Decreased Appetite. 19:31 The patient presents to the emergency department with weakness of the. Onset: The arlet symptoms/episode began/occurred 2 week(s) ago. Context: occurred at an unknown location. Associated signs and symptoms: Pertinent positives: dizziness, nausea, weakness. Severity of symptoms: At their worst the symptoms were mild in the emergency department the symptoms are unchanged. Patient's baseline: Neuro: alert and fully oriented. The patient has not experienced similar symptoms in the past. Historical: - Allergies: 18:41 No Known Allergies; iw - Home Meds: 18:42 Buspirone Oral [Active]; Trintellix oral [Active]; hormone [Active]; iw - PMHx: 18:41 Anxiety; cervical/uterine cancer; Depression; Hepatitis; Hypertension; iw - PSHx: 18:41 section; bunion removed; mass removed from right breast; iw - Immunization history:: Client reports having NOT received the Covid vaccine. - Social history:: Smoking status: Patient denies any tobacco usage or history of. - Family history:: not pertinent. ROS: 19:31 Constitutional: Negative for fever, chills, and weight loss, Eyes: Negative for injury, arlet pain, redness, and discharge, ENT: Negative for injury, pain, and discharge, Neck: Negative for injury, pain, and swelling, Cardiovascular: Negative for chest pain, palpitations, and edema, Back: Negative for injury and pain, : Negative for injury, bleeding, discharge, and swelling, MS/Extremity: Negative for injury and deformity, Skin: Negative for injury, rash, and discoloration, Psych: Negative for depression, anxiety, suicide ideation, homicidal ideation, and hallucinations, Allergy/Immunology: Negative for hives, rash, and allergies, Endocrine: Negative for neck swelling, polydipsia, polyuria, polyphagia, and marked weight changes, Hematologic/Lymphatic: Negative for swollen nodes, abnormal bleeding, and unusual bruising. 19:31 Respiratory: Positive for cough, "sounds productive". 19:31 Abdomen/GI: Positive for nausea and vomiting, anorexia. Exam: 19:31 Constitutional: This is a well developed, well nourished patient who is awake, alert, arlet and in no acute distress. Head/Face: Normocephalic, atraumatic. Eyes: Pupils equal round and reactive to light, extra-ocular motions intact. Lids and lashes normal. Conjunctiva and sclera are non-icteric and not injected. Cornea within normal limits. Periorbital areas with no swelling, redness, or edema. ENT: Nares patent. No nasal discharge, no septal abnormalities noted. Tympanic membranes are normal and external auditory canals are clear. Oropharynx with no redness, swelling, or masses, exudates, or evidence of obstruction, uvula midline. Mucous membranes moist. Neck: Trachea midline, no thyromegaly or masses palpated, and no cervical lymphadenopathy. Supple, full range of motion without nuchal rigidity, or vertebral point tenderness. No Meningismus. Chest/axilla: Normal chest wall appearance and motion. Nontender with no deformity. No lesions are appreciated. Cardiovascular: Regular rate and rhythm with a normal S1 and S2. No gallops, murmurs, or rubs. Normal PMI, no JVD. No pulse deficits. Abdomen/GI: Soft, non-tender, with normal bowel sounds. No distension or tympany. No guarding or rebound. No evidence of tenderness throughout. Back: No spinal tenderness. No costovertebral tenderness. Full range of motion. Skin: Warm, dry with normal turgor. Normal color with no rashes, no lesions, and no evidence of cellulitis. MS/ Extremity: Pulses equal, no cyanosis. Neurovascular intact. Full, normal range of motion. Neuro: Awake and alert, GCS 15, oriented to person, place, time, and situation. Cranial nerves II-XII grossly intact. Motor strength 5/5 in all extremities. Sensory grossly intact. Cerebellar exam normal. Normal gait. Psych: Awake, alert, with orientation to person, place and time. Behavior, mood, and affect are within normal limits. 19:31 Respiratory: the patient does not display signs of respiratory distress, Respirations: normal, Breath sounds: decreased breath sounds, that are mild, rhonchi, that are mild, stridor, is not appreciated, Respiratory rate: 18 19:55 ECG was reviewed by the Attending Physician. [facility] Vital Signs: 18:38 BP 129 / 81; Pulse 121; Resp 18 S; Pulse Ox 97% on R/A; Weight 86.18 kg; Height 5 ft. 7 iw in. (170.18 cm); 22:17 BP 136 / 78; Pulse 94; Resp 20; Temp 98; Pulse Ox 100% ; wr 18:38 Body Mass Index 29.76 (86.18 kg, 170.18 cm) iw MDM: 18:37 Patient medically screened. [facility] 19:34 Data reviewed: vital signs, nurses notes, lab test result(s), EKG, radiologic studies, arlet plain films. Data interpreted: Pulse oximetry: on room air is 97 %. Test interpretation: by ED physician or midlevel provider: ECG, plain radiologic studies. Counseling: I had a detailed discussion with the patient and/or guardian regarding: the historical points, exam findings, and any diagnostic results supporting the discharge/admit diagnosis, lab results, radiology results. 03/05 00:34 Counseling: I had a detailed discussion with the patient and/or guardian regarding: the pm1 historical points, exam findings, and any diagnostic results supporting the discharge/admit diagnosis, lab results, radiology results, the need for outpatient follow up, to return to the emergency department if symptoms worsen or persist or if there are any questions or concerns that arise at home. 00:47 ED course: Patient offered Regeneron due to history of cervical CA and obesity. pm1 Informed patient today would be the last day it would be an option for her due to the 10-day onset of symptoms. Patient decided that she did not want to take the medication. Patient's current symptoms are fatigue and malaise decreased appetite. 03/04 18:39 Order name: Basic Metabolic Panel; Complete Time: 20:39 [facility] 03/04 18:39 Order name: CBC with Diff; Complete Time: 20:39 [facility] 03/04 18:39 Order name: LFT's; Complete Time: 20:39 [facility] 03/04 18:39 Order name: Magnesium; Complete Time: 20:39 [facility] 03/04 18:39 Order name: NT PRO-BNP; Complete Time: 20:39 [facility] 03/04 18:39 Order name: PT-INR; Complete Time: 20:01 [facility] 03/04 18:39 Order name: Troponin (emerg Dept Use Only); Complete Time: 20:39 [facility] 03/04 19:36 Order name: Blood Culture Adult (2) 03/04 19:38 Order name: CRP; Complete Time: 22:44 [facility] 03/04 19:38 Order name: Ferritin; Complete Time: 22:44 [facility] 03/04 20:45 Order name: SARS-COV-2 RT PCR; Complete Time: 20:49 EDMS 03/04 23:16 Order name: Troponin (emerg Dept Use Only) pm1 03/04 18:39 Order name: XRAY Chest (1 view); Complete Time: 20:01 [facility] 03/04 18:39 Order name: EKG; Complete Time: 18:40 [facility] 03/04 18:39 Order name: Cardiac monitoring; Complete Time: 20:29 [facility] 03/04 18:39 Order name: EKG - Nurse/Tech; Complete Time: 20:29 [facility] 03/04 18:39 Order name: IV Saline Lock; Complete Time: 19:32 [facility] 03/04 18:39 Order name: Labs collected and sent; Complete Time: 19:32 [facility] 03/04 20:03 Order name: CT Chest For PE Angio; Complete Time: 20:49 [facility] 03/04 23:16 Order name: EKG; Complete Time: 23:17 pm03/04 23:17 Order name: Troponin (Emerg Dept Use Only); Complete Time: 00:34 EDMS 03/04 18:39 Order name: O2 Per Protocol; Complete Time: 19:32 [facility] 03/04 18:39 Order name: O2 Sat Monitoring; Complete Time: 19:32 [facility] 03/04 19:36 Order name: Urine Dipstick-Ancillary (obtain specimen) [facility] 03/04 20:53 Order name: PO challenge; Complete Time: 00:09 pm1 03/04 23:16 Order name: EKG - Nurse/Tech; Complete Time: 23:42 pm1 EC/14 19:55 Rate is 101 beats/min. Rhythm is regular. QRS [place] is Normal. [place] interval is normal. arlet QRS interval is normal. QT interval is normal. No Q waves. T waves are Normal. ST Segment is depressed in leads II, III, aVF, V3, V4, V5, V6. Clinical impression: Sinus tachycardia. Interpreted by me. Reviewed by me. Administered Medications: 20:21 Drug: NS 0.9% 1000 ml Route: IV; Rate: 1 bolus; Site: left antecubital; lh3 20:21 Drug: Pepcid (famotidine) 20 mg Route: IVP; Site: left antecubital; lh3 20:21 Drug: Rocephin (cefTRIAXone) 1 grams Route: IV; Rate: per protocol; Site: left lh3 antecubital; 21:30 Drug: Zofran (Ondansetron) 4 mg Route: IVP; Site: left antecubital; wr 21:31 Drug: Aspirin Chewable Tablet 162 mg Route: PO; wr 21:36 Drug: Zithromax (azithromycin) 500 mg Route: IVPB; Infused Over: 1 hrs; Site: left wr antecubital; 22:01 Drug: Lovenox (enoxaparin) 1 mg/kg Route: Sub-Q; Site: right lower abdomen; wr Disposition: 03/05 06:41 Co-signature as Attending Physician, Galdino Coleman MD I agree with the assessment and arlet plan of care. Disposition Summary: 03/05/21 00:35 Discharge Ordered Location: Home pm1 Problem: new pm1 Symptoms: have improved pm1 Condition: Stable pm1 Diagnosis - Dehydration pm1 - Pneumonia due to SARS-associated coronavirus pm1 Followup: pm1 - With: Emergency Department - When: As needed - Reason: Worsening of condition Followup: pm1 - With: Private Physician - When: 2 - 3 days - Reason: Recheck today's complaints, Continuance of care, Re-evaluation by your physician Discharge Instructions: - Discharge Summary Sheet pm1 - Dehydration, Adult pm1 - COVID-19 pm1 - COVID-19 Frequently Asked Questions pm1 - 10 Things You Can Do to Manage Your COVID-19 Symptoms at Home - [facility] pm1 - Rehydration, Adult pm1 - COVID-19: Quarantine vs. Isolation - [facility] pm1 Forms: - Medication Reconciliation Form pm1 - Thank You Letter pm1 - Antibiotic Education pm1 - Prescription Opioid Use pm1 Prescriptions: - ondansetron 4 mg Oral tablet,disintegrating - place 1 tablet by TRANSLINGUAL route every 8 hours As needed; 12 tablet; pm1 Refills: 0, Product Selection Permitted Signatures: Dispatcher [employer] [facility] Galdino Coleman MD MD cha Williams, Irene, RN RN iw Jason Narayanan, POST ACUTE CARE NURSE POST ACUTE CARE NURSE pm1 Violetta Benavidez RN RN lh3 Melchor Horton Corrections: (The following items were deleted from the chart) 03/04 19:36 18:40 CORONAVIRUS+BRZ ordered. [facility] 03/05 00:45 00:35 Coronavirus infection, unspecified pm1 pm1
--- NOTE | 2021-03-05 00:35 | ER ---
Nurse's Notes [facility] Name: Jessie Burleson Age: 50 yrs Sex: Female : 1970 Arrival Date: 03/04/2021 Time: 18:23 Bed 23 Private MD: Diagnosis: Dehydration;Pneumonia due to SARS-associated coronavirus Presentation: 03/04 18:38 Chief complaint: Patient states: fatigue, no appetite, dizziness on standing , no iw fever, denies vomiting or diarrhea , symptoms X 1 week, hx of cervical cancer, last chemo was Jun 2020. Coronavirus screen: Client presents with at least one sign or symptom that may indicate coronavirus-19. Ebola Screen: Patient negative for fever greater than or equal to 101.5 degrees Fahrenheit, and additional compatible Ebola Virus Disease symptoms Patient denies exposure to infectious person. Patient denies travel to an Ebola-affected area in the 21 days before illness onset. No symptoms or risks identified at this time. Initial Sepsis Screen: Does the patient meet any 2 criteria? No. Patient's initial sepsis screen is negative. Does the patient have a suspected source of infection?. Risk Assessment: Do you want to hurt yourself or someone else? Patient reports no desire to harm self or others. Onset of symptoms was February 25, 2021. 18:38 Method Of Arrival: Ambulatory iw 18:38 Acuity: ANGÉLICA 3 iw Triage Assessment: 22:20 General: Appears in no apparent distress. well groomed, well developed. wr Historical: - Allergies: 18:41 No Known Allergies; iw - Home Meds: 18:42 Buspirone Oral [Active]; Trintellix oral [Active]; hormone [Active]; iw - PMHx: 18:41 Anxiety; cervical/uterine cancer; Depression; Hepatitis; Hypertension; iw - PSHx: 18:41 section; bunion removed; mass removed from right breast; iw - Immunization history:: Client reports having NOT received the Covid vaccine. - Social history:: Smoking status: Patient denies any tobacco usage or history of. - Family history:: not pertinent. Screenin:39 Abuse screen: Denies threats or abuse. Nutritional screening: no appetite. Tuberculosis lh3 screening: No symptoms or risk factors identified. Fall Risk IV access (20 points). Total [place] Fall Scale indicates No Risk (0-24 pts). Assessment: 20:39 General: Appears in no apparent distress. Behavior is calm, cooperative, appropriate lh3 for age. Pain: Denies pain. GI: Abd is soft and non tender X 4 quads. Reports decreased appetite, denies vomiting and nausea. Just not feeling like eating. has only been able to keep down pudding and jello. Vital Signs: 18:38 BP 129 / 81; Pulse 121; Resp 18 S; Pulse Ox 97% on R/A; Weight 86.18 kg; Height 5 ft. 7 iw in. (170.18 cm); 22:17 BP 136 / 78; Pulse 94; Resp 20; Temp 98; Pulse Ox 100% ; wr 18:38 Body Mass Index 29.76 (86.18 kg, 170.18 cm) iw ED Course: 18:23 Patient arrived in ED. mr 18:34 Galdino Coleman MD is Attending Physician. arlet 18:41 Triage completed. iw 18:42 Arm band placed on. iw 19:27 XRAY Chest (1 view) In Process Unspecified. EDMS 19:32 Troponin (emerg Dept Use Only) Sent. lh3 19:32 Basic Metabolic Panel Sent. lh3 19:32 CBC with Diff Sent. lh3 19:32 LFT's Sent. lh3 19:32 Magnesium Sent. lh3 19:33 NT PRO-BNP Sent. lh3 19:33 PT-INR Sent. lh3 19:33 Inserted saline lock: 20 gauge in left antecubital area, using aseptic technique. lh3 20:26 CT Chest For PE Angio In Process Unspecified. EDMS 20:28 Blood Culture Adult (2) Sent. lh3 20:38 Jason Narayanan, VLAD is PHCP. pm1 20:39 Patient has correct armband on for positive identification. Call light in reach. Door lh3 closed. Verbal reassurance given. 20:39 No provider procedures requiring assistance completed. lh3 22:39 Taniya Jones, VINNY is Primary Nurse. 5 23:43 Troponin (Emerg Dept Use Only) Sent. wr Administered Medications: 20:21 Drug: NS 0.9% 1000 ml Route: IV; Rate: 1 bolus; Site: left antecubital; lh3 20:21 Drug: Pepcid (famotidine) 20 mg Route: IVP; Site: left antecubital; [facility] 20:21 Drug: Rocephin (cefTRIAXone) 1 grams Route: IV; Rate: per protocol; Site: left 3 antecubital; 21:30 Drug: Zofran (Ondansetron) 4 mg Route: IVP; Site: left antecubital; 21:31 Drug: Aspirin Chewable Tablet 162 mg Route: PO; wr 21:36 Drug: Zithromax (azithromycin) 500 mg Route: IVPB; Infused Over: 1 hrs; Site: left wr antecubital; 22:01 Drug: Lovenox (enoxaparin) 1 mg/kg Route: Sub-Q; Site: right lower abdomen; Outcome: 03/05 00:35 Discharge ordered by . pm1 02:48 Patient left the ED. cc4 Signatures: Dispatcher [employer] EDMS Galdino Coleman MD MD cha Rivera, Mary mr Christelle Olvera, RN VINNY Jason Narayanan, VLAD [employer] pm1 Violetta Benavidez RN RN [facility] Lachelle Salazar 4 Melchor Horton Bella RN RN bc5 Corrections: (The following items were deleted from the chart) 03/04 19:36 19:32 CORONAVIRUS+MR.LAB.BRZ drawn and sent. [address]
[2021-03-05 03:07] VITALS: BP 136/78; TEMP 98; O2SAT 100
--- NOTE | 2021-03-05 08:14 | EKG ---
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
--- NOTE | 2021-03-05 08:15 | EKG ---
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
== END 2021-03-05 02:48 | disposition home or self-care (01) ==
LOC: ER 18:18
DX: U07.1 COVID-19 (principal); J12.82 Pneumonia due to coronavirus disease 2019; E86.0 Dehydration; I10 Essential (primary) hypertension; F41.8 Other specified anxiety disorders; Z85.41 Personal history of malignant neoplasm of cervix uteri; Z85.42 Personal history of malignant neoplasm of other parts of uterus
CPT/HCPCS: 93005 ×2; 87040 ×2; 85025; 80048; 36415; 83735; 85610; 80076; 84484 ×2; 82728; 83880; 86140; 71275; 71045; 96375; 96372; 96374; 99284; U0003; Q9967; J0456; J0696; J7050; J7030; J2405

== ENCOUNTER → 2024-09-20 | Day surgery (SDC) | payer OTHER ==
--- NOTE | 2024-09-20 12:58 | RAD REPORT ---
EXAMINATION: ULTRASOUND GUIDED VACUUM-ASSISTED RIGHT BREAST CORE NEEDLE BIOPSY RIGHT breast core needle biopsy; percutaneous, using ultrasound guidance. Image guided placement, metallic localization clip, percutaneous. Post Bx mammogram: Right Dx Mammogram. CLINICAL INDICATION:. R92.8 INFORMED CONSENT: The risks, benefits, alternatives, and potential complications of ultrasound guided vacuum-assisted RIGHT breast biopsy were discussed with the patient. An informed consent sheet was signed. The risks include but are not limited to the following: bleeding, infection, vascular injury, organ injury, pneumothorax, allergic reaction, and the need for emergent surgery/procedures. BIOPSY TARGET: Right, Lateral approach. Hypoechoic 5 mm lesion at 6:00 o'clock. NEEDLE: 12 gauge Celero vacuum-assisted core biopsy needle, 2 cores. SEDATION: None. COMPLICATIONS: None. TECHNIQUE: Appropriate audible time out was performed. The skin was prepped and draped in the normal fashion. The soft tissues were anesthetized with lidocaine. Utilizing real-time ultrasound guidance, a vacuum-assisted core biopsy needle was placed into the breast location described below wi th removal of tissue for pathology evaluation. Metallic clip was placed within the biopsied lesion under ultrasound guidance. Compression was held. Hemostasis was achieved. Sterile dressing was applie d. Patient tolerated the procedure well without immediate complication. The technologist was in the room with the radiologist throughout the procedure. IMPRESSION: 1.Successful ultrasound guided vacuum-assisted core biopsy of the RIGHT breast as described above. 2. Biopsy clip placed within the biopsied lesion.
--- NOTE | 2024-09-20 14:26 | RAD REPORT ---
EXAM DESCRIPTION: S/P CLIP PLACEMENT UNI COMPARISON: Procedural images of ultrasound-guided core biopsy of the same day. TECHNIQUE: Full field CC and MLO views of the right breast were obtained utilizing digital breast 3D tomosynthesis technique. Computer-aided detection was utilized. FINDINGS: Postbiopsy changes are present, with postbiopsy clip in satisfactory location in the lower half of the breast and the target lesion at approximately 6:00 in the middle third. No hematoma. IMPRESSION: Postprocedural mammogram for clip localization as above. Density: B: There are scattered areas of fibroglandular density. *A negative x-ray report should not delay biopsy if a dominant or clinically suspicious mass is prese nt. 4.8% of cancers are not identified by x-ray. *A negative report may reinforce clinical impression. *Adenosis and dense breasts may obscure an underlying neoplasm. *False positive reports average 6-10%.
== END ==
LOC: DS 09:24
PROVIDERS: ATTEND Internal Medicine
DX: N64.89 Other specified disorders of breast (principal); R92.8 Other abnormal and inconclusive findings on diagnostic imaging of breast
CPT/HCPCS: 19083; 77065; 88304